=== PATIENT | female | born 1960 | race Caucasian/White ===

== ENCOUNTER 2021-10-25 22:43 | Inpatient (IN) | payer MEDICARE, MEDICAID, SELFPAY ==
--- NOTE | 2021-10-25 | ECG_ITS ---
Test Reason : SOB Blood Pressure : / mmHG Vent. Rate : 103 BPM Atrial Rate : 103 BPM P-R Int : 180 ms QRS Dur : 082 ms QT Int : 350 ms P-R-T Axes : 042 059 049 degrees QTc Int : 458 ms Artifact in tracing Sinus tachycardia Otherwise normal ECG No previous ECGs available Referred By: Generic ED Physician Electronically Signed By:MATTHEW CARRILLO
--- NOTE | ~2021-10-25 | XR_ITS ---
EXAMINATION: XR CHEST CLINICAL INFORMATION: Hypoxia COMPARISON: Previous chest x-ray most recent 10/26/2021 TECHNIQUE: Frontal view of the chest was obtained. FINDINGS: The cardiac silhouette is slightly enlarged. Hilar and mediastinal contours are unremarkable. There is improved aeration of the right lung compared to recent exams. There is scarring or subsegmental atelectasis in the right upper lung appears unchanged. There may be airspace disease at the lung bases, left greater than right. There is blunting at the bilateral costophrenic angles questionable for small bilateral pleural effusions. There are degenerative changes of the spine. XR/XR chest 1V IMPRESSION: Enlarged cardiac silhouette. Increased aeration of the right hemithorax compared to recent exams. Question bibasilar infiltrates, left greater than right.
--- NOTE | ~2021-10-25 | CT_ITS ---
EXAMINATION: CT HEAD WITHOUT CONTRAST CLINICAL INFORMATION: Altered mental status. Lethargic. COMPARISON: None TECHNIQUE: Contiguous axial imaging was performed from the skull base to vertex without intravenous administration of contrast. This CT examination was performed using dose optimization techniques as appropriate, variously including the following: *Automated exposure control *Adjustment of mA and/or kV according to patient size (this includes techniques or standardized protocols for targeted exams where dose is matched to indication/reason for exam; i.e. extremities or head) *Use of iterative reconstruction technique DLP: [id number] mGy-cm FINDINGS: There is no evidence of acute intracranial hemorrhage or territorial infarction. No abnormal mass effect or midline shift is seen. Foreman to white matter differentiation is well preserved. No extra-axial fluid collections are identified. The ventricles are normal in size. There is no abnormal attenuation within the brain parenchyma. The osseous structures and soft tissues are normal. Mild mucosal thickening present throughout the paranasal sinuses. Mastoid air cells are clear. CT/CT head/brain wo con IMPRESSION: No acute intracranial pathology.
--- NOTE | ~2021-10-25 | XR_ITS ---
EXAMINATION: XR CHEST CLINICAL INFORMATION: Hypoxia. Covid positive. COMPARISON: October 28, 2021 and October 26, 2021 TECHNIQUE: AP portable view of the chest was obtained. FINDINGS: The heart is enlarged. No evidence of pulmonary edema. Film is rotated making evaluation of mediastinum difficult. There appears to be increasing hazy density at the left base which may be related to increasing parenchymal disease or enlarging effusion. There is retrocardiac density consistent with left lower lobe consolidation. A small amount of residual right upper lobe disease is present. No pneumothorax. XR/XR chest 1V IMPRESSION: Cardiomegaly without evidence of pulmonary edema. Increasing density left lung base which appears be combination of airspace disease and effusion.
--- NOTE | ~2021-10-25 | XR_ITS ---
EXAMINATION: XR CHEST CLINICAL INFORMATION: Pneumonia. COVID. COMPARISON: 10/25/2021 TECHNIQUE: Frontal view of the chest was obtained. XR/XR chest 1V FINDINGS/IMPRESSION: Once again, the patient is rotated rightward limiting assessment. Left lung clear. Cardiac silhouette incompletely assessed. Small right pleural effusion suspected. No pneumothorax.
--- NOTE | ~2021-10-25 | XR_ITS ---
EXAMINATION: XR CHEST CLINICAL INFORMATION: Hypoxia. COMPARISON: SOB TECHNIQUE: Frontal view of the chest was obtained. FINDINGS: The lungs are hypoexpanded with patchy left basilar atelectasis. Rest lungs are clear. The heart size and pulmonary vascularity is normal. No gross bony abnormality seen. XR/XR chest 1V IMPRESSION: Patchy atelectatic changes left lung base.
--- NOTE | ~2021-10-25 | XR_ITS ---
EXAMINATION: XR CHEST CLINICAL INFORMATION: Dyspnea. COMPARISON: None TECHNIQUE: AP view of the chest was obtained. XR/XR chest 1V FINDINGS/IMPRESSION: Examination is essentially nondiagnostic due to suboptimal patient's positioning. Per technologist, the patient was unable to hold appropriate positioning during the study. The cardiomediastinal silhouette obscures the right lung. The left lung appears clear. Recommend repeat examination if clinically indicated.
[2021-10-25 22:54] VITALS: BP 124/60; BP 140/68; PULSE 103; PULSE 86; RESP 25; TEMP 37; O2SAT 96; O2SAT 97; BMI 38.9
[2021-10-25 23:24] LABS: Glucose, Whole Blood 136 mg/dL (60-115)
[2021-10-25 23:35] LABS: MANUAL DIFF FLAG NO
[2021-10-25 23:36] LABS: Basophils Percent Auto 0.4 % (0-2); Eosinophils Absolute Auto 0.1 X10*3/uL (0.0-0.4); Eosinophils Percent Auto 2.4 % (0-4); Hematocrit 34.9 % (37.0-47.0); Hemoglobin 10.4 g/dl (12.0-16.0); Imm Gran Abs Auto 0.02 X10*3/uL (0.00-0.03); Imm Gran Pct Auto 0.4 % (0.0-0.4); Lymphocytes Absolute Auto 1.2 X10*3/uL (1.2-4.9); Lymphocytes Percent Auto 21.5 % (20-40); Mean Corpuscular HGB Conc 29.8 g/dl (31.0-35.0); Mean Corpuscular Hemoglobin 27.6 pg (27.0-33.0); Mean Corpuscular Volume 92.6 fL (80.0-98.0); Mean Platelet Volume 11.2 fL (9.4-12.3); Monocytes Absolute Auto 0.6 X10*3/uL (0.1-1.2); Monocytes Percent Auto 10.5 % (2-11); Neutrophils Absolute Auto 3.5 x10*3/uL (2.0-8.3); Neutrophils Percent Auto 64.8 % (45-73); Platelet Count 215 X10*3/uL (160-400); Red Blood Count 3.77 X10*6/uL (4.20-5.50); Red Cell Distribution Width 16.6 % (11.0-16.0); White Blood Count 5.5 X10*3/uL (4.8-10.8)
--- NOTE | 2021-10-25 23:36 | ED_ITS ---
HPI - SOB/Dyspnea General Chief Complaint: Dyspnea Stated Complaint: COVID + DIFFICULTY BREATHING Time Seen by Provider: 10/25/21 23:36 Source: EMS and RN notes reviewed Mode of arrival: EMS Limitations: altered mental status History of Present Illness HPI Narrative: Patient is 61 years old from [facility] with history of schizoaffective disorder type 2 diabetes chronic diastolic heart failure hypertension hyperlipidemia major depression already received 3 doses of COVID vaccine came from intermediate for increased shortness of breath was saturating high 70s at intermediate tested positive for COVID. On arrival patient was saturating 96% on 2 L of oxygen. Related Data Allergies Allergy/AdvReac Type Severity Reaction Status Date / Time chlorpromazine Allergy Unknown Verified 10/25/21 23:01 [From Thorazine] fluphenazine [From Prolixin] Allergy Unknown Verified 10/25/21 23:01 haloperidol [From Haldol] Allergy Unknown Verified 10/25/21 23:01 niacin Allergy Unknown Verified 10/25/21 23:01 thioridazine [From Mellaril] Allergy Unknown Verified 10/25/21 23:01 Review of Systems Review of Systems: Yes Unobtainable due to mental condition [facility] Social History Social History Advance Directives: No Physical Exam Vital Signs: Vital Signs: Last Vital Signs Temp 98.6 F 10/25/21 22:54 Pulse 101 H 10/26/21 00:08 Resp 24 H 10/26/21 00:08 BP 117/62 10/26/21 00:08 Pulse Ox 97 10/26/21 00:08 Oxygen Flow Rate 3 10/25/21 22:54 BMI result Body Mass Index 38.9 Appearance: Alert. Oriented X3. Mild respiratory distress lethargic Eyes: No pallor/ icterus ENT: Pharynx normal. Oral Mucosa moist Neck: Normal inspection. Neck supple. CVS: Normal heart rate and rhythm. Pulses normal. Respiratory: Moderate respiratory distress with bilateral rales and conducted sounds Equal air entry bilateral, ? Dextrocardia Abdomen: Soft and nontender. Bowel sounds are present, no mass palpable, no CVA tenderness Skin: Skin warm and dry. Normal skin color. Normal skin turgor. Extremities: No lower extremity edema. No calf tenderness Neuro: Oriented X 3. No motor deficit. MDM - SOB/Dyspnea Lab Data Result diagrams: 10/25/21 23:25 10/25/21 23:25 Labs: Lab Results 10/25/21 10/25/21 10/25/21 Range/Units 23:13 23:20 23:25 WBC 5.5 (4.8-10.8) X10*3/uL RBC 3.77 L (4.20-5.50) X10*6/uL Hgb 10.4 L (12.0-16.0) g/dl Hct 34.9 L (37.0-47.0) % MCV 92.6 (80.0-98.0) fL MCH 27.6 (27.0-33.0) pg MCHC 29.8 L (31.0-35.0) g/dl RDW 16.6 H (11.0-16.0) % Plt Count 215 (160-400) X10*3/uL MPV 11.2 (9.4-12.3) fL Immature Gran % (Auto) 0.4 (0.0-0.4) % Neut % (Auto) 64.8 (45-73) % Lymph % (Auto) 21.5 (20-40) % [place] % (Auto) 10.5 (2-11) % Eos % (Auto) 2.4 (0-4) % Baso % (Auto) 0.4 (0-2) % Lymph # (Auto) 1.2 (1.2-4.9) X10*3/uL [place] # (Auto) 0.6 (0.1-1.2) X10*3/uL Eos # (Auto) 0.1 (0.0-0.4) X10*3/uL Baso # (Auto) 0.0 (0.0-0.2) X10*3/uL Abs Immat Gran (auto) 0.02 (0.00-0.03) X10*3/uL Absolute Neuts (auto) 3.5 (2.0-8.3) x10*3/uL Absolute Nucleated RBC 0.000 (0.0-0.012) X10*3/uL Nucleated RBC % (auto) 0.0 (0.0-0.2) /100WBC Sodium (135-145) mmol/L Potassium (3.3-5.1) mmol/L Chloride (96-108) mmol/L Carbon Dioxide (22-29) mmol/L Anion Gap (12-20) BUN (9-16) mg/dL Creatinine (0.5-1.4) mg/dL Estim Creat Clear Calc Estimated GFR POC Glucose 136 H (60-115) mg/dL Random Glucose (60-115) mg/dL Lactic Acid (0.5-2.0) mmol/L Calcium (8.4-10.2) mg/dL Total Bilirubin (0.0-1.0) mg/dL AST (5-31) U/L ALT (0-31) U/L Alkaline Phosphatase (39-117) U/L Troponin I High Sens (<3.5-17.0) ng/L B-Natriuretic Peptide (<100) pg/mL Total Protein (6.5-8.0) g/dL Albumin (3.5-5.0) g/dL Urine Color Urine Appearance Urine pH (5.0-8.0) Ur Specific [place] (1.005-1.025) Urine Protein (NEG-TRACE) MG/DL Urine Glucose (UA) (NEG) MG/DL Urine Ketones (NEG) MG/DL Urine Blood (NEG) Urine Nitrite (NEG) Ur Leukocyte Esterase (NEG) Urine RBC (0) /HPF Urine WBC (0-4) /HPF Ur Squamous Epith Cells /LPF Urine Bacteria /LPF Granular Casts /LPF Urine Mucus /LPF COVID-19 (GONZALES) Positive A (Negative) COVID-19 Clin Com See Note 10/25/21 10/25/21 10/25/21 Range/Units 23:25 23:25 23:25 WBC (4.8-10.8) X10*3/uL RBC (4.20-5.50) X10*6/uL Hgb (12.0-16.0) g/dl Hct (37.0-47.0) % MCV (80.0-98.0) fL MCH (27.0-33.0) pg MCHC (31.0-35.0) g/dl RDW (11.0-16.0) % Plt Count (160-400) X10*3/uL MPV (9.4-12.3) fL Immature Gran % (Auto) (0.0-0.4) % Neut % (Auto) (45-73) % Lymph % (Auto) (20-40) % [place] % (Auto) (2-11) % Eos % (Auto) (0-4) % Baso % (Auto) (0-2) % Lymph # (Auto) (1.2-4.9) X10*3/uL [place] # (Auto) (0.1-1.2) X10*3/uL Eos # (Auto) (0.0-0.4) X10*3/uL Baso # (Auto) (0.0-0.2) X10*3/uL Abs Immat Gran (auto) (0.00-0.03) X10*3/uL Absolute Neuts (auto) (2.0-8.3) x10*3/uL Absolute Nucleated RBC (0.0-0.012) X10*3/uL Nucleated RBC % (auto) (0.0-0.2) /100WBC Sodium 140 (135-145) mmol/L Potassium 4.2 (3.3-5.1) mmol/L Chloride 102 (96-108) mmol/L Carbon Dioxide 29 (22-29) mmol/L Anion Gap 13 (12-20) BUN 23 H (9-16) mg/dL Creatinine 0.78 (0.5-1.4) mg/dL Estim Creat Clear Calc 90.4 Estimated GFR > 60 POC Glucose (60-115) mg/dL Random Glucose 155 H (60-115) mg/dL Lactic Acid 1.2 (0.5-2.0) mmol/L Calcium 9.4 (8.4-10.2) mg/dL Total Bilirubin 0.2 (0.0-1.0) mg/dL AST 17 (5-31) U/L ALT 11 (0-31) U/L Alkaline Phosphatase 66 (39-117) U/L Troponin I High Sens < 3.5 (<3.5-17.0) ng/L B-Natriuretic Peptide 20 (<100) pg/mL Total Protein 6.2 L (6.5-8.0) g/dL Albumin 3.4 L (3.5-5.0) g/dL Urine Color Urine Appearance Urine pH (5.0-8.0) Ur Specific [place] (1.005-1.025) Urine Protein (NEG-TRACE) MG/DL Urine Glucose (UA) (NEG) MG/DL Urine Ketones (NEG) MG/DL Urine Blood (NEG) Urine Nitrite (NEG) Ur Leukocyte Esterase (NEG) Urine RBC (0) /HPF Urine WBC (0-4) /HPF Ur Squamous Epith Cells /LPF Urine Bacteria /LPF Granular Casts /LPF Urine Mucus /LPF COVID-19 (GONZALES) (Negative) COVID-19 Clin Com 10/25/21 Range/Units 23:35 WBC (4.8-10.8) X10*3/uL RBC (4.20-5.50) X10*6/uL Hgb (12.0-16.0) g/dl Hct (37.0-47.0) % MCV (80.0-98.0) fL MCH (27.0-33.0) pg MCHC (31.0-35.0) g/dl RDW (11.0-16.0) % Plt Count (160-400) X10*3/uL MPV (9.4-12.3) fL Immature Gran % (Auto) (0.0-0.4) % Neut % (Auto) (45-73) % Lymph % (Auto) (20-40) % [place] % (Auto) (2-11) % Eos % (Auto) (0-4) % Baso % (Auto) (0-2) % Lymph # (Auto) (1.2-4.9) X10*3/uL [place] # (Auto) (0.1-1.2) X10*3/uL Eos # (Auto) (0.0-0.4) X10*3/uL Baso # (Auto) (0.0-0.2) X10*3/uL Abs Immat Gran (auto) (0.00-0.03) X10*3/uL Absolute Neuts (auto) (2.0-8.3) x10*3/uL Absolute Nucleated RBC (0.0-0.012) X10*3/uL Nucleated RBC % (auto) (0.0-0.2) /100WBC Sodium (135-145) mmol/L Potassium (3.3-5.1) mmol/L Chloride (96-108) mmol/L Carbon Dioxide (22-29) mmol/L Anion Gap (12-20) BUN (9-16) mg/dL Creatinine (0.5-1.4) mg/dL Estim Creat Clear Calc Estimated GFR POC Glucose (60-115) mg/dL Random Glucose (60-115) mg/dL Lactic Acid (0.5-2.0) mmol/L Calcium (8.4-10.2) mg/dL Total Bilirubin (0.0-1.0) mg/dL AST (5-31) U/L ALT (0-31) U/L Alkaline Phosphatase (39-117) U/L Troponin I High Sens (<3.5-17.0) ng/L B-Natriuretic Peptide (<100) pg/mL Total Protein (6.5-8.0) g/dL Albumin (3.5-5.0) g/dL Urine Color YELLOW Urine Appearance HAZY Urine pH 6.0 (5.0-8.0) Ur Specific [place] 1.020 (1.005-1.025) Urine Protein NEG (NEG-TRACE) MG/DL Urine Glucose (UA) NEG (NEG) MG/DL Urine Ketones NEG (NEG) MG/DL Urine Blood NEG (NEG) Urine Nitrite POS H (NEG) Ur Leukocyte Esterase 1+ H (NEG) Urine RBC 0-2 (0) /HPF Urine WBC 15-29 H (0-4) /HPF Ur Squamous Epith Cells TRACE /LPF Urine Bacteria 3+ /LPF Granular Casts 0-2 /LPF Urine Mucus TRACE /LPF COVID-19 (GONZALES) (Negative) COVID-19 Clin Com Discharge Plan Discharge Clinical Impression: Acute respiratory disease due to COVID-19 virus UTI (urinary tract infection) Qualifiers: Urinary tract infection type: acute cystitis Hematuria presence: without hematuria Qualified Code(s): N30.00 - Acute cystitis without hematuria Patient Disposition: Admitted As Inpatient
[2021-10-25 23:43] LABS: COVID-19 Test Positive (Negative)
[2021-10-25 23:49] LABS: Lactic Acid 1.2 mmol/L (0.5-2.0)
[2021-10-25 23:49] LABS: Appearance Urine HAZY; Color Urine YELLOW; Glucose Urine UA NEG (NEG); Leukocyte Esterase Urine 1+ (NEG); Nitrite Urine POS (NEG); UACC Culture Trigger YES; Urine Blood NEG (NEG); Urine Ketones NEG (NEG); Urine Protein NEG (NEG-TRACE)
[2021-10-25 23:54] LABS: Alanine Aminotransferase 11 U/L (0-31); Albumin Level 3.4 g/dL (3.5-5.0); Alkaline Phosphatase 66 U/L (39-117); Anion Gap 13 (12-20); Aspartate Amino Transferase 17 U/L (5-31); Bilirubin Total 0.2 mg/dL (0.0-1.0); Blood Urea Nitrogen 23 mg/dL (9-16); Calcium 9.4 mg/dL (8.4-10.2); Carbon Dioxide 29 mmol/L (22-29); Chloride 102 mmol/L (96-108); Creatinine Clr Calc Pharmacy 90.4; Estimated Glomerular Filt Rate > 60; Glucose Random 155 mg/dL (60-115); Potassium 4.2 mmol/L (3.3-5.1); Sodium 140 mmol/L (135-145); Total Protein 6.2 g/dL (6.5-8.0)
[2021-10-25 23:57] LABS: B Type Natriuretic Peptide 20 pg/mL (<100); Troponin-I High Sensitivity < 3.5 ng/L (<3.5-17.0)
[2021-10-26] VITALS (10 sets, daily range): BP systolic 98–130; BP diastolic 60–74; PULSE 91–108; RESP 11–27; TEMP 36.2–37.3; O2SAT 92–97
[2021-10-26 00:15] LABS: Bacteria Urine 3+ /LPF; Granular Casts Urine 0-2 /LPF; Mucus Urine TRACE /LPF; RBC Urine 0-2 /HPF (0); Squamous Epithelial Cell Urine TRACE /LPF
[2021-10-26] MEDS: cefTRIAXone sodium 1 GM in 0.9 % Sodium Chloride 50 ML IV (00:38)
[2021-10-26] MEDS: Doxycycline Hyclate 100 MG in 0.9 % Sodium Chloride 250 ML 166.67 MG IV (00:42)
[2021-10-26] MEDS: dexAMETHasone sod phosphate 4 MG/ML VIAL 6 MG IVPUSH ×2 (01:45→08:54)
--- NOTE | 2021-10-26 01:49 | P.HPHOSP_ITS ---
History of Present Illness Date of Service: 10/26/21 Chief Complaint: hypoxia 61-year-old female with past medical history of schizoaffective disorder, type 2 diabetes, diastolic heart failure, hypertension, hyperlipidemia, depression, comes from [facility] with increased left surgery as well as shortness of br eath and hypoxia in the 70s. Patient at this time is very somnolent, responds to sound but not answering any questions. Patient is vaccinated against COVID x3 with Pfizer. According to ED physician patient brought in from [facility] with increased shortness of breath saturating in the 70s. She was tested positive for COVID at the correction but unclear on what date. On arrival to the ED patient found to have a temp of 98.6?, heart rate of 103, respiratory rate of 25, blood pressure 124/60, satting 97% on 3 L of oxygen Labs are significant for WBC count of 5.5, hemoglobin of 10.4, hematocrit 34.9, BUN of 23, creatinine of 0.78, UA positive for nitrites and leukocyte Estrace as well as WBC, COVID-19 negative, chest x-ray showed left lung clear, poor exam but possible small right pleural effusion suspected. Patient will be admitted for further management unable to complete review of systems and past medical history per chart from correction Review of Systems Review of Systems: Yes Unobtainable due to mental condition and Unobtainable due to mental status [facility] Medical History (Updated 10/26/21 @ 06:26 by Bernardino Nash MD) Diabetes mellitus type 2 in obese Diastolic heart failure Hyperlipidemia Hypertension Schizoaffective disorder Social History Advance Directives: No Meds Allergies Allergy/AdvReac Type Severity Reaction Status Date / Time chlorpromazine Allergy Unknown Verified 10/25/21 23:01 [From Thorazine] fluphenazine [From Prolixin] Allergy Unknown Verified 10/25/21 23:01 haloperidol [From Haldol] Allergy Unknown Verified 10/25/21 23:01 niacin Allergy Unknown Verified 10/25/21 23:01 thioridazine [From Mellaril] Allergy Unknown Verified 10/25/21 23:01 Home Medications Medication Instructions Recorded Confirmed Last Taken Type acetaminophen 500 mg tablet 1,000 mg PO TID 10/26/21 10/26/21 Unknown History albuterol sulfate 90 mcg/actuation 2 inh INHALATION Q4H PRN 10/26/21 10/26/21 Unknown History aerosol inhaler ascorbic acid-ascorbate 15 ml PO DAILY 10/26/21 10/26/21 Unknown History calcium-ascorbate sod 500 mg/15 mL oral liquid aspirin 81 mg tablet 81 mg PO DAILY 10/26/21 10/26/21 Unknown History atorvastatin 20 mg tablet 20 mg PO BEDTIME 10/26/21 10/26/21 Unknown History clozapine 100 mg tablet 100 mg PO BEDTIME 10/26/21 10/26/21 Unknown History clozapine 25 mg tablet 25 mg PO DAILY 10/26/21 10/26/21 Unknown History fenofibrate 160 mg tablet 160 mg PO BEDTIME 10/26/21 10/26/21 Unknown History fluticasone furoate 200 1 inh INHALATION DAILY 10/26/21 10/26/21 Unknown History mcg-vilanterol 25 mcg/dose inhalation powder (Breo Ellipta) furosemide 20 mg tablet 20 mg PO DAILY 10/26/21 10/26/21 Unknown History lamotrigine 150 mg tablet 150 mg PO DAILY 10/26/21 10/26/21 Unknown History (Lamictal) lamotrigine 200 mg tablet 200 mg PO BEDTIME 10/26/21 10/26/21 Unknown History (Lamictal) levothyroxine 25 mcg tablet 25 mcg PO DAILY 10/26/21 10/26/21 Unknown History magnesium hydroxide 400 mg/5 mL 30 ml PO DAILY 10/26/21 10/26/21 Unknown History oral suspension (Milk of Magnesia) magnesium oxide 400 mg PO TID 10/26/21 10/26/21 Unknown History meloxicam 7.5 mg tablet 7.5 mg PO DAILY 10/26/21 10/26/21 Unknown History metformin 1,000 mg tablet 1,000 mg PO BID 10/26/21 10/26/21 Unknown History methenamine hippurate 1 gram tablet 1 g PO BID 10/26/21 10/26/21 Unknown History metoprolol tartrate 25 mg tablet 25 mg PO DAILY 10/26/21 10/26/21 Unknown Histor y omega-3 fatty acids-vitamin E 1 cap PO DAILY 10/26/21 10/26/21 Unknown History 1,000 mg capsule oxcarbazepine 600 mg tablet 600 mg PO BID 10/26/21 10/26/21 Unknown History perphenazine 16 mg tablet 16 mg PO TID 10/26/21 10/26/21 Unknown History polyethylene glycol 3350 17 gram 17 g PO DAILY 10/26/21 10/26/21 Unknown History oral powder packet tiotropium bromide 18 mcg capsule 1 cap INHALATION DAILY 10/26/21 10/26/21 Unknown History with inhalation device (Spiriva with HandiHaler) trihexyphenidyl 2 mg tablet 2 mg PO DAILY 10/26/21 10/26/21 Unknown History Physical Exam Vital Signs and Narrative: Vital Signs: Last Vital Signs Temp 98.6 F 10/25/21 22:54 Pulse 98 10/26/21 01:44 Resp 26 H 10/26/21 01:44 BP 98/68 10/26/21 01:44 Pulse Ox 97 10/26/21 01:44 Oxygen Flow Rate 3 10/25/21 22:54 BMI result Body Mass Index 38.9 Const: Other: somnolent , opens her eyes to verbal stimuli but does not respond General: no acute distress Eyes: Other: pinpoint pupils General: appearance normal, both eyes and all related structures Pupils: Equal, round and reactive pupils present Resp: Other: poor exam, difficult to assess as patient unable to follow exam comment Effort & Inspection: normal respiratory effort Cardio: Rate: regular rate Rhythm: regular rhythm GI: Palpation (GI): Soft to palpation Auscultation: normal bowel sounds Skin: General skin exam: no rashes or lesions noted Neuro: Cranial nerves: Yes Equal, round and reactive pupils present Extrem: General: Yes normal to inspection and Yes no pedal edema Results Labs CBC and Chem 7: 10/25/21 23:25 10/25/21 23:25 Labs: Laboratory Results - last 24 hr 10/25/21 10/25/21 10/25/21 23:13 23:20 23:25 MCV 92.6 MCH 27.6 MCHC 29.8 L RDW 16.6 H Plt Count 215 MPV 11.2 Immature Gran % (Auto) 0.4 Neut % (Auto) 64.8 Lymph % (Auto) 21.5 [place] % (Auto) 10.5 Eos % (Auto) 2.4 Baso % (Auto) 0.4 Lymph # (Auto) 1.2 [place] # (Auto) 0.6 Eos # (Auto) 0.1 Baso # (Auto) 0.0 Abs Immat Gran (auto) 0.02 Absolute Neuts (auto) 3.5 Absolute Nucleated RBC 0.000 Nucleated RBC % (auto) 0.0 Anion Gap Estim Creat Clear Calc Estimated GFR POC Glucose 136 H Random Glucose Lactic Acid Calcium Total Bilirubin AST ALT Alkaline Phosphatase Troponin I High Sens B-Natriuretic Peptide Total Protein Albumin Urine Color Urine Appearance Urine pH Ur Specific [place] Urine Protein Urine Glucose (UA) Urine Ketones Urine Blood Urine Nitrite Ur Leukocyte Esterase Urine RBC Urine WBC Ur Squamous Epith Cells Urine Bacteria Granular Casts Urine Mucus COVID-19 (GONZALES) Positive A COVID-19 Clin Com See Note 10/25/21 10/25/21 10/25/21 23:25 23:25 23:25 MCV MCH MCHC RDW Plt Count MPV Immature Gran % (Auto) Neut % (Auto) Lymph % (Auto) [place] % (Auto) Eos % (Auto) Baso % (Auto) Lymph # (Auto) [place] # (Auto) Eos # (Auto) Baso # (Auto) Abs Immat Gran (auto) Absolute Neuts (auto) Absolute Nucleated RBC Nucleated RBC % (auto) Anion Gap 13 Estim Creat Clear Calc 90.4 Estimated GFR > 60 POC Glucose Random Glucose 155 H Lactic Acid 1.2 Calcium 9.4 Total Bilirubin 0.2 AST 17 ALT 11 Alkaline Phosphatase 66 Troponin I High Sens < 3.5 B-Natriuretic Peptide 20 Total Protein 6.2 L Albumin 3.4 L Urine Color Urine Appearance Urine pH Ur Specific [place] Urine Protein Urine Glucose (UA) Urine Ketones Urine Blood Urine Nitrite Ur Leukocyte Esterase Urine RBC Urine WBC Ur Squamous Epith Cells Urine Bacteria Granular Casts Urine Mucus COVID-19 (GONZALES) COVID-19 Clin Com 10/25/21 23:35 MCV MCH MCHC RDW Plt Count MPV Immature Gran % (Auto) Neut % (Auto) Lymph % (Auto) [place] % (Auto) Eos % (Auto) Baso % (Auto) Lymph # (Auto) [place] # (Auto) Eos # (Auto) Baso # (Auto) Abs Immat Gran (auto) Absolute Neuts (auto) Absolute Nucleated RBC Nucleated RBC % (auto) Anion Gap Estim Creat Clear Calc Estimated GFR POC Glucose Random Glucose Lactic Acid Calcium Total Bilirubin AST ALT Alkaline Phosphatase Troponin I High Sens B-Natriuretic Peptide Total Protein Albumin Urine Color YELLOW Urine Appearance HAZY Urine pH 6.0 Ur Specific [place] 1.020 Urine Protein NEG Urine Glucose (UA) NEG Urine Ketones NEG Urine Blood NEG Urine Nitrite POS H Ur Leukocyte Esterase 1+ H Urine RBC 0-2 Urine WBC 15-29 H Ur Squamous Epith Cells TRACE Urine Bacteria 3+ Granular Casts 0-2 Urine Mucus TRACE COVID-19 (GONZALES) COVID-19 Clin Com Imaging Radiologist's Impressions: Impressions Chest X-Ray 10/26/21 00:02 FINDINGS/IMPRESSION: Examination is essentially nondiagnostic due to suboptimal patient's positioning. Per technologist, the patient was unable to hold appropriate positioning during the study. The cardiomediastinal silhouette obscures the right lung. The left lung appears clear. Recommend repeat examination if clinically indicated. Chest X-Ray 10/26/21 00:50 FINDINGS/IMPRESSION: Once again, the patient is rotated rightward limiting assessment. Left lung clear. Cardiac silhouette incompletely assessed. Small right pleural effusion suspected. No pneumothorax. Assessment and Plan (1) Acute respiratory disease due to COVID-19 virus: Status: Acute (2) UTI (urinary tract infection): Qualifiers: Hematuria presence: without hematuria Urinary tract infection type: acute cystitis Qualified Code(s): N30.00 - Acute cystitis without hematuria Status: Acute (3) Encephalopathy: Status: Acute (4) Sepsis: Status: Acute 61-year-old female with past medical history of schizoaffective disorder, hypertension, hyperlipidemia, diabetes presents to the hospital with hypoxia as well as increased lethargy and altered mental status # acute hypoxic respiratory failure - secondary to COVID-19 infection - reported to be hypoxic in the 70s at the correction - currently on 3 L of nasal cannula satting 93% - will treat with Decadron - monitor respiratory status # sepsis - tachycardia, tachypnea, no leukocytosis, afebrile - most likely secondary to UTI as well as COVID-19 infection - will treat with IV antibiotics - follow cultures # encephalopathy - most likely metabolic secondary to acute infection as well as hypoxia - noted to have pinpoint pupils on exam, given 0.4 mg of Narcan with no effect. - Will obtain head CT - will treat UTIs and oxygen supplement - follow mental status improvement # UTI - positive UA - IV antibiotics - follow cultures will hold p.o. medications at this time as patient not able to take any p.o. meds. Per records from [facility] patient is DNR DNI DVT prophylaxis: Lovenox Quality Stroke Does the patient have a stroke diagnosis?: No VTE Prior VTE?: No VTE Risk Level:: Medical - moderate - high VTE Device Contraindication: Treatment Not Indicated VTE Drug Contraindication: N/A - Med Ordered
--- NOTE | 2021-10-26 01:55 | PC.NURSE ---
per paperwork from facility, pt on thin liquids, ground foods.
[2021-10-26] MEDS: Enoxaparin Sodium 40 MG/0.4 ML SYRINGE SUBCUT (02:43)
--- NOTE | 2021-10-26 02:43 | PC.NURSE ---
Shanelle sanchez sup made aware of need for clozaril to dept. This RN awaiting med arrival
--- NOTE | 2021-10-26 03:07 | PC.NURSE ---
Addendum entered by Eun Sneed 10/26/21 03:11: Per BESS Nash to be collected Original Note: This RN to bedside to medicate with clozaril per orders. Pt very lethargic, minimally arousable to voice. Pt with equal, minimal strength bilaterally. Pt desat to 88% on 3L, 89% on 4L, increased to 5L NC at this time with sat 92%. This RN to notify Dr Nash.
--- NOTE | 2021-10-26 03:20 | PC.NURSE ---
elving collected and sent to lab for processing by this rn
[2021-10-26 03:35] LABS: VBG Base Excess 6.1 mmol/L; VBG HCO3 31 mmol/L (22-26); VBG pCO2 49 mmHg; VBG pH 7.41 (7.32-7.43); VBG pO2 98 mmHg
[2021-10-26 03:35] LABS: Venous Blood Gas Refer to POC result
--- NOTE | 2021-10-26 03:42 | PC.NURSE ---
Dr Nash made aware of pt's VBG results. Pt desat to 86-87% despite 5L NC. Dr Nash aware, requesting RT to bedside. This RN notified RT, informs RT that pt is minimally arousable and appears to be mouth breather. Per RT, plan for venti mask. This RN awaiting RT to bedside.
--- NOTE | 2021-10-26 04:10 | PC.NURSE ---
RT at bedside, placed pt on venti mask but was unsuccessful at bringing SpO2 sat up. RT placed pt on marte NC at this time at 15LPM
--- NOTE | 2021-10-26 04:53 | PC.NURSE ---
Dr Nash to bedside to assess pt. v/o 0.4mg narcan ivp. this rn medicated per v/o, no improvement in lethargy at this time. plan for head ct.
[2021-10-26] MEDS: Naloxone HCl 0.4 MG/ML VIAL IVPUSH (04:55)
--- NOTE | 2021-10-26 05:04 | PC.NURSE ---
yolanda aware of no effect from narcan
[2021-10-26 06:42] LABS: MANUAL DIFF FLAG NO
--- NOTE | 2021-10-26 06:45 | PC.NURSE ---
this rn holding 0630 med d/t extreme lethargy and fear that pt is unable to safely swallow pills at this time. Dr Nash aware, agreeable.
--- NOTE | 2021-10-26 06:46 | PC.NURSE ---
incontinence care provided, pt repositioned from R side to back in position of comfort.
[2021-10-26 07:06] LABS: Basophils Percent Auto 0.3 % (0-2); Eosinophils Percent Auto 0.7 % (0-4); Hemoglobin 10.7 g/dl (12.0-16.0); Imm Gran Abs Auto 0.03 X10*3/uL (0.00-0.03); Imm Gran Pct Auto 0.5 % (0.0-0.4); Lymphocytes Absolute Auto 0.6 X10*3/uL (1.2-4.9); Lymphocytes Percent Auto 10.1 % (20-40); Mean Corpuscular HGB Conc 29.7 g/dl (31.0-35.0); Mean Corpuscular Hemoglobin 27.4 pg (27.0-33.0); Mean Corpuscular Volume 92.1 fL (80.0-98.0); Mean Platelet Volume 11.8 fL (9.4-12.3); Monocytes Absolute Auto 0.2 X10*3/uL (0.1-1.2); Neutrophils Absolute Auto 5.1 x10*3/uL (2.0-8.3); Neutrophils Percent Auto 84.4 % (45-73); Platelet Count 210 X10*3/uL (160-400); Red Blood Count 3.91 X10*6/uL (4.20-5.50); Red Cell Distribution Width 16.6 % (11.0-16.0)
[2021-10-26 07:11] LABS: Anion Gap 14 (12-20); Blood Urea Nitrogen 19 mg/dL (9-16); Calcium 9.1 mg/dL (8.4-10.2); Carbon Dioxide 30 mmol/L (22-29); Chloride 102 mmol/L (96-108); Creatinine Clr Calc Pharmacy 100.8; Estimated Glomerular Filt Rate > 60; Glucose Random 244 mg/dL (60-115); Potassium 4.6 mmol/L (3.3-5.1); Sodium 141 mmol/L (135-145)
--- NOTE | 2021-10-26 07:27 | PHA.MEDREC ---
Pharmacy Consult ? Medication Reconciliation Nursing has completed the medication reconciliation. Pharmacy has reviewed the entries, several medications were entered incorrectly. I called the half-way to get an accurate medication list. I updated the clozapine, trihexyphenidyl, and metoprolol to the correct dosing.
[2021-10-26 07:48] LABS: Glucose, Whole Blood 220 mg/dL (60-115)
[2021-10-26] MEDS: Insulin Lispro 100 UNIT/ML 3 ML VIAL SUBCUT ×4 (08:53→22:03)
[2021-10-26] MEDS: Milk of Magnesia 30 ML ORAL.SUSP PO ×2 (08:54→08:58)
[2021-10-26] MEDS: 0.9 % Sodium Chloride Flush 3 ML SYRINGE IVFLUSH ×2 (08:54→17:08)
[2021-10-26] MEDS: Furosemide 20 MG TABLET PO (08:55)
[2021-10-26] MEDS: Magnesium Oxide 400 MG TABLET PO ×3 (08:55→22:01)
[2021-10-26] MEDS: metFORMIN HCl 1,000 MG TABLET 1000 MG PO ×2 (08:56→17:07)
[2021-10-26] MEDS: Aspirin 81 MG TAB.CHEW PO (08:56)
[2021-10-26] MEDS: Metoprolol Tartrate 12.5 MG HALFTAB PO (08:56)
[2021-10-26] MEDS: Levothyroxine Sodium 25 MCG TABLET PO (08:57)
--- NOTE | 2021-10-26 09:55 | PC.NURSE ---
pt's physch meds held until seen by psych per Dr. Nelson.
[2021-10-26] MEDS: lamoTRIgine 100 MG TABLET 150 MG PO (10:59)
[2021-10-26] MEDS: Trihexyphenidyl HCL 2 MG TABLET 4 MG PO (10:59)
[2021-10-26 12:36] LABS: Glucose, Whole Blood 177 mg/dL (60-115)
[2021-10-26] MEDS: Piperacillin Sodium/Tazobactam 3.375 GM in 0.9 % Sodium Chloride 50 ML IV ×2 (14:07→21:36)
--- NOTE | 2021-10-26 15:51 | PM.CNPUL ---
History of Present Illness History of Present Illness Consult date: 10/26/21 Chief complaint: Covid Hypoxia Narrative: This is a pulmonary consultation. The patient is a ?61-year-old female with past medical history of schizoaffective disorder, type 2 diabetes, diastolic heart failure, hypertension, hyperlipidemia, depression, comes from intermediate with increased left surgery as well as shortness of breath and hypoxia in the 70s.? Patient at this time is very somnolent, responds to sound but not answering any questions.? Patient is vaccinated against COVID x3 with [employer]. On arrival to the ED patient found to have a temp of 98.6?, heart rate of 103, respiratory rate of 25, blood pressure 124/60, satting 97% on 3 L of oxygen Labs are significant for WBC count of 5.5, hemoglobin of 10.4, hematocrit 34.9, BUN of 23, creatinine of 0.78, UA positive for nitrites and leukocyte Estrace as well as WBC, COVID-19 negative, chest x-ray showed left lung clear,? poor exam but possible small right pleural effusion suspected. While in the hospital her oxygen requirements have increased further. The patient does complaint of cough and shortness of breath. However she is a very poor historian. Review of Systems Constitutional: Constitutional: Denies night sweats ENT: Denies change in voice, Denies lip swelling, Denies mouth pain, Reports nasal congestion, Reports nasal discharge and Denies tongue swelling Cardiovascular: Cardiovascular: Denies chest pain and Reports dyspnea Respiratory: Respiratory: Reports cough and Reports dyspnea Gastrointestinal: Gastrointestinal: Denies abdominal pain Musculoskeletal: Musculoskeletal: Denies no additional musculoskeletal complaints Neurologic: Denies Neuro-related abnormal movements Psychiatric: Psychiatric: Denies no additional psychiatric complaints Hematologic/Lymphatic: Hematologic/Lymphatic: Denies easy bleeding and Denies lymphadenopathy Allergic/Immunologic: Allergic/Immunologic: Denies lip swelling and Denies tongue swelling ON LICENSE OF [facility] Past Medical History Medical History (Updated 10/26/21 @ 15:56 by Sawyer Cerna MD) Diabetes mellitus type 2 in obese Diastolic heart failure HCAP (healthcare-associated pneumonia) Hyperlipidemia Hypertension Pneumonia due to 2019-nCoV Schizoaffective disorder Social History Social History Patient Tobacco Use Status: Never used Tobacco Use of substances other than those prescribed or required for medical reasons: No Advance Directives: No Meds Allergies Allergy/AdvReac Type Severity Reaction Status Date / Time chlorpromazine Allergy Unknown Verified 10/25/21 23:01 [From Thorazine] fluphenazine [From Prolixin] Allergy Unknown Verified 10/25/21 23:01 haloperidol [From Haldol] Allergy Unknown Verified 10/25/21 23:01 niacin Allergy Unknown Verified 10/25/21 23:01 thioridazine [From Mellaril] Allergy Unknown Verified 10/25/21 23:01 Active Medications: Current Medications Acetaminophen (Acetaminophen 325 Mg Tablet) 650 mg PO Q6H PRN PRN Reason: Pain, Mild (Pain Scale 1-3) Albuterol Sulfate (Albuterol Sulfate 90 Mcg 8 Gm Inhaler) 2 puff INHALE Q4H PRN PRN Reason: Shortness Of Breath Or Wheezing Aspirin (Aspirin 81 Mg Tab.Chew) 81 mg PO DAILY [facility] Last Admin: 10/26/21 08:56 Dose: 81 mg Documented by: Atorvastatin Calcium (Atorvastatin Calcium 20 Mg Tablet) 20 mg PO BEDTIME [facility] Clozapine (Clozapine 25 Mg Tablet) 75 mg PO DAILY [facility] Last Admin: 10/26/21 09:20 Dose: Not Given Documented by: Clozapine (Clozapine 100 Mg Tablet) 300 mg PO BEDTIME [facility] Dexamethasone Sodium Phosphate (Dexamethasone Sod Phosphate 4 Mg/Ml Vial) 6 mg IVPUSH DAILY [facility] Last Admin: 10/26/21 08:54 Dose: 6 mg Documented by: Dextrose (Dextrose 50 % 25 Gm/50 Ml Syringe) 25 gm IVPUSH Q15M PRN; Protocol PRN Reason: per Hypoglycemia Standing Ord. Enoxaparin Sodium (Enoxaparin Sodium 40 Mg/0.4 Ml Syringe) 40 mg SUBCUT Q24H [facility] Last Admin: 10/26/21 02:43 Dose: 40 mg Documented by: Fenofibrate (Fenofibrate 160 Mg Tablet) 160 mg PO BEDTIME [facility] Furosemide (Furosemide 20 Mg Tablet) 20 mg PO DAILY [facility]; Protocol Last Admin: 10/26/21 08:55 Dose: 20 mg Documented by: Glucose (Glucose Gel 15 Gm Gel..Gram.) 15 gm PO Q15M PRN; Protocol PRN Reason: per Hypoglycemia Standing Ord. Piperacillin Sod/Tazobactam (Sod 3.375 gm/ Sodium Chloride) 50 mls @ 100 mls/hr IV Q6H [facility] Last Admin: 10/26/21 14:07 Dose: 100 mls/hr Documented by: Insulin Human Lispro (Insulin Lispro 100 Unit/Ml 3 Ml Vial) 0 unit SUBCUT QIDACHS [facility]; Protocol Last Admin: 10/26/21 14:07 Dose: 2 unit Documented by: Lamotrigine (Lamotrigine 100 Mg Tablet) 150 mg PO DAILY [facility] Last Admin: 10/26/21 10:59 Dose: 150 mg Documented by: Lamotrigine (Lamotrigine 100 Mg Tablet) 200 mg PO BEDTIME [facility] Levothyroxine Sodium (Levothyroxine Sodium 25 Mcg Tablet) 25 mcg PO DAILY@0630 [facility] Last Admin: 10/26/21 08:57 Dose: 25 mcg Documented by: Magnesium Hydroxide (Milk Of Magnesia 30 Ml Oral.Susp) 30 ml PO DAILY [facility] Last Admin: 10/26/21 08:58 Dose: 30 ml Documented by: Magnesium Oxide (Magnesium Oxide 400 Mg Tablet) 400 mg PO TID [facility] Last Admin: 10/26/21 08:55 Dose: 400 mg Documented by: Metformin HCl (Metformin Hcl 1,000 Mg Tablet) 1,000 mg PO BIDWM [facility] Last Admin: 10/26/21 08:56 Dose: 1,000 mg Documented by: Metoprolol Tartrate (Metoprolol Tartrate 12.5 Mg Halftab) 12.5 mg PO DAILY [facility]; Protocol Last Admin: 10/26/21 08:56 Dose: 12.5 mg Documented by: Non-Formulary Medication (Methenamine Hippurate) 1 gm PO BID [facility] Ondansetron HCl (Ondansetron Hcl 4 Mg/2 Ml Vial) 4 mg IVPUSH Q8H PRN PRN Reason: Nausea and Vomiting Oxcarbazepine (Oxcarbazepine 300 Mg Tablet) 600 mg PO BID [facility] Last Admin: 10/26/21 09:21 Dose: Not Given Documented by: Perphenazine (Perphenazine 8 Mg Tablet) 16 mg PO TID [facility] Last Admin: 10/26/21 09:21 Dose: Not Given Documented by: Polyethylene Glycol (Polyethylene Glycol 3350 17 Gm Powd.Pack) 17 gm PO DAILY [facility] Last Admin: 10/26/21 09:21 Dose: Not Given Documented by: Sodium Chloride (0.9 % Sodium Chloride Flush 3 Ml Syringe) 3 ml IVFLUSH QSHIFT [facility] Last Admin: 10/26/21 08:54 Dose: 3 ml Documented by: Tiotropium Reading (Tiotropium Reading 18 Mcg Cap.W.Dev) 1 puff INHALE DAILY [facility] Last Admin: 10/26/21 08:44 Dose: Not Given Documented by: Trihexyphenidyl HCl (Trihexyphenidyl Hcl 2 Mg Tablet) 4 mg PO DAILY [facility] Last Admin: 10/26/21 10:59 Dose: 4 mg Documented by: Home Medications Medication Instructions Recorded Confirmed Last Taken Type acetaminophen 500 mg tablet 1,000 mg PO TID 10/26/21 10/26/21 Unknown History albuterol sulfate 90 mcg/actuation 2 inh INHALATION Q4H PRN 10/26/21 10/26/21 Unknown History aerosol inhaler ascorbic acid-ascorbate 15 ml PO DAILY 10/26/21 10/26/21 Unknown History calcium-ascorbate sod 500 mg/15 mL oral liquid aspirin 81 mg tablet 81 mg PO DAILY 10/26/21 10/26/21 Unknown History atorvastatin 20 mg tablet 20 mg PO BEDTIME 10/26/21 10/26/21 Unknown History clozapine 100 mg tablet 300 mg PO BEDTIME 10/26/21 10/26/21 10/25/21 History clozapine 25 mg tablet 75 mg PO DAILY 10/26/21 10/26/21 10/25/21 History fenofibrate 160 mg tablet 160 mg PO BEDTIME 10/26/21 10/26/21 Unknown History fluticasone furoate 200 1 inh INHALATION DAILY 10/26/21 10/26/21 Unknown History mcg-vilanterol 25 mcg/dose inhalation powder (Breo Ellipta) furosemide 20 mg tablet 20 mg PO DAILY 10/26/21 10/26/21 Unknown History lamotrigine 150 mg tablet 150 mg PO DAILY 10/26/21 10/26/21 Unknown History (Lamictal) lamotrigine 200 mg tablet 200 mg PO BEDTIME 10/26/21 10/26/21 Unknown History (Lamictal) levothyroxine 25 mcg tablet 25 mcg PO DAILY 10/26/21 10/26/21 Unknown History magnesium hydroxide 400 mg/5 mL 30 ml PO DAILY 10/26/21 10/26/21 Unknown History oral suspension (Milk of Magnesia) magnesium oxide 400 mg PO TID 10/26/21 10/26/21 Unknown History meloxicam 7.5 mg tablet 7.5 mg PO DAILY 10/26/21 10/26/21 Unknown History metformin 1,000 mg tablet 1,000 mg PO BID 10/26/21 10/26/21 Unknown History methenamine hippurate 1 gram tablet 1 g PO BID 10/26/21 10/26/21 Unknown History metoprolol tartrate 25 mg tablet 12.5 mg PO DAILY 10/26/21 10/26/21 Unknown History omega-3 fatty acids-vitamin E 1 cap PO DAILY 10/26/21 10/26/21 Unknown History 1,000 mg capsule oxcarbazepine 600 mg tablet 600 mg PO BID 10/26/21 10/26/21 Unknown History perphenazine 16 mg tablet 16 mg PO TID 10/26/21 10/26/21 Unknown History polyethylene glycol 3350 17 gram 17 g PO DAILY 10/26/21 10/26/21 Unknown History oral powder packet tiotropium bromide 18 mcg capsule 1 cap INHALATION DAILY 10/26/21 10/26/21 Unknown History with inhalation device (Spiriva with HandiHaler) trihexyphenidyl 2 mg tablet 4 mg PO DAILY 10/26/21 10/26/21 Unknown History Physical Exam Vital Signs: Vital Signs: Last Vital Signs Temp 98.4 F 10/26/21 06:44 Pulse 91 10/26/21 09:07 Resp 11 L 10/26/21 09:07 BP 123/73 10/26/21 09:07 Pulse Ox 97 10/26/21 09:07 Oxygen Flow Rate 3 10/25/21 22:54 BMI result Body Mass Index 38.9 Const: General: alert Neck: Neck: Yes normal visual inspection, Yes full ROM and Yes no lymphadenopathy Chest: Chest palpation & inspection: normal inspection of the chest Resp: Auscultation: diminished lung sounds Cardio: Rate: regular rate Rhythm: regular rhythm Heart sounds: S1 normal heart sound present and S2 normal heart sound present GI: Palpation (GI): Soft to palpation and nontender Auscultation: normal bowel sounds Skin: General skin exam: rashes and/or lesions noted Results Laboratory Findings CBC and BMP: 10/26/21 06:35 10/26/21 06:35 Abnormal lab findings: Abnormal Labs 10/25/21 10/25/21 10/25/21 23:13 23:20 23:25 RBC 3.77 L Hgb 10.4 L Hct 34.9 L MCHC 29.8 L RDW 16.6 H Immature Gran % (Auto) Neut % (Auto) Lymph % (Auto) Lymph # (Auto) VBG HCO3 Carbon Dioxide BUN POC Glucose 136 H Random Glucose Total Protein Albumin Urine Nitrite Ur Leukocyte Esterase Urine WBC COVID-19 (GONZALES) Positive A 10/25/21 10/25/21 10/26/21 23:25 23:35 03:18 RBC Hgb Hct MCHC RDW Immature Gran % (Auto) Neut % (Auto) Lymph % (Auto) Lymph # (Auto) VBG HCO3 31 H Carbon Dioxide BUN 23 H POC Glucose Random Glucose 155 H Total Protein 6.2 L Albumin 3.4 L Urine Nitrite POS H Ur Leukocyte Esterase 1+ H Urine WBC 15-29 H COVID-19 (GONZALES) 10/26/21 10/26/21 10/26/21 06:35 06:35 07:43 RBC 3.91 L Hgb 10.7 L Hct 36.0 L MCHC 29.7 L RDW 16.6 H Immature Gran % (Auto) 0.5 H Neut % (Auto) 84.4 H Lymph % (Auto) 10.1 L Lymph # (Auto) 0.6 L VBG HCO3 Carbon Dioxide 30 H BUN 19 H POC Glucose 220 H Random Glucose 244 H Total Protein Albumin Urine Nitrite Ur Leukocyte Esterase Urine WBC COVID-19 (GONZALES) 10/26/21 12:09 RBC Hgb Hct MCHC RDW Immature Gran % (Auto) Neut % (Auto) Lymph % (Auto) Lymph # (Auto) VBG HCO3 Carbon Dioxide BUN POC Glucose 177 H Random Glucose Total Protein Albumin Urine Nitrite Ur Leukocyte Esterase Urine WBC COVID-19 (GONZALES) Assessment and Plan (1) Acute respiratory disease due to COVID-19 virus: Status: Acute (2) Pneumonia due to 2019-nCoV: Status: Acute (3) HCAP (healthcare-associated pneumonia): Status: Acute Continue Decadron In view of her worsening respiratory status with increased oxygenation an abnormal chest x-ray she will start remdesivir Broad-spectrum antibiotics to treat Hcap: Zosyn and doxycycline Continue oxygen supplementation to maintain a pulse ox above 90% Encourage awake proning Procedures Date of Service Date of Service: 10/26/21
--- NOTE | 2021-10-26 17:03 | PM.EVENT ---
Event Note Date of Service: 10/26/21 Event Note: Patient admitted for acute hypoxemic respiratory failure secondary to COVID infection vs hcap. sob sightly better , also seems more awake Physical exam: Please see H&P accept that unchanged. assessment plan: Continue as per H&P Toxic metabolic encephalopathy multifactorial:cute hypoxemic respiratory failure secondary to COVID infection vs hcap will start doxycycline and Zosyn for Hcap possibility. Also added remdesivir. Schizoaffective disorder: On multiple psych medications -added psych consult.
[2021-10-26 17:28] LABS: Glucose, Whole Blood 215 mg/dL (60-115)
[2021-10-26] MEDS: Remdesivir 200 MG in 0.9 % Sodium Chloride 210 ML 105 MG IV (18:14)
[2021-10-26 18:27] LABS: Glucose, Whole Blood 156 mg/dL (60-115)
--- NOTE | 2021-10-26 19:46 | PC.NURSE ---
Pt resting on stretcher in NAD, breathing with ease on humidified marte at 12lpm, vss. pt aaox4, much more awake than on arrival. inc are provided, purewick placed, pt padded with pillows to relieve coccyx pressure. pt stretcher in low locked position, rails raised, call mills within reach. red fall prevention socks on, red wrist band. pt remdesivir hanging at this time, once it's infused, pt to be medicated with abx
[2021-10-26 21:42] LABS: Glucose, Whole Blood 165 mg/dL (60-115)
--- NOTE | 2021-10-26 21:46 | PC.NURSE ---
pt provided phone to call friend, spoke with friend and states she's ready for bedtime. pt to be medicated per MAR with meds available at this time, awaiting additional meds from pharmacy.
[2021-10-26] MEDS: lamoTRIgine 100 MG TABLET 200 MG PO (22:01)
[2021-10-26] MEDS: Atorvastatin Calcium 20 MG TABLET PO (22:02)
[2021-10-26] MEDS: OXcarbazepine 300 MG TABLET 600 MG PO (22:02)
[2021-10-26] MEDS: Perphenazine 8 MG TABLET 16 MG PO (23:36)
[2021-10-26] MEDS: Fenofibrate 160 MG TABLET PO (23:36)
[2021-10-26] MEDS: cloZAPine 100 MG TABLET 300 MG PO (23:36)
[2021-10-27] VITALS (7 sets, daily range): BP systolic 94–106; BP diastolic 48–65; PULSE 85–110; RESP 16–27; TEMP 35.8–37.6; O2SAT 93–97
[2021-10-27] MEDS: Piperacillin Sodium/Tazobactam 3.375 GM in 0.9 % Sodium Chloride 50 ML IV ×4 (02:36→22:21)
[2021-10-27] MEDS: Enoxaparin Sodium 40 MG/0.4 ML SYRINGE SUBCUT (02:52)
--- NOTE | 2021-10-27 04:18 | PC.NURSE ---
Pt requiring inc care as purewick was no longer in place. inc care provided, pt repositioned to R side for skin precautions. pt offers no complaints/concerns at this time. vss on supplemental O2.
[2021-10-27 07:26] LABS: Glucose, Whole Blood 160 mg/dL (60-115)
[2021-10-27 08:08] LABS: Hematocrit 33.8 % (37.0-47.0); Mean Corpuscular HGB Conc 29.6 g/dl (31.0-35.0); Mean Corpuscular Hemoglobin 27.2 pg (27.0-33.0); Mean Corpuscular Volume 91.8 fL (80.0-98.0); Mean Platelet Volume 11.5 fL (9.4-12.3); Platelet Count 177 X10*3/uL (160-400); Red Blood Count 3.68 X10*6/uL (4.20-5.50); Red Cell Distribution Width 16.4 % (11.0-16.0); White Blood Count 5.4 X10*3/uL (4.8-10.8)
[2021-10-27] MEDS: Aspirin 81 MG TAB.CHEW PO (08:10)
[2021-10-27] MEDS: Metoprolol Tartrate 12.5 MG HALFTAB PO (08:10)
[2021-10-27] MEDS: Furosemide 20 MG TABLET PO (08:11)
[2021-10-27] MEDS: Perphenazine 8 MG TABLET 16 MG PO ×3 (08:12→23:17)
[2021-10-27] MEDS: metFORMIN HCl 1,000 MG TABLET 1000 MG PO (08:12)
[2021-10-27] MEDS: dexAMETHasone sod phosphate 4 MG/ML VIAL 6 MG IVPUSH (08:14)
--- NOTE | 2021-10-27 08:16 | HO.PM.IMPN ---
Subjective Subjective Date of Service: 10/27/21 Interval History: covid Review of Systems sob seems slightly improving Physical Exam Vital Signs: Vital Signs: Last Vital Signs Temp 99.6 F 10/27/21 04:00 Pulse 102 H 10/27/21 07:21 Resp 26 H 10/27/21 07:21 BP 94/48 L 10/27/21 07:21 Pulse Ox 95 10/27/21 07:21 Oxygen Flow Rate 3 10/25/21 22:54 BMI result Body Mass Index 38.9 physical exam : Appearance: Alert.? Oriented X3.awake but wants to sleep -says ''my nap time ? Eyes: Pupils equal, round and reactive to light.? Sclera nonicteric.? ENT: Pharynx normal.? Moist mucous membranes. cvs: rrr, [id number] , no murmur res: clear to auscultation ,no rhonchii or wheezing abd: no rebound or guarding ,nt, bs present. ext pulses present , no cyanosis . neuro: axo3 , nonfocal. Objective Data Active Medications Acetaminophen (Acetaminophen 325 Mg Tablet) 650 mg PO Q6H PRN PRN Reason: Pain, Mild (Pain Scale 1-3) Albuterol Sulfate (Albuterol Sulfate 90 Mcg 8 Gm Inhaler) 2 puff INHALE Q4H PRN PRN Reason: Shortness Of Breath Or Wheezing Aspirin (Aspirin 81 Mg Tab.Chew) 81 mg PO DAILY [facility] Last Admin: 10/27/21 08:10 Dose: 81 mg Documented by: ANGIE Atorvastatin Calcium (Atorvastatin Calcium 20 Mg Tablet) 20 mg PO BEDTIME [facility] Last Admin: 10/26/21 22:02 Dose: 20 mg Documented by: ABDOUL Clozapine (Clozapine 25 Mg Tablet) 75 mg PO DAILY [facility] Last Admin: 10/26/21 09:20 Dose: Not Given Documented by: EVY Non-Admin Reason: Physician Held Med Clozapine (Clozapine 100 Mg Tablet) 300 mg PO BEDTIME [facility] Last Admin: 10/26/21 23:36 Dose: 300 mg Documented by: ABDOUL Dexamethasone Sodium Phosphate (Dexamethasone Sod Phosphate 4 Mg/Ml Vial) 6 mg IVPUSH DAILY [facility] Last Admin: 10/27/21 08:14 Dose: 6 mg Documented by: ANGIE Dextrose (Dextrose 50 % 25 Gm/50 Ml Syringe) 25 gm IVPUSH Q15M PRN; Protocol PRN Reason: per Hypoglycemia Standing Ord. Enoxaparin Sodium (Enoxaparin Sodium 40 Mg/0.4 Ml Syringe) 40 mg SUBCUT Q24H [facility] Last Admin: 10/27/21 02:52 Dose: 40 mg Documented by: OCTAVIANO Fenofibrate (Fenofibrate 160 Mg Tablet) 160 mg PO BEDTIME [facility] Last Admin: 10/26/21 23:36 Dose: 160 mg Documented by: ABDOUL Furosemide (Furosemide 20 Mg Tablet) 20 mg PO DAILY [facility]; Protocol Last Admin: 10/27/21 08:11 Dose: 20 mg Documented by: ANGIE Glucose (Glucose Gel 15 Gm Gel..Gram.) 15 gm PO Q15M PRN; Protocol PRN Reason: per Hypoglycemia Standing Ord. Piperacillin Sod/Tazobactam (Sod 3.375 gm/ Sodium Chloride) 50 mls @ 100 mls/hr IV Q6H [facility] Last Infusion: 10/27/21 03:56 Dose: 0 mls/hr Documented by: ABDOUL Remdesivir 100 mg/ Sodium (Chloride) 230 mls @ 115 mls/hr IV Q24H [facility] Stop: 10/30/21 19:59 Insulin Human Lispro (Insulin Lispro 100 Unit/Ml 3 Ml Vial) 0 unit SUBCUT QIDACHS [facility]; Protocol Last Admin: 10/26/21 22:03 Dose: 2 unit Documented by: ABDOUL Lamotrigine (Lamotrigine 100 Mg Tablet) 150 mg PO DAILY [facility] Last Admin: 10/26/21 10:59 Dose: 150 mg Documented by: EVY Lamotrigine (Lamotrigine 100 Mg Tablet) 200 mg PO BEDTIME [facility] Last Admin: 10/26/21 22:01 Dose: 200 mg Documented by: ABDOUL Levothyroxine Sodium (Levothyroxine Sodium 25 Mcg Tablet) 25 mcg PO DAILY@0630 [facility] Last Admin: 10/26/21 08:57 Dose: 25 mcg Documented by: EVY Magnesium Hydroxide (Milk Of Magnesia 30 Ml Oral.Susp) 30 ml PO DAILY [facility] Last Admin: 10/26/21 08:58 Dose: 30 ml Documented by: EVY Magnesium Oxide (Magnesium Oxide 400 Mg Tablet) 400 mg PO TID [facility] Last Admin: 10/26/21 22:01 Dose: 400 mg Documented by: ABDOUL Metformin HCl (Metformin Hcl 1,000 Mg Tablet) 1,000 mg PO BIDWM [facility] Last Admin: 10/27/21 08:12 Dose: 1,000 mg Documented by: ANGIE Metoprolol Tartrate (Metoprolol Tartrate 12.5 Mg Halftab) 12.5 mg PO DAILY [facility]; Protocol Last Admin: 10/27/21 08:10 Dose: 12.5 mg Documented by: ANGIE Non-Formulary Medication (Methenamine Hippurate) 1 gm PO BID [facility] Ondansetron HCl (Ondansetron Hcl 4 Mg/2 Ml Vial) 4 mg IVPUSH Q8H PRN PRN Reason: Nausea and Vomiting Oxcarbazepine (Oxcarbazepine 300 Mg Tablet) 600 mg PO BID [facility] Last Admin: 10/26/21 22:02 Dose: 600 mg Documented by: ABDOUL Perphenazine (Perphenazine 8 Mg Tablet) 16 mg PO TID [facility] Last Admin: 10/27/21 08:12 Dose: 16 mg Documented by: ANGIE Polyethylene Glycol (Polyethylene Glycol 3350 17 Gm Powd.Pack) 17 gm PO DAILY [facility] Last Admin: 10/26/21 09:21 Dose: Not Given Documented by: EVY Non-Admin Reason: Patient Refused Sodium Chloride (0.9 % Sodium Chloride Flush 3 Ml Syringe) 3 ml IVFLUSH QSHIFT [facility] Last Admin: 10/26/21 23:37 Dose: Not Given Documented by: ABDOUL Non-Admin Reason: Med Not Available Tiotropium [place] (Tiotropium [place] 18 Mcg Cap.W.Dev) 1 puff INHALE DAILY [facility] Last Admin: 10/26/21 08:44 Dose: Not Given Documented by: VJ Non-Admin Reason: Med Not Available Trihexyphenidyl HCl (Trihexyphenidyl Hcl 2 Mg Tablet) 4 mg PO DAILY [facility] Last Admin: 10/26/21 10:59 Dose: 4 mg Documented by: EVY Labs CBC & Chem 7: 10/27/21 07:50 10/27/21 07:50 Labs: Laboratory Results - last 24 hr 10/26/21 10/26/21 10/26/21 12:09 16:19 18:24 MCV MCH MCHC RDW Plt Count MPV Absolute Nucleated RBC Nucleated RBC % (auto) POC Glucose 177 H 215 H 156 H 10/26/21 10/27/21 10/27/21 21:33 07:22 07:50 MCV 91.8 MCH 27.2 MCHC 29.6 L RDW 16.4 H Plt Count 177 MPV 11.5 Absolute Nucleated RBC 0.000 Nucleated RBC % (auto) 0.0 POC Glucose 165 H 160 H Microbiology Microbiology Results: Microbiology 10/25/21 23:42 Blood Culture - Preliminary Blood - Venous No growth after 24 hours. 10/25/21 23:25 Blood Culture - Preliminary Blood - Venous No growth after 24 hours. Assessment and Plan (1) HCAP (healthcare-associated pneumonia): Status: Acute (2) Pneumonia due to 2019-nCoV: Status: Acute (3) Sepsis: Status: Acute (4) Encephalopathy: Status: Acute Assessment and Plan: 61-year-old female with past medical history of schizoaffective disorder, hypertension,? hyperlipidemia, diabetes presents to the hospital with hypoxia as well as increased lethargy and altered mental status 1.? acute hypoxic respiratory failure-? secondary to COVID-19 infection vx hcap. vbg: yesterday ph seems fine Blood culture and urine culture pending. continue with Decadron,remdeesvir , doxy and zosyn, on 11liter oxygen,? monitor respiratory status 2.? sepsis(poa) -? tachycardia, tachypnea-seems improving over the day, no leukocytosis, afebrile -? most likely secondary to UTI as well as COVID-19 infection continue IV antibiotics 3. toxic metabolic encephalopathy - multifactorial probably related to sepsis/covid, hcap, uti also patient is on multiple psych medications CT head negative on admission -? will treat UTIs? and oxygen supplement seems slightly more awake/alert than yesterday spoke to psych for psych medication review. 4. UTI -? positive UA -? IV antibiotics -? follow cultures Quality Stroke Does the patient have a stroke diagnosis?: No VTE Prior VTE?: No VTE Risk Level:: Medical - moderate - high VTE Device Contraindication: Treatment Not Indicated VTE Drug Contraindication: N/A - Med Ordered
[2021-10-27 08:21] LABS: Anion Gap 12 (12-20); Blood Urea Nitrogen 21 mg/dL (9-16); Calcium 9.5 mg/dL (8.4-10.2); Carbon Dioxide 33 mmol/L (22-29); Chloride 100 mmol/L (96-108); Creatinine Clr Calc Pharmacy 102.3; Estimated Glomerular Filt Rate > 60; Glucose Random 178 mg/dL (60-115); Potassium 3.9 mmol/L (3.3-5.1); Sodium 141 mmol/L (135-145)
[2021-10-27] MEDS: OXcarbazepine 300 MG TABLET 600 MG PO ×2 (10:48→23:18)
[2021-10-27] MEDS: Magnesium Oxide 400 MG TABLET PO ×3 (10:49→23:18)
[2021-10-27] MEDS: cloZAPine 25 MG TABLET 75 MG PO (10:49)
[2021-10-27] MEDS: lamoTRIgine 100 MG TABLET 150 MG PO (10:49)
[2021-10-27] MEDS: 0.9 % Sodium Chloride Flush 3 ML SYRINGE IVFLUSH ×2 (10:58→18:45)
[2021-10-27 13:36] LABS: Glucose, Whole Blood 191 mg/dL (60-115)
[2021-10-27] MEDS: Insulin Lispro 100 UNIT/ML 3 ML VIAL SUBCUT (14:29)
[2021-10-27 15:45] LABS: Alanine Aminotransferase 10 U/L (0-31); Albumin Level 3.3 g/dL (3.5-5.0); Alkaline Phosphatase 46 U/L (39-117); Aspartate Amino Transferase 14 U/L (5-31); Bilirubin Direct < 0.2 mg/dL (0.0-0.5); Bilirubin Total 0.2 mg/dL (0.0-1.0); Total Protein 5.8 g/dL (6.5-8.0)
[2021-10-27 18:12] LABS: Glucose, Whole Blood 148 mg/dL (60-115)
[2021-10-27 18:29] LABS: Band Neutrophils Percent 18 % (3-5); Eosinophils Absolute Manual 0.2 X10*3/uL (0.0-0.4); Eosinophils Percent Manual 4 % (0-4); Lymphocytes Absolute Manual 0.4 X10*3/uL (1.2-4.9); Lymphocytes Percent Manual 8 % (20-40); Metamyelocytes Absolute 0.1 X10*3/uL; Metamyelocytes Percent 1 %; Monocytes Absolute Manual 0.2 X10*3/uL (0.1-1.2); Monocytes Percent Manual 3 % (2-11); Neutrophils Absolute Manual 4.5 X10*3/uL (2.0-8.3); Neutrophils Percent Manual 66 % (45-73)
[2021-10-27 18:31] LABS: Basophilic Stippling 1+ (0-2) /OIF; Polychromasia 1+ (0-2) /OIF; RBC Morphology NOTED
[2021-10-27 18:33] LABS: Large Platelet PRESENT; Platelet Estimate NORMAL (NORMAL); Platelet Morphology Comment NOTED; Toxic Vacuolation PRESENT
[2021-10-27] MEDS: Remdesivir 100 MG in 0.9 % Sodium Chloride 230 ML 115 MG IV (19:17)
--- NOTE | 2021-10-27 19:32 | PC.NURSE ---
patient awake/alert, turned/positioned to comfort, iv medications running per order, media monitor intact, call mills within reach, will continue to monitor.
--- NOTE | 2021-10-27 19:43 | PC.NURSE ---
called the floor to give report, pts nurse is getting 2 patients at the same time and will call back for this patient when he is able.
[2021-10-27 21:42] LABS: Glucose, Whole Blood 164 mg/dL (60-115)
[2021-10-27] MEDS: cloZAPine 100 MG TABLET 300 MG PO (23:17)
[2021-10-27] MEDS: Atorvastatin Calcium 20 MG TABLET PO (23:18)
[2021-10-27] MEDS: Fenofibrate 160 MG TABLET PO (23:18)
[2021-10-27] MEDS: lamoTRIgine 100 MG TABLET 200 MG PO (23:19)
[2021-10-27 23:22] LABS: Glucose, Whole Blood 135 mg/dL (60-115)
[2021-10-28] MEDS: Piperacillin Sodium/Tazobactam 3.375 GM in 0.9 % Sodium Chloride 50 ML IV ×4 (03:10→20:34)
[2021-10-28] MEDS: 0.9 % Sodium Chloride Flush 3 ML SYRINGE IVFLUSH ×4 (03:10→21:46)
[2021-10-28] MEDS: Enoxaparin Sodium 40 MG/0.4 ML SYRINGE SUBCUT (03:10)
[2021-10-28 03:15] VITALS: BP 131/70; PULSE 96; RESP 18; TEMP 36.6; O2SAT 93
[2021-10-28] MEDS: Levothyroxine Sodium 25 MCG TABLET PO (06:46)
[2021-10-28 06:54] LABS: Baso%MD 0.2 %; Eos%MD 2.8 %; Hematocrit 33.2 % (37.0-47.0); IG%MD 0.3 %; Lymph%MD 10.2 %; Mean Corpuscular HGB Conc 30.1 g/dl (31.0-35.0); Mean Corpuscular Hemoglobin 27.6 pg (27.0-33.0); Mean Corpuscular Volume 91.7 fL (80.0-98.0); Mean Platelet Volume 11.6 fL (9.4-12.3); Neut%MD 78.5 %; Platelet Count 176 X10*3/uL (160-400); Red Blood Count 3.62 X10*6/uL (4.20-5.50); Red Cell Distribution Width 16.3 % (11.0-16.0)
[2021-10-28 07:12] LABS: Anion Gap 13 (12-20); Blood Urea Nitrogen 23 mg/dL (9-16); Calcium 9.4 mg/dL (8.4-10.2); Carbon Dioxide 34 mmol/L (22-29); Chloride 99 mmol/L (96-108); Creatinine Clr Calc Pharmacy 105.3; Estimated Glomerular Filt Rate > 60; Glucose Random 194 mg/dL (60-115); Sodium 142 mmol/L (135-145)
[2021-10-28 07:40] LABS: Glucose, Whole Blood 166 mg/dL (60-115)
--- NOTE | 2021-10-28 07:54 | HO.PM.IMPN ---
Subjective Subjective Date of Service: 10/28/21 Interval History: covid pneumonia /hcap Review of Systems sob seems slightly improving menatl status seems improvin slightly than yesterday Physical Exam Vital Signs: Vital Signs: Last Vital Signs Temp 98 F 10/28/21 03:15 Pulse 96 10/28/21 03:15 Resp 18 10/28/21 03:15 BP 131/70 10/28/21 03:15 Pulse Ox 93 10/28/21 03:15 Oxygen Flow Rate 3 10/25/21 22:54 BMI result Body Mass Index 38.9 Appearance: Alert.? Oriented X3.awake but less sleepy.. cvs: rrr, [id number] , no murmur res: air entry seems improving, slightly diminshed at bases , few rhonchii abd: no rebound or guarding ,nt, bs present. ext pulses present , no cyanosis . neuro: axo3 , nonfocal. Objective Data Active Medications Acetaminophen (Acetaminophen 325 Mg Tablet) 650 mg PO Q6H PRN PRN Reason: Pain, Mild (Pain Scale 1-3) Albuterol Sulfate (Albuterol Sulfate 90 Mcg 8 Gm Inhaler) 2 puff INHALE Q4H PRN PRN Reason: Shortness Of Breath Or Wheezing Aspirin (Aspirin 81 Mg Tab.Chew) 81 mg PO DAILY [facility] Last Admin: 10/27/21 08:10 Dose: 81 mg Documented by: ANGIE Atorvastatin Calcium (Atorvastatin Calcium 20 Mg Tablet) 20 mg PO BEDTIME [facility] Last Admin: 10/27/21 23:18 Dose: 20 mg Documented by: JESSICA Clozapine (Clozapine 25 Mg Tablet) 75 mg PO DAILY [facility] Last Admin: 10/27/21 10:49 Dose: 75 mg Documented by: ANGIE Clozapine (Clozapine 100 Mg Tablet) 300 mg PO BEDTIME [facility] Last Admin: 10/27/21 23:17 Dose: 300 mg Documented by: JESSICA Dexamethasone Sodium Phosphate (Dexamethasone Sod Phosphate 4 Mg/Ml Vial) 6 mg IVPUSH DAILY [facility] Last Admin: 10/27/21 08:14 Dose: 6 mg Documented by: ANGIE Dextrose (Dextrose 50 % 25 Gm/50 Ml Syringe) 25 gm IVPUSH Q15M PRN; Protocol PRN Reason: per Hypoglycemia Standing Ord. Enoxaparin Sodium (Enoxaparin Sodium 40 Mg/0.4 Ml Syringe) 40 mg SUBCUT Q24H [facility] Last Admin: 10/28/21 03:10 Dose: 40 mg Documented by: JESSICA Fenofibrate (Fenofibrate 160 Mg Tablet) 160 mg PO BEDTIME [facility] Last Admin: 10/27/21 23:18 Dose: 160 mg Documented by: JESSICA Furosemide (Furosemide 20 Mg Tablet) 20 mg PO DAILY [facility]; Protocol Last Admin: 10/27/21 08:11 Dose: 20 mg Documented by: ANGIE Glucose (Glucose Gel 15 Gm Gel..Gram.) 15 gm PO Q15M PRN; Protocol PRN Reason: per Hypoglycemia Standing Ord. Piperacillin Sod/Tazobactam (Sod 3.375 gm/ Sodium Chloride) 50 mls @ 100 mls/hr IV Q6H [facility] Last Infusion: 10/28/21 04:47 Dose: 0 mls/hr Documented by: JESSICA Remdesivir 100 mg/ Sodium (Chloride) 230 mls @ 115 mls/hr IV Q24H [facility] Stop: 10/30/21 19:59 Last Infusion: 10/27/21 21:17 Dose: 0 mls/hr Documented by: MELY Insulin Human Lispro (Insulin Lispro 100 Unit/Ml 3 Ml Vial) 0 unit SUBCUT QIDACHS [facility]; Protocol Last Admin: 10/27/21 23:18 Dose: Not Given Documented by: JESSICA Non-Admin Reason: No Insulin Coverage Lamotrigine (Lamotrigine 100 Mg Tablet) 150 mg PO DAILY [facility] Last Admin: 10/27/21 10:49 Dose: 150 mg Documented by: ANGIE Lamotrigine (Lamotrigine 100 Mg Tablet) 200 mg PO BEDTIME [facility] Last Admin: 10/27/21 23:19 Dose: 200 mg Documented by: JESSICA Levothyroxine Sodium (Levothyroxine Sodium 25 Mcg Tablet) 25 mcg PO DAILY@0630 [facility] Last Admin: 10/28/21 06:46 Dose: 25 mcg Documented by: JESSICA Magnesium Hydroxide (Milk Of Magnesia 30 Ml Oral.Susp) 30 ml PO DAILY [facility] Last Admin: 10/26/21 08:58 Dose: 30 ml Documented by: EVY Magnesium Oxide (Magnesium Oxide 400 Mg Tablet) 400 mg PO TID [facility] Last Admin: 10/27/21 23:18 Dose: 400 mg Documented by: JESSICA Metformin HCl (Metformin Hcl 1,000 Mg Tablet) 1,000 mg PO BIDWM [facility] Last Admin: 10/27/21 08:12 Dose: 1,000 mg Documented by: ANGIE Metoprolol Tartrate (Metoprolol Tartrate 12.5 Mg Halftab) 12.5 mg PO DAILY [facility]; Protocol Last Admin: 10/27/21 08:10 Dose: 12.5 mg Documented by: ANGIE Non-Formulary Medication (Methenamine Hippurate) 1 gm PO BID [facility] Ondansetron HCl (Ondansetron Hcl 4 Mg/2 Ml Vial) 4 mg IVPUSH Q8H PRN PRN Reason: Nausea and Vomiting Oxcarbazepine (Oxcarbazepine 300 Mg Tablet) 600 mg PO BID [facility] Last Admin: 10/27/21 23:18 Dose: 600 mg Documented by: JESSICA Perphenazine (Perphenazine 8 Mg Tablet) 16 mg PO TID [facility] Last Admin: 10/27/21 23:17 Dose: 16 mg Documented by: JESSICA Polyethylene Glycol (Polyethylene Glycol 3350 17 Gm Powd.Pack) 17 gm PO DAILY [facility] Last Admin: 10/27/21 10:57 Dose: Not Given Documented by: ANGIE Non-Admin Reason: Patient Refused Sodium Chloride (0.9 % Sodium Chloride Flush 3 Ml Syringe) 3 ml IVFLUSH QSHIFT [facility] Last Admin: 10/28/21 03:10 Dose: 3 ml Documented by: JESSICA Tiotropium Erie (Tiotropium Erie 18 Mcg Cap.W.Dev) 1 puff INHALE DAILY [facility] Last Admin: 10/27/21 11:46 Dose: Not Given Documented by: MELY Non-Admin Reason: See Note Trihexyphenidyl HCl (Trihexyphenidyl Hcl 2 Mg Tablet) 4 mg PO DAILY [facility] Last Admin: 10/27/21 11:46 Dose: Not Given Documented by: MELY Non-Admin Reason: See Note Labs CBC & Chem 7: 10/28/21 06:31 10/28/21 06:31 Labs: Laboratory Results - last 24 hr 10/27/21 10/27/21 10/27/21 07:50 07:50 12:53 MCV 91.8 MCH 27.2 MCHC 29.6 L RDW 16.4 H Plt Count 177 MPV 11.5 Absolute Nucleated RBC 0.000 Nucleated RBC % (auto) 0.0 Neutrophils % (Manual) 66 Band Neutrophils % 18 H Lymphocytes % (Manual) 8 L Monocytes % (Manual) 3 Eosinophils % (Manual) 4 Metamyelocytes % 1 Abs Neuts (Manual) 4.5 Lymphocytes # (Manual) 0.4 L Monocytes # (Manual) 0.2 Eosinophils # (Manual) 0.2 Metamyelocytes # 0.1 Toxic Vacuolation PRESENT Platelet Estimate NORMAL Large Platelets PRESENT Plt Morphology Comment NOTED RBC Morphology NOTED Polychromasia 1+ (0-2) Basophilic Stippling 1+ (0-2) Anion Gap 12 Estim Creat Clear Calc 102.3 Estimated GFR > 60 POC Glucose 191 H Random Glucose 178 H Calcium 9.5 Total Bilirubin 0.2 Direct Bilirubin < 0.2 AST 14 ALT 10 Alkaline Phosphatase 46 D Total Protein 5.8 L Albumin 3.3 L 10/27/21 10/27/21 10/27/21 18:08 21:35 23:02 MCV MCH MCHC RDW Plt Count MPV Absolute Nucleated RBC Nucleated RBC % (auto) Neutrophils % (Manual) Band Neutrophils % Lymphocytes % (Manual) Monocytes % (Manual) Eosinophils % (Manual) Metamyelocytes % Abs Neuts (Manual) Lymphocytes # (Manual) Monocytes # (Manual) Eosinophils # (Manual) Metamyelocytes # Toxic Vacuolation Platelet Estimate Large Platelets Plt Morphology Comment RBC Morphology Polychromasia Basophilic Stippling Anion Gap Estim Creat Clear Calc Estimated GFR POC Glucose 148 H 164 H 135 H Random Glucose Calcium Total Bilirubin Direct Bilirubin AST ALT Alkaline Phosphatase Total Protein Albumin 10/28/21 10/28/21 10/28/21 06:31 06:31 07:32 MCV 91.7 MCH 27.6 MCHC 30.1 L RDW 16.3 H Plt Count 176 MPV 11.6 Absolute Nucleated RBC 0.000 Nucleated RBC % (auto) 0.0 Neutrophils % (Manual) Band Neutrophils % Lymphocytes % (Manual) Monocytes % (Manual) Eosinophils % (Manual) Metamyelocytes % Abs Neuts (Manual) Lymphocytes # (Manual) Monocytes # (Manual) Eosinophils # (Manual) Metamyelocytes # Toxic Vacuolation Platelet Estimate Large Platelets Plt Morphology Comment RBC Morphology Polychromasia Basophilic Stippling Anion Gap 13 Estim Creat Clear Calc 105.3 Estimated GFR > 60 POC Glucose 166 H Random Glucose 194 H Calcium 9.4 Total Bilirubin Direct Bilirubin AST ALT Alkaline Phosphatase Total Protein Albumin Microbiology Microbiology Results: Microbiology 10/25/21 23:42 Blood Culture - Preliminary Blood - Venous No growth after 48 hours. 10/25/21 23:25 Blood Culture - Preliminary Blood - Venous No growth after 48 hours. 10/25/21 Unknown Urine Culture - Final Urine Catheterized - Straight Catheter Assessment and Plan (1) HCAP (healthcare-associated pneumonia): Status: Acute (2) Pneumonia due to 2019-nCoV: Status: Acute (3) Sepsis: Status: Acute (4) Encephalopathy: Status: Acute Assessment and Plan: 61-year-old female with past medical history of schizoaffective disorder, hypertension,? hyperlipidemia, diabetes presents to the hospital with hypoxia as well as increased lethargy and altered mental status 1.? acute hypoxic respiratory failure-? secondary to COVID-19 infection vx hcap. ?vbg: ph seems,increase pco2 : 59 ? Blood culture and urine culture pending. ?continue with Decadron,remdeesvir , doxy and zosyn, on 15liter oxygen,? monitor respiratory status 2.? sepsis(poa) -? tachycardia, tachypnea-seems improving over the day, no leukocytosis, afebrile -? most likely secondary to UTI as well as COVID-19 infection continue IV antibiotics 3. toxic metabolic encephalopathy - multifactorial probably related to sepsis/covid, hcap, uti ?also patient is on multiple psych medications ?CT head negative on admission blood and urine culture neg-prelim -? will treat UTIs? and oxygen supplement ?seems slightly more awake/alert than yesterday spoke to psych for psych medication review. 4. UTI -? positive UA -? IV antibiotics -? follow cultures Quality Stroke Does the patient have a stroke diagnosis?: No VTE Prior VTE?: No VTE Risk Level:: Medical - moderate - high VTE Device Contraindication: Treatment Not Indicated VTE Drug Contraindication: N/A - Med Ordered
[2021-10-28 07:56] VITALS: BP 108/58; PULSE 97; RESP 20; TEMP 36.4; O2SAT 96
[2021-10-28 08:35] LABS: Band Neutrophils Percent 2 % (3-5); Eosinophils Absolute Manual 0.1 X10*3/uL (0.0-0.4); Eosinophils Percent Manual 1 % (0-4); Lymphocytes Absolute Manual 0.4 X10*3/uL (1.2-4.9); Lymphocytes Percent Manual 6 % (20-40); Metamyelocytes Absolute 0.1 X10*3/uL; Metamyelocytes Percent 1 %; Monocytes Absolute Manual 0.4 X10*3/uL (0.1-1.2); Monocytes Percent Manual 7 % (2-11); Neutrophils Absolute Manual 5.1 X10*3/uL (2.0-8.3); Neutrophils Percent Manual 83 % (45-73)
[2021-10-28 08:38] LABS: Large Platelet PRESENT
[2021-10-28 08:39] LABS: Basophilic Stippling 1+ (0-2) /OIF; Hypochromasia 1+ (5-14) /OIF
[2021-10-28 08:40] LABS: RBC Morphology NOTED
[2021-10-28 08:41] LABS: Microcytosis 1+ (5-14) /OIF
[2021-10-28 08:42] LABS: Platelet Estimate NORMAL (NORMAL); Platelet Morphology Comment NOTE
[2021-10-28] MEDS: Perphenazine 8 MG TABLET 16 MG PO ×3 (08:56→21:44)
[2021-10-28] MEDS: OXcarbazepine 300 MG TABLET 600 MG PO ×2 (08:56→21:42)
[2021-10-28] MEDS: Trihexyphenidyl HCL 2 MG TABLET 4 MG PO (08:56)
[2021-10-28] MEDS: Insulin Lispro 100 UNIT/ML 3 ML VIAL SUBCUT ×4 (08:57→21:44)
[2021-10-28] MEDS: Aspirin 81 MG TAB.CHEW PO (08:57)
[2021-10-28] MEDS: cloZAPine 25 MG TABLET 75 MG PO (08:57)
[2021-10-28] MEDS: polyethylene glycoL 3350 17 GM POWD.PACK PO (08:57)
[2021-10-28] MEDS: Milk of Magnesia 30 ML ORAL.SUSP PO (08:57)
[2021-10-28] MEDS: lamoTRIgine 100 MG TABLET 150 MG PO (08:59)
[2021-10-28] MEDS: Magnesium Oxide 400 MG TABLET PO ×3 (09:01→21:42)
[2021-10-28] MEDS: dexAMETHasone sod phosphate 4 MG/ML VIAL 6 MG IVPUSH (09:10)
[2021-10-28 11:13] LABS: Glucose, Whole Blood 201 mg/dL (60-115)
[2021-10-28 11:37] VITALS: BP 128/67; PULSE 98; RESP 28; TEMP 36.6; O2SAT 94
[2021-10-28 11:39] LABS: Venous Blood Gas Refer to POC result
[2021-10-28 11:40] LABS: VBG Base Excess 13.6 mmol/L; VBG HCO3 40 mmol/L (22-26); VBG pCO2 59 mmHg; VBG pH 7.43 (7.32-7.43); VBG pO2 104 mmHg
[2021-10-28] MEDS: Furosemide 20 MG/2 ML VIAL IVPUSH (14:10)
--- NOTE | 2021-10-28 14:32 | P.EN_ITS ---
Event Note Date of Service: 10/28/21 Event Note: This pattern chart writer was asked by Psychiatry on-call covering provider from weekend, to follow-up with patient today. Patient currently receives: clozapine 75mg daily clozapine 300mg at bedtime Lamictal 150 mg daily Lamictal to 100 mg at bedtime Oxcarbamazepine 600 mg b.i.d. Perphenazine 16 mg t.i.d. Note dated 10/26/2021 from pharmacy regarding med reconciliation completed. A review of confirmed home meds completed, including recent refills on current prescriptions. Calls placed to SNF, as well as provider Dr. Mindi Melvin, and Dr. Craig, awaiting call back. Most recent ANC = 5.1. This pattern chart writer contacted provider Dr. Colt Dc, with following recommendations: It appear she has been on these high doses of clozaril, trilafon, lamictal, and trileptal for at least a year. It appears that her O2 sat has been good as well as her respiratory rate has been high. Only worry regarding meds would be respiratory depression, but that does not appear to be the case right now. 1. Please obtain clozapine level. Thank you.
--- NOTE | 2021-10-28 15:34 | MHC.CM.PN ---
Patient admitted from [facility], where she is LTC patient, bed hold. Plan is to return there when stable for dc
[2021-10-28 15:56] VITALS: BP 124/61; PULSE 94; RESP 16; TEMP 36.3; O2SAT 93
[2021-10-28 16:22] LABS: Glucose, Whole Blood 332 mg/dL (60-115)
[2021-10-28] MEDS: Remdesivir 100 MG in 0.9 % Sodium Chloride 230 ML 115 MG IV (17:14)
[2021-10-28 20:00] VITALS: BP 126/56; PULSE 95; RESP 18; TEMP 36.2; O2SAT 15
[2021-10-28 21:18] LABS: Glucose, Whole Blood 200 mg/dL (60-115)
[2021-10-28] MEDS: Fenofibrate 160 MG TABLET PO (21:42)
[2021-10-28] MEDS: cloZAPine 100 MG TABLET 300 MG PO (21:43)
[2021-10-28] MEDS: Atorvastatin Calcium 20 MG TABLET PO (21:43)
[2021-10-28] MEDS: lamoTRIgine 100 MG TABLET 200 MG PO (21:44)
[2021-10-28 23:16] VITALS: BP 120/70; PULSE 96; RESP 18; TEMP 36.4; O2SAT 96
[2021-10-29] VITALS (11 sets, daily range): BP systolic 113–130; BP diastolic 59–70; PULSE 63–104; RESP 18–22; TEMP 36.1–36.8; O2SAT 90–96
[2021-10-29] MEDS: Piperacillin Sodium/Tazobactam 3.375 GM in 0.9 % Sodium Chloride 50 ML IV ×4 (02:45→20:18)
[2021-10-29] MEDS: Enoxaparin Sodium 40 MG/0.4 ML SYRINGE SUBCUT (03:28)
[2021-10-29] MEDS: Levothyroxine Sodium 25 MCG TABLET PO (05:57)
[2021-10-29 06:53] LABS: Baso%MD 0.2 %; Eos%MD 3.2 %; Hematocrit 34.6 % (37.0-47.0); Hemoglobin 10.4 g/dl (12.0-16.0); IG%MD 0.6 %; Lymph%MD 21.9 %; Mean Corpuscular HGB Conc 30.1 g/dl (31.0-35.0); Mean Corpuscular Hemoglobin 27.3 pg (27.0-33.0); Mean Corpuscular Volume 90.8 fL (80.0-98.0); Mean Platelet Volume 11.2 fL (9.4-12.3); Mono%MD 9.3 %; Neut%MD 64.8 %; Platelet Count 178 X10*3/uL (160-400); Red Blood Count 3.81 X10*6/uL (4.20-5.50); Red Cell Distribution Width 15.9 % (11.0-16.0); White Blood Count 4.7 X10*3/uL (4.8-10.8)
[2021-10-29 07:08] LABS: Anion Gap 11 (12-20); Blood Urea Nitrogen 16 mg/dL (9-16); Calcium 9.5 mg/dL (8.4-10.2); Carbon Dioxide 39 mmol/L (22-29); Chloride 98 mmol/L (96-108); Estimated Glomerular Filt Rate > 60; Glucose Random 166 mg/dL (60-115); Potassium 3.6 mmol/L (3.3-5.1); Sodium 144 mmol/L (135-145)
[2021-10-29 07:33] LABS: Band Neutrophils Percent 3 % (3-5); Basophils Percent Manual 1 % (0-2); Eosinophils Absolute Manual 0.1 X10*3/uL (0.0-0.4); Eosinophils Percent Manual 3 % (0-4); Lymphocytes Absolute Manual 1.1 X10*3/uL (1.2-4.9); Lymphocytes Percent Manual 24 % (20-40); Monocytes Absolute Manual 0.3 X10*3/uL (0.1-1.2); Monocytes Percent Manual 6 % (2-11); Neutrophils Absolute Manual 3.1 X10*3/uL (2.0-8.3); Neutrophils Percent Manual 63 % (45-73)
[2021-10-29 07:35] LABS: Polychromasia 1+ (0-2) /OIF; RBC Morphology NOTED
[2021-10-29 07:40] LABS: Basophilic Stippling 1+ (0-2) /OIF; Toxic Vacuolation PRESENT
[2021-10-29 07:41] LABS: Large Platelet PRESENT; Platelet Estimate NORMAL (NORMAL); Platelet Morphology Comment NOTED
[2021-10-29 07:47] LABS: Glucose, Whole Blood 166 mg/dL (60-115)
[2021-10-29] MEDS: Perphenazine 8 MG TABLET 16 MG PO ×3 (08:02→20:19)
[2021-10-29] MEDS: polyethylene glycoL 3350 17 GM POWD.PACK PO (08:02)
[2021-10-29] MEDS: dexAMETHasone sod phosphate 4 MG/ML VIAL 6 MG IVPUSH (08:02)
[2021-10-29] MEDS: Milk of Magnesia 30 ML ORAL.SUSP PO (08:02)
[2021-10-29] MEDS: Trihexyphenidyl HCL 2 MG TABLET 4 MG PO (08:03)
[2021-10-29] MEDS: cloZAPine 25 MG TABLET 75 MG PO (08:03)
[2021-10-29] MEDS: Magnesium Oxide 400 MG TABLET PO ×3 (08:03→20:20)
[2021-10-29] MEDS: Aspirin 81 MG TAB.CHEW PO (08:03)
[2021-10-29] MEDS: Insulin Lispro 100 UNIT/ML 3 ML VIAL SUBCUT ×4 (08:03→20:26)
[2021-10-29] MEDS: OXcarbazepine 300 MG TABLET 600 MG PO ×2 (08:03→20:20)
[2021-10-29] MEDS: 0.9 % Sodium Chloride Flush 3 ML SYRINGE IVFLUSH ×3 (08:04→20:26)
[2021-10-29] MEDS: lamoTRIgine 100 MG TABLET 150 MG PO (08:07)
[2021-10-29] MEDS: Albuterol/Iprat 2.5/0.5MG 3 ML AMPUL.NEB INHALE ×4 (08:15→21:18)
[2021-10-29 11:40] LABS: Glucose, Whole Blood 270 mg/dL (60-115)
[2021-10-29 14:58] LABS: VBG Base Excess 13.3 mmol/L; VBG HCO3 38 mmol/L (22-26); VBG pCO2 52 mmHg; VBG pH 7.47 (7.32-7.43); VBG pO2 95 mmHg
[2021-10-29 15:00] LABS: Venous Blood Gas Refer to POC result
--- NOTE | 2021-10-29 15:42 | PM.PNPUL ---
Subjective Subjective Date of Service: 10/29/21 Principal diagnosis: COVID hypoxic respiratory failure Interval history: 61-year-old lady with underlying schizoaffective disorder, diastolic heart failure obesity admitted with worsening dyspnea secondary to COVID-19 . Treated with dexamethasone. Now slowly improving with improving FiO2 requirements, But still requesting L via nasal cannula. Objective Data Labs CBC & Chem 7: 10/29/21 06:37 10/29/21 06:37 Labs: Laboratory Results - last 24 hr 10/28/21 10/28/21 10/29/21 15:58 21:08 06:37 WBC 4.7 L RBC 3.81 L Hgb 10.4 L Hct 34.6 L MCV 90.8 MCH 27.3 MCHC 30.1 L RDW 15.9 Plt Count 178 MPV 11.2 Absolute Nucleated RBC 0.000 Nucleated RBC % (auto) 0.0 Neutrophils % (Manual) 63 Band Neutrophils % 3 Lymphocytes % (Manual) 24 Monocytes % (Manual) 6 Eosinophils % (Manual) 3 Basophils % (Manual) 1 Abs Neuts (Manual) 3.1 Lymphocytes # (Manual) 1.1 L Monocytes # (Manual) 0.3 Eosinophils # (Manual) 0.1 Toxic Vacuolation PRESENT Platelet Estimate NORMAL Large Platelets PRESENT Plt Morphology Comment NOTED RBC Morphology NOTED Polychromasia 1+ (0-2) Basophilic Stippling 1+ (0-2) VBG pH VBG pCO2 VBG pO2 VBG HCO3 VBG O2 Saturation VBG Base Excess Sodium Potassium Chloride Carbon Dioxide Anion Gap BUN Creatinine Estim Creat Clear Calc Estimated GFR POC Glucose 332 H 200 H Random Glucose Calcium 10/29/21 10/29/21 10/29/21 06:37 07:38 11:31 WBC RBC Hgb Hct MCV MCH MCHC RDW Plt Count MPV Absolute Nucleated RBC Nucleated RBC % (auto) Neutrophils % (Manual) Band Neutrophils % Lymphocytes % (Manual) Monocytes % (Manual) Eosinophils % (Manual) Basophils % (Manual) Abs Neuts (Manual) Lymphocytes # (Manual) Monocytes # (Manual) Eosinophils # (Manual) Toxic Vacuolation Platelet Estimate Large Platelets Plt Morphology Comment RBC Morphology Polychromasia Basophilic Stippling VBG pH VBG pCO2 VBG pO2 VBG HCO3 VBG O2 Saturation VBG Base Excess Sodium 144 Potassium 3.6 Chloride 98 Carbon Dioxide 39 H Anion Gap 11 L BUN 16 Creatinine 0.63 Estim Creat Clear Calc 112.0 Estimated GFR > 60 POC Glucose 166 H 270 H Random Glucose 166 H Calcium 9.5 10/29/21 14:51 WBC RBC Hgb Hct MCV MCH MCHC RDW Plt Count MPV Absolute Nucleated RBC Nucleated RBC % (auto) Neutrophils % (Manual) Band Neutrophils % Lymphocytes % (Manual) Monocytes % (Manual) Eosinophils % (Manual) Basophils % (Manual) Abs Neuts (Manual) Lymphocytes # (Manual) Monocytes # (Manual) Eosinophils # (Manual) Toxic Vacuolation Platelet Estimate Large Platelets Plt Morphology Comment RBC Morphology Polychromasia Basophilic Stippling VBG pH 7.47 H VBG pCO2 52 VBG pO2 95 VBG HCO3 38 H VBG O2 Saturation 94.0 VBG Base Excess 13.3 Sodium Potassium Chloride Carbon Dioxide Anion Gap BUN Creatinine Estim Creat Clear Calc Estimated GFR POC Glucose Random Glucose Calcium Microbiology Microbiology Results: Microbiology 10/25/21 23:42 Blood - Venous Blood Culture - Preliminary No growth after 48 hours. 10/25/21 23:25 Blood - Venous Blood Culture - Preliminary No growth after 48 hours. 10/25/21 Unknown Urine Catheterized - Straight Catheter Urine Culture - Final Review of Systems Cardiovascular: Denies chest pain and Reports dyspnea Respiratory: Reports cough, Reports dyspnea and Denies wheezing Allergic/Immunologic: Denies wheezing Physical Exam Vital Signs: Vital Signs: Last Vital Signs Temp 98.0 F 10/29/21 15:28 Pulse 104 H 10/29/21 15:28 Resp 20 10/29/21 15:28 BP 130/69 10/29/21 15:28 Pulse Ox 94 10/29/21 15:28 Oxygen Flow Rate 3 10/25/21 22:54 BMI result Body Mass Index 38.9 Const: General: no acute distress, awake and other ( Confused) Nutritional Appearance: obese Eyes: Sclerae: sclerae normal EOM: EOMs intact bilaterally Neck: Neck: Yes no lymphadenopathy, Yes trachea midline and Yes supple Resp: Effort & Inspection: normal respiratory effort and no respiratory distress Auscultation: clear to auscultation bilaterally Cardio: Rate: tachycardic Rhythm: regular rhythm Heart sounds: no gallops, no murmurs and no rubs GI: Palpation (GI): Soft to palpation and Other GI palpation findings present ( Nontender) Auscultation: normal bowel sounds Extrem: General: No clubbing, No cyanosis and Yes pedal edema ( trace bilateral) Procedures Date of Service Date of Service: 10/29/21 Assessment and Plan Assessment and plan (1) Acute respiratory disease due to COVID-19 virus: Status: Acute (2) Acute respiratory failure with hypoxia: Status: Acute Assessment and Plan: Impression: 61-year-old lady with underlying diastolic dysfunction admitted with hypoxia secondary to COVID-19,treated with dexamethasone, improving slowly. Blood gas is reviewed evidence of CO2 retention, confusion is likely related to underlying psychiatric issues. Recommendation: Agree with current regimen of dexamethasone and titrating her supplemental oxygen as tolerated. Time Spent With Patient Time: Total time spent is greater than 50% in coordination of care (as documented) at patient's floor/unit and/or counseling patient: Time with patient: 15 - 24 minutes Progress Note: Quality Stroke Does the patient have a stroke diagnosis?: No
--- NOTE | 2021-10-29 15:58 | HO.PM.IMPN ---
Subjective Subjective Date of Service: 10/30/21 Interval History: covid pneumonia /hcap Review of Systems sob seems seems similar to yeterday seems still alert oriented , but has on/off hallucination Physical Exam Vital Signs: Vital Signs: Last Vital Signs Temp 98.0 F 10/29/21 15:28 Pulse 101 H 10/29/21 15:54 Resp 20 10/29/21 15:54 BP 130/69 10/29/21 15:28 Pulse Ox 94 10/29/21 15:28 Oxygen Flow Rate 3 10/25/21 22:54 BMI result Body Mass Index 38.9 Appearance: Alert.? Oriented X3.awake but less sleepy. intermittent hallucination? cvs: rrr, [id number] , no murmur res: air entry seems improving, slightly diminshed at bases , few rhonchii abd: no rebound or guarding ,nt, bs present. ext pulses present , no cyanosis . neuro: axo3 , nonfocal Objective Data Active Medications Acetaminophen (Acetaminophen 325 Mg Tablet) 650 mg PO Q6H PRN PRN Reason: Pain, Mild (Pain Scale 1-3) Albuterol Sulfate (Albuterol Sulfate 90 Mcg 8 Gm Inhaler) 2 puff INHALE Q4H PRN PRN Reason: Shortness Of Breath Or Wheezing Albuterol/Ipratropium (Albuterol/Iprat 2.5/0.5mg 3 Ml Ampul.Neb) 3 ml INHALE RQ4H WHILE AWAKE [facility] Last Admin: 10/29/21 15:52 Dose: 3 ml Documented by: ARMANDO Aspirin (Aspirin 81 Mg Tab.Chew) 81 mg PO DAILY [facility] Last Admin: 10/29/21 08:03 Dose: 81 mg Documented by: ALDEN Atorvastatin Calcium (Atorvastatin Calcium 20 Mg Tablet) 20 mg PO BEDTIME [facility] Last Admin: 10/28/21 21:43 Dose: 20 mg Documented by: LUANN Clozapine (Clozapine 25 Mg Tablet) 75 mg PO DAILY [facility] Last Admin: 10/29/21 08:03 Dose: 75 mg Documented by: ALDEN Clozapine (Clozapine 100 Mg Tablet) 300 mg PO BEDTIME [facility] Last Admin: 10/28/21 21:43 Dose: 300 mg Documented by: LUANN Dexamethasone Sodium Phosphate (Dexamethasone Sod Phosphate 4 Mg/Ml Vial) 6 mg IVPUSH DAILY [facility] Last Admin: 10/29/21 08:02 Dose: 6 mg Documented by: ALDEN Dextrose (Dextrose 50 % 25 Gm/50 Ml Syringe) 25 gm IVPUSH Q15M PRN; Protocol PRN Reason: per Hypoglycemia Standing Ord. Enoxaparin Sodium (Enoxaparin Sodium 40 Mg/0.4 Ml Syringe) 40 mg SUBCUT Q24H [facility] Last Admin: 10/29/21 03:28 Dose: 40 mg Documented by: LUANN Fenofibrate (Fenofibrate 160 Mg Tablet) 160 mg PO BEDTIME [facility] Last Admin: 10/28/21 21:42 Dose: 160 mg Documented by: LUANN Furosemide (Furosemide 20 Mg Tablet) 20 mg PO DAILY [facility]; Protocol Last Admin: 10/27/21 08:11 Dose: 20 mg Documented by: ANGIE Glucose (Glucose Gel 15 Gm Gel..Gram.) 15 gm PO Q15M PRN; Protocol PRN Reason: per Hypoglycemia Standing Ord. Piperacillin Sod/Tazobactam (Sod 3.375 gm/ Sodium Chloride) 50 mls @ 100 mls/hr IV Q6H [facility] Last Infusion: 10/29/21 12:43 Dose: 0 mls/hr Documented by: ALDEN Remdesivir 100 mg/ Sodium (Chloride) 230 mls @ 115 mls/hr IV Q24H [facility] Stop: 10/30/21 19:59 Last Infusion: 10/28/21 19:46 Dose: 0 mls/hr Documented by: JASPREET Insulin Human Lispro (Insulin Lispro 100 Unit/Ml 3 Ml Vial) 0 unit SUBCUT QIDACHS [facility]; Protocol Last Admin: 10/29/21 12:02 Dose: 6 unit Documented by: ALDEN Lamotrigine (Lamotrigine 100 Mg Tablet) 150 mg PO DAILY [facility] Last Admin: 10/29/21 08:07 Dose: 150 mg Documented by: ALDEN Lamotrigine (Lamotrigine 100 Mg Tablet) 200 mg PO BEDTIME [facility] Last Admin: 10/28/21 21:44 Dose: 200 mg Documented by: LUANN Levothyroxine Sodium (Levothyroxine Sodium 25 Mcg Tablet) 25 mcg PO DAILY@0630 [facility] Last Admin: 10/29/21 05:57 Dose: 25 mcg Documented by: LUANN Magnesium Hydroxide (Milk Of Magnesia 30 Ml Oral.Susp) 30 ml PO DAILY [facility] Last Admin: 10/29/21 08:02 Dose: 30 ml Documented by: ALDEN Magnesium Oxide (Magnesium Oxide 400 Mg Tablet) 400 mg PO TID [facility] Last Admin: 10/29/21 08:03 Dose: 400 mg Documented by: ALDEN Metformin HCl (Metformin Hcl 1,000 Mg Tablet) 1,000 mg PO BIDWM [facility] Last Admin: 10/27/21 08:12 Dose: 1,000 mg Documented by: ANGIE Metoprolol Tartrate (Metoprolol Tartrate 12.5 Mg Halftab) 12.5 mg PO DAILY [facility]; Protocol Last Admin: 10/27/21 08:10 Dose: 12.5 mg Documented by: ANGIE Non-Formulary Medication (Methenamine Hippurate) 1 gm PO BID [facility] Ondansetron HCl (Ondansetron Hcl 4 Mg/2 Ml Vial) 4 mg IVPUSH Q8H PRN PRN Reason: Nausea and Vomiting Oxcarbazepine (Oxcarbazepine 300 Mg Tablet) 600 mg PO BID [facility] Last Admin: 10/29/21 08:03 Dose: 600 mg Documented by: ALDEN Perphenazine (Perphenazine 8 Mg Tablet) 16 mg PO TID [facility] Last Admin: 10/29/21 08:02 Dose: 16 mg Documented by: ALDEN Polyethylene Glycol (Polyethylene Glycol 3350 17 Gm Powd.Pack) 17 gm PO DAILY [facility] Last Admin: 10/29/21 08:02 Dose: 17 gm Documented by: ALDEN Sodium Chloride (0.9 % Sodium Chloride Flush 3 Ml Syringe) 3 ml IVFLUSH QSHIFT [facility] Last Admin: 10/29/21 08:04 Dose: 3 ml Documented by: ALDEN Tiotropium [place] (Tiotropium [place] 18 Mcg Cap.W.Dev) 1 puff INHALE DAILY [facility] Last Admin: 10/29/21 08:15 Dose: 1 puff Documented by: ARMANDO Trihexyphenidyl HCl (Trihexyphenidyl Hcl 2 Mg Tablet) 4 mg PO DAILY [facility] Last Admin: 10/29/21 08:03 Dose: 4 mg Documented by: ALDEN Labs CBC & Chem 7: 10/30/21 05:43 10/30/21 05:43 Labs: Laboratory Results - last 24 hr 10/28/21 10/28/21 10/29/21 15:58 21:08 06:37 MCV 90.8 MCH 27.3 MCHC 30.1 L RDW 15.9 Plt Count 178 MPV 11.2 Absolute Nucleated RBC 0.000 Nucleated RBC % (auto) 0.0 Neutrophils % (Manual) 63 Band Neutrophils % 3 Lymphocytes % (Manual) 24 Monocytes % (Manual) 6 Eosinophils % (Manual) 3 Basophils % (Manual) 1 Abs Neuts (Manual) 3.1 Lymphocytes # (Manual) 1.1 L Monocytes # (Manual) 0.3 Eosinophils # (Manual) 0.1 Toxic Vacuolation PRESENT Platelet Estimate NORMAL Large Platelets PRESENT Plt Morphology Comment NOTED RBC Morphology NOTED Polychromasia 1+ (0-2) Basophilic Stippling 1+ (0-2) VBG pH VBG pCO2 VBG pO2 VBG HCO3 VBG O2 Saturation VBG Base Excess Anion Gap Estim Creat Clear Calc Estimated GFR POC Glucose 332 H 200 H Random Glucose Calcium 10/29/21 10/29/21 10/29/21 06:37 07:38 11:31 MCV MCH MCHC RDW Plt Count MPV Absolute Nucleated RBC Nucleated RBC % (auto) Neutrophils % (Manual) Band Neutrophils % Lymphocytes % (Manual) Monocytes % (Manual) Eosinophils % (Manual) Basophils % (Manual) Abs Neuts (Manual) Lymphocytes # (Manual) Monocytes # (Manual) Eosinophils # (Manual) Toxic Vacuolation Platelet Estimate Large Platelets Plt Morphology Comment RBC Morphology Polychromasia Basophilic Stippling VBG pH VBG pCO2 VBG pO2 VBG HCO3 VBG O2 Saturation VBG Base Excess Anion Gap 11 L Estim Creat Clear Calc 112.0 Estimated GFR > 60 POC Glucose 166 H 270 H Random Glucose 166 H Calcium 9.5 10/29/21 14:51 MCV MCH MCHC RDW Plt Count MPV Absolute Nucleated RBC Nucleated RBC % (auto) Neutrophils % (Manual) Band Neutrophils % Lymphocytes % (Manual) Monocytes % (Manual) Eosinophils % (Manual) Basophils % (Manual) Abs Neuts (Manual) Lymphocytes # (Manual) Monocytes # (Manual) Eosinophils # (Manual) Toxic Vacuolation Platelet Estimate Large Platelets Plt Morphology Comment RBC Morphology Polychromasia Basophilic Stippling VBG pH 7.47 H VBG pCO2 52 VBG pO2 95 VBG HCO3 38 H VBG O2 Saturation 94.0 VBG Base Excess 13.3 Anion Gap Estim Creat Clear Calc Estimated GFR POC Glucose Random Glucose Calcium Assessment and Plan (1) Acute respiratory failure with hypoxia: Status: Acute (2) HCAP (healthcare-associated pneumonia): Status: Acute Assessment and Plan: 61-year-old female with past medical history of schizoaffective disorder, hypertension,? hyperlipidemia, diabetes presents to the hospital with hypoxia as well as increased lethargy and altered mental status 1.? acute hypoxic respiratory failure-? secondary to COVID-19 infection vx hcap. ?vbg:? ph seems,increase pco2 : 52 ? Blood culture and urine culture pending. ?continue with Decadron,remdeesvir , doxy and zosyn, on 15liter oxygen,? monitor respiratory status 2.? sepsis(poa) -? tachycardia, tachypnea-seems improving over the day, no leukocytosis, afebrile -? most likely secondary to UTI as well as COVID-19 infection continue IV antibiotics 3. toxic metabolic encephalopathy - multifactorial probably related to sepsis/covid, hcap, uti ?also patient is on multiple psych medications ?CT head negative on admission blood and urine culture neg-prelim -? will treat UTIs? and oxygen supplement Patient seems more awake, but has intermittent hallucinations-? question breathing estes seems slowly improving but unclear hallucination related to psych disorder versus meds psych follow-up 4. UTI -? positive UA -? IV antibiotics -? follow cultures Quality Stroke Does the patient have a stroke diagnosis?: No VTE Prior VTE?: No VTE Risk Level:: Medical - moderate - high VTE Device Contraindication: Treatment Not Indicated VTE Drug Contraindication: N/A - Med Ordered
[2021-10-29 16:08] LABS: Glucose, Whole Blood 248 mg/dL (60-115)
[2021-10-29] MEDS: Remdesivir 100 MG in 0.9 % Sodium Chloride 230 ML 115 MG IV (16:21)
--- NOTE | 2021-10-29 17:54 | PC.NURSE ---
Pt alert and oriented x3. Pt is noted to be having hallucinations. She stated I am afraid because satan is inside me. I see people in this room. notified. Pt seen by Psych.Pt continues with remdesivir for covid treatment. LS dim tghroughout with coarse crackles to the bases and a wet junky cough. pt also weaned off o2. started at 10l [id number] at 1555 this afternoon. pt also continues Zosyn [id number].
[2021-10-29 19:50] LABS: Glucose, Whole Blood 217 mg/dL (60-115)
[2021-10-29] MEDS: Fenofibrate 160 MG TABLET PO (20:19)
[2021-10-29] MEDS: cloZAPine 100 MG TABLET 300 MG PO (20:20)
[2021-10-29] MEDS: Atorvastatin Calcium 20 MG TABLET PO (20:20)
[2021-10-29] MEDS: lamoTRIgine 100 MG TABLET 200 MG PO (20:20)
[2021-10-30] VITALS (10 sets, daily range): BP systolic 113–135; BP diastolic 56–81; PULSE 80–108; RESP 18–20; TEMP 35.5–36.9; O2SAT 88–96
[2021-10-30] MEDS: Piperacillin Sodium/Tazobactam 3.375 GM in 0.9 % Sodium Chloride 50 ML IV ×4 (03:08→20:17)
[2021-10-30] MEDS: Enoxaparin Sodium 40 MG/0.4 ML SYRINGE SUBCUT (03:09)
[2021-10-30] MEDS: Levothyroxine Sodium 25 MCG TABLET PO (05:31)
[2021-10-30 06:17] LABS: Anion Gap 11 (12-20); Blood Urea Nitrogen 16 mg/dL (9-16); Calcium 9.6 mg/dL (8.4-10.2); Carbon Dioxide 38 mmol/L (22-29); Chloride 98 mmol/L (96-108); Creatinine Clr Calc Pharmacy 106.9; Estimated Glomerular Filt Rate > 60; Glucose Random 172 mg/dL (60-115); Potassium 3.9 mmol/L (3.3-5.1); Sodium 143 mmol/L (135-145)
[2021-10-30 06:52] LABS: Baso%MD 0.2 %; Eos%MD 3.7 %; Hematocrit 34.8 % (37.0-47.0); Hemoglobin 10.3 g/dl (12.0-16.0); IG%MD 0.7 %; Lymph%MD 23.8 %; Mean Corpuscular HGB Conc 29.6 g/dl (31.0-35.0); Mean Corpuscular Volume 91.3 fL (80.0-98.0); Mean Platelet Volume 11.6 fL (9.4-12.3); Mono%MD 9.6 %; Platelet Count 203 X10*3/uL (160-400); Red Blood Count 3.81 X10*6/uL (4.20-5.50); Red Cell Distribution Width 15.7 % (11.0-16.0); White Blood Count 4.3 X10*3/uL (4.8-10.8)
[2021-10-30 07:37] LABS: Glucose, Whole Blood 161 mg/dL (60-115)
--- NOTE | 2021-10-30 07:46 | HO.PM.IMPN ---
Subjective Subjective Date of Service: 10/30/21 Interval History: covid, hcap Review of Systems sob seems seems similar to yeterday seems still alert oriented , but has on/off hallucination Physical Exam Vital Signs: Vital Signs: Last Vital Signs Temp 98.5 F 10/30/21 07:24 Pulse 93 10/30/21 07:24 Resp 19 10/30/21 07:24 BP 132/72 10/30/21 07:24 Pulse Ox 92 10/30/21 07:24 Oxygen Flow Rate 3 10/25/21 22:54 BMI result Body Mass Index 38.9 ?Appearance: Alert.? Oriented X3.awake but less sleepy. intermittent hallucination imrpoving cvs: rrr, [id number] , no murmur res: air entry seems improving, slightly diminshed at bases , few rhonchii abd: no rebound or guarding ,nt, bs present. ext pulses present , no cyanosis . neuro: axo3 , nonfocal Objective Data Active Medications Acetaminophen (Acetaminophen 325 Mg Tablet) 650 mg PO Q6H PRN PRN Reason: Pain, Mild (Pain Scale 1-3) Albuterol Sulfate (Albuterol Sulfate 90 Mcg 8 Gm Inhaler) 2 puff INHALE Q4H PRN PRN Reason: Shortness Of Breath Or Wheezing Albuterol/Ipratropium (Albuterol/Iprat 2.5/0.5mg 3 Ml Ampul.Neb) 3 ml INHALE RQ4H WHILE AWAKE [facility] Last Admin: 10/29/21 21:18 Dose: 3 ml Documented by: BRUNO Aspirin (Aspirin 81 Mg Tab.Chew) 81 mg PO DAILY [facility] Last Admin: 10/29/21 08:03 Dose: 81 mg Documented by: ALDEN Atorvastatin Calcium (Atorvastatin Calcium 20 Mg Tablet) 20 mg PO BEDTIME [facility] Last Admin: 10/29/21 20:20 Dose: 20 mg Documented by: YUAN Clozapine (Clozapine 25 Mg Tablet) 75 mg PO DAILY [facility] Last Admin: 10/29/21 08:03 Dose: 75 mg Documented by: ALDEN Clozapine (Clozapine 100 Mg Tablet) 300 mg PO BEDTIME [facility] Last Admin: 10/29/21 20:20 Dose: 300 mg Documented by: ANDDAWOOD Dexamethasone Sodium Phosphate (Dexamethasone Sod Phosphate 4 Mg/Ml Vial) 6 mg IVPUSH DAILY [facility] Last Admin: 10/29/21 08:02 Dose: 6 mg Documented by: ALDEN Dextrose (Dextrose 50 % 25 Gm/50 Ml Syringe) 25 gm IVPUSH Q15M PRN; Protocol PRN Reason: per Hypoglycemia Standing Ord. Enoxaparin Sodium (Enoxaparin Sodium 40 Mg/0.4 Ml Syringe) 40 mg SUBCUT Q24H [facility] Last Admin: 10/30/21 03:09 Dose: 40 mg Documented by: YUAN Fenofibrate (Fenofibrate 160 Mg Tablet) 160 mg PO BEDTIME [facility] Last Admin: 10/29/21 20:19 Dose: 160 mg Documented by: YUAN Furosemide (Furosemide 20 Mg Tablet) 20 mg PO DAILY [facility]; Protocol Last Admin: 10/27/21 08:11 Dose: 20 mg Documented by: ANGIE Glucose (Glucose Gel 15 Gm Gel..Gram.) 15 gm PO Q15M PRN; Protocol PRN Reason: per Hypoglycemia Standing Ord. Piperacillin Sod/Tazobactam (Sod 3.375 gm/ Sodium Chloride) 50 mls @ 100 mls/hr IV Q6H [facility] Last Infusion: 10/30/21 03:57 Dose: 0 mls/hr Documented by: YUAN Remdesivir 100 mg/ Sodium (Chloride) 230 mls @ 115 mls/hr IV Q24H [facility] Stop: 10/30/21 19:59 Last Infusion: 10/29/21 18:27 Dose: 0 mls/hr Documented by: ALDEN Insulin Human Lispro (Insulin Lispro 100 Unit/Ml 3 Ml Vial) 0 unit SUBCUT QIDACHS [facility]; Protocol Last Admin: 10/29/21 20:26 Dose: 4 unit Documented by: YUAN Lamotrigine (Lamotrigine 100 Mg Tablet) 150 mg PO DAILY [facility] Last Admin: 10/29/21 08:07 Dose: 150 mg Documented by: ANTONIETAENOAL Lamotrigine (Lamotrigine 100 Mg Tablet) 200 mg PO BEDTIME [facility] Last Admin: 10/29/21 20:20 Dose: 200 mg Documented by: YUAN Levothyroxine Sodium (Levothyroxine Sodium 25 Mcg Tablet) 25 mcg PO DAILY@0630 [facility] Last Admin: 10/30/21 05:31 Dose: 25 mcg Documented by: YUAN Magnesium Hydroxide (Milk Of Magnesia 30 Ml Oral.Susp) 30 ml PO DAILY [facility] Last Admin: 10/29/21 08:02 Dose: 30 ml Documented by: ALDEN Magnesium Oxide (Magnesium Oxide 400 Mg Tablet) 400 mg PO TID [facility] Last Admin: 10/29/21 20:20 Dose: 400 mg Documented by: YUAN Metformin HCl (Metformin Hcl 1,000 Mg Tablet) 1,000 mg PO BIDWM [facility] Last Admin: 10/27/21 08:12 Dose: 1,000 mg Documented by: ANGIE Metoprolol Tartrate (Metoprolol Tartrate 12.5 Mg Halftab) 12.5 mg PO DAILY [facility]; Protocol Last Admin: 10/27/21 08:10 Dose: 12.5 mg Documented by: ANGIE Ondansetron HCl (Ondansetron Hcl 4 Mg/2 Ml Vial) 4 mg IVPUSH Q8H PRN PRN Reason: Nausea and Vomiting Oxcarbazepine (Oxcarbazepine 300 Mg Tablet) 600 mg PO BID [facility] Last Admin: 10/29/21 20:20 Dose: 600 mg Documented by: YUAN Perphenazine (Perphenazine 8 Mg Tablet) 16 mg PO TID [facility] Last Admin: 10/29/21 20:19 Dose: 16 mg Documented by: YUAN Polyethylene Glycol (Polyethylene Glycol 3350 17 Gm Powd.Pack) 17 gm PO DAILY [facility] Last Admin: 10/29/21 08:02 Dose: 17 gm Documented by: ALDEN Sodium Chloride (0.9 % Sodium Chloride Flush 3 Ml Syringe) 3 ml IVFLUSH QSHIFT [facility] Last Admin: 10/29/21 20:26 Dose: 3 ml Documented by: YUAN Tiotropium [place] (Tiotropium [place] 18 Mcg Cap.W.Dev) 1 puff INHALE DAILY [facility] Last Admin: 10/29/21 08:15 Dose: 1 puff Documented by: BRESNE Trihexyphenidyl HCl (Trihexyphenidyl Hcl 2 Mg Tablet) 4 mg PO DAILY [facility] Last Admin: 10/29/21 08:03 Dose: 4 mg Documented by: ALDEN Labs CBC & Chem 7: 10/30/21 05:43 10/30/21 05:43 Labs: Laboratory Results - last 24 hr 10/29/21 10/29/21 10/29/21 07:38 11:31 14:51 MCV MCH MCHC RDW Plt Count MPV Absolute Nucleated RBC Nucleated RBC % (auto) VBG pH 7.47 H VBG pCO2 52 VBG pO2 95 VBG HCO3 38 H VBG O2 Saturation 94.0 VBG Base Excess 13.3 Anion Gap Estim Creat Clear Calc Estimated GFR POC Glucose 166 H 270 H Random Glucose Calcium 10/29/21 10/29/21 10/30/21 16:02 19:44 05:43 MCV 91.3 MCH 27.0 MCHC 29.6 L RDW 15.7 Plt Count 203 MPV 11.6 Absolute Nucleated RBC 0.000 Nucleated RBC % (auto) 0.0 VBG pH VBG pCO2 VBG pO2 VBG HCO3 VBG O2 Saturation VBG Base Excess Anion Gap Estim Creat Clear Calc Estimated GFR POC Glucose 248 H 217 H Random Glucose Calcium 10/30/21 10/30/21 05:43 07:26 MCV MCH MCHC RDW Plt Count MPV Absolute Nucleated RBC Nucleated RBC % (auto) VBG pH VBG pCO2 VBG pO2 VBG HCO3 VBG O2 Saturation VBG Base Excess Anion Gap 11 L Estim Creat Clear Calc 106.9 Estimated GFR > 60 POC Glucose 161 H Random Glucose 172 H Calcium 9.6 Assessment and Plan (1) Acute respiratory failure with hypoxia: Status: Acute (2) HCAP (healthcare-associated pneumonia): Status: Acute (3) UTI (urinary tract infection): Status: Acute Assessment and Plan: 61-year-old female with past medical history of schizoaffective disorder, hypertension,? hyperlipidemia, diabetes presents to the hospital with hypoxia as well as increased lethargy and altered mental status 1.? acute hypoxic respiratory failure-? secondary to COVID-19 infection vx hcap. ?vbg:? ph seems,increase pco2 : 52 ? Blood culture and urine culture pending. ?continue with Decadron,remdeesvir , doxy and zosyn, on 6liter oxygen,? monitor respiratory status 2.? sepsis(poa) -? tachycardia, tachypnea-seems improving over the day, no leukocytosis, afebrile -? most likely secondary to UTI as well as COVID-19 infection continue IV antibiotics 3. toxic metabolic encephalopathy - multifactorial probably related to sepsis/covid, hcap, uti ?also patient is on multiple psych medications ?CT head negative on admission blood and urine culture neg-prelim -? will treat UTI Patient seems more awake, but has intermittent hallucinations-? seems improving,d/w psyh -seems like near her baseline ?psych follow-up 4. UTI -? positive UA -? IV antibiotics -? follow cultures Quality Stroke Does the patient have a stroke diagnosis?: No VTE Prior VTE?: No VTE Risk Level:: Medical - moderate - high VTE Device Contraindication: Treatment Not Indicated VTE Drug Contraindication: N/A - Med Ordered
[2021-10-30] MEDS: Milk of Magnesia 30 ML ORAL.SUSP PO (07:55)
[2021-10-30] MEDS: 0.9 % Sodium Chloride Flush 3 ML SYRINGE IVFLUSH ×3 (07:55→20:20)
[2021-10-30] MEDS: Perphenazine 8 MG TABLET 16 MG PO ×3 (07:55→20:22)
[2021-10-30] MEDS: polyethylene glycoL 3350 17 GM POWD.PACK PO (07:55)
[2021-10-30] MEDS: Trihexyphenidyl HCL 2 MG TABLET 4 MG PO (07:56)
[2021-10-30] MEDS: OXcarbazepine 300 MG TABLET 600 MG PO ×2 (07:56→20:21)
[2021-10-30] MEDS: Magnesium Oxide 400 MG TABLET PO ×3 (07:56→20:21)
[2021-10-30] MEDS: Aspirin 81 MG TAB.CHEW PO (07:56)
[2021-10-30] MEDS: cloZAPine 25 MG TABLET 75 MG PO (07:57)
[2021-10-30] MEDS: lamoTRIgine 100 MG TABLET 150 MG PO (07:57)
[2021-10-30] MEDS: dexAMETHasone sod phosphate 4 MG/ML VIAL 6 MG IVPUSH (07:57)
[2021-10-30] MEDS: Insulin Lispro 100 UNIT/ML 3 ML VIAL SUBCUT ×3 (07:58→16:55)
[2021-10-30 08:17] LABS: Alanine Aminotransferase 8 U/L (0-31); Albumin Level 3.3 g/dL (3.5-5.0); Alkaline Phosphatase 46 U/L (39-117); Aspartate Amino Transferase 10 U/L (5-31); Bilirubin Direct < 0.2 mg/dL (0.0-0.5); Bilirubin Total 0.3 mg/dL (0.0-1.0); Total Protein 6.1 g/dL (6.5-8.0)
[2021-10-30 08:29] LABS: Estimated Average Glucose 160 mg/dL; Hemoglobin A1c % 7.2 %
[2021-10-30 09:00] LABS: Band Neutrophils Percent 3 % (3-5); Eosinophils Absolute Manual 0.1 X10*3/uL (0.0-0.4); Eosinophils Percent Manual 2 % (0-4); Lymphocytes Percent Manual 24 % (20-40); Monocytes Absolute Manual 0.3 X10*3/uL (0.1-1.2); Monocytes Percent Manual 7 % (2-11); Neutrophils Absolute Manual 2.9 X10*3/uL (2.0-8.3); Neutrophils Percent Manual 64 % (45-73)
[2021-10-30 09:03] LABS: Polychromasia 1+ (0-2) /OIF; RBC Morphology NOTED
[2021-10-30 09:05] LABS: Basophilic Stippling 1+ (0-2) /OIF; Large Platelet PRESENT; Platelet Estimate NORMAL (NORMAL); Platelet Morphology Comment NOTED; Toxic Granulation PRESENT
[2021-10-30] MEDS: Albuterol/Iprat 2.5/0.5MG 3 ML AMPUL.NEB INHALE ×3 (11:43→21:07)
[2021-10-30 12:06] LABS: Glucose, Whole Blood 281 mg/dL (60-115)
[2021-10-30 16:30] LABS: Glucose, Whole Blood 220 mg/dL (60-115)
[2021-10-30] MEDS: Remdesivir 100 MG in 0.9 % Sodium Chloride 230 ML 115 MG IV (16:54)
--- NOTE | 2021-10-30 16:59 | PM.PSYCN ---
History of Present Illness Date of Service: 10/29/2021 Chief Complaint: Covid Hypoxia Reason for Consult: medication Requesting physician: Elicia Nelson Discussed with referring provider: Yes Sources of Information: patient interviewed and chart reviewed HPI Narrative: Antonette is a 61-year-old female who carries a dx of schizoaffective DO, depressive type. Pt has a past medical history of type 2 diabetes, HTN, diastolic heart failure, hypertension, hyperlipidemia. She presented to [facility] 10/25/21 from SNF due to lethargy, shortness of breath, and hypoxia in the 70s. She is COVID positive and was found to have a UTI. She was admitted to [facility] for further management and started on IV antibiotics. Pt was diagnosed with multifactorial metabolic encephalopathy related to sepsis/ COVID, hcap, and uti. CT head negative on admission. Psych consult was placed for medication due to hospitalist reporting pt hallucinating. I evaluated the pt this afternoon and upon interview she reports ?Im having a rough time.? Pt?s thought process is disorganized and significant for loose associations, as pt is talking about god, abdifatah and stephanie, ras, and her hx of being in psychiatric ?institutions. Per pt, ?I can see what happened [in the past] in my head exactly that day? and says she has ?visions? of the past ?all the time.? Says she has AH of her parents' voices, denies command hallucinations. Mood is ?tired,? as she says ?I cant sleep? and attributes this to anxiety. Says she thinks god put her in the hospital.? Medical Evaluation Reviewed: Yes [facility] Medical History (Updated 10/31/21 @ 02:32 by Marjorie Callaway NP) Diabetes mellitus type 2 in obese Diastolic heart failure HCAP (healthcare-associated pneumonia) Hyperlipidemia Hypertension Pneumonia due to 2019-nCoV Schizoaffective disorder Diagnostics Vital Signs (24Hr): Vital Signs - 24 hr 10/29/21 19:09 10/29/21 21:18 10/29/21 22:15 Temperature 97.0 F Pulse Rate 63 102 H Respiratory Rate 20 22 H Blood Pressure 123/68 Pulse Oximetry 95 90 L 10/29/21 23:18 10/30/21 04:00 10/30/21 05:31 Temperature 97.0 F 96 F L Pulse Rate 80 96 Respiratory Rate 18 18 Blood Pressure 119/65 113/56 L Pulse Oximetry 96 95 96 10/30/21 07:24 10/30/21 11:43 10/30/21 11:50 Temperature 98.5 F 97.6 F Pulse Rate 93 103 H 101 H Respiratory Rate 19 20 19 Blood Pressure 132/72 135/77 Pulse Oximetry 92 88 L 10/30/21 15:12 10/30/21 15:34 Temperature 98.0 F Pulse Rate 108 H 108 H Respiratory Rate 20 20 Blood Pressure 134/79 Pulse Oximetry 90 L BMI result Body Mass Index 38.9 Labs Results: 10/30/21 05:43 10/30/21 05:43 Labs: Laboratory Results - last 48 hr 10/28/21 10/29/21 10/29/21 21:08 06:37 06:37 WBC 4.7 L RBC 3.81 L Hgb 10.4 L Hct 34.6 L MCV 90.8 MCH 27.3 MCHC 30.1 L RDW 15.9 Plt Count 178 MPV 11.2 Absolute Nucleated RBC 0.000 Nucleated RBC % (auto) 0.0 Neutrophils % (Manual) 63 Band Neutrophils % 3 Lymphocytes % (Manual) 24 Monocytes % (Manual) 6 Eosinophils % (Manual) 3 Basophils % (Manual) 1 Abs Neuts (Manual) 3.1 Lymphocytes # (Manual) 1.1 L Monocytes # (Manual) 0.3 Eosinophils # (Manual) 0.1 Toxic Granulation Toxic Vacuolation PRESENT Platelet Estimate NORMAL Large Platelets PRESENT Plt Morphology Comment NOTED RBC Morphology NOTED Polychromasia 1+ (0-2) Basophilic Stippling 1+ (0-2) VBG pH VBG pCO2 VBG pO2 VBG HCO3 VBG O2 Saturation VBG Base Excess Sodium 144 Potassium 3.6 Chloride 98 Carbon Dioxide 39 H Anion Gap 11 L BUN 16 Creatinine 0.63 Estim Creat Clear Calc 112.0 Estimated GFR > 60 POC Glucose 200 H Random Glucose 166 H Estimat Average Glucose Hemoglobin A1c % Calcium 9.5 Total Bilirubin Direct Bilirubin AST ALT Alkaline Phosphatase Total Protein Albumin 10/29/21 10/29/21 10/29/21 07:38 11:31 14:51 WBC RBC Hgb Hct MCV MCH MCHC RDW Plt Count MPV Absolute Nucleated RBC Nucleated RBC % (auto) Neutrophils % (Manual) Band Neutrophils % Lymphocytes % (Manual) Monocytes % (Manual) Eosinophils % (Manual) Basophils % (Manual) Abs Neuts (Manual) Lymphocytes # (Manual) Monocytes # (Manual) Eosinophils # (Manual) Toxic Granulation Toxic Vacuolation Platelet Estimate Large Platelets Plt Morphology Comment RBC Morphology Polychromasia Basophilic Stippling VBG pH 7.47 H VBG pCO2 52 VBG pO2 95 VBG HCO3 38 H VBG O2 Saturation 94.0 VBG Base Excess 13.3 Sodium Potassium Chloride Carbon Dioxide Anion Gap BUN Creatinine Estim Creat Clear Calc Estimated GFR POC Glucose 166 H 270 H Random Glucose Estimat Average Glucose Hemoglobin A1c % Calcium Total Bilirubin Direct Bilirubin AST ALT Alkaline Phosphatase Total Protein Albumin 10/29/21 10/29/21 10/30/21 16:02 19:44 05:43 WBC 4.3 L RBC 3.81 L Hgb 10.3 L Hct 34.8 L MCV 91.3 MCH 27.0 MCHC 29.6 L RDW 15.7 Plt Count 203 MPV 11.6 Absolute Nucleated RBC 0.000 Nucleated RBC % (auto) 0.0 Neutrophils % (Manual) 64 Band Neutrophils % 3 Lymphocytes % (Manual) 24 Monocytes % (Manual) 7 Eosinophils % (Manual) 2 Basophils % (Manual) Abs Neuts (Manual) 2.9 Lymphocytes # (Manual) 1.0 L Monocytes # (Manual) 0.3 Eosinophils # (Manual) 0.1 Toxic Granulation PRESENT Toxic Vacuolation Platelet Estimate NORMAL Large Platelets PRESENT Plt Morphology Comment NOTED RBC Morphology NOTED Polychromasia 1+ (0-2) Basophilic Stippling 1+ (0-2) VBG pH VBG pCO2 VBG pO2 VBG HCO3 VBG O2 Saturation VBG Base Excess Sodium Potassium Chloride Carbon Dioxide Anion Gap BUN Creatinine Estim Creat Clear Calc Estimated GFR POC Glucose 248 H 217 H Random Glucose Estimat Average Glucose Hemoglobin A1c % Calcium Total Bilirubin Direct Bilirubin AST ALT Alkaline Phosphatase Total Protein Albumin 10/30/21 10/30/21 10/30/21 05:43 05:43 07:26 WBC RBC Hgb Hct MCV MCH MCHC RDW Plt Count MPV Absolute Nucleated RBC Nucleated RBC % (auto) Neutrophils % (Manual) Band Neutrophils % Lymphocytes % (Manual) Monocytes % (Manual) Eosinophils % (Manual) Basophils % (Manual) Abs Neuts (Manual) Lymphocytes # (Manual) Monocytes # (Manual) Eosinophils # (Manual) Toxic Granulation Toxic Vacuolation Platelet Estimate Large Platelets Plt Morphology Comment RBC Morphology Polychromasia Basophilic Stippling VBG pH VBG pCO2 VBG pO2 VBG HCO3 VBG O2 Saturation VBG Base Excess Sodium 143 Potassium 3.9 Chloride 98 Carbon Dioxide 38 H Anion Gap 11 L BUN 16 Creatinine 0.66 Estim Creat Clear Calc 106.9 Estimated GFR > 60 POC Glucose 161 H Random Glucose 172 H Estimat Average Glucose 160 Hemoglobin A1c % 7.2 Calcium 9.6 Total Bilirubin 0.3 Direct Bilirubin < 0.2 AST 10 ALT 8 Alkaline Phosphatase 46 Total Protein 6.1 L Albumin 3.3 L 10/30/21 10/30/21 11:47 16:15 WBC RBC Hgb Hct MCV MCH MCHC RDW Plt Count MPV Absolute Nucleated RBC Nucleated RBC % (auto) Neutrophils % (Manual) Band Neutrophils % Lymphocytes % (Manual) Monocytes % (Manual) Eosinophils % (Manual) Basophils % (Manual) Abs Neuts (Manual) Lymphocytes # (Manual) Monocytes # (Manual) Eosinophils # (Manual) Toxic Granulation Toxic Vacuolation Platelet Estimate Large Platelets Plt Morphology Comment RBC Morphology Polychromasia Basophilic Stippling VBG pH VBG pCO2 VBG pO2 VBG HCO3 VBG O2 Saturation VBG Base Excess Sodium Potassium Chloride Carbon Dioxide Anion Gap BUN Creatinine Estim Creat Clear Calc Estimated GFR POC Glucose 281 H 220 H Random Glucose Estimat Average Glucose Hemoglobin A1c % Calcium Total Bilirubin Direct Bilirubin AST ALT Alkaline Phosphatase Total Protein Albumin Imaging Radiology Impressions: ITS Impressions Chest X-Ray 10/26/21 00:02 FINDINGS/IMPRESSION: Examination is essentially nondiagnostic due to suboptimal patient's positioning. Per technologist, the patient was unable to hold appropriate positioning during the study. The cardiomediastinal silhouette obscures the right lung. The left lung appears clear. Recommend repeat examination if clinically indicated. Chest X-Ray 10/26/21 00:50 FINDINGS/IMPRESSION: Once again, the patient is rotated rightward limiting assessment. Left lung clear. Cardiac silhouette incompletely assessed. Small right pleural effusion suspected. No pneumothorax. Head CT 10/26/21 06:10 IMPRESSION: No acute intracranial pathology. Chest X-Ray 10/28/21 11:04 IMPRESSION: Enlarged cardiac silhouette. Increased aeration of the right hemithorax compared to recent exams. Question bibasilar infiltrates, left greater than right. Mental Status Exam Mental Status Exam Narrative: A&O to self, place, and situation. Pt is in hospital attire, enlarged abdomen, overweight. Poor eye contact, inattentive. No Tics or Tremors. No abnormal involuntary movements. Calm, cooperative, but difficult to engage in meaningful conversation. Non-pressured speech, spontaneous with regular rate and rhythm, low vocal volume, no aprosodia. No prolonged speech latency or dysarthria. Mood is ?tired,? affect is constricted. Denies SI/SIB/HI upon inquiry. Endorses AH, denies VH. Has anabaptist preoccupation. Thoughts are significant for loose associations, disorganized. Likely has cognitive impairment related to psych diagnosis. Insight/ Judgment limited but adequate. Medications Medications Current Medications Acetaminophen (Acetaminophen 325 Mg Tablet) 650 mg PO Q6H PRN PRN Reason: Pain, Mild (Pain Scale 1-3) Albuterol Sulfate (Albuterol Sulfate 90 Mcg 8 Gm Inhaler) 2 puff INHALE Q4H PRN PRN Reason: Shortness Of Breath Or Wheezing Albuterol/Ipratropium (Albuterol/Iprat 2.5/0.5mg 3 Ml Ampul.Neb) 3 ml INHALE RQ4H WHILE AWAKE [facility] Last Admin: 10/30/21 15:34 Dose: 3 ml Documented by: Aspirin (Aspirin 81 Mg Tab.Chew) 81 mg PO DAILY [facility] Last Admin: 10/30/21 07:56 Dose: 81 mg Documented by: Atorvastatin Calcium (Atorvastatin Calcium 20 Mg Tablet) 20 mg PO BEDTIME [facility] Last Admin: 10/29/21 20:20 Dose: 20 mg Documented by: Clozapine (Clozapine 25 Mg Tablet) 75 mg PO DAILY [facility] Last Admin: 10/30/21 07:57 Dose: 75 mg Documented by: Clozapine (Clozapine 100 Mg Tablet) 300 mg PO BEDTIME [facility] Last Admin: 10/29/21 20:20 Dose: 300 mg Documented by: Dexamethasone Sodium Phosphate (Dexamethasone Sod Phosphate 4 Mg/Ml Vial) 6 mg IVPUSH DAILY [facility] Last Admin: 10/30/21 07:57 Dose: 6 mg Documented by: Dextrose (Dextrose 50 % 25 Gm/50 Ml Syringe) 25 gm IVPUSH Q15M PRN; Protocol PRN Reason: per Hypoglycemia Standing Ord. Enoxaparin Sodium (Enoxaparin Sodium 40 Mg/0.4 Ml Syringe) 40 mg SUBCUT Q24H [facility] Last Admin: 10/30/21 03:09 Dose: 40 mg Documented by: Fenofibrate (Fenofibrate 160 Mg Tablet) 160 mg PO BEDTIME [facility] Last Admin: 10/29/21 20:19 Dose: 160 mg Documented by: Furosemide (Furosemide 20 Mg Tablet) 20 mg PO DAILY [facility]; Protocol Last Admin: 10/27/21 08:11 Dose: 20 mg Documented by: Glucose (Glucose Gel 15 Gm Gel..Gram.) 15 gm PO Q15M PRN; Protocol PRN Reason: per Hypoglycemia Standing Ord. Piperacillin Sod/Tazobactam (Sod 3.375 gm/ Sodium Chloride) 50 mls @ 100 mls/hr IV Q6H [facility] Last Infusion: 10/30/21 14:02 Dose: Infused Documented by: Remdesivir 100 mg/ Sodium (Chloride) 230 mls @ 115 mls/hr IV Q24H [facility] Stop: 10/30/21 19:59 Last Infusion: 10/29/21 18:27 Dose: Infused Documented by: Insulin Human Lispro (Insulin Lispro 100 Unit/Ml 3 Ml Vial) 0 unit SUBCUT QIDACHS [facility]; Protocol Last Admin: 10/30/21 12:13 Dose: 6 unit Documented by: Lamotrigine (Lamotrigine 100 Mg Tablet) 150 mg PO DAILY [facility] Last Admin: 10/30/21 07:57 Dose: 150 mg Documented by: Lamotrigine (Lamotrigine 100 Mg Tablet) 200 mg PO BEDTIME [facility] Last Admin: 10/29/21 20:20 Dose: 200 mg Documented by: Levothyroxine Sodium (Levothyroxine Sodium 25 Mcg Tablet) 25 mcg PO DAILY@0630 [facility] Last Admin: 10/30/21 05:31 Dose: 25 mcg Documented by: Magnesium Hydroxide (Milk Of Magnesia 30 Ml Oral.Susp) 30 ml PO DAILY [facility] Last Admin: 10/30/21 07:55 Dose: 30 ml Documented by: Magnesium Oxide (Magnesium Oxide 400 Mg Tablet) 400 mg PO TID [facility] Last Admin: 10/30/21 07:56 Dose: 400 mg Documented by: Metformin HCl (Metformin Hcl 1,000 Mg Tablet) 1,000 mg PO BIDWM [facility] Last Admin: 10/27/21 08:12 Dose: 1,000 mg Documented by: Metoprolol Tartrate (Metoprolol Tartrate 12.5 Mg Halftab) 12.5 mg PO DAILY [facility]; Protocol Last Admin: 10/27/21 08:10 Dose: 12.5 mg Documented by: Ondansetron HCl (Ondansetron Hcl 4 Mg/2 Ml Vial) 4 mg IVPUSH Q8H PRN PRN Reason: Nausea and Vomiting Oxcarbazepine (Oxcarbazepine 300 Mg Tablet) 600 mg PO BID [facility] Last Admin: 10/30/21 07:56 Dose: 600 mg Documented by: Perphenazine (Perphenazine 8 Mg Tablet) 16 mg PO TID [facility] Last Admin: 10/30/21 07:55 Dose: 16 mg Documented by: Polyethylene Glycol (Polyethylene Glycol 3350 17 Gm Powd.Pack) 17 gm PO DAILY [facility] Last Admin: 10/30/21 07:55 Dose: 17 gm Documented by: Sodium Chloride (0.9 % Sodium Chloride Flush 3 Ml Syringe) 3 ml IVFLUSH QSHIFT [facility] Last Admin: 10/30/21 07:55 Dose: 3 ml Documented by: Tiotropium [place] (Tiotropium [place] 18 Mcg Cap.W.Dev) 1 puff INHALE DAILY [facility] Last Admin: 10/30/21 08:52 Dose: Not Given Documented by: Trihexyphenidyl HCl (Trihexyphenidyl Hcl 2 Mg Tablet) 4 mg PO DAILY [facility] Last Admin: 10/30/21 07:56 Dose: 4 mg Documented by: Allergies Allergies Allergy/AdvReac Type Severity Reaction Status Date / Time chlorpromazine Allergy Unknown Verified 10/25/21 23:01 [From Thorazine] fluphenazine [From Prolixin] Allergy Unknown Verified 10/25/21 23:01 haloperidol [From Haldol] Allergy Unknown Verified 10/25/21 23:01 niacin Allergy Unknown Verified 10/25/21 23:01 thioridazine [From Mellaril] Allergy Unknown Verified 10/25/21 23:01 Assessment & Plan Assessment & Plan (1) Schizoaffective disorder, depressive type: Status: Acute Code(s): F25.1 - Schizoaffective disorder, depressive type Assessment and Plan: Antonette is a 61-year-old female who carries a dx of schizoaffective DO, depressive type. Reviewed chart and pt has hallucinations and delusional thought content at baseline. Pt has outpt psych services, provider is Dr. Dejan Busby. She has been on current psychotropic medications since at least 2014. She presents as stable, denies SI/SIB/HI upon inquiry and there are no concerns for imminent safety risks. I would not recommend changes to pt's primary psych regimen, as she has been maintained on current doses for some time and is at baseline pleasantly psychotic. I have shared this with Dr. Nelson. Thank you for this consultation. If you have any questions or concerns, please do not hesitate to contact psychiatry service. I spent minutes with the patient and/or on the patient floor today, greater than?50% of which was spent counseling/coordinating care.
[2021-10-30 19:50] LABS: Glucose, Whole Blood 129 mg/dL (60-115)
[2021-10-30] MEDS: Fenofibrate 160 MG TABLET PO (20:21)
[2021-10-30] MEDS: Atorvastatin Calcium 20 MG TABLET PO (20:21)
[2021-10-30] MEDS: cloZAPine 100 MG TABLET 300 MG PO (20:21)
[2021-10-30] MEDS: lamoTRIgine 100 MG TABLET 200 MG PO (20:21)
[2021-10-31] VITALS (7 sets, daily range): BP systolic 115–141; BP diastolic 57–81; PULSE 80–106; RESP 16–20; TEMP 35.6–37.2; O2SAT 90–99
[2021-10-31] MEDS: Enoxaparin Sodium 40 MG/0.4 ML SYRINGE SUBCUT (03:00)
[2021-10-31] MEDS: Piperacillin Sodium/Tazobactam 3.375 GM in 0.9 % Sodium Chloride 50 ML IV ×4 (03:00→20:14)
[2021-10-31 05:42] LABS: Baso%MD 0.3 %; Hematocrit 36.7 % (37.0-47.0); Hemoglobin 11.2 g/dl (12.0-16.0); IG%MD 0.6 %; Lymph%MD 20.9 %; Mean Corpuscular HGB Conc 30.5 g/dl (31.0-35.0); Mean Corpuscular Hemoglobin 27.5 pg (27.0-33.0); Neut%MD 68.2 %; Platelet Count 222 X10*3/uL (160-400); Red Blood Count 4.08 X10*6/uL (4.20-5.50); Red Cell Distribution Width 15.8 % (11.0-16.0); White Blood Count 6.8 X10*3/uL (4.8-10.8)
[2021-10-31] MEDS: Levothyroxine Sodium 25 MCG TABLET PO (05:52)
[2021-10-31 06:03] LABS: Alanine Aminotransferase 11 U/L (0-31); Albumin Level 3.5 g/dL (3.5-5.0); Alkaline Phosphatase 45 U/L (39-117); Anion Gap 13 (12-20); Aspartate Amino Transferase 12 U/L (5-31); Bilirubin Direct < 0.2 mg/dL (0.0-0.5); Bilirubin Total 0.2 mg/dL (0.0-1.0); Blood Urea Nitrogen 21 mg/dL (9-16); Calcium 9.7 mg/dL (8.4-10.2); Carbon Dioxide 33 mmol/L (22-29); Chloride 100 mmol/L (96-108); Creatinine Clr Calc Pharmacy 102.3; Estimated Glomerular Filt Rate > 60; Glucose Random 183 mg/dL (60-115); Potassium 3.8 mmol/L (3.3-5.1); Sodium 142 mmol/L (135-145); Total Protein 6.5 g/dL (6.5-8.0)
[2021-10-31 06:47] LABS: Eosinophils Absolute Manual 0.1 X10*3/uL (0.0-0.4); Eosinophils Percent Manual 1 % (0-4); Lymphocytes Absolute Manual 1.8 X10*3/uL (1.2-4.9); Lymphocytes Percent Manual 26 % (20-40); Monocytes Absolute Manual 0.2 X10*3/uL (0.1-1.2); Monocytes Percent Manual 3 % (2-11); Neutrophils Percent Manual 70 % (45-73)
[2021-10-31 06:48] LABS: Band Neutrophils Percent 0 % (3-5); Neutrophils Absolute Manual 4.8 X10*3/uL (2.0-8.3); Ovalocytes 1+ (5-14) /OIF; Platelet Estimate NORMAL (NORMAL); Platelet Morphology Comment NORMAL; RBC Morphology NORMAL; Tear Drop Cells 1+ (0-2) /OIF; Toxic Vacuolation PRESENT
[2021-10-31 07:22] LABS: Glucose, Whole Blood 171 mg/dL (60-115)
[2021-10-31] MEDS: 0.9 % Sodium Chloride Flush 3 ML SYRINGE IVFLUSH ×3 (08:22→20:16)
[2021-10-31] MEDS: dexAMETHasone sod phosphate 4 MG/ML VIAL 6 MG IVPUSH (08:23)
[2021-10-31] MEDS: Trihexyphenidyl HCL 2 MG TABLET 4 MG PO (08:25)
[2021-10-31] MEDS: OXcarbazepine 300 MG TABLET 600 MG PO ×2 (08:25→20:14)
[2021-10-31] MEDS: cloZAPine 25 MG TABLET 75 MG PO (08:25)
[2021-10-31] MEDS: Magnesium Oxide 400 MG TABLET PO ×3 (08:25→20:14)
[2021-10-31] MEDS: Aspirin 81 MG TAB.CHEW PO (08:26)
[2021-10-31] MEDS: lamoTRIgine 100 MG TABLET 150 MG PO (08:26)
[2021-10-31] MEDS: Perphenazine 8 MG TABLET 16 MG PO ×3 (08:26→20:14)
[2021-10-31] MEDS: polyethylene glycoL 3350 17 GM POWD.PACK PO (08:27)
[2021-10-31] MEDS: Insulin Lispro 100 UNIT/ML 3 ML VIAL SUBCUT ×4 (08:27→20:15)
[2021-10-31] MEDS: Milk of Magnesia 30 ML ORAL.SUSP PO (08:27)
[2021-10-31 11:40] LABS: Glucose, Whole Blood 287 mg/dL (60-115)
--- NOTE | 2021-10-31 14:59 | HO.PM.IMPN ---
Subjective Subjective Date of Service: 10/31/21 Interval History: seen and examined this morning follow up for covid 19/pneumonia states she feels better and [facility] Review of Systems Review of Systems: Yes all other systems are reviewed and are negative Constitutional Constitutional: Denies chills and Denies fever(s) Cardiovascular Cardiovascular: Denies chest pain Respiratory Respiratory: Denies cough Gastrointestinal Gastrointestinal: Denies abdominal pain Physical Exam Vital Signs: Vital Signs: Last Vital Signs Temp 99.0 F 10/31/21 11:02 Pulse 102 H 10/31/21 11:02 Resp 18 10/31/21 11:02 BP 116/57 L 10/31/21 11:02 Pulse Ox 90 L 10/31/21 11:02 Oxygen Flow Rate 3 10/25/21 22:54 BMI result Body Mass Index 38.9 Const: General: cooperative, comfortable, alert and awake Nutritional Appearance: overweight HENMT: Head: Yes normocephalic and Yes atraumatic Resp: Effort & Inspection: normal respiratory effort and no respiratory distress Cardio: Rate: regular rate Rhythm: regular rhythm GI: Palpation (GI): Soft to palpation and nontender Neuro: Cranial nerves: Yes CN's II-XII intact bilaterally and Yes Bilaterally intact EOM present Objective Data Active Medications Acetaminophen (Acetaminophen 325 Mg Tablet) 650 mg PO Q6H PRN PRN Reason: Pain, Mild (Pain Scale 1-3) Albuterol Sulfate (Albuterol Sulfate 90 Mcg 8 Gm Inhaler) 2 puff INHALE Q4H PRN PRN Reason: Shortness Of Breath Or Wheezing Albuterol/Ipratropium (Albuterol/Iprat 2.5/0.5mg 3 Ml Ampul.Neb) 3 ml INHALE RQ4H WHILE AWAKE [facility] Last Admin: 10/31/21 11:30 Dose: Not Given Documented by: LAWRENCE Non-Admin Reason: Patient Asleep Aspirin (Aspirin 81 Mg Tab.Chew) 81 mg PO DAILY [facility] Last Admin: 10/31/21 08:26 Dose: 81 mg Documented by: ABHISHEK Atorvastatin Calcium (Atorvastatin Calcium 20 Mg Tablet) 20 mg PO BEDTIME [facility] Last Admin: 10/30/21 20:21 Dose: 20 mg Documented by: YUAN Clozapine (Clozapine 25 Mg Tablet) 75 mg PO DAILY [facility] Last Admin: 10/31/21 08:25 Dose: 75 mg Documented by: ABHISHEK Clozapine (Clozapine 100 Mg Tablet) 300 mg PO BEDTIME [facility] Last Admin: 10/30/21 20:21 Dose: 300 mg Documented by: YUAN Dexamethasone Sodium Phosphate (Dexamethasone Sod Phosphate 4 Mg/Ml Vial) 6 mg IVPUSH DAILY [facility] Last Admin: 10/31/21 08:23 Dose: 6 mg Documented by: ABHISHEK Dextrose (Dextrose 50 % 25 Gm/50 Ml Syringe) 25 gm IVPUSH Q15M PRN; Protocol PRN Reason: per Hypoglycemia Standing Ord. Enoxaparin Sodium (Enoxaparin Sodium 40 Mg/0.4 Ml Syringe) 40 mg SUBCUT Q24H [facility] Last Admin: 10/31/21 03:00 Dose: 40 mg Documented by: YUAN Fenofibrate (Fenofibrate 160 Mg Tablet) 160 mg PO BEDTIME [facility] Last Admin: 10/30/21 20:21 Dose: 160 mg Documented by: YUAN Furosemide (Furosemide 20 Mg Tablet) 20 mg PO DAILY [facility]; Protocol Last Admin: 10/27/21 08:11 Dose: 20 mg Documented by: ANGIE Glucose (Glucose Gel 15 Gm Gel..Gram.) 15 gm PO Q15M PRN; Protocol PRN Reason: per Hypoglycemia Standing Ord. Piperacillin Sod/Tazobactam (Sod 3.375 gm/ Sodium Chloride) 50 mls @ 100 mls/hr IV Q6H [facility] Last Admin: 10/31/21 14:09 Dose: 100 mls/hr Documented by: ABHISHEK Insulin Human Lispro (Insulin Lispro 100 Unit/Ml 3 Ml Vial) 0 unit SUBCUT QIDACHS [facility]; Protocol Last Admin: 10/31/21 11:59 Dose: 6 unit Documented by: ABHISHEK Lamotrigine (Lamotrigine 100 Mg Tablet) 150 mg PO DAILY [facility] Last Admin: 10/31/21 08:26 Dose: 150 mg Documented by: ABHISHEK Lamotrigine (Lamotrigine 100 Mg Tablet) 200 mg PO BEDTIME [facility] Last Admin: 10/30/21 20:21 Dose: 200 mg Documented by: YUAN Levothyroxine Sodium (Levothyroxine Sodium 25 Mcg Tablet) 25 mcg PO DAILY@0630 [facility] Last Admin: 10/31/21 05:52 Dose: 25 mcg Documented by: YUAN Magnesium Hydroxide (Milk Of Magnesia 30 Ml Oral.Susp) 30 ml PO DAILY [facility] Last Admin: 10/31/21 08:27 Dose: 30 ml Documented by: ABHISHEK Magnesium Oxide (Magnesium Oxide 400 Mg Tablet) 400 mg PO TID [facility] Last Admin: 10/31/21 14:09 Dose: 400 mg Documented by: ABHISHEK Metformin HCl (Metformin Hcl 1,000 Mg Tablet) 1,000 mg PO BIDWM [facility] Last Admin: 10/27/21 08:12 Dose: 1,000 mg Documented by: ANGIE Metoprolol Tartrate (Metoprolol Tartrate 12.5 Mg Halftab) 12.5 mg PO DAILY [facility]; Protocol Last Admin: 10/27/21 08:10 Dose: 12.5 mg Documented by: ANGIE Ondansetron HCl (Ondansetron Hcl 4 Mg/2 Ml Vial) 4 mg IVPUSH Q8H PRN PRN Reason: Nausea and Vomiting Oxcarbazepine (Oxcarbazepine 300 Mg Tablet) 600 mg PO BID [facility] Last Admin: 10/31/21 08:25 Dose: 600 mg Documented by: ABHISHEK Perphenazine (Perphenazine 8 Mg Tablet) 16 mg PO TID [facility] Last Admin: 10/31/21 14:09 Dose: 16 mg Documented by: ABHISHEK Polyethylene Glycol (Polyethylene Glycol 3350 17 Gm Powd.Pack) 17 gm PO DAILY [facility] Last Admin: 10/31/21 08:27 Dose: 17 gm Documented by: ABHISHEK Sodium Chloride (0.9 % Sodium Chloride Flush 3 Ml Syringe) 3 ml IVFLUSH QSHIFT [facility] Last Admin: 10/31/21 08:22 Dose: 3 ml Documented by: ABHISHEK Tiotropium [place] (Tiotropium [place] 18 Mcg Cap.W.Dev) 1 puff INHALE DAILY [facility] Last Admin: 10/31/21 08:19 Dose: Not Given Documented by: LAWRENCE Non-Admin Reason: Patient Asleep Trihexyphenidyl HCl (Trihexyphenidyl Hcl 2 Mg Tablet) 4 mg PO DAILY [facility] Last Admin: 10/31/21 08:25 Dose: 4 mg Documented by: ABHISHEK Labs CBC & Chem 7: 10/31/21 05:28 10/31/21 05:28 Labs: Laboratory Results - last 24 hr 10/30/21 10/30/21 10/31/21 16:15 19:43 05:28 MCV 90.0 MCH 27.5 MCHC 30.5 L RDW 15.8 Plt Count 222 MPV 11.0 Absolute Nucleated RBC 0.000 Nucleated RBC % (auto) 0.0 Neutrophils % (Manual) 70 Band Neutrophils % 0 L Lymphocytes % (Manual) 26 Monocytes % (Manual) 3 Eosinophils % (Manual) 1 Abs Neuts (Manual) 4.8 Lymphocytes # (Manual) 1.8 Monocytes # (Manual) 0.2 Eosinophils # (Manual) 0.1 Toxic Vacuolation PRESENT Platelet Estimate NORMAL Plt Morphology Comment NORMAL RBC Morphology NORMAL Tear Drop Cells 1+ (0-2) Ovalocytes 1+ (5-14) Anion Gap Estim Creat Clear Calc Estimated GFR POC Glucose 220 H 129 H Random Glucose Calcium Total Bilirubin Direct Bilirubin AST ALT Alkaline Phosphatase Total Protein Albumin 10/31/21 10/31/21 10/31/21 05:28 07:17 10:54 MCV MCH MCHC RDW Plt Count MPV Absolute Nucleated RBC Nucleated RBC % (auto) Neutrophils % (Manual) Band Neutrophils % Lymphocytes % (Manual) Monocytes % (Manual) Eosinophils % (Manual) Abs Neuts (Manual) Lymphocytes # (Manual) Monocytes # (Manual) Eosinophils # (Manual) Toxic Vacuolation Platelet Estimate Plt Morphology Comment RBC Morphology Tear Drop Cells Ovalocytes Anion Gap 13 Estim Creat Clear Calc 102.3 Estimated GFR > 60 POC Glucose 171 H 287 H Random Glucose 183 H Calcium 9.7 Total Bilirubin 0.2 Direct Bilirubin < 0.2 AST 12 ALT 11 Alkaline Phosphatase 45 Total Protein 6.5 Albumin 3.5 Microbiology Microbiology Results: Microbiology 10/25/21 23:42 Blood Culture - Final Blood - Venous No growth after 5 days. 10/25/21 23:25 Blood Culture - Final Blood - Venous No growth after 5 days. Assessment and Plan (1) Acute respiratory failure with hypoxia: Status: Acute (2) HCAP (healthcare-associated pneumonia): Status: Acute (3) Pneumonia due to 2019-nCoV: Status: Acute Assessment and Plan: This is a 61-year-old female with past medical history of schizoaffective disorder, hypertension,?hyperlipidemia, diabetes presents to the hospital with hypoxia as well as increased lethargy and altered mental status found to have respiratory failure/covid acute hypoxic respiratory failure secondary to COVID-19 infection and bacterial pneumonia vaccinated x3 with Pfizer seen by pulmonology s/p remdecivir continue IV decadron continue IV zosyn oxygen requirements increasing, will repeat CXR, check inflammatory markers sepsis(poa) tachycardia, tachypnea-seems improving over the day, no leukocytosis, afebrile r/t COVID-19 infection toxic metabolic encephalopathy - multifactorial probably related to sepsis/covid, hcap improved CT head negative seen by psych, seems like near her baseline DM hold metformin continue SSI UTI UCx mixed pollo, no abx indicated mood continue home meds code status - dnr/dni dvt ppx - lovenox attending - dr. ellington Quality Stroke Does the patient have a stroke diagnosis?: No VTE Prior VTE?: No VTE Risk Level:: Medical - moderate - high VTE Device Contraindication: Treatment Not Indicated VTE Drug Contraindication: N/A - Med Ordered
[2021-10-31 16:05] LABS: C Reactive Protein 4.98 mg/dL (< or = 0.50)
[2021-10-31 16:07] LABS: Glucose, Whole Blood 189 mg/dL (60-115)
[2021-10-31 16:12] LABS: Lactate Dehydrogenase 117 U/L (122-220)
[2021-10-31 16:25] LABS: Ferritin 121 ng/mL (10-250)
[2021-10-31 19:55] LABS: Glucose, Whole Blood 190 mg/dL (60-115)
[2021-10-31] MEDS: Atorvastatin Calcium 20 MG TABLET PO (20:14)
[2021-10-31] MEDS: cloZAPine 100 MG TABLET 300 MG PO (20:14)
[2021-10-31] MEDS: Albuterol/Iprat 2.5/0.5MG 3 ML AMPUL.NEB INHALE (20:14)
[2021-10-31] MEDS: Fenofibrate 160 MG TABLET PO (20:14)
[2021-10-31] MEDS: lamoTRIgine 100 MG TABLET 200 MG PO (20:15)
[2021-11-01] VITALS (7 sets, daily range): BP systolic 116–134; BP diastolic 66–76; PULSE 93–107; RESP 16–22; TEMP 36.1–37.1; O2SAT 91–99
[2021-11-01] MEDS: Piperacillin Sodium/Tazobactam 3.375 GM in 0.9 % Sodium Chloride 50 ML IV ×4 (04:17→20:08)
[2021-11-01] MEDS: Enoxaparin Sodium 40 MG/0.4 ML SYRINGE SUBCUT (04:17)
[2021-11-01] MEDS: Levothyroxine Sodium 25 MCG TABLET PO (06:05)
[2021-11-01 06:43] LABS: MANUAL DIFF FLAG NO
[2021-11-01 06:50] LABS: Basophils Percent Auto 0.5 % (0-2); Eosinophils Absolute Auto 0.2 X10*3/uL (0.0-0.4); Eosinophils Percent Auto 2.6 % (0-4); Hematocrit 37.3 % (37.0-47.0); Hemoglobin 11.1 g/dl (12.0-16.0); Imm Gran Abs Auto 0.07 X10*3/uL (0.00-0.03); Imm Gran Pct Auto 1.2 % (0.0-0.4); Lymphocytes Absolute Auto 1.5 X10*3/uL (1.2-4.9); Lymphocytes Percent Auto 25.7 % (20-40); Mean Corpuscular HGB Conc 29.8 g/dl (31.0-35.0); Mean Corpuscular Volume 90.8 fL (80.0-98.0); Mean Platelet Volume 11.8 fL (9.4-12.3); Monocytes Absolute Auto 0.4 X10*3/uL (0.1-1.2); Monocytes Percent Auto 7.7 % (2-11); Neutrophils Absolute Auto 3.6 x10*3/uL (2.0-8.3); Neutrophils Percent Auto 62.3 % (45-73); Platelet Count 241 X10*3/uL (160-400); Red Blood Count 4.11 X10*6/uL (4.20-5.50); Red Cell Distribution Width 15.5 % (11.0-16.0); White Blood Count 5.8 X10*3/uL (4.8-10.8)
[2021-11-01 07:00] LABS: Anion Gap 14 (12-20); Blood Urea Nitrogen 23 mg/dL (9-16); Calcium 9.7 mg/dL (8.4-10.2); Carbon Dioxide 32 mmol/L (22-29); Chloride 99 mmol/L (96-108); Creatinine Clr Calc Pharmacy 96.6; Estimated Glomerular Filt Rate > 60; Glucose Random 202 mg/dL (60-115); Potassium 3.7 mmol/L (3.3-5.1); Sodium 141 mmol/L (135-145)
[2021-11-01 07:18] LABS: Glucose, Whole Blood 180 mg/dL (60-115)
[2021-11-01] MEDS: lamoTRIgine 100 MG TABLET 150 MG PO (07:40)
[2021-11-01] MEDS: Aspirin 81 MG TAB.CHEW PO (07:41)
[2021-11-01] MEDS: cloZAPine 25 MG TABLET 75 MG PO (07:41)
[2021-11-01] MEDS: Magnesium Oxide 400 MG TABLET PO ×3 (07:41→20:07)
[2021-11-01] MEDS: OXcarbazepine 300 MG TABLET 600 MG PO ×2 (07:42→20:07)
[2021-11-01] MEDS: Perphenazine 8 MG TABLET 16 MG PO ×3 (07:42→20:06)
[2021-11-01] MEDS: Trihexyphenidyl HCL 2 MG TABLET 4 MG PO (07:42)
[2021-11-01] MEDS: Insulin Lispro 100 UNIT/ML 3 ML VIAL SUBCUT ×4 (07:43→20:25)
[2021-11-01] MEDS: Milk of Magnesia 30 ML ORAL.SUSP PO (07:43)
[2021-11-01] MEDS: polyethylene glycoL 3350 17 GM POWD.PACK PO (07:43)
[2021-11-01] MEDS: dexAMETHasone sod phosphate 4 MG/ML VIAL 6 MG IVPUSH (07:44)
[2021-11-01] MEDS: 0.9 % Sodium Chloride Flush 3 ML SYRINGE IVFLUSH ×2 (08:44→15:44)
[2021-11-01 09:33] LABS: Procalcitonin 0.08 ng/mL
[2021-11-01 11:18] LABS: Glucose, Whole Blood 215 mg/dL (60-115)
[2021-11-01 11:54] LABS: Venous Blood Gas Refer to POC result
[2021-11-01 11:55] LABS: VBG Base Excess 10.2 mmol/L; VBG HCO3 36 mmol/L (22-26); VBG pCO2 54 mmHg; VBG pH 7.43 (7.32-7.43); VBG pO2 132 mmHg
[2021-11-01 12:10] LABS: Clozapine (Clozaril) 774 mcg/L; Norclozapine 293 mcg/L (25-400)
--- NOTE | 2021-11-01 13:48 | HO.PM.IMPN ---
Subjective Subjective Date of Service: 11/01/21 Interval History: seen and examined this morning sleeping but arousable to loud verbal stimuli Denies shortness of breath, having cough Review of Systems Review of Systems: Yes all other systems are reviewed and are negative Constitutional Constitutional: Denies chills and Denies fever(s) Cardiovascular Cardiovascular: Denies chest pain Gastrointestinal Gastrointestinal: Denies abdominal pain Physical Exam Vital Signs: Vital Signs: Last Vital Signs Temp 98.7 F 11/01/21 11:42 Pulse 105 H 11/01/21 11:42 Resp 16 11/01/21 11:42 BP 125/74 11/01/21 11:42 Pulse Ox 91 L 11/01/21 11:42 Oxygen Flow Rate 3 10/25/21 22:54 BMI result Body Mass Index 38.9 Const: General: cooperative, comfortable and alert Nutritional Appearance: overweight HENMT: Head: Yes normocephalic and Yes atraumatic Resp: Effort & Inspection: normal respiratory effort and no respiratory distress Cardio: Rate: regular rate Rhythm: regular rhythm GI: Inspection: No distended Palpation (GI): Soft to palpation and nontender Neuro: Cranial nerves: Yes CN's II-XII intact bilaterally and Yes Bilaterally intact EOM present Objective Data Active Medications Acetaminophen (Acetaminophen 325 Mg Tablet) 650 mg PO Q6H PRN PRN Reason: Pain, Mild (Pain Scale 1-3) Albuterol Sulfate (Albuterol Sulfate 90 Mcg 8 Gm Inhaler) 2 puff INHALE Q4H PRN PRN Reason: Shortness Of Breath Or Wheezing Albuterol/Ipratropium (Albuterol/Iprat 2.5/0.5mg 3 Ml Ampul.Neb) 3 ml INHALE RQ4H WHILE AWAKE [facility] Last Admin: 11/01/21 11:28 Dose: Not Given Documented by: LAWRENCE Non-Admin Reason: Patient Asleep Aspirin (Aspirin 81 Mg Tab.Chew) 81 mg PO DAILY [facility] Last Admin: 11/01/21 07:41 Dose: 81 mg Documented by: TRAVIS Atorvastatin Calcium (Atorvastatin Calcium 20 Mg Tablet) 20 mg PO BEDTIME [facility] Last Admin: 10/31/21 20:14 Dose: 20 mg Documented by: ANTOIC Clozapine (Clozapine 25 Mg Tablet) 75 mg PO DAILY [facility] Last Admin: 11/01/21 07:41 Dose: 75 mg Documented by: TRAVIS Clozapine (Clozapine 100 Mg Tablet) 300 mg PO BEDTIME [facility] Last Admin: 10/31/21 20:14 Dose: 300 mg Documented by: COLTEN Dexamethasone Sodium Phosphate (Dexamethasone Sod Phosphate 4 Mg/Ml Vial) 6 mg IVPUSH DAILY [facility] Last Admin: 11/01/21 07:44 Dose: 6 mg Documented by: TRAVIS Dextrose (Dextrose 50 % 25 Gm/50 Ml Syringe) 25 gm IVPUSH Q15M PRN; Protocol PRN Reason: per Hypoglycemia Standing Ord. Enoxaparin Sodium (Enoxaparin Sodium 40 Mg/0.4 Ml Syringe) 40 mg SUBCUT Q24H [facility] Last Admin: 11/01/21 04:17 Dose: 40 mg Documented by: COLTEN Fenofibrate (Fenofibrate 160 Mg Tablet) 160 mg PO BEDTIME [facility] Last Admin: 10/31/21 20:14 Dose: 160 mg Documented by: COLTEN Furosemide (Furosemide 20 Mg Tablet) 20 mg PO DAILY [facility]; Protocol Last Admin: 10/27/21 08:11 Dose: 20 mg Documented by: ANGIE Glucose (Glucose Gel 15 Gm Gel..Gram.) 15 gm PO Q15M PRN; Protocol PRN Reason: per Hypoglycemia Standing Ord. Piperacillin Sod/Tazobactam (Sod 3.375 gm/ Sodium Chloride) 50 mls @ 100 mls/hr IV Q6H [facility] Last Infusion: 11/01/21 08:46 Dose: 100 mls/hr Documented by: TRAVIS Insulin Human Lispro (Insulin Lispro 100 Unit/Ml 3 Ml Vial) 0 unit SUBCUT QIDACHS [facility]; Protocol Last Admin: 11/01/21 12:26 Dose: 4 unit Documented by: TRAVIS Lamotrigine (Lamotrigine 100 Mg Tablet) 150 mg PO DAILY [facility] Last Admin: 11/01/21 07:40 Dose: 150 mg Documented by: TRAVIS Lamotrigine (Lamotrigine 100 Mg Tablet) 200 mg PO BEDTIME [facility] Last Admin: 10/31/21 20:15 Dose: 200 mg Documented by: COLTEN Levothyroxine Sodium (Levothyroxine Sodium 25 Mcg Tablet) 25 mcg PO DAILY@0630 [facility] Last Admin: 11/01/21 06:05 Dose: 25 mcg Documented by: ANTLUIZ Magnesium Hydroxide (Milk Of Magnesia 30 Ml Oral.Susp) 30 ml PO DAILY [facility] Last Admin: 11/01/21 07:43 Dose: 30 ml Documented by: TRAVIS Magnesium Oxide (Magnesium Oxide 400 Mg Tablet) 400 mg PO TID [facility] Last Admin: 11/01/21 07:41 Dose: 400 mg Documented by: TRAVIS Metformin HCl (Metformin Hcl 1,000 Mg Tablet) 1,000 mg PO BIDWM [facility] Last Admin: 10/27/21 08:12 Dose: 1,000 mg Documented by: ANGIE Metoprolol Tartrate (Metoprolol Tartrate 12.5 Mg Halftab) 12.5 mg PO DAILY [facility]; Protocol Last Admin: 10/27/21 08:10 Dose: 12.5 mg Documented by: ANGIE Ondansetron HCl (Ondansetron Hcl 4 Mg/2 Ml Vial) 4 mg IVPUSH Q8H PRN PRN Reason: Nausea and Vomiting Oxcarbazepine (Oxcarbazepine 300 Mg Tablet) 600 mg PO BID [facility] Last Admin: 11/01/21 07:42 Dose: 600 mg Documented by: TRAVIS Perphenazine (Perphenazine 8 Mg Tablet) 16 mg PO TID [facility] Last Admin: 11/01/21 07:42 Dose: 16 mg Documented by: TRAVIS Polyethylene Glycol (Polyethylene Glycol 3350 17 Gm Powd.Pack) 17 gm PO DAILY [facility] Last Admin: 11/01/21 07:43 Dose: 17 gm Documented by: TRAVIS Sodium Chloride (0.9 % Sodium Chloride Flush 3 Ml Syringe) 3 ml IVFLUSH QSHIFT [facility] Last Admin: 11/01/21 08:44 Dose: 3 ml Documented by: TRAVIS Tiotropium [place] (Tiotropium [place] 18 Mcg Cap.W.Dev) 1 puff INHALE DAILY [facility] Last Admin: 11/01/21 08:43 Dose: Not Given Documented by: LAWRENCE Non-Admin Reason: Patient Refused Trihexyphenidyl HCl (Trihexyphenidyl Hcl 2 Mg Tablet) 4 mg PO DAILY [facility] Last Admin: 11/01/21 07:42 Dose: 4 mg Documented by: TRAVIS Labs CBC & Chem 7: 11/01/21 06:27 11/01/21 06:27 Labs: Laboratory Results - last 24 hr 10/29/21 10/31/21 10/31/21 06:37 05:28 16:04 MCV MCH MCHC RDW Plt Count MPV Immature Gran % (Auto) Neut % (Auto) Lymph % (Auto) Divide % (Auto) Eos % (Auto) Baso % (Auto) Lymph # (Auto) Divide # (Auto) Eos # (Auto) Baso # (Auto) Abs Immat Gran (auto) Absolute Neuts (auto) Absolute Nucleated RBC Nucleated RBC % (auto) VBG pH VBG pCO2 VBG pO2 VBG HCO3 VBG O2 Saturation VBG Base Excess Anion Gap Estim Creat Clear Calc Estimated GFR POC Glucose 189 H Random Glucose Calcium Ferritin 121 Lactate Dehydrogenase 117 L C-Reactive Protein 4.98 H Procalcitonin Clozapine 774 Norclozapine 293 10/31/21 11/01/21 11/01/21 19:50 06:27 06:27 MCV 90.8 MCH 27.0 MCHC 29.8 L RDW 15.5 Plt Count 241 MPV 11.8 Immature Gran % (Auto) 1.2 H Neut % (Auto) 62.3 Lymph % (Auto) 25.7 Divide % (Auto) 7.7 Eos % (Auto) 2.6 Baso % (Auto) 0.5 Lymph # (Auto) 1.5 Divide # (Auto) 0.4 Eos # (Auto) 0.2 Baso # (Auto) 0.0 Abs Immat Gran (auto) 0.07 H Absolute Neuts (auto) 3.6 Absolute Nucleated RBC 0.000 Nucleated RBC % (auto) 0.0 VBG pH VBG pCO2 VBG pO2 VBG HCO3 VBG O2 Saturation VBG Base Excess Anion Gap 14 Estim Creat Clear Calc 96.6 Estimated GFR > 60 POC Glucose 190 H Random Glucose 202 H Calcium 9.7 Ferritin Lactate Dehydrogenase C-Reactive Protein Procalcitonin Clozapine Norclozapine 11/01/21 11/01/21 11/01/21 06:27 07:15 11:14 MCV MCH MCHC RDW Plt Count MPV Immature Gran % (Auto) Neut % (Auto) Lymph % (Auto) Divide % (Auto) Eos % (Auto) Baso % (Auto) Lymph # (Auto) Divide # (Auto) Eos # (Auto) Baso # (Auto) Abs Immat Gran (auto) Absolute Neuts (auto) Absolute Nucleated RBC Nucleated RBC % (auto) VBG pH VBG pCO2 VBG pO2 VBG HCO3 VBG O2 Saturation VBG Base Excess Anion Gap Estim Creat Clear Calc Estimated GFR POC Glucose 180 H 215 H Random Glucose Calcium Ferritin Lactate Dehydrogenase C-Reactive Protein Procalcitonin 0.08 Clozapine Norclozapine 11/01/21 11:32 MCV MCH MCHC RDW Plt Count MPV Immature Gran % (Auto) Neut % (Auto) Lymph % (Auto) Divide % (Auto) Eos % (Auto) Baso % (Auto) Lymph # (Auto) Divide # (Auto) Eos # (Auto) Baso # (Auto) Abs Immat Gran (auto) Absolute Neuts (auto) Absolute Nucleated RBC Nucleated RBC % (auto) VBG pH 7.43 VBG pCO2 54 VBG pO2 132 VBG HCO3 36 H VBG O2 Saturation 95.0 VBG Base Excess 10.2 Anion Gap Estim Creat Clear Calc Estimated GFR POC Glucose Random Glucose Calcium Ferritin Lactate Dehydrogenase C-Reactive Protein Procalcitonin Clozapine Norclozapine Assessment and Plan (1) HCAP (healthcare-associated pneumonia): Status: Acute (2) Pneumonia due to 2019-nCoV: Status: Acute Assessment and Plan: This is a 61-year-old female with past medical history of schizoaffective disorder, hypertension,?hyperlipidemia, diabetes presents to the hospital with hypoxia as well as increased lethargy and altered mental status found to have respiratory failure/covid acute hypoxic respiratory failure secondary to COVID-19 infection and bacterial pneumonia vaccinated x3 with Pfizer seen by pulmonology s/p remdecivir continue IV decadron continue IV zosyn oxygen requirements increasing repeat CXR showing worsening density with effusion continue supplemental oxygen sepsis(poa) tachycardia, tachypnea-seems improving over the day, no leukocytosis, afebrile r/t COVID-19 infection toxic metabolic encephalopathy - multifactorial probably related to sepsis/covid, hcap improved CT head negative seen by psych, seems like near her baseline DM hold metformin continue SSI UTI UCx mixed pollo, no abx indicated mood continue home meds code status - dnr/dni dvt ppx - lovenox attending - dr. ellington dispo - can return to [facility] when down to 5L Quality Stroke Does the patient have a stroke diagnosis?: No VTE Prior VTE?: No VTE Risk Level:: Medical - moderate - high VTE Device Contraindication: Treatment Not Indicated VTE Drug Contraindication: N/A - Med Ordered
[2021-11-01 15:59] LABS: Glucose, Whole Blood 192 mg/dL (60-115)
[2021-11-01] MEDS: Albuterol/Iprat 2.5/0.5MG 3 ML AMPUL.NEB INHALE (20:06)
[2021-11-01] MEDS: cloZAPine 100 MG TABLET 300 MG PO (20:06)
[2021-11-01] MEDS: Fenofibrate 160 MG TABLET PO (20:07)
[2021-11-01] MEDS: lamoTRIgine 100 MG TABLET 200 MG PO (20:07)
[2021-11-01] MEDS: Atorvastatin Calcium 20 MG TABLET PO (20:08)
[2021-11-01 20:17] LABS: Glucose, Whole Blood 190 mg/dL (60-115)
[2021-11-02] VITALS (10 sets, daily range): BP systolic 92–148; BP diastolic 58–86; PULSE 69–987; RESP 18–20; TEMP 36.6–36.9; O2SAT 90–96
[2021-11-02] MEDS: Piperacillin Sodium/Tazobactam 3.375 GM in 0.9 % Sodium Chloride 50 ML IV ×3 (00:51→12:49)
[2021-11-02] MEDS: 0.9 % Sodium Chloride Flush 3 ML SYRINGE IVFLUSH ×4 (00:51→22:02)
[2021-11-02] MEDS: Enoxaparin Sodium 40 MG/0.4 ML SYRINGE SUBCUT (05:27)
[2021-11-02] MEDS: Levothyroxine Sodium 25 MCG TABLET PO (05:27)
[2021-11-02 07:38] LABS: Glucose, Whole Blood 186 mg/dL (60-115)
[2021-11-02] MEDS: Insulin Lispro 100 UNIT/ML 3 ML VIAL SUBCUT ×4 (08:07→22:01)
[2021-11-02] MEDS: Milk of Magnesia 30 ML ORAL.SUSP PO (08:08)
[2021-11-02] MEDS: dexAMETHasone sod phosphate 4 MG/ML VIAL 6 MG IVPUSH (08:08)
[2021-11-02] MEDS: lamoTRIgine 100 MG TABLET 150 MG PO (08:09)
[2021-11-02] MEDS: Trihexyphenidyl HCL 2 MG TABLET 4 MG PO (08:09)
[2021-11-02] MEDS: Magnesium Oxide 400 MG TABLET PO ×3 (08:10→22:01)
[2021-11-02] MEDS: cloZAPine 25 MG TABLET 75 MG PO (08:10)
[2021-11-02] MEDS: Perphenazine 8 MG TABLET 16 MG PO ×3 (08:10→22:01)
[2021-11-02] MEDS: OXcarbazepine 300 MG TABLET 600 MG PO ×2 (08:10→22:01)
[2021-11-02] MEDS: Aspirin 81 MG TAB.CHEW PO (08:11)
[2021-11-02 11:19] LABS: Glucose, Whole Blood 221 mg/dL (60-115)
[2021-11-02] MEDS: Albuterol/Iprat 2.5/0.5MG 3 ML AMPUL.NEB INHALE ×3 (11:46→19:41)
--- NOTE | 2021-11-02 13:50 | HO.PM.IMPN ---
Subjective Subjective Date of Service: 11/02/21 Review of Systems sleeping but arousable to loud verbal stimuli Denies shortness of breath, having cough Sleepy today no pain Physical Exam Vital Signs: Vital Signs: Last Vital Signs Temp 98.2 F 11/02/21 11:19 Pulse 987 H 11/02/21 11:47 Resp 18 11/02/21 11:47 BP 128/67 11/02/21 11:19 Pulse Ox 90 L 11/02/21 11:19 Oxygen Flow Rate 3 10/25/21 22:54 BMI result Body Mass Index 38.9 Appearing in no acute distress lung sounds are clear to auscultation heart regular rate rhythm, clear S1, S2 positive bowel sounds, abdomen is soft, nontender neuro patient is alert x3, no focal deficits Objective Data Active Medications Acetaminophen (Acetaminophen 325 Mg Tablet) 650 mg PO Q6H PRN PRN Reason: Pain, Mild (Pain Scale 1-3) Albuterol Sulfate (Albuterol Sulfate 90 Mcg 8 Gm Inhaler) 2 puff INHALE Q4H PRN PRN Reason: Shortness Of Breath Or Wheezing Albuterol/Ipratropium (Albuterol/Iprat 2.5/0.5mg 3 Ml Ampul.Neb) 3 ml INHALE RQ4H WHILE AWAKE [facility] Last Admin: 11/02/21 11:46 Dose: 3 ml Documented by: VJ Aspirin (Aspirin 81 Mg Tab.Chew) 81 mg PO DAILY [facility] Last Admin: 11/02/21 08:11 Dose: 81 mg Documented by: JOSSELIN Atorvastatin Calcium (Atorvastatin Calcium 20 Mg Tablet) 20 mg PO BEDTIME [facility] Last Admin: 11/01/21 20:08 Dose: 20 mg Documented by: YONIS Clozapine (Clozapine 25 Mg Tablet) 75 mg PO DAILY [facility] Last Admin: 11/02/21 08:10 Dose: 75 mg Documented by: JOSSELIN Clozapine (Clozapine 100 Mg Tablet) 300 mg PO BEDTIME [facility] Last Admin: 11/01/21 20:06 Dose: 300 mg Documented by: YONIS Dexamethasone Sodium Phosphate (Dexamethasone Sod Phosphate 4 Mg/Ml Vial) 6 mg IVPUSH DAILY [facility] Last Admin: 11/02/21 08:08 Dose: 6 mg Documented by: JOSSELIN Dextrose (Dextrose 50 % 25 Gm/50 Ml Syringe) 25 gm IVPUSH Q15M PRN; Protocol PRN Reason: per Hypoglycemia Standing Ord. Enoxaparin Sodium (Enoxaparin Sodium 40 Mg/0.4 Ml Syringe) 40 mg SUBCUT Q24H [facility] Last Admin: 11/02/21 05:27 Dose: 40 mg Documented by: SHELBY Fenofibrate (Fenofibrate 160 Mg Tablet) 160 mg PO BEDTIME [facility] Last Admin: 11/01/21 20:07 Dose: 160 mg Documented by: YONIS Furosemide (Furosemide 20 Mg Tablet) 20 mg PO DAILY [facility]; Protocol Last Admin: 10/27/21 08:11 Dose: 20 mg Documented by: ANGIE Glucose (Glucose Gel 15 Gm Gel..Gram.) 15 gm PO Q15M PRN; Protocol PRN Reason: per Hypoglycemia Standing Ord. Insulin Human Lispro (Insulin Lispro 100 Unit/Ml 3 Ml Vial) 0 unit SUBCUT QIDACHS [facility]; Protocol Last Admin: 11/02/21 11:51 Dose: 4 unit Documented by: JOSSELIN Lamotrigine (Lamotrigine 100 Mg Tablet) 150 mg PO DAILY [facility] Last Admin: 11/02/21 08:09 Dose: 150 mg Documented by: JOSSELIN Lamotrigine (Lamotrigine 100 Mg Tablet) 200 mg PO BEDTIME [facility] Last Admin: 11/01/21 20:07 Dose: 200 mg Documented by: YONIS Levothyroxine Sodium (Levothyroxine Sodium 25 Mcg Tablet) 25 mcg PO DAILY@0630 [facility] Last Admin: 11/02/21 05:27 Dose: 25 mcg Documented by: SHELBY Magnesium Hydroxide (Milk Of Magnesia 30 Ml Oral.Susp) 30 ml PO DAILY [facility] Last Admin: 11/02/21 08:08 Dose: 30 ml Documented by: JOSSELIN Magnesium Oxide (Magnesium Oxide 400 Mg Tablet) 400 mg PO TID [facility] Last Admin: 11/02/21 08:10 Dose: 400 mg Documented by: JOSSELIN Metformin HCl (Metformin Hcl 1,000 Mg Tablet) 1,000 mg PO BIDWM [facility] Last Admin: 10/27/21 08:12 Dose: 1,000 mg Documented by: ANGIE Metoprolol Tartrate (Metoprolol Tartrate 12.5 Mg Halftab) 12.5 mg PO DAILY [facility]; Protocol Last Admin: 10/27/21 08:10 Dose: 12.5 mg Documented by: ANGIE Ondansetron HCl (Ondansetron Hcl 4 Mg/2 Ml Vial) 4 mg IVPUSH Q8H PRN PRN Reason: Nausea and Vomiting Oxcarbazepine (Oxcarbazepine 300 Mg Tablet) 600 mg PO BID [facility] Last Admin: 11/02/21 08:10 Dose: 600 mg Documented by: JOSSELIN Perphenazine (Perphenazine 8 Mg Tablet) 16 mg PO TID [facility] Last Admin: 11/02/21 08:10 Dose: 16 mg Documented by: JOSSELIN Polyethylene Glycol (Polyethylene Glycol 3350 17 Gm Powd.Pack) 17 gm PO DAILY [facility] Last Admin: 11/02/21 08:28 Dose: Not Given Documented by: JOSSELIN Non-Admin Reason: Patient Refused Sodium Chloride (0.9 % Sodium Chloride Flush 3 Ml Syringe) 3 ml IVFLUSH QSHIFT [facility] Last Admin: 11/02/21 08:08 Dose: 3 ml Documented by: JOSSELIN Tiotropium [place] (Tiotropium [place] 18 Mcg Cap.W.Dev) 1 puff INHALE DAILY [facility] Last Admin: 11/02/21 08:42 Dose: Not Given Documented by: VJ Non-Admin Reason: Patient Refused Trihexyphenidyl HCl (Trihexyphenidyl Hcl 2 Mg Tablet) 4 mg PO DAILY [facility] Last Admin: 11/02/21 08:09 Dose: 4 mg Documented by: JOSSELIN Labs CBC & Chem 7: 11/01/21 06:27 11/01/21 06:27 Labs: Laboratory Results - last 24 hr 11/01/21 11/01/21 11/02/21 15:41 20:05 07:29 POC Glucose 192 H 190 H 186 H 11/02/21 11:14 POC Glucose 221 H Assessment and Plan (1) Acute respiratory failure with hypoxia: Status: Acute Assessment and Plan: This is a 61-year-old female with past medical history of schizoaffective disorder, hypertension,?hyperlipidemia, diabetes presents to the hospital with hypoxia as well as increased lethargy and altered mental status found to have respiratory failure/covid acute hypoxic respiratory failure secondary to COVID-19 infection and bacterial pneumonia vaccinated x3 with Pfizer seen by pulmonology s/p remdecivir continue IV decadron continue IV zosyn repeat CXR showing worsening density with effusion continue supplemental oxygen PT consult sepsis(poa) tachycardia, tachypnea-seems improving over the day, no leukocytosis, afebrile r/t COVID-19 infection toxic metabolic encephalopathy - multifactorial probably related to sepsis/covid, hcap improved CT head negative seen by psych, seems like near her baseline DM hold metformin continue SSI UTI UCx mixed pollo, no abx indicated mood continue home meds code status - dnr/dni dvt ppx - lovenox attending - dr. Barfield dispo - can return to [facility] when down to 5L Quality Stroke Does the patient have a stroke diagnosis?: No VTE Prior VTE?: No VTE Risk Level:: Medical - moderate - high VTE Device Contraindication: Treatment Not Indicated VTE Drug Contraindication: N/A - Med Ordered
[2021-11-02 16:09] LABS: Glucose, Whole Blood 280 mg/dL (60-115)
[2021-11-02 19:57] LABS: Glucose, Whole Blood 223 mg/dL (60-115)
[2021-11-02] MEDS: lamoTRIgine 100 MG TABLET 200 MG PO (22:00)
[2021-11-02] MEDS: Atorvastatin Calcium 20 MG TABLET PO (22:00)
[2021-11-02] MEDS: cloZAPine 100 MG TABLET 300 MG PO (22:01)
[2021-11-02] MEDS: Fenofibrate 160 MG TABLET PO (22:01)
[2021-11-03] VITALS (8 sets, daily range): BP systolic 116–152; BP diastolic 60–77; PULSE 80–109; RESP 18–20; TEMP 36.2–36.7; O2SAT 91–99
[2021-11-03] MEDS: Enoxaparin Sodium 40 MG/0.4 ML SYRINGE SUBCUT (03:26)
[2021-11-03] MEDS: Levothyroxine Sodium 25 MCG TABLET PO (05:31)
[2021-11-03 07:36] LABS: Glucose, Whole Blood 183 mg/dL (60-115)
[2021-11-03] MEDS: Insulin Lispro 100 UNIT/ML 3 ML VIAL SUBCUT ×4 (08:44→20:29)
[2021-11-03] MEDS: 0.9 % Sodium Chloride Flush 3 ML SYRINGE IVFLUSH ×3 (08:45→20:29)
[2021-11-03] MEDS: OXcarbazepine 300 MG TABLET 600 MG PO ×2 (08:46→20:29)
[2021-11-03] MEDS: lamoTRIgine 100 MG TABLET 150 MG PO (08:46)
[2021-11-03] MEDS: polyethylene glycoL 3350 17 GM POWD.PACK PO (08:46)
[2021-11-03] MEDS: cloZAPine 25 MG TABLET 75 MG PO (08:46)
[2021-11-03] MEDS: Milk of Magnesia 30 ML ORAL.SUSP PO (08:46)
[2021-11-03] MEDS: dexAMETHasone sod phosphate 4 MG/ML VIAL 6 MG IVPUSH (08:47)
[2021-11-03] MEDS: Magnesium Oxide 400 MG TABLET PO ×3 (08:47→20:26)
[2021-11-03] MEDS: Aspirin 81 MG TAB.CHEW PO (08:47)
[2021-11-03] MEDS: Perphenazine 8 MG TABLET 16 MG PO ×3 (08:47→20:25)
[2021-11-03] MEDS: Trihexyphenidyl HCL 2 MG TABLET 4 MG PO (08:47)
[2021-11-03 11:15] LABS: Glucose, Whole Blood 320 mg/dL (60-115)
[2021-11-03] MEDS: Albuterol/Iprat 2.5/0.5MG 3 ML AMPUL.NEB INHALE (11:49)
--- NOTE | 2021-11-03 12:58 | P.PNIM_ITS ---
Subjective Subjective Date of Service: 11/03/21 Review of Systems sleeping but arousable to loud verbal stimuli Denies shortness of breath, having cough Sleepy today no pain Physical Exam Vital Signs: Vital Signs: Last Vital Signs Temp 97.6 F 11/03/21 11:40 Pulse 107 H 11/03/21 11:51 Resp 20 11/03/21 11:51 BP 121/67 11/03/21 11:40 Pulse Ox 91 L 11/03/21 11:40 Oxygen Flow Rate 3 10/25/21 22:54 BMI result Body Mass Index 38.9 Appearing in no acute distress lung sounds are clear to auscultation heart regular rate rhythm, clear S1, S2 positive bowel sounds, abdomen is soft, nontender neuro patient is alert x3, no focal deficits Objective Data Active Medications Acetaminophen (Acetaminophen 325 Mg Tablet) 650 mg PO Q6H PRN PRN Reason: Pain, Mild (Pain Scale 1-3) Albuterol Sulfate (Albuterol Sulfate 90 Mcg 8 Gm Inhaler) 2 puff INHALE Q4H [facility] Aspirin (Aspirin 81 Mg Tab.Chew) 81 mg PO DAILY [facility] Last Admin: 11/03/21 08:47 Dose: 81 mg Documented by: JOSSELIN Atorvastatin Calcium (Atorvastatin Calcium 20 Mg Tablet) 20 mg PO BEDTIME [facility] Last Admin: 11/02/21 22:00 Dose: 20 mg Documented by: YUAN Clozapine (Clozapine 25 Mg Tablet) 75 mg PO DAILY [facility] Last Admin: 11/03/21 08:46 Dose: 75 mg Documented by: JOSSELIN Clozapine (Clozapine 100 Mg Tablet) 300 mg PO BEDTIME [facility] Last Admin: 11/02/21 22:01 Dose: 300 mg Documented by: YUAN Dexamethasone Sodium Phosphate (Dexamethasone Sod Phosphate 4 Mg/Ml Vial) 6 mg IVPUSH DAILY [facility] Last Admin: 11/03/21 08:47 Dose: 6 mg Documented by: JOSSELIN Dextrose (Dextrose 50 % 25 Gm/50 Ml Syringe) 25 gm IVPUSH Q15M PRN; Protocol PRN Reason: per Hypoglycemia Standing Ord. Enoxaparin Sodium (Enoxaparin Sodium 40 Mg/0.4 Ml Syringe) 40 mg SUBCUT Q24H [facility] Last Admin: 11/03/21 03:26 Dose: 40 mg Documented by: YUAN Fenofibrate (Fenofibrate 160 Mg Tablet) 160 mg PO BEDTIME [facility] Last Admin: 11/02/21 22:01 Dose: 160 mg Documented by: YUAN Furosemide (Furosemide 20 Mg Tablet) 20 mg PO DAILY [facility]; Protocol Last Admin: 10/27/21 08:11 Dose: 20 mg Documented by: ANGIE Glucose (Glucose Gel 15 Gm Gel..Gram.) 15 gm PO Q15M PRN; Protocol PRN Reason: per Hypoglycemia Standing Ord. Insulin Human Lispro (Insulin Lispro 100 Unit/Ml 3 Ml Vial) 0 unit SUBCUT QIDACHS [facility]; Protocol Last Admin: 11/03/21 11:29 Dose: 8 unit Documented by: JOSSELIN Lamotrigine (Lamotrigine 100 Mg Tablet) 150 mg PO DAILY [facility] Last Admin: 11/03/21 08:46 Dose: 150 mg Documented by: JOSSELIN Lamotrigine (Lamotrigine 100 Mg Tablet) 200 mg PO BEDTIME [facility] Last Admin: 11/02/21 22:00 Dose: 200 mg Documented by: YUAN Levothyroxine Sodium (Levothyroxine Sodium 25 Mcg Tablet) 25 mcg PO DAILY@0630 [facility] Last Admin: 11/03/21 05:31 Dose: 25 mcg Documented by: YUAN Magnesium Hydroxide (Milk Of Magnesia 30 Ml Oral.Susp) 30 ml PO DAILY [facility] Last Admin: 11/03/21 08:46 Dose: 30 ml Documented by: JOSSELIN Magnesium Oxide (Magnesium Oxide 400 Mg Tablet) 400 mg PO TID [facility] Last Admin: 11/03/21 08:47 Dose: 400 mg Documented by: JOSSELIN Metformin HCl (Metformin Hcl 1,000 Mg Tablet) 1,000 mg PO BIDWM [facility] Last Admin: 10/27/21 08:12 Dose: 1,000 mg Documented by: ANGIE Metoprolol Tartrate (Metoprolol Tartrate 12.5 Mg Halftab) 12.5 mg PO DAILY [facility]; Protocol Last Admin: 10/27/21 08:10 Dose: 12.5 mg Documented by: ANGIE Ondansetron HCl (Ondansetron Hcl 4 Mg/2 Ml Vial) 4 mg IVPUSH Q8H PRN PRN Reason: Nausea and Vomiting Oxcarbazepine (Oxcarbazepine 300 Mg Tablet) 600 mg PO BID [facility] Last Admin: 11/03/21 08:46 Dose: 600 mg Documented by: JOSSELIN Perphenazine (Perphenazine 8 Mg Tablet) 16 mg PO TID [facility] Last Admin: 11/03/21 08:47 Dose: 16 mg Documented by: JOSSELIN Polyethylene Glycol (Polyethylene Glycol 3350 17 Gm Powd.Pack) 17 gm PO DAILY [facility] Last Admin: 11/03/21 08:46 Dose: 17 gm Documented by: JOSSELIN Sodium Chloride (0.9 % Sodium Chloride Flush 3 Ml Syringe) 3 ml IVFLUSH QSHIFT [facility] Last Admin: 11/03/21 08:45 Dose: 3 ml Documented by: JOSSELIN Tiotropium [place] (Tiotropium [place] 18 Mcg Cap.W.Dev) 1 puff INHALE DAILY [facility] Last Admin: 11/03/21 08:06 Dose: Not Given Documented by: ARMANDO Non-Admin Reason: Patient Asleep Trihexyphenidyl HCl (Trihexyphenidyl Hcl 2 Mg Tablet) 4 mg PO DAILY [facility] Last Admin: 11/03/21 08:47 Dose: 4 mg Documented by: JOSSELIN Labs CBC & Chem 7: 11/01/21 06:27 11/01/21 06:27 Labs: Laboratory Results - last 24 hr 11/02/21 11/02/21 11/03/21 16:05 19:53 07:20 POC Glucose 280 H 223 H 183 H 11/03/21 11:07 POC Glucose 320 H Assessment and Plan (1) Acute respiratory failure with hypoxia: Status: Acute Assessment and Plan: This is a 61-year-old female with past medical history of schizoaffective disorder, hypertension,?hyperlipidemia, diabetes presents to the hospital with hypoxia as well as increased lethargy and altered mental status found to have re spiratory failure/covid acute hypoxic respiratory failure secondary to COVID-19 infection and bacterial pneumonia vaccinated x3 with Pfizer seen by pulmonology s/p remdecivir continue IV decadron continue IV zosyn repeat CXR showing worsening density with effusion continue supplemental oxygen sepsis(poa) tachycardia, tachypnea-seems improving over the day, no leukocytosis, afebrile r/t COVID-19 infection toxic metabolic encephalopathy - multifactorial probably related to sepsis/covid, hcap improved CT head negative seen by psych, seems like near her baseline DM hold metformin continue SSI UTI UCx mixed pollo, no abx indicated mood continue home meds code status - dnr/dni dvt ppx - lovenox attending Dr. Cher vyas - can return to [facility] when down to 5L Quality Stroke Does the patient have a stroke diagnosis?: No VTE Prior VTE?: No VTE Risk Level:: Medical - moderate - high VTE Device Contraindication: Treatment Not Indicated VTE Drug Contraindication: N/A - Med Ordered
[2021-11-03] MEDS: Albuterol Sulfate 90 MCG 8 GM INHALER 2 PUFF INHALE (15:14)
[2021-11-03 16:15] LABS: Glucose, Whole Blood 215 mg/dL (60-115)
[2021-11-03 19:44] LABS: Glucose, Whole Blood 223 mg/dL (60-115)
[2021-11-03] MEDS: cloZAPine 100 MG TABLET 300 MG PO (20:26)
[2021-11-03] MEDS: Atorvastatin Calcium 20 MG TABLET PO (20:26)
[2021-11-03] MEDS: lamoTRIgine 100 MG TABLET 200 MG PO (20:28)
[2021-11-03] MEDS: Fenofibrate 160 MG TABLET PO (20:28)
[2021-11-04] VITALS (11 sets, daily range): BP systolic 115–153; BP diastolic 60–95; PULSE 67–112; RESP 16–20; TEMP 36.2–37.1; O2SAT 88–96
[2021-11-04] MEDS: Enoxaparin Sodium 40 MG/0.4 ML SYRINGE SUBCUT (02:37)
[2021-11-04] MEDS: Levothyroxine Sodium 25 MCG TABLET PO (05:49)
[2021-11-04 07:25] LABS: Glucose, Whole Blood 189 mg/dL (60-115)
[2021-11-04] MEDS: Albuterol Sulfate 90 MCG 8 GM INHALER 2 PUFF INHALE ×7 (07:58→19:42)
[2021-11-04] MEDS: Insulin Lispro 100 UNIT/ML 3 ML VIAL SUBCUT ×4 (09:54→21:59)
[2021-11-04] MEDS: lamoTRIgine 100 MG TABLET 150 MG PO (09:54)
[2021-11-04] MEDS: 0.9 % Sodium Chloride Flush 3 ML SYRINGE IVFLUSH ×3 (09:54→22:01)
[2021-11-04] MEDS: Trihexyphenidyl HCL 2 MG TABLET 4 MG PO (09:59)
[2021-11-04] MEDS: Perphenazine 8 MG TABLET 16 MG PO ×3 (10:00→21:59)
[2021-11-04] MEDS: Aspirin 81 MG TAB.CHEW PO (10:01)
[2021-11-04] MEDS: cloZAPine 25 MG TABLET 75 MG PO (10:01)
[2021-11-04] MEDS: OXcarbazepine 300 MG TABLET 600 MG PO ×2 (10:02→21:59)
[2021-11-04] MEDS: Milk of Magnesia 30 ML ORAL.SUSP PO (10:03)
[2021-11-04] MEDS: polyethylene glycoL 3350 17 GM POWD.PACK PO (10:03)
[2021-11-04] MEDS: Magnesium Oxide 400 MG TABLET PO ×3 (10:03→21:59)
[2021-11-04] MEDS: dexAMETHasone sod phosphate 4 MG/ML VIAL 6 MG IVPUSH (10:04)
[2021-11-04 11:34] LABS: Glucose, Whole Blood 275 mg/dL (60-115)
--- NOTE | 2021-11-04 13:30 | P.PNIM_ITS ---
Subjective Subjective Date of Service: 11/04/21 Review of Systems Follow up covid 19, hypoxia Doing ok, oob to commode and chair denied pain Physical Exam Vital Signs: Vital Signs: Last Vital Signs Temp 97.8 F 11/04/21 11:32 Pulse 111 H 11/04/21 11:32 Resp 20 11/04/21 11:32 BP 131/95 H 11/04/21 11:32 Pulse Ox 95 11/04/21 11:32 Oxygen Flow Rate 3 10/25/21 22:54 BMI result Body Mass Index 38.9 Appearing in no acute distress lung sounds are clear to auscultation heart regular rate rhythm, clear S1, S2 positive bowel sounds, abdomen is soft, nontender neuro patient is alert x3, no focal deficits Objective Data Active Medications Acetaminophen (Acetaminophen 325 Mg Tablet) 650 mg PO Q6H PRN PRN Reason: Pain, Mild (Pain Scale 1-3) Albuterol Sulfate (Albuterol Sulfate 90 Mcg 8 Gm Inhaler) 2 puff INHALE RQ4H [facility] Last Admin: 11/04/21 11:26 Dose: 2 puff Documented by: ARMANDO Aspirin (Aspirin 81 Mg Tab.Chew) 81 mg PO DAILY [facility] Last Admin: 11/04/21 10:01 Dose: 81 mg Documented by: DEMARIO Atorvastatin Calcium (Atorvastatin Calcium 20 Mg Tablet) 20 mg PO BEDTIME [facility] Last Admin: 11/03/21 20:26 Dose: 20 mg Documented by: SONNY Clozapine (Clozapine 25 Mg Tablet) 75 mg PO DAILY [facility] Last Admin: 11/04/21 10:01 Dose: 75 mg Documented by: DEMARIO Clozapine (Clozapine 100 Mg Tablet) 300 mg PO BEDTIME [facility] Last Admin: 11/03/21 20:26 Dose: 300 mg Documented by: SONNY Dexamethasone Sodium Phosphate (Dexamethasone Sod Phosphate 4 Mg/Ml Vial) 6 mg IVPUSH DAILY [facility] Last Admin: 11/04/21 10:04 Dose: 6 mg Documented by: DEMARIO Dextrose (Dextrose 50 % 25 Gm/50 Ml Syringe) 25 gm IVPUSH Q15M PRN; Protocol PRN Reason: per Hypoglycemia Standing Ord. Enoxaparin Sodium (Enoxaparin Sodium 40 Mg/0.4 Ml Syringe) 40 mg SUBCUT Q24H [facility] Last Admin: 11/04/21 02:37 Dose: 40 mg Documented by: SONNY Fenofibrate (Fenofibrate 160 Mg Tablet) 160 mg PO BEDTIME [facility] Last Admin: 11/03/21 20:28 Dose: 160 mg Documented by: SONNY Furosemide (Furosemide 20 Mg Tablet) 20 mg PO DAILY [facility]; Protocol Last Admin: 10/27/21 08:11 Dose: 20 mg Documented by: ANGIE Glucose (Glucose Gel 15 Gm Gel..Gram.) 15 gm PO Q15M PRN; Protocol PRN Reason: per Hypoglycemia Standing Ord. Insulin Human Lispro (Insulin Lispro 100 Unit/Ml 3 Ml Vial) 0 unit SUBCUT QIDACHS [facility]; Protocol Last Admin: 11/04/21 12:45 Dose: 6 unit Documented by: DEMARIO Lamotrigine (Lamotrigine 100 Mg Tablet) 150 mg PO DAILY [facility] Last Admin: 11/04/21 09:54 Dose: 150 mg Documented by: DEMARIO Lamotrigine (Lamotrigine 100 Mg Tablet) 200 mg PO BEDTIME [facility] Last Admin: 11/03/21 20:28 Dose: 200 mg Documented by: SONNY Levothyroxine Sodium (Levothyroxine Sodium 25 Mcg Tablet) 25 mcg PO DAILY@0630 [facility] Last Admin: 11/04/21 05:49 Dose: 25 mcg Documented by: SONNY Magnesium Hydroxide (Milk Of Magnesia 30 Ml Oral.Susp) 30 ml PO DAILY [facility] Last Admin: 11/04/21 10:03 Dose: 30 ml Documented by: DEMARIO Magnesium Oxide (Magnesium Oxide 400 Mg Tablet) 400 mg PO TID [facility] Last Admin: 11/04/21 10:03 Dose: 400 mg Documented by: DEMARIO Metformin HCl (Metformin Hcl 1,000 Mg Tablet) 1,000 mg PO BIDWM [facility] Last Admin: 10/27/21 08:12 Dose: 1,000 mg Documented by: ANGIE Metoprolol Tartrate (Metoprolol Tartrate 12.5 Mg Halftab) 12.5 mg PO DAILY [facility]; Protocol Last Admin: 10/27/21 08:10 Dose: 12.5 mg Documented by: ANGIE Ondansetron HCl (Ondansetron Hcl 4 Mg/2 Ml Vial) 4 mg IVPUSH Q8H PRN PRN Reason: Nausea and Vomiting Oxcarbazepine (Oxcarbazepine 300 Mg Tablet) 600 mg PO BID [facility] Last Admin: 11/04/21 10:02 Dose: 600 mg Documented by: DEMARIO Perphenazine (Perphenazine 8 Mg Tablet) 16 mg PO TID [facility] Last Admin: 11/04/21 10:00 Dose: 16 mg Documented by: DEMARIO Polyethylene Glycol (Polyethylene Glycol 3350 17 Gm Powd.Pack) 17 gm PO DAILY [facility] Last Admin: 11/04/21 10:03 Dose: 17 gm Documented by: DEMARIO Sodium Chloride (0.9 % Sodium Chloride Flush 3 Ml Syringe) 3 ml IVFLUSH QSHIFT [facility] Last Admin: 11/04/21 09:54 Dose: 3 ml Documented by: DEMARIO Tiotropium [place] (Tiotropium [place] 18 Mcg Cap.W.Dev) 1 puff INHALE RDAILY [facility] Last Admin: 11/04/21 07:59 Dose: 1 puff Documented by: ARMANDO Trihexyphenidyl HCl (Trihexyphenidyl Hcl 2 Mg Tablet) 4 mg PO DAILY [facility] Last Admin: 11/04/21 09:59 Dose: 4 mg Documented by: DEMARIO Labs CBC & Chem 7: 11/01/21 06:27 11/01/21 06:27 Labs: Laboratory Results - last 24 hr 11/03/21 11/03/21 11/04/21 16:09 19:39 07:22 POC Glucose 215 H 223 H 189 H 11/04/21 11:17 POC Glucose 275 H Assessment and Plan (1) Acute respiratory failure with hypoxia: Status: Acute Assessment and Plan: This is a 61-year-old female with past medical history of schizoaffective disorder, hypertension,?hyperlipidemia, diabetes presents to the hospital with hypoxia as well as increased lethargy and altered mental status found to have respiratory failure/covid acute hypoxic respiratory failure secondary to COVID-19 infection and bacterial pneumonia vaccinated x3 with Pfizer seen by pulmonology s/p remdecivir continue IV decadron continue IV zosyn repeat CXR showing worsening density with effusion continue supplemental oxygen sepsis(poa) tachycardia, tachypnea-seems improving over the day, no leukocytosis, afebrile r/t COVID-19 infection toxic metabolic encephalopathy - multifactorial probably related to sepsis/covid, hcap improved CT head negative seen by psych, seems like near her baseline DM hold metformin continue SSI UTI UCx mixed pollo, no abx indicated mood continue home meds code status - dnr/dni dvt ppx - lovenox attending Dr. Kwon dispo - can return to [facility] when down to 5L Quality Stroke Does the patient have a stroke diagnosis?: No VTE Prior VTE?: No VTE Risk Level:: Medical - moderate - high VTE Device Contraindication: Treatment Not Indicated VTE Drug Contraindication: N/A - Med Ordered
--- NOTE | 2021-11-04 15:08 | MHC.CM.PN ---
Female 61 DX Covid+ DP return to [facility] via BLS. She continues to require supplemental Oxygen 8L via [place]
[2021-11-04 16:18] LABS: Glucose, Whole Blood 202 mg/dL (60-115)
[2021-11-04 20:30] LABS: Glucose, Whole Blood 229 mg/dL (60-115)
[2021-11-04] MEDS: Fenofibrate 160 MG TABLET PO (21:58)
[2021-11-04] MEDS: cloZAPine 100 MG TABLET 300 MG PO (21:58)
[2021-11-04] MEDS: lamoTRIgine 100 MG TABLET 200 MG PO (21:58)
[2021-11-04] MEDS: Atorvastatin Calcium 20 MG TABLET PO (21:58)
[2021-11-05] VITALS (11 sets, daily range): BP systolic 117–144; BP diastolic 73–95; PULSE 52–108; RESP 16–24; TEMP 35.7–37.1; O2SAT 90–98
[2021-11-05] MEDS: Enoxaparin Sodium 40 MG/0.4 ML SYRINGE SUBCUT (03:03)
[2021-11-05] MEDS: Levothyroxine Sodium 25 MCG TABLET PO (05:28)
[2021-11-05 07:44] LABS: Glucose, Whole Blood 200 mg/dL (60-115)
[2021-11-05] MEDS: Albuterol Sulfate 90 MCG 8 GM INHALER 2 PUFF INHALE ×3 (08:05→16:11)
[2021-11-05] MEDS: Insulin Lispro 100 UNIT/ML 3 ML VIAL SUBCUT ×4 (08:54→20:38)
[2021-11-05] MEDS: cloZAPine 25 MG TABLET 75 MG PO (09:28)
[2021-11-05] MEDS: lamoTRIgine 100 MG TABLET 150 MG PO ×2 (09:28→20:38)
[2021-11-05] MEDS: Trihexyphenidyl HCL 2 MG TABLET 4 MG PO (09:28)
[2021-11-05] MEDS: dexAMETHasone sod phosphate 4 MG/ML VIAL 6 MG IVPUSH (09:29)
[2021-11-05] MEDS: Magnesium Oxide 400 MG TABLET PO ×3 (09:29→20:38)
[2021-11-05] MEDS: OXcarbazepine 300 MG TABLET 600 MG PO ×2 (09:29→20:37)
[2021-11-05] MEDS: Milk of Magnesia 30 ML ORAL.SUSP PO (09:29)
[2021-11-05] MEDS: Perphenazine 8 MG TABLET 16 MG PO ×3 (09:29→20:38)
[2021-11-05] MEDS: Aspirin 81 MG TAB.CHEW PO (09:29)
[2021-11-05] MEDS: 0.9 % Sodium Chloride Flush 3 ML SYRINGE IVFLUSH ×2 (09:30→16:51)
[2021-11-05 11:48] LABS: Glucose, Whole Blood 243 mg/dL (60-115)
--- NOTE | 2021-11-05 15:21 | P.PNIM_ITS ---
Subjective Subjective Date of Service: 11/05/21 Review of Systems Follow up covid 19, hypoxia Doing ok, oob to commode and chair denied pain Physical Exam Vital Signs: Vital Signs: Last Vital Signs Temp 97.5 F 11/05/21 11:18 Pulse 107 H 11/05/21 12:27 Resp 20 11/05/21 12:27 BP 125/73 11/05/21 11:18 Pulse Ox 90 L 11/05/21 11:18 Oxygen Flow Rate 3 10/25/21 22:54 BMI result Body Mass Index 38.9 Const: Other: Appearing in no acute distress lung sounds are clear to auscultation heart regular rate rhythm, clear S1, S2 positive bowel sounds, abdomen is soft, nontender neuro patient is alert x3, no focal deficits Objective Data Active Medications Acetaminophen (Acetaminophen 325 Mg Tablet) 650 mg PO Q6H PRN PRN Reason: Pain, Mild (Pain Scale 1-3) Albuterol Sulfate (Albuterol Sulfate 90 Mcg 8 Gm Inhaler) 2 puff INHALE RQ4H [facility] Last Admin: 11/05/21 12:27 Dose: 2 puff Documented by: VLAD Aspirin (Aspirin 81 Mg Tab.Chew) 81 mg PO DAILY [facility] Last Admin: 11/05/21 09:29 Dose: 81 mg Documented by: LEOLA Atorvastatin Calcium (Atorvastatin Calcium 20 Mg Tablet) 20 mg PO BEDTIME [facility] Last Admin: 11/04/21 21:58 Dose: 20 mg Documented by: SONNY Clozapine (Clozapine 25 Mg Tablet) 75 mg PO DAILY [facility] Last Admin: 11/05/21 09:28 Dose: 75 mg Documented by: LEOLA Clozapine (Clozapine 100 Mg Tablet) 300 mg PO BEDTIME [facility] Last Admin: 11/04/21 21:58 Dose: 300 mg Documented by: SONNY Dexamethasone Sodium Phosphate (Dexamethasone Sod Phosphate 4 Mg/Ml Vial) 6 mg IVPUSH DAILY [facility] Last Admin: 11/05/21 09:29 Dose: 6 mg Documented by: LEOLA Dextrose (Dextrose 50 % 25 Gm/50 Ml Syringe) 25 gm IVPUSH Q15M PRN; Protocol PRN Reason: per Hypoglycemia Standing Ord. Enoxaparin Sodium (Enoxaparin Sodium 40 Mg/0.4 Ml Syringe) 40 mg SUBCUT Q24H [facility] Last Admin: 11/05/21 03:03 Dose: 40 mg Documented by: SONNY Fenofibrate (Fenofibrate 160 Mg Tablet) 160 mg PO BEDTIME [facility] Last Admin: 11/04/21 21:58 Dose: 160 mg Documented by: SONNY Furosemide (Furosemide 20 Mg Tablet) 20 mg PO DAILY [facility]; Protocol Last Admin: 10/27/21 08:11 Dose: 20 mg Documented by: ANGIE Glucose (Glucose Gel 15 Gm Gel..Gram.) 15 gm PO Q15M PRN; Protocol PRN Reason: per Hypoglycemia Standing Ord. Insulin Human Lispro (Insulin Lispro 100 Unit/Ml 3 Ml Vial) 0 unit SUBCUT QIDACHS [facility]; Protocol Last Admin: 11/05/21 12:46 Dose: 4 unit Documented by: ALDEN Lamotrigine (Lamotrigine 100 Mg Tablet) 150 mg PO DAILY [facility] Last Admin: 11/05/21 09:28 Dose: 150 mg Documented by: LEOLA Lamotrigine (Lamotrigine 100 Mg Tablet) 200 mg PO BEDTIME [facility] Last Admin: 11/04/21 21:58 Dose: 200 mg Documented by: SONNY Levothyroxine Sodium (Levothyroxine Sodium 25 Mcg Tablet) 25 mcg PO DAILY@0630 [facility] Last Admin: 11/05/21 05:28 Dose: 25 mcg Documented by: SONNY Magnesium Hydroxide (Milk Of Magnesia 30 Ml Oral.Susp) 30 ml PO DAILY [facility] Last Admin: 11/05/21 09:29 Dose: 30 ml Documented by: LEOLA Magnesium Oxide (Magnesium Oxide 400 Mg Tablet) 400 mg PO TID [facility] Last Admin: 11/05/21 09:29 Dose: 400 mg Documented by: LEOLA Metformin HCl (Metformin Hcl 1,000 Mg Tablet) 1,000 mg PO BIDWM [facility] Last Admin: 10/27/21 08:12 Dose: 1,000 mg Documented by: ANGIE Metoprolol Tartrate (Metoprolol Tartrate 12.5 Mg Halftab) 12.5 mg PO DAILY [facility]; Protocol Last Admin: 10/27/21 08:10 Dose: 12.5 mg Documented by: ANGIE Ondansetron HCl (Ondansetron Hcl 4 Mg/2 Ml Vial) 4 mg IVPUSH Q8H PRN PRN Reason: Nausea and Vomiting Oxcarbazepine (Oxcarbazepine 300 Mg Tablet) 600 mg PO BID [facility] Last Admin: 11/05/21 09:29 Dose: 600 mg Documented by: LEOLA Perphenazine (Perphenazine 8 Mg Tablet) 16 mg PO TID [facility] Last Admin: 11/05/21 09:29 Dose: 16 mg Documented by: LEOLA Polyethylene Glycol (Polyethylene Glycol 3350 17 Gm Powd.Pack) 17 gm PO DAILY [facility] Last Admin: 11/05/21 09:29 Dose: Not Given Documented by: LEOLA Non-Admin Reason: Patient Refused Sodium Chloride (0.9 % Sodium Chloride Flush 3 Ml Syringe) 3 ml IVFLUSH QSHIFT [facility] Last Admin: 11/05/21 09:30 Dose: 3 ml Documented by: LEOLA Tiotropium [place] (Tiotropium [place] 18 Mcg Cap.W.Dev) 1 puff INHALE RDAILY [facility] Last Admin: 11/05/21 08:08 Dose: 1 puff Documented by: OBDULIA Trihexyphenidyl HCl (Trihexyphenidyl Hcl 2 Mg Tablet) 4 mg PO DAILY [facility] Last Admin: 11/05/21 09:28 Dose: 4 mg Documented by: LEOLA Labs CBC & Chem 7: 11/01/21 06:27 11/01/21 06:27 Labs: Laboratory Results - last 24 hr 11/04/21 11/04/21 11/05/21 16:13 20:23 07:23 POC Glucose 202 H 229 H 200 H 11/05/21 11:16 POC Glucose 243 H Assessment and Plan (1) Acute respiratory failure with hypoxia: Status: Acute Assessment and Plan: This is a 61-year-old female with past medical history of schizoaffective disorder, hypertension,?hyperlipidemia, diabetes presents to the hospital with hypoxia as well as increased lethargy and altered mental status found to have re spiratory failure/covid acute hypoxic respiratory failure secondary to COVID-19 infection and bacterial pneumonia vaccinated x3 with Pfizer seen by pulmonology s/p remdecivir continue IV decadron continue IV zosyn repeat CXR showing worsening density with effusion continue supplemental oxygen, need to get down to 5 liters for tx [facility], sat 89-90% on 5 liters sepsis(poa) tachycardia, tachypnea-seems improving over the day, no leukocytosis, afebrile r/t COVID-19 infection toxic metabolic encephalopathy - multifactorial probably related to sepsis/covid, hcap improved CT head negative seen by psych, seems like near her baseline DM hold metformin continue SSI UTI UCx mixed pollo, no abx indicated mood continue home meds code status - dnr/dni dvt ppx - lovenox attending Dr. Solares dispo - can return to [facility] when down to 5L Quality Stroke Does the patient have a stroke diagnosis?: No VTE Prior VTE?: No VTE Risk Level:: Medical - moderate - high VTE Device Contraindication: Treatment Not Indicated VTE Drug Contraindication: N/A - Med Ordered
[2021-11-05 16:23] LABS: Glucose, Whole Blood 199 mg/dL (60-115)
[2021-11-05 20:08] LABS: Glucose, Whole Blood 271 mg/dL (60-115)
[2021-11-05] MEDS: cloZAPine 100 MG TABLET 300 MG PO (20:37)
[2021-11-05] MEDS: Atorvastatin Calcium 20 MG TABLET PO (20:38)
[2021-11-05] MEDS: Fenofibrate 160 MG TABLET PO (20:38)
[2021-11-06] VITALS (8 sets, daily range): BP systolic 115–145; BP diastolic 67–77; PULSE 97–106; RESP 17–18; TEMP 35.9–37.1; O2SAT 90–96
[2021-11-06] MEDS: Enoxaparin Sodium 40 MG/0.4 ML SYRINGE SUBCUT (02:19)
[2021-11-06] MEDS: 0.9 % Sodium Chloride Flush 3 ML SYRINGE IVFLUSH ×3 (02:20→17:00)
[2021-11-06] MEDS: Levothyroxine Sodium 25 MCG TABLET PO (06:10)
[2021-11-06 06:48] LABS: Hemoglobin 10.9 g/dl (12.0-16.0); Mean Corpuscular HGB Conc 30.3 g/dl (31.0-35.0); Mean Corpuscular Volume 89.3 fL (80.0-98.0); Mean Platelet Volume 11.9 fL (9.4-12.3); Platelet Count 221 X10*3/uL (160-400); Red Blood Count 4.03 X10*6/uL (4.20-5.50); Red Cell Distribution Width 15.5 % (11.0-16.0)
[2021-11-06 07:08] LABS: Anion Gap 14 (12-20); Blood Urea Nitrogen 25 mg/dL (9-16); Calcium 10.2 mg/dL (8.4-10.2); Carbon Dioxide 34 mmol/L (22-29); Chloride 98 mmol/L (96-108); Estimated Glomerular Filt Rate > 60; Glucose Random 196 mg/dL (60-115); Potassium 3.8 mmol/L (3.3-5.1); Sodium 142 mmol/L (135-145)
[2021-11-06 07:38] LABS: Glucose, Whole Blood 195 mg/dL (60-115)
[2021-11-06] MEDS: Insulin Lispro 100 UNIT/ML 3 ML VIAL SUBCUT ×3 (07:50→17:00)
[2021-11-06] MEDS: Albuterol Sulfate 90 MCG 8 GM INHALER 2 PUFF INHALE ×3 (08:56→16:37)
[2021-11-06] MEDS: Milk of Magnesia 30 ML ORAL.SUSP PO (09:50)
[2021-11-06] MEDS: Trihexyphenidyl HCL 2 MG TABLET 4 MG PO (09:51)
[2021-11-06] MEDS: Perphenazine 8 MG TABLET 16 MG PO ×2 (09:51→15:31)
[2021-11-06] MEDS: cloZAPine 25 MG TABLET 75 MG PO (09:51)
[2021-11-06] MEDS: Aspirin 81 MG TAB.CHEW PO (09:51)
[2021-11-06] MEDS: OXcarbazepine 300 MG TABLET 600 MG PO (09:51)
[2021-11-06] MEDS: dexAMETHasone sod phosphate 4 MG/ML VIAL 6 MG IVPUSH (09:52)
[2021-11-06] MEDS: Magnesium Oxide 400 MG TABLET PO ×2 (09:52→15:31)
[2021-11-06 11:34] LABS: Glucose, Whole Blood 226 mg/dL (60-115)
[2021-11-06] MEDS: Acetaminophen 325 MG TABLET 650 MG PO (11:55)
[2021-11-06] MEDS: polyethylene glycoL 3350 17 GM POWD.PACK PO (11:55)
--- NOTE | 2021-11-06 13:10 | P.DS_ITS ---
DS: Providers Provider Date of Service: 11/06/21 Date of admission: 10/26/21 01:48 Primary care physician: Mindi Melvin MD Consults: 10/26/21 08:40 Consult to Pulmonology Routine Consulting Provider: Sawyer Cerna Reason for consultation: Acute hypoxemic respiratory distended COVID. Has provider been notified: No 10/26/21 08:43 Consult to Psychiatry Routine Consulting Provider: Psych Covering Reason for consultation: toxic metabolic encephalopathy probably ? multiple psych meds Has provider been notified: No Attending physician on discharge: Jamar Solares Discharging clinician: Rachael Cerna DS: Diagnosis Discharge Diagnosis (1) Acute respiratory failure with hypoxia: Status: Acute DS: Summary Hospital Course Hospital Course: HP as per admitting provider 61-year-old female with past medical history of schizoaffective disorder, type 2 diabetes, diastolic heart failure, hypertension, hyperlipidemia, depression, comes from [facility] with increased left surgery as well as shortness of breath and hypoxia in the 70s.? Patient at this time is very somnolent, responds to sound but not answering any questions.? Patient is vaccinated against COVID x3 with Pfizer. According to ED physician patient brought in from [facility] with increased shortness of breath saturating in the 70s.? She was tested positive for COVID at the [facility] but unclear on what date. On arrival to the ED patient found to have a temp of 98.6?, heart rate of 103, respiratory rate of 25, blood pressure 124/60, satting 97% on 3 L of oxygen Labs are significant for WBC count of 5.5, hemoglobin of 10.4, hematocrit 34.9, BUN of 23, creatinine of 0.78, UA positive for nitrites and leukocyte Estrace as well as WBC, COVID-19 negative, chest x-ray showed left lung clear,? poor exam but possible small right pleural effusion suspected. Patient will be admitted for further management unable to complete review of systems and past medical history per chart from [facility] . Acute hypoxic respiratory failure secondary to COVID-19 infection and bacterial pneumonia vaccinated x3 with Pfizer seen by pulmonology s/p remdecivir Treated with IV decadron and IV zosyn. Completed 10 day course of steroid Now on 5 liters of oxygen Sepsis. Resolved tachycardia, tachypnea-seems improving over the day, no leukocytosis, afebrile r/t COVID-19 infection toxic metabolic encephalopathy - multifactorial probably related to sepsis/covid, hcap improved CT head negative seen by psych, seems like near her baseline Time Spent with Patient Time attestation: Total time spent providing and/or coordinating discharge services: Discharge coordination time: Greater than 30 minutes Quality: Stroke Does the patient have a stroke diagnosis?: No Physical Exam Verdana 4l Vital Signs: Verdana 4d Verdana 4d Vital Signs: Verdana 4d Verdana 4Bd Last Vital Signs Verdana 4d Health Support Specialist New 4d Health Support Specialist New 4d Temp 97.4 F 11/06/21 11:16 Health Support Specialist New 4d Pulse 106 H 11/06/21 12:02 Health Support Specialist New 4d Resp 18 11/06/21 12:02 BP 119/74 11/06/21 11:16 Pulse Ox 96 11/06/21 11:16 Oxygen Flow Rate 3 10/25/21 22:54 BMI result Body Mass Index 38.9 Appearing in no acute distress lung sounds are clear to auscultation heart regular rate rhythm, clear S1, S2 positive bowel sounds, abdomen is soft, nontender neuro patient is alert x3, no focal deficits DS: Data Data Completed and Pending Labs on day of discharge: Laboratory Results - last 24 hr 11/05/21 11/05/21 11/06/21 15:55 20:05 06:10 WBC 7.0 RBC 4.03 L Hgb 10.9 L Hct 36.0 L MCV 89.3 MCH 27.0 MCHC 30.3 L RDW 15.5 Plt Count 221 MPV 11.9 Absolute Nucleated RBC 0.000 Nucleated RBC % (auto) 0.0 Sodium Potassium Chloride Carbon Dioxide Anion Gap BUN Creatinine Estim Creat Clear Calc Estimated GFR POC Glucose 199 H 271 H Random Glucose Calcium 11/06/21 11/06/21 11/06/21 06:10 07:27 11:14 WBC RBC Hgb Hct MCV MCH MCHC RDW Plt Count MPV Absolute Nucleated RBC Nucleated RBC % (auto) Sodium 142 Potassium 3.8 Chloride 98 Carbon Dioxide 34 H Anion Gap 14 BUN 25 H Creatinine 0.84 Estim Creat Clear Calc 84.0 Estimated GFR > 60 POC Glucose 195 H 226 H Random Glucose 196 H Calcium 10.2 Discharge Plan Discharge Anticipated Discharge Date/Time: 11/06/21 13:07 Patient Disposition: Xfer LTC Discharge Diagnosis: acute hypoxic respiratory failure Sepsis Toxic metabolic encephalopathy Referrals: [facility] [Other] - 1 Week Mindi Melvin MD [Primary Care Provider] - 1 Week Discharge Medications: Continued lamotrigine [Lamictal] 150 mg Tablet 150 mg PO DAILY 0RF atorvastatin 20 mg Tablet 20 mg PO BEDTIME 0RF lamotrigine [Lamictal] 200 mg Tablet 200 mg PO BEDTIME 0RF polyethylene glycol 3350 17 gram Powder In Packet 17 g PO DAILY 0RF clozapine 100 mg Tablet 300 mg PO BEDTIME 0RF acetaminophen 500 mg Tablet 1,000 mg PO TID 0RF levothyroxine 25 mcg Tablet 25 mcg PO DAILY 0RF meloxicam 7.5 mg Tablet 7.5 mg PO DAILY 0RF methenamine hippurate 1 gram Tablet 1 g PO BID 0RF magnesium hydroxide [Milk of Magnesia] 400 mg/5 mL Suspension 30 ml PO DAILY 0RF metformin 1,000 mg Tablet 1,000 mg PO BID 0RF oxcarbazepine 600 mg Tablet 600 mg PO BID 0RF aspirin 81 mg Tablet 81 mg PO DAILY 0RF furosemide 20 mg Tablet 20 mg PO DAILY 0RF clozapine 25 mg Tablet 75 mg PO DAILY 0RF albuterol sulfate 90 mcg/actuation Hfa Aerosol Inhaler 2 inh INHALATION Q4H PRN (Reason: Shortness Of Breath Or Wheezing) 0RF trihexyphenidyl 2 mg Tablet 4 mg PO DAILY 0RF perphenazine 16 mg Tablet 16 mg PO TID 0RF omega-3 fatty acids-vitamin E 1,000 mg Capsule 1 cap PO DAILY 0RF metoprolol tartrate 25 mg Tablet 12.5 mg PO DAILY 0RF Spiriva with HandiHaler 18 mcg Capsule, W/Inhalation Device 1 cap INHALATION DAILY 0RF Rx Instructions: 1 cap requires 2 inhalations fenofibrate 160 mg Tablet 160 mg PO BEDTIME 0RF vit c-ascorbate Ca-ascorb sod 500 mg/15 mL Liquid 15 ml PO DAILY 0RF Breo Ellipta 200-25 mcg/dose Blister With Device 1 inh INHALATION DAILY 0RF magnesium oxide 400 mg magnesium Tablet 400 mg PO TID 0RF Discharge Orders: Discharge Order (Routine); Ordered 11/06/21 Ordered By: Rachael Cerna Diet: advance to usual diet Activity on Discharge: As tolerated Stand Alone Forms: Patient Portal Discharge page Care Plan Goals: complete resolution of symptoms Health Concerns: acute hypoxic respiratory failure Sepsis Toxic metabolic encephalopathy Plan of Treatment: You will be discharged on 5 L of oxygen may adjust to keep oxygen saturation greater than 88% Follow-up with your primary care provider as needed Assessment: see discharge summary
--- NOTE | 2021-11-06 16:02 | MHC.CM.PN ---
Female 61 Covid+ Is discharged today. She will return to [facility] via BLS @ 5PM today. All dc info has been sent to the facility.
[2021-11-06 16:36] LABS: Glucose, Whole Blood 205 mg/dL (60-115)
--- NOTE | 2021-11-06 17:42 | PC.NURSE ---
Warm Handover Called [facility] @ 1740 p.m to do warm handover; junior legal secretary answered phone and transferred to unit twice. Could hear the phone being picked up and hung up afterwards. 1742 p.m, Repeated the call and same process occurred.
== END 2021-11-06 17:53 | DRG 871 ==
LOC: HO.ED 10-26 01:39 → HO.EDOVER 10-26 01:53 → HO.IMC 10-27 19:31
PROVIDERS: Internal Medicine; Physician Assistant Medical; Admitting Provider Internal Medicine; Emergency Provider Internal Medicine; PCP Internal Medicine; Visit Provider Nurse Practitioner Acute Care
DX: A41.9 Sepsis, unspecified organism (principal); U07.1 COVID-19; J96.01 Acute respiratory failure with hypoxia; J12.82 Pneumonia due to coronavirus disease 2019; G92.8 Other toxic encephalopathy; J15.9 Unspecified bacterial pneumonia; I50.32 Chronic diastolic (congestive) heart failure; N39.0 Urinary tract infection, site not specified; F25.9 Schizoaffective disorder, unspecified; E11.9 Type 2 diabetes mellitus without complications; E66.9 Obesity, unspecified; Z68.38 Body mass index [BMI] 38.0-38.9, adult; I11.0 Hypertensive heart disease with heart failure; Z79.1 Long term (current) use of non-steroidal anti-inflammatories (NSAID); Z79.82 Long term (current) use of aspirin; Z79.890 Hormone replacement therapy; Z79.899 Other long term (current) drug therapy; Z66 Do not resuscitate
CPT/HCPCS: 36415; 70450; 71045; 80048; 80053; 80076; 80159; 81001; 82728; 82803; 82947; 83036; 83605; 83615; 83880; 84145; 84484; 85007; 85025; 85027; 86140; 87040; 87086; 87635; 93005; 94640; 96365; 96367; 97110; 97116; 97162; 97530; 99285; J0248; J0696; J1100; J1650; J1940; J2543

== ENCOUNTER 2021-12-09 19:25 | Inpatient (IN) | payer MEDICARE, MEDICAID, SELFPAY ==
--- NOTE | ~2021-12-09 | XR_ITS ---
EXAMINATION: XR CHEST CLINICAL INFORMATION: Altered mental status. COMPARISON: 11/06/2021 chest radiograph. TECHNIQUE: Frontal view of the chest was obtained. FINDINGS: Rotated positioning is suboptimal. Mild linear markings are seen in the right mid and lower lung field. The left lung is clear. The heart is mildly enlarged. The mediastinal structures are unremarkable. XR/XR chest 1V IMPRESSION: Mild linear markings in the right mid and lower lung caro may be projectional given the suboptimal positioning however were not seen previously and atelectasis or developing infiltrates cannot be excluded.
--- NOTE | 2021-12-09 19:32 | ED.SYNCOPE ---
HPI - Syncope General Chief Complaint: Altered Mental Status Stated Complaint: syncope Time Seen by Provider: 12/09/21 19:32 Source: EMS and RN notes reviewed Mode of arrival: EMS Limitations: altered mental status History of Present Illness HPI narrative: Patient is 61 years old obese with history of schizoaffective disorder type 2 diabetes diastolic heart failure hypertension hyperlipidemia and depression , COVID in 11/02 came from shelter increased lethargic and unresponsiveness with history of seem when she was admitted on 10/26/21 patient is lethargic but arousable was given 4 mg of Narcan by EMS as a thought patient a pinpoint pupil with partial response patient saturating 93% on 4 L when EMS arrived per shelter staff patient is saturating 72 is not clear whether she was on oxygen prior to that or not as patient is noncompliant Related Data Home Medications Medication Instructions Recorded Confirmed acetaminophen 500 mg tablet 1,000 mg PO TID 10/26/21 12/09/21 albuterol sulfate 90 mcg/actuation 2 inh INHALATION Q4H PRN 10/26/21 12/09/21 aerosol inhaler ascorbic acid-ascorbate 15 ml PO DAILY 10/26/21 12/09/21 calcium-ascorbate sod 500 mg/15 mL oral liquid aspirin 81 mg tablet 81 mg PO DAILY 10/26/21 12/09/21 atorvastatin 20 mg tablet 20 mg PO BEDTIME 10/26/21 12/09/21 clozapine 100 mg tablet 300 mg PO BEDTIME 10/26/21 12/09/21 clozapine 25 mg tablet 75 mg PO DAILY 10/26/21 12/09/21 fenofibrate 160 mg tablet 160 mg PO BEDTIME 10/26/21 12/09/21 fluticasone furoate 200 1 inh INHALATION DAILY 10/26/21 12/09/21 mcg-vilanterol 25 mcg/dose inhalation powder (Breo Ellipta) furosemide 20 mg tablet 20 mg PO DAILY 10/26/21 12/09/21 lamotrigine 150 mg tablet 150 mg PO DAILY 10/26/21 12/09/21 (Lamictal) lamotrigine 200 mg tablet 200 mg PO BEDTIME 10/26/21 12/09/21 (Lamictal) levothyroxine 25 mcg tablet 25 mcg PO DAILY 10/26/21 12/09/21 magnesium hydroxide 400 mg/5 mL 30 ml PO DAILY 10/26/21 10/26/21 oral suspension (Milk of Magnesia) magnesium oxide 400 mg PO TID 10/26/21 12/09/21 meloxicam 7.5 mg tablet 7.5 mg PO DAILY 10/26/21 12/09/21 metformin 1,000 mg tablet 1,000 mg PO BID 10/26/21 12/09/21 methenamine hippurate 1 gram tablet 1 g PO BID 10/26/21 12/09/21 metoprolol tartrate 25 mg tablet 12.5 mg PO DAILY 10/26/21 12/09/21 omega-3 fatty acids-vitamin E 1 cap PO DAILY 10/26/21 10/26/21 1,000 mg capsule oxcarbazepine 600 mg tablet 600 mg PO BID 10/26/21 12/09/21 perphenazine 16 mg tablet 16 mg PO TID 10/26/21 12/09/21 polyethylene glycol 3350 17 gram 17 g PO DAILY 10/26/21 12/09/21 oral powder packet tiotropium bromide 18 mcg capsule 1 cap INHALATION DAILY 10/26/21 12/09/21 with inhalation device (Spiriva with HandiHaler) trihexyphenidyl 2 mg tablet 4 mg PO DAILY 10/26/21 12/09/21 lorazepam 0.5 mg tablet 1 tab PO BID 12/09/21 12/09/21 Allergies Allergy/AdvReac Type Severity Reaction Status Date / Time chlorpromazine Allergy Unknown Verified 10/25/21 23:01 [From Thorazine] fluphenazine [From Prolixin] Allergy Unknown Verified 10/25/21 23:01 haloperidol [From Haldol] Allergy Unknown Verified 10/25/21 23:01 niacin Allergy Unknown Verified 10/25/21 23:01 thioridazine [From Mellaril] Allergy Unknown Verified 10/25/21 23:01 Review of Systems Review of Systems: Yes Unobtainable due to mental status PMFSH Past Medical History Medical History Diabetes mellitus type 2 in obese Diastolic heart failure HCAP (healthcare-associated pneumonia) Hyperlipidemia Hypertension Pneumonia due to 2019-nCoV Schizoaffective disorder Schizoaffective disorder, depressive type Social History Social History Household Members: Other Household Members Other:: SNF Housing: Other Housing Other:: SNF Do you presently have visiting nurse or other home services: Yes Patient Tobacco Use Status: Never used Tobacco Advance Directives: No service: No Current occupational status: disabled Physical Exam Vital Signs: Vital Signs: Last Vital Signs Temp 98.4 F 12/09/21 22:47 Pulse 98 12/09/21 23:55 Resp 20 12/09/21 23:55 BP 109/63 12/09/21 23:55 Pulse Ox 95 12/09/21 23:55 Oxygen Flow Rate 4 12/09/21 19:43 BMI result Body Mass Index 34.2 Appearance: Lethargic obese arousable No acute distress. Eyes: PERRL ENT: Pharynx normal. Oral Mucosa moist Neck: Normal inspection. Neck supple. CVS: Normal heart rate and rhythm. Pulses normal. Respiratory: No respiratory distress. Equal air entry bilateral, no wheezing/rales/rhonchi Abdomen: Soft and nontender. Bowel sounds are present, no mass palpable, no CVA tenderness Skin: Skin warm and dry. Normal skin color. Normal skin turgor. Extremities: No lower extremity edema. No calf tenderness Neuro obtunded but is arousable moving all 4 extremities to painful stimuli MDM - Syncope MDM Narrative Medical decision making narrative: Patient with increased lethargy with similar admission in the past workup showed UTI D-dimer negative. Will admit patient for metabolic encephalopathy with UTI also also noticed to have magnesium level of 1.1 which was replaced Medical Records Attestation: I reviewed the patient's medical records. Lab Data Attestation: I reviewed the patient's lab results. Result diagrams: 12/09/21 20:20 12/09/21 20:20 Labs: Lab Results 12/09/21 12/09/21 12/09/21 Range/Units 20:20 20:20 20:20 WBC 7.3 (4.8-10.8) X10*3/uL RBC 4.02 L (4.20-5.50) X10*6/uL Hgb 10.9 L (12.0-16.0) g/dl Hct 36.8 L (37.0-47.0) % MCV 91.5 (80.0-98.0) fL MCH 27.1 (27.0-33.0) pg MCHC 29.6 L (31.0-35.0) g/dl RDW 16.0 (11.0-16.0) % Plt Count 241 (160-400) X10*3/uL MPV 12.0 (9.4-12.3) fL Immature Gran % (Auto) 0.5 H (0.0-0.4) % Neut % (Auto) 77.0 H (45-73) % Lymph % (Auto) 15.2 L (20-40) % [place] % (Auto) 5.9 (2-11) % Eos % (Auto) 1.0 (0-4) % Baso % (Auto) 0.4 (0-2) % Lymph # (Auto) 1.1 L (1.2-4.9) X10*3/uL [place] # (Auto) 0.4 (0.1-1.2) X10*3/uL Eos # (Auto) 0.1 (0.0-0.4) X10*3/uL Baso # (Auto) 0.0 (0.0-0.2) X10*3/uL Abs Immat Gran (auto) 0.04 H (0.00-0.03) X10*3/uL Absolute Neuts (auto) 5.6 (2.0-8.3) x10*3/uL Absolute Nucleated RBC 0.000 (0.0-0.012) X10*3/uL Nucleated RBC % (auto) 0.0 (0.0-0.2) /100WBC PT (9.9-13.0) SEC INR (0.9-1.1) APTT (24.1-38.0) SEC D-Dimer High Sensitivty NG/ML VBG pH (7.32-7.43) VBG pCO2 mmHg VBG pO2 mmHg VBG HCO3 (22-26) mmol/L VBG O2 Saturation % VBG Base Excess mmol/L Sodium 143 (135-145) mmol/L Potassium 3.5 (3.3-5.1) mmol/L Chloride 112 H (96-108) mmol/L Carbon Dioxide 24 (22-29) mmol/L Anion Gap 11 L (12-20) BUN 20 H (9-16) mg/dL Creatinine 0.64 (0.5-1.4) mg/dL Estim Creat Clear Calc 113.9 Estimated GFR > 60 Random Glucose 196 H (60-115) mg/dL Lactic Acid (0.5-2.0) mmol/L Calcium 8.1 L D (8.4-10.2) mg/dL Magnesium 1.1 L* (1.6-2.6) mg/dL Total Bilirubin < 0.2 (0.0-1.0) mg/dL AST 13 (5-31) U/L ALT 10 (0-31) U/L Alkaline Phosphatase 47 (39-117) U/L Troponin I High Sens (<3.5-17.0) ng/L B-Natriuretic Peptide 41 (<100) pg/mL Total Protein 5.1 L D (6.5-8.0) g/dL Albumin 2.9 L (3.5-5.0) g/dL Urine Color Urine Appearance Urine pH (5.0-8.0) Ur Specific [place] (1.005-1.025) Urine Protein (NEG-TRACE) MG/DL Urine Glucose (UA) (NEG) MG/DL Urine Ketones (NEG) MG/DL Urine Blood (NEG) Urine Nitrite (NEG) Ur Leukocyte Esterase (NEG) Urine RBC (0) /HPF Urine WBC (0-4) /HPF Urine WBC Clumps Ur Squamous Epith Cells /LPF Urine Bacteria /LPF 12/09/21 12/09/21 12/09/21 Range/Units 20:20 20:23 20:51 WBC (4.8-10.8) X10*3/uL RBC (4.20-5.50) X10*6/uL Hgb (12.0-16.0) g/dl Hct (37.0-47.0) % MCV (80.0-98.0) fL MCH (27.0-33.0) pg MCHC (31.0-35.0) g/dl RDW (11.0-16.0) % Plt Count (160-400) X10*3/uL MPV (9.4-12.3) fL Immature Gran % (Auto) (0.0-0.4) % Neut % (Auto) (45-73) % Lymph % (Auto) (20-40) % [place] % (Auto) (2-11) % Eos % (Auto) (0-4) % Baso % (Auto) (0-2) % Lymph # (Auto) (1.2-4.9) X10*3/uL [place] # (Auto) (0.1-1.2) X10*3/uL Eos # (Auto) (0.0-0.4) X10*3/uL Baso # (Auto) (0.0-0.2) X10*3/uL Abs Immat Gran (auto) (0.00-0.03) X10*3/uL Absolute Neuts (auto) (2.0-8.3) x10*3/uL Absolute Nucleated RBC (0.0-0.012) X10*3/uL Nucleated RBC % (auto) (0.0-0.2) /100WBC PT (9.9-13.0) SEC INR (0.9-1.1) APTT (24.1-38.0) SEC D-Dimer High Sensitivty NG/ML VBG pH 7.38 (7.32-7.43) VBG pCO2 48 mmHg VBG pO2 153 mmHg VBG HCO3 29 H (22-26) mmol/L VBG O2 Saturation 96.0 % VBG Base Excess 3.7 mmol/L Sodium (135-145) mmol/L Potassium (3.3-5.1) mmol/L Chloride (96-108) mmol/L Carbon Dioxide (22-29) mmol/L Anion Gap (12-20) BUN (9-16) mg/dL Creatinine (0.5-1.4) mg/dL Estim Creat Clear Calc Estimated GFR Random Glucose (60-115) mg/dL Lactic Acid (0.5-2.0) mmol/L Calcium (8.4-10.2) mg/dL Magnesium (1.6-2.6) mg/dL Total Bilirubin (0.0-1.0) mg/dL AST (5-31) U/L ALT (0-31) U/L Alkaline Phosphatase (39-117) U/L Troponin I High Sens 3.7 (<3.5-17.0) ng/L B-Natriuretic Peptide (<100) pg/mL Total Protein (6.5-8.0) g/dL Albumin (3.5-5.0) g/dL Urine Color YELLOW Urine Appearance CLOUDY Urine pH 6.0 (5.0-8.0) Ur Specific [place] 1.025 (1.005-1.025) Urine Protein 1+ H (NEG-TRACE) MG/DL Urine Glucose (UA) NEG (NEG) MG/DL Urine Ketones NEG (NEG) MG/DL Urine Blood 2+ H (NEG) Urine Nitrite POS H (NEG) Ur Leukocyte Esterase 2+ H (NEG) Urine RBC 0 (0) /HPF Urine WBC TNTC H (0-4) /HPF Urine WBC Clumps NOTED Ur Squamous Epith Cells 1+ /LPF Urine Bacteria 4+ /LPF 12/09/21 12/09/21 Range/Units 23:01 23:49 WBC (4.8-10.8) X10*3/uL RBC (4.20-5.50) X10*6/uL Hgb (12.0-16.0) g/dl Hct (37.0-47.0) % MCV (80.0-98.0) fL MCH (27.0-33.0) pg MCHC (31.0-35.0) g/dl RDW (11.0-16.0) % Plt Count (160-400) X10*3/uL MPV (9.4-12.3) fL Immature Gran % (Auto) (0.0-0.4) % Neut % (Auto) (45-73) % Lymph % (Auto) (20-40) % [place] % (Auto) (2-11) % Eos % (Auto) (0-4) % Baso % (Auto) (0-2) % Lymph # (Auto) (1.2-4.9) X10*3/uL [place] # (Auto) (0.1-1.2) X10*3/uL Eos # (Auto) (0.0-0.4) X10*3/uL Baso # (Auto) (0.0-0.2) X10*3/uL Abs Immat Gran (auto) (0.00-0.03) X10*3/uL Absolute Neuts (auto) (2.0-8.3) x10*3/uL Absolute Nucleated RBC (0.0-0.012) X10*3/uL Nucleated RBC % (auto) (0.0-0.2) /100WBC PT 11.1 (9.9-13.0) SEC INR 1.0 (0.9-1.1) APTT 38.6 H (24.1-38.0) SEC D-Dimer High Sensitivty < 150 NG/ML VBG pH (7.32-7.43) VBG pCO2 mmHg VBG pO2 mmHg VBG HCO3 (22-26) mmol/L VBG O2 Saturation % VBG Base Excess mmol/L Sodium (135-145) mmol/L Potassium (3.3-5.1) mmol/L Chloride (96-108) mmol/L Carbon Dioxide (22-29) mmol/L Anion Gap (12-20) BUN (9-16) mg/dL Creatinine (0.5-1.4) mg/dL Estim Creat Clear Calc Estimated GFR Random Glucose (60-115) mg/dL Lactic Acid 1.4 (0.5-2.0) mmol/L Calcium (8.4-10.2) mg/dL Magnesium (1.6-2.6) mg/dL Total Bilirubin (0.0-1.0) mg/dL AST (5-31) U/L ALT (0-31) U/L Alkaline Phosphatase (39-117) U/L Troponin I High Sens (<3.5-17.0) ng/L B-Natriuretic Peptide (<100) pg/mL Total Protein (6.5-8.0) g/dL Albumin (3.5-5.0) g/dL Urine Color Urine Appearance Urine pH (5.0-8.0) Ur Specific [place] (1.005-1.025) Urine Protein (NEG-TRACE) MG/DL Urine Glucose (UA) (NEG) MG/DL Urine Ketones (NEG) MG/DL Urine Blood (NEG) Urine Nitrite (NEG) Ur Leukocyte Esterase (NEG) Urine RBC (0) /HPF Urine WBC (0-4) /HPF Urine WBC Clumps Ur Squamous Epith Cells /LPF Urine Bacteria /LPF ECG Data Attestation: I personally reviewed and interpreted this ECG as follows: Interpretation: Sinus tachycardia heart rate 102 beats per minute normal tone normal axis no acute ischemic changes Discharge Plan Discharge Clinical Impression: Acute metabolic encephalopathy, UTI (urinary tract infection) Patient Disposition: Admitted As Inpatient
[2021-12-09 19:43] VITALS: BP 112/70; PULSE 110; RESP 16; TEMP 36.6; O2SAT 94; BMI 34.2
--- NOTE | 2021-12-09 20:06 | ECG_ITS ---
Test Reason : ALTERED MENTAL STATUS Blood Pressure : / mmHG Vent. Rate : 102 BPM Atrial Rate : 102 BPM P-R Int : 182 ms QRS Dur : 086 ms QT Int : 346 ms P-R-T Axes : 056 060 054 degrees QTc Int : 450 ms Sinus tachycardia Otherwise normal ECG When compared with ECG of 25-OCT-2021 23:11, No significant change was found Referred By: Duarte Villavicencio Electronically Signed By:Robel Padilla
[2021-12-09 20:28] LABS: Basophils Percent Auto 0.4 % (0-2); Eosinophils Absolute Auto 0.1 X10*3/uL (0.0-0.4); Hematocrit 36.8 % (37.0-47.0); Hemoglobin 10.9 g/dl (12.0-16.0); Imm Gran Abs Auto 0.04 X10*3/uL (0.00-0.03); Imm Gran Pct Auto 0.5 % (0.0-0.4); Lymphocytes Absolute Auto 1.1 X10*3/uL (1.2-4.9); Lymphocytes Percent Auto 15.2 % (20-40); MANUAL DIFF FLAG NO; Mean Corpuscular HGB Conc 29.6 g/dl (31.0-35.0); Mean Corpuscular Hemoglobin 27.1 pg (27.0-33.0); Mean Corpuscular Volume 91.5 fL (80.0-98.0); Monocytes Absolute Auto 0.4 X10*3/uL (0.1-1.2); Monocytes Percent Auto 5.9 % (2-11); Neutrophils Absolute Auto 5.6 x10*3/uL (2.0-8.3); Platelet Count 241 X10*3/uL (160-400); Red Blood Count 4.02 X10*6/uL (4.20-5.50); White Blood Count 7.3 X10*3/uL (4.8-10.8)
[2021-12-09 20:30] LABS: VBG Base Excess 3.7 mmol/L; VBG HCO3 29 mmol/L (22-26); VBG pCO2 48 mmHg; VBG pH 7.38 (7.32-7.43); VBG pO2 153 mmHg
[2021-12-09 20:31] LABS: Venous Blood Gas Refer to POC result
[2021-12-09 20:51] LABS: B Type Natriuretic Peptide 41 pg/mL (<100); Troponin-I High Sensitivity 3.7 ng/L (<3.5-17.0)
[2021-12-09 20:56] LABS: Appearance Urine CLOUDY; Color Urine YELLOW; Glucose Urine UA NEG (NEG); Leukocyte Esterase Urine 2+ (NEG); Nitrite Urine POS (NEG); Specific Gravity - Urine 1.025 (1.005-1.025); UACC Culture Trigger YES; Urine Blood 2+ (NEG); Urine Ketones NEG (NEG); Urine Protein 1+ MG/DL (NEG-TRACE)
[2021-12-09 21:03] LABS: Alanine Aminotransferase 10 U/L (0-31); Albumin Level 2.9 g/dL (3.5-5.0); Alkaline Phosphatase 47 U/L (39-117); Anion Gap 11 (12-20); Aspartate Amino Transferase 13 U/L (5-31); Bilirubin Total < 0.2 mg/dL (0.0-1.0); Blood Urea Nitrogen 20 mg/dL (9-16); Calcium 8.1 mg/dL (8.4-10.2); Carbon Dioxide 24 mmol/L (22-29); Chloride 112 mmol/L (96-108); Creatinine Clr Calc Pharmacy 113.9; Estimated Glomerular Filt Rate > 60; Glucose Random 196 mg/dL (60-115); Magnesium 1.1 mg/dL (1.6-2.6); Potassium 3.5 mmol/L (3.3-5.1); Sodium 143 mmol/L (135-145); Total Protein 5.1 g/dL (6.5-8.0)
[2021-12-09 21:28] LABS: Bacteria Urine 4+ /LPF; RBC Urine 0 /HPF (0); Squamous Epithelial Cell Urine 1+ /LPF; UACC CULT YES; WBC Clumps Urine NOTED; WBC Urine TNTC /HPF (0-4)
[2021-12-09] MEDS: Magnesium Sulfate/H2O 2 GM/50 ML PIGGYBACK IV (22:08)
[2021-12-09 22:47] VITALS: BP 109/64; PULSE 97; RESP 20; TEMP 36.9; O2SAT 95
[2021-12-09] MEDS: cefTRIAXone sodium 1 GM in 0.9 % Sodium Chloride 50 ML IV (23:08)
[2021-12-09] MEDS: 0.9 % Sodium Chloride 1,000 ML 999 ML IV (23:08)
[2021-12-09 23:21] LABS: Lactic Acid 1.4 mmol/L (0.5-2.0)
[2021-12-09 23:55] VITALS: BP 109/63; PULSE 98; RESP 20; O2SAT 95
--- NOTE | 2021-12-09 23:56 | PM.IMHP ---
History of Present Illness Date of Service: 12/09/21 Chief Complaint: AMS 61-year-old female with a past medical history of hypertension, hyperlipidemia, hypothyroidism, diabetes, COPD on 3-4 L of home oxygen, urinary incontinence, wheelchair-bound, history of dysphagia, history of COVID-19 infection trauma history of recurrent UTI, metabolic encephalopathy, anxiety, depression, history of chronic respiratory failure, interstitial lung disease, CHF, so reassess, low back pain, seizure affective disorder, SHOSHANA, osteoporosis, GERD presented to the hospital from [facility] with a chief complaint of altered mental status/lethargy/ unresponsive /hypoxic. halfway staff reported that patient was noted to be hypoxic to 70s; significantly improved oxygenation 93% on supplemental oxygen; unclear if the patient was off the oxygen; patient was also very dose in lethargic; hence centered to the hospital for further evaluation. I spoke to the staff at the [facility] [place]; the nurse was and the patient left. The covering RN mentioned that patient was noted to be unresponsive and hypoxic so she was sent to the hospital. Also reported that at baseline patient has no difficulty eating; also wheelchair bound. Also mentioned that patient is on supplemental oxygen but is very noncompliant. At the time of my interview patient noted to be on supplemental oxygen 1.5 L; saturating 94%; drowsy and lethargic; Pierre response to verbal and tactile stimuli. Per ER team patient has similar admissions in the past, attributed to encephalopathy secondary to UTI. Currently protecting airways. Admitted to the hospital for further management. [facility] Medical History (Updated 12/20/21 @ 00:02 by Cecelia Shen) Chronic respiratory failure with hypoxia COPD (chronic obstructive pulmonary disease) Diabetes mellitus type 2 in obese Diastolic heart failure HCAP (healthcare-associated pneumonia) Hyperlipidemia Hypertension Hypothyroid SHOSHANA (obstructive sleep apnea) Pneumonia due to 2019-nCoV Schizoaffective disorder Schizoaffective disorder, depressive type Family History (Updated 12/14/21 @ 18:13 by Eamon Kwon MD) Father No problems noted. Pertinent family history: unable to obtain history Social History (Updated 12/14/21 @ 18:14 by Eamon Kwon MD) Household Members: Other Household Members Other:: prison Housing: Other Housing Other:: [facility] Do you presently have visiting nurse or other home services: No Alcohol intake: never Patient Tobacco Use Status: Former Tobacco user Quit Date: 1979 Substance Use Type: Marijuana Advance Directives Date on File: 11/07/21 service: No Current occupational status: disabled Meds Allergies Allergy/AdvReac Type Severity Reaction Status Date / Time chlorpromazine Allergy Unknown Verified 10/25/21 23:01 [From Thorazine] fluphenazine [From Prolixin] Allergy Unknown Verified 10/25/21 23:01 haloperidol [From Haldol] Allergy Unknown Verified 10/25/21 23:01 niacin Allergy Unknown Verified 10/25/21 23:01 thioridazine [From Mellaril] Allergy Unknown Verified 10/25/21 23:01 Home Medications Medication Instructions Recorded Confirmed Last Taken Type acetaminophen 500 mg tablet 1,000 mg PO TID 10/26/21 12/14/21 12/09/21 History albuterol sulfate 90 mcg/actuation 2 inh INHALATION Q4H PRN 10/26/21 12/14/21 12/09/21 History aerosol inhaler atorvastatin 20 mg tablet 20 mg PO BEDTIME 10/26/21 12/14/21 12/09/21 History clozapine 100 mg tablet 300 mg PO BEDTIME 10/26/21 12/14/21 12/09/21 History clozapine 25 mg tablet 75 mg PO DAILY 10/26/21 12/14/21 12/09/21 History fenofibrate 160 mg tablet 160 mg PO BEDTIME 10/26/21 12/14/21 12/09/21 History fluticasone furoate 200 1 inh INHALATION DAILY 10/26/21 12/14/21 12/09/21 History mcg-vilanterol 25 mcg/dose inhalation powder (Breo Ellipta) furosemide 20 mg tablet 20 mg PO DAILY 10/26/21 12/14/21 12/09/21 History lamotrigine 150 mg tablet 150 mg PO DAILY 10/26/21 12/14/21 12/09/21 History (Lamictal) lamotrigine 200 mg tablet 200 mg PO BEDTIME 10/26/21 12/14/21 12/09/21 History (Lamictal) levothyroxine 25 mcg tablet 25 mcg PO DAILY 10/26/21 12/14/21 12/09/21 History magnesium hydroxide 400 mg/5 mL 30 ml PO DAILY 10/26/21 12/14/21 12/09/21 History oral suspension (Milk of Magnesia) magnesium oxide 400 mg PO TID 10/26/21 12/14/21 12/09/21 History meloxicam 7.5 mg tablet 7.5 mg PO DAILY 10/26/21 12/14/21 12/09/21 History metformin 1,000 mg tablet 1,000 mg PO BID 10/26/21 12/14/21 12/09/21 History methenamine hippurate 1 gram tablet 1 g PO BID 10/26/21 12/14/21 12/09/21 History metoprolol tartrate 25 mg tablet 12.5 mg PO DAILY 10/26/21 12/14/21 12/09/21 History omega-3 fatty acids-vitamin E 1 cap PO DAILY 10/26/21 12/14/21 12/09/21 History 1,000 mg capsule oxcarbazepine 600 mg tablet 600 mg PO BID 10/26/21 12/14/21 12/09/21 History perphenazine 16 mg tablet 16 mg PO TID 10/26/21 12/14/21 12/09/21 History polyethylene glycol 3350 17 gram 17 g PO DAILY@1700 10/26/21 12/14/21 12/09/21 History oral powder packet tiotropium bromide 18 mcg capsule 1 cap INHALATION DAILY 10/26/21 12/14/21 12/09/21 History with inhalation device (Spiriva with HandiHaler) trihexyphenidyl 2 mg tablet 4 mg PO DAILY 10/26/21 12/14/21 12/09/21 History ascorbic acid (vitamin C) 500 mg 500 mg PO DAILY 12/10/21 12/14/21 12/09/21 History tablet aspirin 81 mg tablet,delayed 81 mg PO DAILY 12/10/21 12/14/21 12/09/21 History release Physical Exam Vital Signs and Narrative: Vital Signs: Last Vital Signs Temp 98.4 F 12/09/21 22:47 Pulse 98 12/09/21 23:55 Resp 20 12/09/21 23:55 BP 109/63 12/09/21 23:55 Pulse Ox 95 12/09/21 23:55 Oxygen Flow Rate 4 12/09/21 19:43 BMI result Body Mass Index 34.2 Gen: Appears be in no acute distress HEENT: NCAT, Moist mucosa. Pulmonary: Coarse breath sounds CVS: Normal S1-S2 Abdomen: BS+, Soft, Nontender Extremities: Warm well perfused Neuro: drowsy, lethargic- minimally responsive to verbal/ tactile stimuli. Results Labs CBC and Chem 7: 12/10/21 05:34 12/10/21 05:34 Labs: Laboratory Results - last 24 hr 12/09/21 12/09/21 12/09/21 20:20 20:20 20:20 MCV 91.5 MCH 27.1 MCHC 29.6 L RDW 16.0 Plt Count 241 MPV 12.0 Immature Gran % (Auto) 0.5 H Neut % (Auto) 77.0 H Lymph % (Auto) 15.2 L [place] % (Auto) 5.9 Eos % (Auto) 1.0 Baso % (Auto) 0.4 Lymph # (Auto) 1.1 L [place] # (Auto) 0.4 Eos # (Auto) 0.1 Baso # (Auto) 0.0 Abs Immat Gran (auto) 0.04 H Absolute Neuts (auto) 5.6 Absolute Nucleated RBC 0.000 Nucleated RBC % (auto) 0.0 VBG pH VBG pCO2 VBG pO2 VBG HCO3 VBG O2 Saturation VBG Base Excess Anion Gap 11 L Estim Creat Clear Calc 113.9 Estimated GFR > 60 Random Glucose 196 H Lactic Acid Calcium 8.1 L D Magnesium 1.1 L* Total Bilirubin < 0.2 AST 13 ALT 10 Alkaline Phosphatase 47 B-Natriuretic Peptide 41 Total Protein 5.1 L D Albumin 2.9 L Urine Color Urine Appearance Urine pH Ur Specific [place] Urine Protein Urine Glucose (UA) Urine Ketones Urine Blood Urine Nitrite Ur Leukocyte Esterase Urine RBC Urine WBC Urine WBC Clumps Ur Squamous Epith Cells Urine Bacteria 12/09/21 12/09/21 12/09/21 20:23 20:51 23:01 MCV MCH MCHC RDW Plt Count MPV Immature Gran % (Auto) Neut % (Auto) Lymph % (Auto) [place] % (Auto) Eos % (Auto) Baso % (Auto) Lymph # (Auto) [place] # (Auto) Eos # (Auto) Baso # (Auto) Abs Immat Gran (auto) Absolute Neuts (auto) Absolute Nucleated RBC Nucleated RBC % (auto) VBG pH 7.38 VBG pCO2 48 VBG pO2 153 VBG HCO3 29 H VBG O2 Saturation 96.0 VBG Base Excess 3.7 Anion Gap Estim Creat Clear Calc Estimated GFR Random Glucose Lactic Acid 1.4 Calcium Magnesium Total Bilirubin AST ALT Alkaline Phosphatase B-Natriuretic Peptide Total Protein Albumin Urine Color YELLOW Urine Appearance CLOUDY Urine pH 6.0 Ur Specific [place] 1.025 Urine Protein 1+ H Urine Glucose (UA) NEG Urine Ketones NEG Urine Blood 2+ H Urine Nitrite POS H Ur Leukocyte Esterase 2+ H Urine RBC 0 Urine WBC TNTC H Urine WBC Clumps NOTED Ur Squamous Epith Cells 1+ Urine Bacteria 4+ Imaging Radiologist's Impressions: Impressions Chest X-Ray 12/09/21 21:02 IMPRESSION: Mild linear markings in the right mid and lower lung caro may be projectional given the suboptimal positioning however were not seen previously and atelectasis or developing infiltrates cannot be excluded. Assessment and Plan (1) Acute metabolic encephalopathy: Status: Resolved (2) UTI (urinary tract infection): Status: Resolved Plan 61-year-old female with a past medical history of hypertension, hyperlipidemia, diabetes, diastolic CHF, hypothyroidism, anxiety, schizoaffective disorder, COPD, SHOSHANA, interstitial lung disease, chronic respiratory failure on home oxygen, history of recurrent UTI, history of metabolic encephalopathy, wheelchair-bound, [facility] with a chief complaint of hypoxia/drowsiness/ altered mental status: Noted to have following conditions Altered mental status: Likely toxic metabolic encephalopathy. Patient noted to have UTI. venous blood gas showed pCO2 of 48. Also concern for medication related - patient on Ativan, clozapine, lamotrigine, oxcarbazepine at home; consulted psychiatry team for possible med rec and medication adjustments needed. HELD home Ativan for now Ammonia level pending patient is drowsy and lethargic currently- minimally responds to verbal/tactile Stimuli. Protecting airways. NPO; Speech and swallow eval once patient is more awake UTI: Patient on Zosyn. follow-up cultures Acute hypoxic respiratory failure: Patient has has good air entry on lung examination. chest x-ray showed Possible developing pneumonia. atient oxygenation significantly improved on supplemental oxygen. ( patient was initially noted to be saturating in the 70s at the prison and significantly improved oxygenation on supplemental oxygen) will keep the patient on Zosyn empirically D-dimer negative Hypotension: 12/10/21 around 630AM- pt's BP in 80/40s; pt is slightly more alert than last night; Given 500cc fluids (judicious IV fluids given CHF history); SBP improved to 90s. Held home Lasix and Metoprolol. History of diastolic CHF: Stable. ProBNP in 40s. History of ILD/ COPD/SHOSHANA / chronic respiratory failure: Janeth wallace history of diabetes: Insulin sliding scale. Hold home metformin. History of schizoaffective disorder / anxiety: Patient on Ativan, clozapine, colonic well, except for present pain. Psychiatric consulted for possible med rec. History of hypomagnesemia: Patient on medications supplementation at home. Will continue. Medication levels were repeated in the ER. DVT prophylaxis: Subcu heparin Code status: DNR/ DNI. Patient has MOLST form Quality Stroke Does the patient have a stroke diagnosis?: No VTE Prior VTE?: No VTE Risk Level:: Medical - moderate - high VTE Device Contraindication: Treatment Not Indicated VTE Drug Contraindication: N/A - Med Ordered
[2021-12-10] VITALS (13 sets, daily range): BP systolic 91–162; BP diastolic 48–82; PULSE 94–123; RESP 15–36; TEMP 36.2–38.3; O2SAT 90–98
[2021-12-10 00:08] LABS: Prothrombin Time 11.1 SEC (9.9-13.0)
[2021-12-10 00:10] LABS: Partial Thromboplastin Time 38.6 SEC (24.1-38.0)
[2021-12-10 00:16] LABS: D Dimer High Sensitivity < 150 NG/ML
[2021-12-10 01:16] LABS: COVID-19 Test Negative (Negative); IDNOW Serial# 16C4AD1C
[2021-12-10] MEDS: Heparin Sodium,Porcine 5,000 UNIT/ML VIAL 5000 UNIT SUBCUT ×4 (01:44→23:50)
[2021-12-10] MEDS: 0.9 % Sodium Chloride Flush 3 ML SYRINGE IVFLUSH ×2 (01:44→08:25)
[2021-12-10 02:04] LABS: Ammonia 51 umol/L (13-55)
--- NOTE | 2021-12-10 02:30 | PC.NURSE ---
PT continues to be lethargic in bed. Difficult to respond to questions and little reaction to procedures such as blood draws and obtaining vitals. PT VSS at this time.
--- NOTE | 2021-12-10 02:33 | PC.NURSE ---
PT skin felt warm to the touch. PT unable to close her mouth to obtain oral temp. Rectal temp assessed and found to be within normal range.
[2021-12-10] MEDS: Piperacillin Sodium/Tazobactam 3.375 GM in 0.9 % Sodium Chloride 50 ML IV ×4 (02:57→20:59)
[2021-12-10 05:58] LABS: MANUAL DIFF FLAG NO
[2021-12-10 06:08] LABS: Hematocrit 36.6 % (37.0-47.0); Hemoglobin 10.7 g/dl (12.0-16.0); Imm Gran Abs Auto 0.02 X10*3/uL (0.00-0.03); Imm Gran Pct Auto 0.7 % (0.0-0.4); Lymphocytes Absolute Auto 0.5 X10*3/uL (1.2-4.9); Lymphocytes Percent Auto 16.4 % (20-40); Mean Corpuscular HGB Conc 29.2 g/dl (31.0-35.0); Mean Corpuscular Hemoglobin 26.9 pg (27.0-33.0); Mean Platelet Volume 11.6 fL (9.4-12.3); Monocytes Absolute Auto 0.1 X10*3/uL (0.1-1.2); Monocytes Percent Auto 2.1 % (2-11); Neutrophils Absolute Auto 2.3 x10*3/uL (2.0-8.3); Neutrophils Percent Auto 80.8 % (45-73); Platelet Count 224 X10*3/uL (160-400); Red Blood Count 3.98 X10*6/uL (4.20-5.50); Red Cell Distribution Width 16.2 % (11.0-16.0); White Blood Count 2.9 X10*3/uL (4.8-10.8)
[2021-12-10 06:28] LABS: Magnesium 1.5 mg/dL (1.6-2.6)
[2021-12-10] MEDS: 0.9 % Sodium Chloride 250 ML 999 ML IV ×2 (06:30→06:44)
[2021-12-10 06:32] LABS: Anion Gap 13 (12-20); Blood Urea Nitrogen 22 mg/dL (9-16); Calcium 9.6 mg/dL (8.4-10.2); Carbon Dioxide 29 mmol/L (22-29); Chloride 106 mmol/L (96-108); Creatinine Clr Calc Pharmacy 112.1; Estimated Glomerular Filt Rate > 60; Glucose Random 173 mg/dL (60-115); Sodium 144 mmol/L (135-145)
[2021-12-10] MEDS: Fluticasone/Vilanterol 200/25 BLST.W.DEV 1 PUFF INHALE (07:56)
--- NOTE | 2021-12-10 08:19 | PC.NURSE ---
dr Barfield at bedside, verbal order to hold PO medications until pt seen by speech and swallow.
[2021-12-10 08:59] LABS: Glucose, Whole Blood 192 mg/dL (60-115)
--- NOTE | 2021-12-10 09:42 | P.PNIM_ITS ---
Subjective Subjective Date of Service: 12/11/21 Interval History: Seen in f/u for sepsis, metabolic encephalopathy, UTI...She remains very confused althought she is seem becoming more awake and asking for water but oxygen requirement is higher.. BP is borderline, she's tachypnic and tach ycardic.. Review of Systems Review of Systems: Yes Unobtainable due to mental status Physical Exam Vital Signs: Vital Signs: Last Vital Signs Temp 97.1 F 12/10/21 09:15 Pulse 123 H 12/10/21 09:15 Resp 36 H 12/10/21 09:15 BP 103/56 L 12/10/21 09:15 Pulse Ox 90 L 12/10/21 09:15 Oxygen Flow Rate 4 12/09/21 19:43 BMI result Body Mass Index 34.2 Const: Other: General: [place], easily aroused, doesn't make senseResp: CTA bilateral CVS: S1,S2,RRR.. tachyca GI: +BS, NT, no distention Skin: No rash or Neuro: motor grossly intact Psych: flat Objective Data Active Medications Acetaminophen (Acetaminophen 325 Mg Tablet) 650 mg PO Q6H PRN PRN Reason: Pain, Mild (Pain Scale 1-3) Albuterol Sulfate (Albuterol Sulfate 90 Mcg 8 Gm Inhaler) 2 puff INHALE Q4H PRN PRN Reason: Shortness Of Breath Or Wheezing Albuterol/Ipratropium (Albuterol/Iprat 2.5/0.5mg 3 Ml Ampul.Neb) 3 ml INHALE RQ4H PRN PRN Reason: Shortness of Breath/Wheezing Aspirin (Aspirin Enteric Coated 81 Mg Tablet.) 81 mg PO DAILY [facility] Last Admin: 12/10/21 08:26 Dose: Not Given Documented by: WILMER Non-Admin Reason: Physician Held Med Atorvastatin Calcium (Atorvastatin Calcium 20 Mg Tablet) 20 mg PO BEDTIME@2200 [facility] Clozapine (Clozapine 25 Mg Tablet) 75 mg PO DAILY [facility] Last Admin: 12/10/21 08:26 Dose: Not Given Documented by: WILMER Non-Admin Reason: Physician Held Med Clozapine (Clozapine 100 Mg Tablet) 300 mg PO BEDTIME [facility] Dextrose (Dextrose 50 % 25 Gm/50 Ml Syringe) 25 gm IVPUSH Q15M PRN; Protocol PRN Reason: per Hypoglycemia Standing Ord. Fenofibrate (Fenofibrate 160 Mg Tablet) 160 mg PO BEDTIME [facility] Fluticasone/Vilanterol (Fluticasone/Vilanterol 200/25 Blst.W.Dev) 1 puff INHALE RDAILY [facility] Last Admin: 12/10/21 07:56 Dose: 1 puff Documented by: ARMANDO Furosemide (Furosemide 20 Mg Tablet) 20 mg PO DAILY@0800 [facility]; Protocol Last Admin: 12/10/21 08:16 Dose: Not Given Documented by: WILMER Non-Admin Reason: Physician Held Med Glucose (Glucose Gel 15 Gm Gel..Gram.) 15 gm PO Q15M PRN; Protocol PRN Reason: per Hypoglycemia Standing Ord. Heparin Sodium (Porcine) (Heparin Sodium,Porcine 5,000 Unit/Ml Vial) 5,000 unit SUBCUT Q8H [facility] Last Admin: 12/10/21 08:25 Dose: 5,000 unit Documented by: WILMER Piperacillin Sod/Tazobactam (Sod 3.375 gm/ Sodium Chloride) 50 mls @ 100 mls/hr IV Q6H [facility] Last Admin: 12/10/21 08:25 Dose: 100 mls/hr Documented by: WILMER Sodium Chloride (Ns) 500 mls @ 50 mls/hr IV .Q10H [facility] Stop: 12/10/21 13:44 Last Admin: 12/10/21 04:18 Dose: Not Given Documented by: COREY Non-Admin Reason: Physician Approved Insulin Human Lispro (Insulin Lispro 100 Unit/Ml 3 Ml Vial) 0 unit SUBCUT QIDACHS [facility]; Protocol Last Admin: 12/10/21 08:15 Dose: Not Given Documented by: WILMER Non-Admin Reason: Physician Held Med Lamotrigine (Lamotrigine 100 Mg Tablet) 200 mg PO BEDTIME [facility] Lamotrigine (Lamotrigine 25 Mg Tablet) 50 mg PO DAILY [facility] Last Admin: 12/10/21 08:26 Dose: Not Given Documented by: WILMER Non-Admin Reason: Physician Held Med Lamotrigine (Lamotrigine 100 Mg Tablet) 100 mg PO DAILY [facility] Last Admin: 12/10/21 08:26 Dose: Not Given Documented by: WILMER Non-Admin Reason: Physician Held Med Levothyroxine Sodium (Levothyroxine Sodium 25 Mcg Tablet) 25 mcg PO DAILY@0600 [facility] Last Admin: 12/10/21 08:16 Dose: Not Given Documented by: WILMER Non-Admin Reason: Physician Held Med Magnesium Oxide (Magnesium Oxide 400 Mg Tablet) 400 mg PO TID [facility] Last Admin: 12/10/21 08:27 Dose: Not Given Documented by: WILMER Non-Admin Reason: Physician Held Med Melatonin (Melatonin 3 Mg Tablet) 6 mg PO BEDTIME PRN PRN Reason: Insomnia Metoprolol Tartrate (Metoprolol Tartrate 12.5 Mg Halftab) 12.5 mg PO DAILY [facility]; Protocol Last Admin: 12/10/21 08:27 Dose: Not Given Documented by: WILMER Non-Admin Reason: Physician Held Med Oxcarbazepine (Oxcarbazepine 300 Mg Tablet) 600 mg PO BID [facility] Last Admin: 12/10/21 08:27 Dose: Not Given Documented by: WILMER Non-Admin Reason: Physician Held Med Perphenazine (Perphenazine 8 Mg Tablet) 16 mg PO TID [facility] Last Admin: 12/10/21 08:27 Dose: Not Given Documented by: WILMER Non-Admin Reason: Physician Held Med Polyethylene Glycol (Polyethylene Glycol 3350 17 Gm Powd.Pack) 17 gm PO DAILY [facility] Last Admin: 12/10/21 08:27 Dose: Not Given Documented by: WILMER Non-Admin Reason: Physician Held Med Senna (Sennosides 8.6 Mg Tablet) 17.2 mg PO BEDTIME PRN PRN Reason: Constipation Sodium Chloride (0.9 % Sodium Chloride Flush 3 Ml Syringe) 3 ml IVFLUSH QSHIFT [facility] Last Admin: 12/10/21 08:25 Dose: 3 ml Documented by: WILMER Tiotropium [place] (Tiotropium [place] 18 Mcg Cap.W.Dev) 1 puff INHALE RDAILY [facility] Last Admin: 12/10/21 07:56 Dose: 1 puff Documented by: ARMANDO Trihexyphenidyl HCl (Trihexyphenidyl Hcl 2 Mg Tablet) 4 mg PO DAILY [facility] Last Admin: 12/10/21 08:27 Dose: Not Given Documented by: WILMER Non-Admin Reason: Physician Held Med Labs CBC & Chem 7: 12/10/21 05:34 12/10/21 05:34 Labs: Laboratory Results - last 24 hr 12/09/21 12/09/21 12/09/21 20:20 20:20 20:20 MCV 91.5 MCH 27.1 MCHC 29.6 L RDW 16.0 Plt Count 241 MPV 12.0 Immature Gran % (Auto) 0.5 H Neut % (Auto) 77.0 H Lymph % (Auto) 15.2 L [place] % (Auto) 5.9 Eos % (Auto) 1.0 Baso % (Auto) 0.4 Lymph # (Auto) 1.1 L [place] # (Auto) 0.4 Eos # (Auto) 0.1 Baso # (Auto) 0.0 Abs Immat Gran (auto) 0.04 H Absolute Neuts (auto) 5.6 Absolute Nucleated RBC 0.000 Nucleated RBC % (auto) 0.0 PT INR APTT D-Dimer High Sensitivty VBG pH VBG pCO2 VBG pO2 VBG HCO3 VBG O2 Saturation VBG Base Excess Anion Gap 11 L Estim Creat Clear Calc 113.9 Estimated GFR > 60 POC Glucose Random Glucose 196 H Lactic Acid Calcium 8.1 L D Magnesium 1.1 L* Total Bilirubin < 0.2 AST 13 ALT 10 Alkaline Phosphatase 47 Ammonia B-Natriuretic Peptide 41 Total Protein 5.1 L D Albumin 2.9 L Urine Color Urine Appearance Urine pH Ur Specific [place] Urine Protein Urine Glucose (UA) Urine Ketones Urine Blood Urine Nitrite Ur Leukocyte Esterase Urine RBC Urine WBC Urine WBC Clumps Ur Squamous Epith Cells Urine Bacteria COVID-19 ([facility]) COVID-19 Clin Com 12/09/21 12/09/21 12/09/21 20:23 20:51 23:01 MCV MCH MCHC RDW Plt Count MPV Immature Gran % (Auto) Neut % (Auto) Lymph % (Auto) [place] % (Auto) Eos % (Auto) Baso % (Auto) Lymph # (Auto) [place] # (Auto) Eos # (Auto) Baso # (Auto) Abs Immat Gran (auto) Absolute Neuts (auto) Absolute Nucleated RBC Nucleated RBC % (auto) PT INR APTT D-Dimer High Sensitivty VBG pH 7.38 VBG pCO2 48 VBG pO2 153 VBG HCO3 29 H VBG O2 Saturation 96.0 VBG Base Excess 3.7 Anion Gap Estim Creat Clear Calc Estimated GFR POC Glucose Random Glucose Lactic Acid 1.4 Calcium Magnesium Total Bilirubin AST ALT Alkaline Phosphatase Ammonia B-Natriuretic Peptide Total Protein Albumin Urine Color YELLOW Urine Appearance CLOUDY Urine pH 6.0 Ur Specific [place] 1.025 Urine Protein 1+ H Urine Glucose (UA) NEG Urine Ketones NEG Urine Blood 2+ H Urine Nitrite POS H Ur Leukocyte Esterase 2+ H Urine RBC 0 Urine WBC TNTC H Urine WBC Clumps NOTED Ur Squamous Epith Cells 1+ Urine Bacteria 4+ COVID-19 ([facility]) COVID-19 Clin Com 12/09/21 12/10/21 12/10/21 23:49 00:55 01:51 MCV MCH MCHC RDW Plt Count MPV Immature Gran % (Auto) Neut % (Auto) Lymph % (Auto) [place] % (Auto) Eos % (Auto) Baso % (Auto) Lymph # (Auto) [place] # (Auto) Eos # (Auto) Baso # (Auto) Abs Immat Gran (auto) Absolute Neuts (auto) Absolute Nucleated RBC Nucleated RBC % (auto) PT 11.1 INR 1.0 APTT 38.6 H D-Dimer High Sensitivty < 150 VBG pH VBG pCO2 VBG pO2 VBG HCO3 VBG O2 Saturation VBG Base Excess Anion Gap Estim Creat Clear Calc Estimated GFR POC Glucose Random Glucose Lactic Acid Calcium Magnesium Total Bilirubin AST ALT Alkaline Phosphatase Ammonia 51 B-Natriuretic Peptide Total Protein Albumin Urine Color Urine Appearance Urine pH Ur Specific [place] Urine Protein Urine Glucose (UA) Urine Ketones Urine Blood Urine Nitrite Ur Leukocyte Esterase Urine RBC Urine WBC Urine WBC Clumps Ur Squamous Epith Cells Urine Bacteria COVID-19 ([facility]) Negative COVID-19 Clin Com See Note 12/10/21 12/10/21 12/10/21 05:34 05:34 05:34 MCV 92.0 MCH 26.9 L MCHC 29.2 L RDW 16.2 H Plt Count 224 MPV 11.6 Immature Gran % (Auto) 0.7 H Neut % (Auto) 80.8 H Lymph % (Auto) 16.4 L [place] % (Auto) 2.1 Eos % (Auto) 0.0 Baso % (Auto) 0.0 Lymph # (Auto) 0.5 L [place] # (Auto) 0.1 Eos # (Auto) 0.0 Baso # (Auto) 0.0 Abs Immat Gran (auto) 0.02 Absolute Neuts (auto) 2.3 Absolute Nucleated RBC 0.000 Nucleated RBC % (auto) 0.0 PT INR APTT D-Dimer High Sensitivty VBG pH VBG pCO2 VBG pO2 VBG HCO3 VBG O2 Saturation VBG Base Excess Anion Gap 13 Estim Creat Clear Calc 112.1 Estimated GFR > 60 POC Glucose Random Glucose 173 H Lactic Acid Calcium 9.6 D Magnesium 1.5 L Total Bilirubin AST ALT Alkaline Phosphatase Ammonia B-Natriuretic Peptide Total Protein Albumin Urine Color Urine Appearance Urine pH Ur Specific [place] Urine Protein Urine Glucose (UA) Urine Ketones Urine Blood Urine Nitrite Ur Leukocyte Esterase Urine RBC Urine WBC Urine WBC Clumps Ur Squamous Epith Cells Urine Bacteria COVID-19 ([facility]) COVID-19 [employer] 12/10/21 08:12 MCV MCH MCHC RDW Plt Count MPV Immature Gran % (Auto) Neut % (Auto) Lymph % (Auto) [place] % (Auto) Eos % (Auto) Baso % (Auto) Lymph # (Auto) [place] # (Auto) Eos # (Auto) Baso # (Auto) Abs Immat Gran (auto) Absolute Neuts (auto) Absolute Nucleated RBC Nucleated RBC % (auto) PT INR APTT D-Dimer High Sensitivty VBG pH VBG pCO2 VBG pO2 VBG HCO3 VBG O2 Saturation VBG Base Excess Anion Gap Estim Creat Clear Calc Estimated GFR POC Glucose 192 H Random Glucose Lactic Acid Calcium Magnesium Total Bilirubin AST ALT Alkaline Phosphatase Ammonia B-Natriuretic Peptide Total Protein Albumin Urine Color Urine Appearance Urine pH Ur Specific [place] Urine Protein Urine Glucose (UA) Urine Ketones Urine Blood Urine Nitrite Ur Leukocyte Esterase Urine RBC Urine WBC Urine WBC Clumps Ur Squamous Epith Cells Urine Bacteria COVID-19 ([facility]) COVID-19 [employer] Assessment and Plan (1) Acute metabolic encephalopathy: Status: Acute (2) UTI (urinary tract infection): Status: Acute Plan 61-year-old female with a past medical history of hypertension, hyperlipidemia, diabetes, diastolic CHF, hypothyroidism, anxiety, schizoaffective disorder, COPD, SHOSHANA, interstitial lung disease, chronic respiratory failure on home oxygen, history of recurrent UTI, history of metabolic encephalopathy, wheelchair-bound, presented from the intermediate with a chief complaint of hypoxia/drowsiness/ altered mental status: Noted to have following conditions Altered mental status: Likely toxic metabolic encephalopathy probably related to UTI, also anoxic encephalopathy cannot be excluded and polyphamacy ( Ativan, clozapine, lamotrigine, oxcarbazepine) maybe playing a role as well -Treat underlying UTI, avoid narc, benzo UTI: Patient on Zosyn. follow-up cultures Acute hypoxic respiratory failure: No discrete pneumonia seen, covid negative..Repeat ABG, adjust oxygen as needed Hypotension: 12/10/21 around 630AM- pt's BP in 80/40s; pt is slightly more alert than last night; Given 500cc fluids (judicious IV fluids given CHF history); SBP improved to 90s. Held home Lasix and Metoprolol. Lactic acid was normal. IVF to maintain BP History of diastolic CHF: Stable. ProBNP in 40s. History of ILD/ COPD/SHOSHANA / chronic respiratory failure: Janeth steel.rregan history of diabetes: Insulin sliding scale. Hold home metformin. History of schizoaffective disorder / anxiety: Patient on Ativan, clozapine, colonic well, except for present pain. Psychiatric consulted for possible med rec. History of hypomagnesemia: Patient on medications supplementation at home. Will continue. Medication levels were repeated in the ER. DVT prophylaxis: Subcu heparin Code status: DNR/ DNI. Patient has MOLST form Quality Stroke Does the patient have a stroke diagnosis?: No VTE Prior VTE?: No VTE Risk Level:: Medical - moderate - high VTE Device Contraindication: Treatment Not Indicated VTE Drug Contraindication: N/A - Med Ordered
[2021-12-10 10:20] LABS: ABG Base Excess 6.2 mmol/L; ABG HCO3 32 mmol/L (22-26); ABG pCO2 54 mmHg (32-45); ABG pH 7.38 (7.35-7.45); ABG pO2 47 mmHg (83-108)
[2021-12-10 10:33] LABS: ABG Refer to POC result
--- NOTE | 2021-12-10 11:53 | MHC.SL.SWA ---
Speech Pathologist Impression: Risk of Aspiration Due to: Reduced Cognition Dysphasia Diet Status: Liquid Consistency and Strategies for Safe Swallow: Liquid Intake Recommendation: Thin Liquid Intake Strategies: Small Sips No Straws Solid Food Consistency: Dietary Recommendations: Grnd/Mech Altered (NDD2) Additional Modifications to Solid Foods: Monitor O2 Sats while eating. Pt may need breaks for O2 admin. Oral Medication Intake: Crushed with Puree Please contact the pharmacy regarding appropriate crushable or liquid drug formulations that are available whenever modified delivery is recommended. Compensatory Strategies and Precautions to be Taken for Safe Swallow: Supervision While Eating and Drinking for Safe Swallow: Total Supervision (1:1) Foods to Avoid: Difficult to chew solids. Swallowing Recommended Treatments: Compens. Strategy Educat. Recommendation for Speech: Inpatient Speech Therapy Comment: Pt presents w/ mild Oral Phase dysphagia due to prolonged mastication of solid foods. Pt currently is on High Flow Cannula, when off her oxygen, Pt O2 levels drop. Pt reports that at baseline she is on a chopped diet. Recommend Pt start on a diet w/ consistencies of Ground/Mechanical/Altered (NDD2) w/THIN liquids (NO STRAWS), w/ PILLS crushed in PUREE. Pt may need frequent breaks while eating for O2 by Cannula. Recommend 1-1 Supervision & Assistance during meals w/ monitor for O2 levels, and signs of aspiration. MD, Family Resource Management Specialist notified of diet consistency recommendations by secure text. Frequency/Duration: RADIO BROADCASTER to follow M-F to assess toleration of diet, re-assess swallow, advance diet consistencies if warranted. Date Range for Service Req: Timeline to reassess: Religion Professor Clinican/Clinical Fellow: No Supervisory Statement: I have reviewed and agree with the student/clinical fellow's documentation: N/A Speech Language Pathologist: Etta Pak M.A., CCC-RADIO BROADCASTER
[2021-12-10] MEDS: Insulin Lispro 100 UNIT/ML 3 ML VIAL SUBCUT ×3 (13:27→21:20)
[2021-12-10] MEDS: Acetaminophen 325 MG TABLET 650 MG PO ×2 (13:28→21:12)
[2021-12-10 13:31] LABS: Glucose, Whole Blood 157 mg/dL (60-115)
--- NOTE | 2021-12-10 15:21 | PC.NURSE ---
pt BP 91/50 (MAP 64) - Dr. Barfield made aware, no new orders at this time .
[2021-12-10] MEDS: Perphenazine 8 MG TABLET 16 MG PO ×2 (16:35→21:19)
[2021-12-10] MEDS: Magnesium Oxide 400 MG TABLET PO ×2 (16:35→21:11)
[2021-12-10] MEDS: 0.9 % Sodium Chloride 1,000 ML 125 ML IVCONT (16:36)
--- NOTE | 2021-12-10 17:41 | PC.NURSE ---
pt changed to NC at 6L tolerating well. SaO2 94%
[2021-12-10 18:23] LABS: Glucose, Whole Blood 161 mg/dL (60-115)
[2021-12-10] MEDS: lamoTRIgine 100 MG TABLET 200 MG PO (21:00)
[2021-12-10 21:10] LABS: Glucose, Whole Blood 215 mg/dL (60-115)
[2021-12-10] MEDS: Fenofibrate 160 MG TABLET PO (21:11)
[2021-12-10] MEDS: Atorvastatin Calcium 20 MG TABLET PO (21:11)
[2021-12-10] MEDS: OXcarbazepine 300 MG TABLET 600 MG PO (21:11)
[2021-12-10] MEDS: LORazepam 0.5 MG TABLET PO (21:11)
[2021-12-10] MEDS: cloZAPine 100 MG TABLET 300 MG PO (21:19)
[2021-12-11] VITALS (9 sets, daily range): BP systolic 103–136; BP diastolic 54–72; PULSE 90–109; RESP 18–22; TEMP 35.8–36.6; O2SAT 92–96
[2021-12-11] MEDS: 0.9 % Sodium Chloride 1,000 ML 125 ML IVCONT ×3 (00:41→20:34)
[2021-12-11] MEDS: Piperacillin Sodium/Tazobactam 3.375 GM in 0.9 % Sodium Chloride 50 ML IV ×4 (02:03→20:28)
[2021-12-11 07:36] LABS: Glucose, Whole Blood 170 mg/dL (60-115)
[2021-12-11] MEDS: Insulin Lispro 100 UNIT/ML 3 ML VIAL SUBCUT ×4 (07:43→20:45)
[2021-12-11] MEDS: Heparin Sodium,Porcine 5,000 UNIT/ML VIAL 5000 UNIT SUBCUT ×2 (07:54→16:09)
[2021-12-11] MEDS: Fluticasone/Vilanterol 200/25 BLST.W.DEV 1 PUFF INHALE (08:20)
[2021-12-11] MEDS: 0.9 % Sodium Chloride Flush 3 ML SYRINGE IVFLUSH ×2 (08:38→16:10)
[2021-12-11] MEDS: Acetaminophen 325 MG TABLET 650 MG PO ×3 (10:38→20:30)
[2021-12-11] MEDS: Ascorbic Acid 500 MG TABLET PO (10:39)
[2021-12-11] MEDS: Aspirin Enteric Coated 81 MG TABLET.DR PO (10:39)
[2021-12-11] MEDS: lamoTRIgine 25 MG TABLET 50 MG PO (10:40)
[2021-12-11] MEDS: Metoprolol Tartrate 12.5 MG HALFTAB PO (10:41)
[2021-12-11] MEDS: lamoTRIgine 100 MG TABLET PO (10:41)
[2021-12-11] MEDS: Magnesium Oxide 400 MG TABLET PO ×3 (10:41→20:30)
[2021-12-11] MEDS: OXcarbazepine 300 MG TABLET 600 MG PO ×2 (10:42→20:28)
[2021-12-11] MEDS: Perphenazine 8 MG TABLET 16 MG PO ×3 (10:42→20:29)
[2021-12-11] MEDS: polyethylene glycoL 3350 17 GM POWD.PACK PO (10:43)
[2021-12-11] MEDS: Trihexyphenidyl HCL 2 MG TABLET 4 MG PO (10:43)
[2021-12-11 10:44] LABS: Glucose, Whole Blood 195 mg/dL (60-115)
--- NOTE | 2021-12-11 11:06 | HO.PM.IMPN ---
Subjective Subjective Date of Service: 12/12/21 Interval History: Seen in f/u for sepsis, metabolic encephalopathy, UTI...She is doing well, fully awake, alert and conversing. Review of Systems no sob no fever no confusion Physical Exam Vital Signs: Vital Signs: Last Vital Signs Temp 96.7 F L 12/11/21 10:34 Pulse 99 12/11/21 10:34 Resp 18 12/11/21 10:34 BP 136/71 12/11/21 10:34 Pulse Ox 95 12/11/21 10:34 Oxygen Flow Rate 4 12/09/21 19:43 BMI result Body Mass Index 34.2 Const: Other: General: alert, oriented to self, place Resp: CTA bilateral CVS: S1,S2,RRR.. tachyca GI: +BS, NT, no distention Skin: No rash or Neuro: motor grossly intact Psych: flat Objective Data Active Medications Acetaminophen (Acetaminophen 325 Mg Tablet) 650 mg PO Q6H PRN PRN Reason: Pain, Mild (Pain Scale 1-3) Last Admin: 12/10/21 13:28 Dose: 650 mg Documented by: WILMER Acetaminophen (Acetaminophen 325 Mg Tablet) 650 mg PO TID [facility] Last Admin: 12/11/21 10:38 Dose: 650 mg Documented by: SHARMILA Albuterol Sulfate (Albuterol Sulfate 90 Mcg 8 Gm Inhaler) 2 puff INHALE Q4H PRN PRN Reason: Shortness Of Breath Or Wheezing Albuterol/Ipratropium (Albuterol/Iprat 2.5/0.5mg 3 Ml Ampul.Neb) 3 ml INHALE RQ4H PRN PRN Reason: Shortness of Breath/Wheezing Ascorbic Acid (Ascorbic Acid 500 Mg Tablet) 500 mg PO DAILY [facility] Last Admin: 12/11/21 10:39 Dose: 500 mg Documented by: SHARMILA Aspirin (Aspirin Enteric Coated 81 Mg Tablet.) 81 mg PO DAILY [facility] Last Admin: 12/11/21 10:39 Dose: 81 mg Documented by: SHARMILA Aspirin (Aspirin Enteric Coated 81 Mg Tablet.) 81 mg PO DAILY [facility] Last Admin: 12/11/21 10:39 Dose: Not Given Documented by: SHARMILA Non-Admin Reason: Duplicate Order Atorvastatin Calcium (Atorvastatin Calcium 20 Mg Tablet) 20 mg PO BEDTIME@2200 [facility] Last Admin: 12/10/21 21:11 Dose: 20 mg Documented by: YONIS Clozapine (Clozapine 25 Mg Tablet) 75 mg PO DAILY [facility] Last Admin: 12/11/21 10:40 Dose: Not Given Documented by: SHARMILA Non-Admin Reason: Patient Refused Clozapine (Clozapine 100 Mg Tablet) 300 mg PO BEDTIME [facility] Last Admin: 12/10/21 21:19 Dose: 300 mg Documented by: YONIS Dextrose (Dextrose 50 % 25 Gm/50 Ml Syringe) 25 gm IVPUSH Q15M PRN; Protocol PRN Reason: per Hypoglycemia Standing Ord. Fenofibrate (Fenofibrate 160 Mg Tablet) 160 mg PO BEDTIME [facility] Last Admin: 12/10/21 21:11 Dose: 160 mg Documented by: YONIS Fluticasone/Vilanterol (Fluticasone/Vilanterol 200/25 Blst.W.Dev) 1 puff INHALE RDAILY [facility] Last Admin: 12/11/21 08:20 Dose: 1 puff Documented by: ARMANDO Furosemide (Furosemide 20 Mg Tablet) 20 mg PO DAILY@0800 [facility]; Protocol Last Admin: 12/10/21 08:16 Dose: Not Given Documented by: WILMER Non-Admin Reason: Physician Held Med Glucose (Glucose Gel 15 Gm Gel..Gram.) 15 gm PO Q15M PRN; Protocol PRN Reason: per Hypoglycemia Standing Ord. Heparin Sodium (Porcine) (Heparin Sodium,Porcine 5,000 Unit/Ml Vial) 5,000 unit SUBCUT Q8H [facility] Last Admin: 12/11/21 07:54 Dose: 5,000 unit Documented by: LUIS Piperacillin Sod/Tazobactam (Sod 3.375 gm/ Sodium Chloride) 50 mls @ 100 mls/hr IV Q6H [facility] Last Infusion: 12/11/21 10:43 Dose: 0 mls/hr Documented by: SHARMILA Sodium Chloride (Ns) 1,000 mls @ 125 mls/hr IVCONT .Q8H [facility] Last Admin: 12/11/21 07:45 Dose: Not Given Documented by: LUIS Non-Admin Reason: IV Running Insulin Human Lispro (Insulin Lispro 100 Unit/Ml 3 Ml Vial) 0 unit SUBCUT QIDACHS [facility]; Protocol Last Admin: 12/11/21 07:43 Dose: 2 unit Documented by: LUIS Comments: per protocol Lamotrigine (Lamotrigine 100 Mg Tablet) 200 mg PO BEDTIME [facility] Last Admin: 12/10/21 21:00 Dose: 200 mg Documented by: YONIS Lamotrigine (Lamotrigine 25 Mg Tablet) 50 mg PO DAILY [facility] Last Admin: 12/11/21 10:40 Dose: 50 mg Documented by: SHARMILA Lamotrigine (Lamotrigine 100 Mg Tablet) 100 mg PO DAILY [facility] Last Admin: 12/11/21 10:41 Dose: 100 mg Documented by: SHARMILA Levothyroxine Sodium (Levothyroxine Sodium 25 Mcg Tablet) 25 mcg PO DAILY@0600 [facility] Last Admin: 12/11/21 05:58 Dose: Not Given Documented by: LUIS Non-Admin Reason: too sleepy to swallow safely Lorazepam (Lorazepam 0.5 Mg Tablet) 0.5 mg PO BID [facility] Last Admin: 12/11/21 10:41 Dose: Not Given Documented by: SHARMILA Non-Admin Reason: patient drowsy Magnesium Hydroxide (Milk Of Magnesia 30 Ml Oral.Susp) 30 ml PO DAILY [facility] Last Admin: 12/11/21 10:42 Dose: Not Given Documented by: SHARMILA Non-Admin Reason: Patient Refused Magnesium Oxide (Magnesium Oxide 400 Mg Tablet) 400 mg PO TID [facility] Last Admin: 12/11/21 10:41 Dose: 400 mg Documented by: SHARMILA Melatonin (Melatonin 3 Mg Tablet) 6 mg PO BEDTIME PRN PRN Reason: Insomnia Metoprolol Tartrate (Metoprolol Tartrate 12.5 Mg Halftab) 12.5 mg PO DAILY [facility]; Protocol Last Admin: 12/11/21 10:41 Dose: 12.5 mg Documented by: SHARMILA Oxcarbazepine (Oxcarbazepine 300 Mg Tablet) 600 mg PO BID [facility] Last Admin: 12/11/21 10:42 Dose: 600 mg Documented by: SHARMILA Perphenazine (Perphenazine 8 Mg Tablet) 16 mg PO TID [facility] Last Admin: 12/11/21 10:42 Dose: 16 mg Documented by: SHARMILA Polyethylene Glycol (Polyethylene Glycol 3350 17 Gm Powd.Pack) 17 gm PO DAILY [facility] Last Admin: 12/11/21 10:43 Dose: 17 gm Documented by: SHARMILA Senna (Sennosides 8.6 Mg Tablet) 17.2 mg PO BEDTIME PRN PRN Reason: Constipation Sodium Chloride (0.9 % Sodium Chloride Flush 3 Ml Syringe) 3 ml IVFLUSH QSHIFT [facility] Last Admin: 12/11/21 08:38 Dose: 3 ml Documented by: SHARMILA Tiotropium [place] (Tiotropium [place] 18 Mcg Cap.W.Dev) 1 puff INHALE RDAILY [facility] Last Admin: 12/11/21 08:20 Dose: 1 puff Documented by: BRESNE Trihexyphenidyl HCl (Trihexyphenidyl Hcl 2 Mg Tablet) 4 mg PO DAILY [facility] Last Admin: 12/11/21 10:43 Dose: 4 mg Documented by: SHARMILA Labs CBC & Chem 7: 12/10/21 05:34 12/10/21 05:34 Labs: Laboratory Results - last 24 hr 12/10/21 12/10/21 12/10/21 13:20 18:10 21:05 POC Glucose 157 H 161 H 215 H 12/11/21 12/11/21 07:30 10:32 POC Glucose 170 H 195 H Microbiology Microbiology Results: Microbiology 12/09/21 23:49 Urine Culture - Final Urine clean catch - Urine rodriguez top 12/09/21 23:01 Blood Culture - Preliminary Blood - Venous No growth after 24 hours. 12/09/21 23:01 Blood Culture - Preliminary Blood - Venous No growth after 24 hours. Assessment and Plan (1) Acute metabolic encephalopathy: Status: Acute (2) UTI (urinary tract infection): Status: Acute Plan 61-year-old female with a past medical history of hypertension, hyperlipidemia, diabetes, diastolic CHF, hypothyroidism, anxiety, schizoaffective disorder, COPD, SHOSHANA, interstitial lung disease, chronic respiratory failure on home oxygen, history of recurrent UTI, history of metabolic encephalopathy, wheelchair-bound, presented from the [facility] with a chief complaint of hypoxia/drowsiness/ altered mental status: Noted to have following conditions Altered mental status: Likely toxic metabolic encephalopathy probably related to UTI,--resolved, at baseline -Treat underlying UTI, avoid narc, benzo UTI: Patient on Zosyn. follow-up cultures Acute hypoxic respiratory failure: No discrete pneumonia seen, covid negative..Repeat ABG, adjust oxygen as needed Hypotension: 12/10/21 around 630AM- pt's BP in 80/40s; pt is slightly more alert than last night; Given 500cc fluids (judicious IV fluids given CHF history); SBP improved to 90s. Held home Lasix and Metoprolol. Lactic acid was normal. IVF to maintain BP History of diastolic CHF: Stable. ProBNP in 40s. History of ILD/ COPD/SHOSHANA / chronic respiratory failure: Janeth steel.rdrew. history of diabetes: Insulin sliding scale. Hold home metformin. History of schizoaffective disorder / anxiety: Patient on Ativan, clozapine, colonic well, except for present pain. Psychiatric consulted for possible med rec. History of hypomagnesemia: Patient on medications supplementation at home. Will continue. Medication levels were repeated in the ER. DVT prophylaxis: Subcu heparin Code status: DNR/ DNI. Patient has MOLST form Quality Stroke Does the patient have a stroke diagnosis?: No VTE Prior VTE?: No VTE Risk Level:: Medical - moderate - high VTE Device Contraindication: Treatment Not Indicated VTE Drug Contraindication: N/A - Med Ordered
--- NOTE | 2021-12-11 11:44 | MHC.SLORD ---
Speech Language Pathology Order Status: APPLICATIONS TRAINER attempted to see patient for dysphagia treatment this morning. Patient refused PO trials. She was evaluated by APPLICATIONS TRAINER yesterday and recommended ground/mech altered (NDD2) solids and thin liquids. At baseline, patient eats chopped food. Will continue to follow as appropriate.
[2021-12-11 12:14] LABS: ABG Base Excess 7.4 mmol/L; ABG HCO3 34 mmol/L (22-26); ABG pCO2 58 mmHg (32-45); ABG pH 7.37 (7.35-7.45); ABG pO2 103 mmHg (83-108)
[2021-12-11 16:03] LABS: ABG Refer to POC result
[2021-12-11 16:08] LABS: Glucose, Whole Blood 205 mg/dL (60-115)
[2021-12-11] MEDS: Fenofibrate 160 MG TABLET PO (20:28)
[2021-12-11] MEDS: cloZAPine 100 MG TABLET 300 MG PO (20:28)
[2021-12-11] MEDS: Atorvastatin Calcium 20 MG TABLET PO (20:29)
[2021-12-11] MEDS: LORazepam 0.5 MG TABLET PO (20:29)
[2021-12-11] MEDS: lamoTRIgine 100 MG TABLET 200 MG PO (20:29)
[2021-12-11 20:40] LABS: Glucose, Whole Blood 196 mg/dL (60-115)
--- NOTE | 2021-12-11 20:52 | PC.NURSE ---
patient is being transferred to IM,report given to IMC RN
[2021-12-12] MEDS: Heparin Sodium,Porcine 5,000 UNIT/ML VIAL 5000 UNIT SUBCUT ×2 (00:36→08:08)
[2021-12-12] MEDS: 0.9 % Sodium Chloride Flush 3 ML SYRINGE IVFLUSH (00:37)
[2021-12-12] MEDS: Piperacillin Sodium/Tazobactam 3.375 GM in 0.9 % Sodium Chloride 50 ML IV ×2 (02:48→08:08)
[2021-12-12 04:00] VITALS: BP 132/73; PULSE 111; RESP 19; O2SAT 91
[2021-12-12] MEDS: 0.9 % Sodium Chloride 1,000 ML 125 ML IVCONT (04:21)
[2021-12-12] MEDS: Levothyroxine Sodium 25 MCG TABLET PO (05:56)
[2021-12-12 07:32] LABS: Glucose, Whole Blood 170 mg/dL (60-115)
[2021-12-12 08:00] VITALS: BP 125/72; PULSE 106; RESP 20; TEMP 36.3; O2SAT 93
[2021-12-12] MEDS: Insulin Lispro 100 UNIT/ML 3 ML VIAL SUBCUT ×2 (08:08→11:23)
[2021-12-12] MEDS: polyethylene glycoL 3350 17 GM POWD.PACK PO (08:09)
[2021-12-12] MEDS: Aspirin Enteric Coated 81 MG TABLET.DR PO (08:09)
[2021-12-12] MEDS: Milk of Magnesia 30 ML ORAL.SUSP PO (08:09)
[2021-12-12] MEDS: Magnesium Oxide 400 MG TABLET PO ×2 (08:10→13:53)
[2021-12-12] MEDS: lamoTRIgine 100 MG TABLET PO (08:10)
[2021-12-12] MEDS: Ascorbic Acid 500 MG TABLET PO (08:10)
[2021-12-12] MEDS: lamoTRIgine 25 MG TABLET 50 MG PO (08:10)
[2021-12-12] MEDS: Acetaminophen 325 MG TABLET 650 MG PO ×2 (08:10→13:53)
[2021-12-12] MEDS: Trihexyphenidyl HCL 2 MG TABLET 4 MG PO (08:11)
[2021-12-12] MEDS: Metoprolol Tartrate 12.5 MG HALFTAB PO (08:11)
[2021-12-12] MEDS: Perphenazine 8 MG TABLET 16 MG PO ×2 (08:11→13:53)
[2021-12-12] MEDS: cloZAPine 25 MG TABLET 75 MG PO (08:11)
[2021-12-12] MEDS: LORazepam 0.5 MG TABLET PO (08:11)
[2021-12-12] MEDS: OXcarbazepine 300 MG TABLET 600 MG PO (08:11)
--- NOTE | 2021-12-12 10:32 | HE.PHANOTE ---
Broad Spectrum Antibiotic Review: Spoke with Dr. Barfield about de-escalating antibiotics to either ceftriaxone or a PO option since patient has improved on 48 hours of Zosyn and has negative cultures. He agreed and will choose an appropriate option.
[2021-12-12 10:39] VITALS: O2SAT 95
[2021-12-12 11:02] LABS: Glucose, Whole Blood 218 mg/dL (60-115)
--- NOTE | 2021-12-12 11:30 | P.DS_ITS ---
DS: Providers Provider Date of Service: 12/12/21 Date of admission: 12/09/21 23:55 Primary care physician: Mindi Melvin MD Consults: 12/10/21 01:32 Consult to Psychiatry Routine Consulting Provider: Psych Covering Reason for consultation: pt p/w Drowsyness/lethargy; ?med related; possible reconciliation DS: Diagnosis Discharge Diagnosis (1) Acute metabolic encephalopathy: Status: Acute (2) UTI (urinary tract infection): Status: Acute DS: Summary Hospital Course Hospital Course: Chief Complaint: AMS ?61-year-old female with a past medical history of hypertension, hyperlipidemia, hypothyroidism, diabetes, COPD on 3-4 L of home oxygen, urinary incontinence, wheelchair-bound, history of dysphagia, history of COVID-19 infection trauma history of recurrent UTI,? metabolic encephalopathy,? anxiety, depression, history of chronic respiratory failure, interstitial lung disease, CHF, so reassess, low back pain, seizure affective disorder, SHOSHANA, osteoporosis, GERD presented to the hospital from [facility] with a chief complaint of altered mental status/lethargy/ unresponsive /hypoxic.? residential staff reported that patient was noted to be hypoxic to 70s; significantly improved oxygenation 93% on supplemental oxygen; unclear if the patient was off the oxygen; patient was also very dose in lethargic; hence? centered to the hospital for further evaluation. ? I spoke to the staff at the [facility] [place]; the nurse was and the patient left.? The covering RN mentioned that patient was noted to be unresponsive and hypoxic so she was sent to the hospital.? Also reported that at baseline patient has no difficulty eating; also wheelchair bound.? Also mentioned that patient is on supplemental oxygen but is very noncompliant. ? At the time of my interview patient noted to be on supplemental oxygen 1.5 L; saturating 94%; drowsy and lethargic; Pierre response to verbal and tactile stimuli. ? Per ER team patient has similar admissions in the past, attributed to encephalopathy secondary to UTI.? Currently protecting airways.? Admitted to the hospital for further management. Hospital course: Altered Mental state due to toxic metabolic encephalopathy probably related to UTI. This has resolved with treatment of underlying issues. UTI: Treated with Zosyn, culture has been negative so far. Will change to Ceftin at discharge for 5 more days Acute hypoxic respiratory failure likely due to altered mental state and possible pneumonia. ABG showed some CO2 retention but with normal pH and is likely chronic at this point her oxygenation has returned to her baseline and to continue oxygen as usual at 2 to 3 liter per mniutes. Hypotension: Transient hypotenison on admission, corrected rapidly with IVF History of diastolic CHF:? Stable.? ProBNP in 40s.? History of ILD/ COPD/SHOSHANA / chronic respiratory failure: Janeth steel.rdrew. history of diabetes:? Insulin sliding scale.? Hold home metformin. History of schizoaffective disorder / anxiety:?Resume usual medication, hold benzos if somnolent AND GIVE PRN FOR ANXIETY History of hypomagnesemia:? Patient on medications supplementation at home.? Will continue.? Medication levels were repeated in the ER. Time Spent with Patient Time attestation: Total time spent providing and/or coordinating discharge services: Discharge coordination time: Greater than 30 minutes Quality: Stroke Does the patient have a stroke diagnosis?: No Physical Exam Vital Signs: Vital Signs: Last Vital Signs Temp 97.3 F 12/12/21 08:00 Pulse 106 H 12/12/21 08:00 Resp 20 12/12/21 08:00 BP 125/72 12/12/21 08:00 Pulse Ox 95 12/12/21 10:39 Oxygen Flow Rate 4 12/09/21 19:43 BMI result Body Mass Index 34.2 DS: Data Data Completed and Pending Completed studies during hospitalization [Text1]: Procedures Introduction of Remdesivir Anti-infective into Peripheral Vein, Percutaneous Approach, [employer] 5 (10/26/21) Labs on day of discharge: Laboratory Results - last 24 hr 12/11/21 12/11/21 12/11/21 12:06 16:01 20:37 O2 Saturation 95.0 ABG pH at Pt Temp 7.37 ABG pCO2 at Pt Temp 58 H ABG pO2 at Pt Temp 103 ABG HCO3 34 H ABG Base Excess (Actual) 7.4 POC Glucose 205 H 196 H 12/12/21 12/12/21 07:25 10:59 O2 Saturation ABG pH at Pt Temp ABG pCO2 at Pt Temp ABG pO2 at Pt Temp ABG HCO3 ABG Base Excess (Actual) POC Glucose 170 H 218 H Preliminary micro results at discharge 12/09/21 23:01 Blood Culture - Preliminary Blood - Venous No growth after 48 hours. 12/09/21 23:01 Blood Culture - Preliminary Blood - Venous No growth after 48 hours. Discharge Plan Discharge Anticipated Discharge Date/Time: 12/12/21 11:22 Patient Disposition: Xfer [facility] Discharge Diagnosis: Sepsis, Metabolic Encephalopathy, UTI Referrals: [facility] [Other] - 1 Week Mindi Melvin MD [Primary Care Provider] - 1 Week Discharge Medications: New cefuroxime axetil 500 mg tablet 500 mg PO BID 5 Days Qty: 10 0RF Continued lamotrigine [Lamictal] 150 mg Tablet 150 mg PO DAILY 0RF atorvastatin 20 mg Tablet 20 mg PO BEDTIME 0RF lamotrigine [Lamictal] 200 mg Tablet 200 mg PO BEDTIME 0RF polyethylene glycol 3350 17 gram Powder In Packet 17 g PO DAILY@1700 0RF clozapine 100 mg Tablet 300 mg PO BEDTIME 0RF acetaminophen 500 mg Tablet 1,000 mg PO TID 0RF levothyroxine 25 mcg Tablet 25 mcg PO DAILY 0RF meloxicam 7.5 mg Tablet 7.5 mg PO DAILY 0RF methenamine hippurate 1 gram Tablet 1 g PO BID 0RF magnesium hydroxide [Milk of Magnesia] 400 mg/5 mL Suspension 30 ml PO DAILY 0RF metformin 1,000 mg Tablet 1,000 mg PO BID 0RF oxcarbazepine 600 mg Tablet 600 mg PO BID 0RF furosemide 20 mg Tablet 20 mg PO DAILY 0RF clozapine 25 mg Tablet 75 mg PO DAILY 0RF albuterol sulfate 90 mcg/actuation Hfa Aerosol Inhaler 2 inh INHALATION Q4H PRN (Reason: Shortness Of Breath Or Wheezing) 0RF trihexyphenidyl 2 mg Tablet 4 mg PO DAILY 0RF perphenazine 16 mg Tablet 16 mg PO TID 0RF omega-3 fatty acids-vitamin E 1,000 mg Capsule 1 cap PO DAILY 0RF metoprolol tartrate 25 mg Tablet 12.5 mg PO DAILY 0RF Spiriva with HandiHaler 18 mcg Capsule, W/Inhalation Device 1 cap INHALATION DAILY 0RF Rx Instructions: 1 cap requires 2 inhalations fenofibrate 160 mg Tablet 160 mg PO BEDTIME 0RF Breo Ellipta 200-25 mcg/dose Blister With Device 1 inh INHALATION DAILY 0RF magnesium oxide 400 mg magnesium Tablet 400 mg PO TID 0RF aspirin 81 mg Tablet,Delayed Release (Dr/Ec) 81 mg PO DAILY 0RF ascorbic acid (vitamin C) 500 mg Tablet 500 mg PO DAILY 0RF Changed lorazepam 0.5 mg tablet 1 tab PO BID PRN (Reason: ANXIETY) Qty: 0 0RF Discharge Orders: Discharge Order (Routine); Ordered 12/12/21 Ordered By: Faustino Barfield Diet: advance to usual diet Activity on Discharge: As tolerated Stand Alone Forms: Patient Portal Discharge page Care Plan Goals: Full recovery from sespis, encephalopathy and UTII Health Concerns: UTI, Encephaloapathy, sepsis now resolved. Plan of Treatment: Take Ceftin as recommended and follow up with your Doctor in a week Assessment: As above
[2021-12-12 11:52] VITALS: BP 123/65; PULSE 100; RESP 20; TEMP 36.2; O2SAT 91
[2021-12-12 11:57] LABS: COVID-19 Test Negative (Negative); IDNOW Serial# 16C4AD1C
--- NOTE | 2021-12-12 12:06 | MHC.CM.PN ---
Patient has been medically cleared for dc to SNF today. Patient will return to [facility] today at 2PM, via [facility]. Patient's Guardian/Steve at [phone] is aware of and in agreement with the dc plan. Last IMM addressed on 12/10/21.
--- NOTE | 2021-12-12 12:47 | MHC.SLORD ---
Speech Language Pathology Order Status: CUSTOMER FIELD REPRESENTATIVE attempted to see patient for dysphagia treatment this morning- Patient needed assistance from nursing for toileting. Will return later today if schedule allows, otherwise plan for tomorrow morning. Patient is on [facility] AL[facility] (NDD2) solids/ THIN liquids.
== END 2021-12-12 14:00 | disposition skilled nursing facility (03) | DRG 193 ==
LOC: HO.ED 20:04 → HO.EDOVER 12-10 00:07 → HO.S3 12-10 19:22 → HO.IMC 12-11 18:35
PROVIDERS: Admitting Provider Hospitalist; Emergency Provider Internal Medicine; PCP Internal Medicine; Visit Provider Internal Medicine
DX: J18.9 Pneumonia, unspecified organism (principal); G92.8 Other toxic encephalopathy; J96.22 Acute and chronic respiratory failure with hypercapnia; N39.0 Urinary tract infection, site not specified; I50.32 Chronic diastolic (congestive) heart failure; E66.9 Obesity, unspecified; Z68.34 Body mass index [BMI] 34.0-34.9, adult; E78.5 Hyperlipidemia, unspecified; F32.A Depression, unspecified; Z20.822 Contact with and (suspected) exposure to COVID-19; Z86.16 Personal history of COVID-19; F25.9 Schizoaffective disorder, unspecified; I95.9 Hypotension, unspecified; E03.9 Hypothyroidism, unspecified; E83.42 Hypomagnesemia; G47.33 Obstructive sleep apnea (adult) (pediatric); Z99.3 Dependence on wheelchair; Z99.81 Dependence on supplemental oxygen; Z87.891 Personal history of nicotine dependence; Z87.440 Personal history of urinary (tract) infections; Z79.4 Long term (current) use of insulin; Z79.82 Long term (current) use of aspirin; Z79.890 Hormone replacement therapy; Z79.899 Other long term (current) drug therapy; Z66 Do not resuscitate
CPT/HCPCS: 36415; 36600; 71045; 71260; 74177; 80048; 80053; 80076; 80307; 81001; 82077; 82140; 82550; 82803; 82947; 83605; 83735; 83880; 84484; 85025; 85027; 85379; 85610; 85730; 87040; 87086; 87088; 87186; 87635; 92526; 92610; 93005; 93970; 94640; 94660; 96361; 96365; 96366; 96367; 99285; J0692; J0696; J1650; J1940; J2543; J3475; Q9967

== ENCOUNTER 2021-12-14 12:42 | Inpatient (IN) | payer MEDICARE, MEDICAID, SELFPAY ==
[2021-12-14] VITALS (7 sets, daily range): BP systolic 103–127; BP diastolic 58–77; PULSE 90–99; RESP 14–25; TEMP 36.7–37; O2SAT 81–96; BMI 38.3
--- NOTE | ~2021-12-14 | CT_ITS ---
EXAMINATION: CT CHEST, ABDOMEN AND PELVIS WITH CONTRAST CLINICAL INFORMATION: Abdominal distention and vomiting. Abnormal chest radiograph. Evaluate for mass. COMPARISON: Most recent chest radiograph done earlier the same day. TECHNIQUE: Contiguous axial thin section helical images of the chest, abdomen and pelvis were performed following the administration of oral contrast and 85 mL of intravenous Omnipaque 350. The data set was reformatted in the coronal and sagittal planes and reviewed on an independent workstation. This CT examination was performed using dose optimization techniques as appropriate, variously including the following: *Automated exposure control. *Adjustment of mA and/or kV according to patient size (this includes techniques or standardized protocols for targeted exams where dose is matched to indication/reason for exam; i.e. extremities or head). *Use of iterative reconstruction technique. DLP: 387.50 mGy-cm FINDINGS: LUNGS: Right lung volume loss with pleural thickening and interstitial prominence. There are a few scattered patchy left upper lobe airspace opacities. More consolidative dependent left lower lobe airspace consolidation which could represent pneumonia. No large pulmonary mass. Evaluation somewhat limited due to respiratory motion. The central airways are patent. PLEURA: Right-sided pleural thickening. Trace left-sided pleural effusion. No pneumothorax. MEDIASTINUM: Prominent cardiomegaly. Trace pericardial effusion. No thoracic aortic dilatation or dissection. Dilatation of the central pulmonary artery, which could indicate a degree of pulmonary hypertension. No significant superior mediastinal or hilar lymphadenopathy. CHEST WALL/AXILLA: No lymphadenopathy. THYROID: Heterogeneously enlarged right thyroid gland. LIVER, GALLBLADDER, AND BILIARY TREE: Prominent hepatomegaly. No parenchymal lesion. Normal contour. The gallbladder is unremarkable with no evidence of radiopaque gallstones, gallbladder wall thickening, or obvious pericholecystic inflammatory changes. PANCREAS: Unremarkable. SPLEEN: Unremarkable. ADRENAL GLANDS: Unremarkable. KIDNEYS AND URETERS: Normal size, shape, and attenuation. There is a left ureterovesicular junction stone which measures up to 1.0 cm in greatest dimension. No significant left-sided hydroureteronephrosis. Multiple additional left-sided renal stones, the largest of which is within the posterior aspect of the mid/upper pole measuring up to 1.4 cm and located 10.3 cm from the posterior axillary line. This measures approximately 330 Hounsfield units. There are punctate right-sided renal stones. No right ureteral stone. No right-sided hydronephrosis or hydroureter. There are bilateral renal hypodensities likely representing cysts. Additional subcentimeter hypodensities are too small to characterize and statistically also likely represent cysts. No enhancing renal parenchymal lesion. Nonspecific bilateral perinephric stranding. BLADDER: Unremarkable. GASTROINTESTINAL TRACT: Moderate stool burden. No bowel wall thickening or associated inflammatory change. No small or large bowel obstruction. The appendix is unremarkable. PERITONEAL CAVITY: No intra-abdominal free air or free fluid. Prominent intraperitoneal fat. No soft tissue mass or fluid collection/abscess formation. ABDOMINAL WALL: Prominent bulging of the anterior abdominal wall related to significant intraperitoneal fat. LYMPH NODES: No significant lymphadenopathy. VASCULAR: Contrast opacifies the abdominal aorta and its branch vessels. No abdominal aortic dilatation or dissection. Scattered atherosclerotic calcifications. The IVC is unremarkable. PELVIC VISCERA: The uterus and adnexa are unremarkable. OSSEOUS STRUCTURES: There are prominent anterior compression deformities of T7 and T9. No concerning lytic or blastic osseous lesion. CT/CT abdomen pelvis w con IMPRESSION: 1. Right lung volume loss with pleural thickening and diffuse interstitial prominence. Findings could represent the sequela of a chronic infectious or inflammatory process. Focal left lower lobe airspace opacity, concerning for pneumonia. Trace left-sided pleural effusion. 2. Prominent cardiomegaly. Trace pericardial effusion. 3. Dilatation of the central pulmonary artery which could indicate a degree of pulmonary hypertension. 4. Prominent hepatomegaly. No parenchymal lesion or biliary ductal dilatation. 5. Left ureterovesicular junction stone measuring up to 1.0 cm. Multiple additional bilateral renal stones measuring up to 1.4 cm within the left mid/upper pole. No hydroureteronephrosis. Nonspecific bilateral perinephric stranding. 6. Moderate stool burden. No small or large bowel obstruction. 7. Prominent intraperitoneal fat with bulging of the anterior abdominal wall. No intra-abdominal mass, fluid collection, or ascites. 8. Anterior vertebral body compression deformities at T7 and T9.
--- NOTE | ~2021-12-14 | XR_ITS ---
EXAMINATION: XR CHEST CLINICAL INFORMATION: Hypoxia COMPARISON: 12/14/2021 TECHNIQUE: Frontal view of the chest was obtained. FINDINGS: Lung volumes are symmetric. There is mild left basilar haziness and suspected small pleural effusion. No right lung consolidation is seen. Mild prominence of the central vasculature is noted. No appreciable pneumothorax. Cardiac silhouette remains enlarged. No acute osseous findings are seen. XR/XR chest 1V IMPRESSION: Mild left basilar haziness suggesting small pleural effusion with atelectasis. Prominent central vasculature may reflect a degree of congestion. Cardiac silhouette remains enlarged.
--- NOTE | ~2021-12-14 | US_ITS ---
EXAMINATION: US VENOUS ULTRASOUND WITH DOPPLER LOWER EXTREMITY, BILATERAL CLINICAL INFORMATION: Bilateral leg pain COMPARISON: None TECHNIQUE: Ultrasound of the deep veins is performed from the hip to the calf with compression sonography and color and pulse Doppler assessment. Spectral analysis with color-flow imaging is performed. Exam was performed portably at the bedside. FINDINGS: RIGHT: There is normal venous compression and respiratory variation and augmented flow. The visualized common femoral vein, superficial femoral vein, profunda femoral vein, popliteal vein, and the trifurcation region shows no evidence of deep venous thrombosis. There is no significant popliteal fossa cyst. LEFT: There is normal venous compression and respiratory variation and augmented flow. The visualized common femoral vein, superficial femoral vein, profunda femoral vein, popliteal vein, and the trifurcation region shows no evidence of deep venous thrombosis. There is no significant popliteal fossa cyst. If the patient's symptoms persist, followup ultrasound in 5 days 7 days might be of value to exclude proximal propagation from a non-visualized calf vein. US/US venous duplex LE BI IMPRESSION: No DVT demonstrated in the bilateral lower extremity.
--- NOTE | ~2021-12-14 | XR_ITS ---
EXAMINATION: XR CHEST CLINICAL INFORMATION: Acute mental status change COMPARISON: Previous chest x-rays most recent 12/09/2021 TECHNIQUE: Frontal view of the chest was obtained. FINDINGS: The cardiac silhouette is enlarged. There is splaying of the behzad and increased density in the subcarinal region questionable for subcarinal mediastinal lymphadenopathy. Hilar and mediastinal contours are otherwise unremarkable. The patient may be slightly rotated however there is also suggestion of volume loss to the right lung. There is linear scarring or subsegmental atelectasis in the right upper lung. The left lung is clear. There is no pleural effusion or pneumothorax. There are degenerative changes of the spine. XR/XR chest 1V IMPRESSION: Stable enlargement of the cardiac silhouette. Question volume loss to the right lung and subcarinal mediastinal adenopathy.
--- NOTE | 2021-12-14 12:48 | ECG_ITS ---
Test Reason : sepsis Blood Pressure : / mmHG Vent. Rate : 092 BPM Atrial Rate : 092 BPM P-R Int : 190 ms QRS Dur : 088 ms QT Int : 370 ms P-R-T Axes : 058 050 058 degrees QTc Int : 457 ms Normal sinus rhythm Normal ECG When compared with ECG of 09-DEC-2021 21:06, No significant change was found Referred By: hCaya Guo Electronically Signed By:Robel Padilla
--- NOTE | 2021-12-14 12:58 | ED_ITS ---
HPI - General Adult General Chief complaint: General Medical <Chaya Guo NP - Last Filed: 12/14/21 19:43> Stated complaint: lethargy <Chaya Guo NP - Last Filed: 12/14/21 19:43> Time Seen by Provider: 12/14/21 12:47 <Chaya Guo NP - Last Filed: 12/14/21 19:43> Source: patient, EMS and old records reviewed <Chaya Guo NP - Last Filed: 12/14/21 19:43> Mode of arrival: wheelchair <Chaya Guo NP - Last Filed: 12/14/21 19:43> Limitations: no limitations <Chaya Guo NP - Last Filed: 12/14/21 19:43> History of Present Illness HPI narrative: 61-year-old female with a past medical history of hypertension, hyperlipidemia, hypothyroidism, diabetes, COPD on 3-4 L of home oxygen, urinary incontinence, wheelchair-bound, history of dysphagia, history of COVID-19 infection trauma history of recurrent UTI,? metabolic encephalopathy,? anxiety, depression, history of chronic respiratory failure, interstitial lung disease, CHF, so reassess, low back pain, seizure affective disorder, SHOSHANA, osteoporosis, GERD presented to the hospital from [facility] with a chief complaint of altered mental status noted since breakfast this morning with increased WOB, cough, hypoxia 80% on baseline oxygen. Patient also reports over last few days food is coming up. she denies abdominal pain, vomiting or difficulty swallowing. Of note recent admit from December 09 through December 12 for metabolic encephalopathy and UTI. Patient is currently on Ceftin PO. <Chaya Guo NP - Last Filed: 12/14/21 19:43> Related Data Home medications: Home Medications Medication Instructions Recorded Confirmed acetaminophen 500 mg tablet 1,000 mg PO TID 10/26/21 12/14/21 albuterol sulfate 90 mcg/actuation 2 inh INHALATION Q4H PRN 10/26/21 12/14/21 aerosol inhaler atorvastatin 20 mg tablet 20 mg PO BEDTIME 10/26/21 12/14/21 clozapine 100 mg tablet 300 mg PO BEDTIME 10/26/21 12/14/21 clozapine 25 mg tablet 75 mg PO DAILY 10/26/21 12/14/21 fenofibrate 160 mg tablet 160 mg PO BEDTIME 10/26/21 12/14/21 fluticasone furoate 200 1 inh INHALATION DAILY 10/26/21 12/14/21 mcg-vilanterol 25 mcg/dose inhalation powder (Breo Ellipta) furosemide 20 mg tablet 20 mg PO DAILY 10/26/21 12/14/21 lamotrigine 150 mg tablet 150 mg PO DAILY 10/26/21 12/14/21 (Lamictal) lamotrigine 200 mg tablet 200 mg PO BEDTIME 10/26/21 12/14/21 (Lamictal) levothyroxine 25 mcg tablet 25 mcg PO DAILY 10/26/21 12/14/21 magnesium hydroxide 400 mg/5 mL 30 ml PO DAILY 10/26/21 12/14/21 oral suspension (Milk of Magnesia) magnesium oxide 400 mg PO TID 10/26/21 12/14/21 meloxicam 7.5 mg tablet 7.5 mg PO DAILY 10/26/21 12/14/21 metformin 1,000 mg tablet 1,000 mg PO BID 10/26/21 12/14/21 methenamine hippurate 1 gram tablet 1 g PO BID 10/26/21 12/14/21 metoprolol tartrate 25 mg tablet 12.5 mg PO DAILY 10/26/21 12/14/21 omega-3 fatty acids-vitamin E 1 cap PO DAILY 10/26/21 12/14/21 1,000 mg capsule oxcarbazepine 600 mg tablet 600 mg PO BID 10/26/21 12/14/21 perphenazine 16 mg tablet 16 mg PO TID 10/26/21 12/14/21 polyethylene glycol 3350 17 gram 17 g PO DAILY@1700 10/26/21 12/14/21 oral powder packet tiotropium bromide 18 mcg capsule 1 cap INHALATION DAILY 10/26/21 12/14/21 with inhalation device (Spiriva with HandiHaler) trihexyphenidyl 2 mg tablet 4 mg PO DAILY 10/26/21 12/14/21 ascorbic acid (vitamin C) 500 mg 500 mg PO DAILY 12/10/21 12/14/21 tablet aspirin 81 mg tablet,delayed 81 mg PO DAILY 12/10/21 12/14/21 release Previous Rx's Medication Instructions Recorded cefuroxime axetil 500 mg tablet 500 mg PO BID 5 Days #10 tab 12/12/21 lorazepam 0.5 mg tablet 1 tab PO BID PRN #0 tab 12/12/21 <Chaya Guo NP - Last Filed: 12/14/21 19:43> Allergies/adverse reactions: Allergies Allergy/AdvReac Type Severity Reaction Status Date / Time chlorpromazine Allergy Unknown Verified 10/25/21 23:01 [From Thorazine] fluphenazine [From Prolixin] Allergy Unknown Verified 10/25/21 23:01 haloperidol [From Haldol] Allergy Unknown Verified 10/25/21 23:01 niacin Allergy Unknown Verified 10/25/21 23:01 thioridazine [From Mellaril] Allergy Unknown Verified 10/25/21 23:01 <Chaya Guo NP - Last Filed: 12/14/21 19:43> Review of Systems Review of Systems: Yes all other systems are reviewed and are negative <Chaya Guo NP - Last Filed: 12/14/21 19:43> Constitutional: Constitutional: Reports no additional constitutional complaints, Denies body ache(s), Denies chills, Denies fever(s), Denies headache(s) and Denies weakness <Chaya Guo NP - Last Filed: 12/14/21 19:43> Eyes: Eyes: Reports no additional eye complaints and Denies change in vision <Chaya Guo NP - Last Filed: 12/14/21 19:43> ENT: Reports system reviewed and no additional complaints, except as documented, Denies dizziness, Denies headache(s), Denies nasal congestion, Denies nasal discharge and Denies neck pain <Chaya Guo NP - Last Filed: 12/14/21 19:43> Cardiovascular: Cardiovascular: Reports no additional cardiovascular complaints, Denies chest pain, Denies leg edema and Reports dyspnea <KHANH Bermeo Last Filed: 12/14/21 19:43> Respiratory: Respiratory: Reports no additional respiratory complaints, Reports cough and Reports dyspnea <Chaya Guo NP - Last Filed: 12/14/21 19:43> Gastrointestinal: Gastrointestinal: Reports no additional gastrointestinal complaints, Denies abdominal pain, Denies diarrhea, Reports nausea and Reports vomiting <Chaya Guo NP - Last Filed: 12/14/21 19:43> Genitourinary: Genitourinary: Reports no additional female genitourinary complaints and Denies urinary incontinence <Chaya Guo NP - Last Filed: 12/14/21 19:43> Musculoskeletal: Musculoskeletal: Reports no additional musculoskeletal complaints, Denies back pain, Denies arthralgias, Denies joint swelling, Denies neck pain, Denies numbness and Denies tingling <Chaya Guo NP - Last Filed: 12/14/21 19:43> Integumentary/Breasts: Skin/Breast: Reports system reviewed and no additional complaints, except as docu and Denies rash <Chaya Guo NP - Last Filed: 12/14/21 19:43> Neurologic: Reports system reviewed and no additional complaints, except as documented, Denies dizziness, Denies headache(s), Denies numbness, Denies tingling and Denies weakness <Chaya Guo NP - Last Filed: 12/14/21 19:43> PMFSH Past Medical History Attestation statement: The following information was validated with the patient. <Chaya Guo NP - Last Filed: 12/14/21 19:43> Source: old records reviewed and nursing notes reviewed <Chaya Guo NP - Last Filed: 12/14/21 19:43> Medical History: Medical History (Updated 12/20/21 @ 00:02 by Cecelia Shen) Chronic respiratory failure with hypoxia COPD (chronic obstructive pulmonary disease) Diabetes mellitus type 2 in obese Diastolic heart failure HCAP (healthcare-associated pneumonia) Hyperlipidemia Hypertension Hypothyroid SHOSHANA (obstructive sleep apnea) Pneumonia due to 2019-nCoV Schizoaffective disorder Schizoaffective disorder, depressive type <Chaya Guo NP - Last Filed: 12/14/21 19:43> Family History Family History: Family History (Updated 12/14/21 @ 18:13 by Eamon Kwon MD) Father No problems noted. <Chaya Guo NP - Last Filed: 12/14/21 19:43> Social History Social History: Social History (Updated 12/14/21 @ 18:14 by Eamon Kwon MD) Household Members: Other Household Members Other:: skilled nursing Housing: Other Housing Other:: [facility] Do you presently have visiting nurse or other home services: No Alcohol intake: never Patient Tobacco Use Status: Former Tobacco user Quit Date: 1979 Substance Use Type: Marijuana Advance Directives Date on File: 11/07/21 service: No Current occupational status: disabled <Chaya Guo NP - Last Filed: 12/14/21 19:43> Physical Exam ED Vital Signs: Vital Signs - 24 hr 12/14/21 12:51 12/14/21 13:15 12/14/21 14:40 Temperature 98.6 F Pulse Rate 94 91 91 Respiratory Rate 14 14 Blood Pressure 103/64 105/67 106/67 Pulse Oximetry 81 L 94 94 12/14/21 16:51 12/14/21 18:08 Temperature 98.1 F Pulse Rate 90 Respiratory Rate 25 H Blood Pressure 116/77 Pulse Oximetry 96 91 L BMI result Body Mass Index 38.3 <Chaya Guo NP - Last Filed: 12/14/21 19:43> Const General: cooperative and alert <Chaya Guo NP - Last Filed: 12/14/21 19:43> Nutritional Appearance: obese <Chaya Guo NP - Last Filed: 12/14/21 19:43> Orientation/consciousness: oriented to person, oriented to place and oriented to time <Chaya Guo NP - Last Filed: 12/14/21 19:43> Limitations: no limitations <Chaya Guo NP - Last Filed: 12/14/21 19:43> HENMT Head: Yes normal to inspection <Chaya Guo NP - Last Filed: 12/14/21 19:43> Ears: hearing grossly normal bilaterally <Chaya Guo NP - Last Filed: 12/14/21 19:43> General nose exam: Normal external nose present <Chaya Guo NP - Last Filed: 12/14/21 19:43> Face and sinus: Yes normal facial exam <Chaya Guo NP - Last Filed: 12/14/21 19:43> Mouth: Normal oral and palatal mucosa present <Chaya Guo NP - Last Filed: 12/14/21 19:43> Teeth and gingiva: dentition normal <Chaya Guo NP - Last Filed: 12/14/21 19:43> Throat: Yes posterior oropharynx normal, Yes tonsils normal and Yes uvula midline <Chaya Guo NP - Last Filed: 12/14/21 19:43> Eyes General: appearance normal, both eyes and all related structures <Chaya Guo NP - Last Filed: 12/14/21 19:43> Pupils: Equal, round and reactive pupils present <Chaya Guo NP - Last Filed: 12/14/21 19:43> Neck Neck: Yes normal visual inspection, Yes full ROM, Yes no lymphadenopathy and Yes no meningeal signs <Chaya Guo NP - Last Filed: 12/14/21 19:43> Chest Chest palpation & inspection: normal inspection of the chest <Chaya Guo NP - Last Filed: 12/14/21 19:43> Resp Other: Tachypnea rate 24, coarse BS throughout, mild accessory muscle use <Chaya Guo NP - Last Filed: 12/14/21 19:43> Cardio Rate: regular rate <Chaya Guo NP - Last Filed: 12/14/21 19:43> Rhythm: regular rhythm <Chaya Guo NP - Last Filed: 12/14/21 19:43> Peripheral pulses: Peripheral pulses 2+ throughout <Chaya Guo NP - Last Filed: 12/14/21 19:43> GI Other: +obese <Chaya Guo NP - Last Filed: 12/14/21 19:43> Palpation (GI): nontender <Chaya Guo NP - Last Filed: 12/14/21 19:43> Auscultation: normal bowel sounds <Chaya Guo NP - Last Filed: 12/14/21 19:43> General: Yes no CVA tenderness <Chaya Guo NP - Last Filed: 12/14/21 19:43> Back/Spine/Pelvis Back: no CVA tenderness <Chaya Guo NP - Last Filed: 12/14/21 19:43> Skin General skin exam: no rashes or lesions noted <Chaya Guo NP - Last Filed: 12/14/21 19:43> Neuro General: oriented to person, oriented to place, oriented to time, moves all extremities, no meningeal signs and Unable to assess gait <Chaya Guo NP - Last Filed: 12/14/21 19:43> Cranial nerves: Yes Equal, round and reactive pupils present <Chaya Guo NP - Last Filed: 12/14/21 19:43> Gait exam (Neuro): Unable to assess gait <Chaya Guo NP - Last Filed: 12/14/21 19:43> Sensory Exam: Normal double simultaneous stimulation for sensation <Chaya Guo NP - Last Filed: 12/14/21 19:43> Extrem General: Yes normal to inspection, Yes no pedal edema and Yes no calf tenderness <Chaya Guo NP - Last Filed: 12/14/21 19:43> Course Course Course Narrative: 61 yo female here with lethargy, hypoxia despite baseline oxygen, increased WOB today. Recent admit for metabolic encephalopathy, UTI, ?PNA on ceftin. On arrival A&Ox4-neuro intact although lethargic rouses to verbal and answers all questions appropriately. On baseline oxygen patient is 80% therefore increased cautiously to 5L. Coarse BS throughout with reports from patient that food keeps coming up. ?aspiration vs metabolic cause. Will check labs including blood cultures, lactic acid, COVID screen, chest x- ray. 1530-chest x-ray Stable enlargement of the cardiac silhouette. Question volume loss to the right lung and subcarinal mediastinal adenopathy. -will check CT chest to rule out underlying mass w/ obstructive pneumonia, nursing reports abdominal distention with ?vomiting so will add CT A/P. 1745-CT chest shows right lung volume loss with pleural thickening and interstitial prominence. Question chronic infectious or inflammatory process. Left lower lobe pneumonia also seen. Prominent cardiomegaly with a trace pericardial effusion. Reviewed labs which show elevated BNP at 165 which is increased from 41 on last admission. ?CHF. On 20mg lasix daily. Unclear if weight gain. Patient has continued tachypnea with rate 24, requiring 5LNC of oxygen which is increased from baseline requirements. UA c/w with UTI. At this time infection is suspected. Antibiotics ordered. Will give additional dose of Lasix. Spoke to Dr. Eric who accepted admission of patient. <Chaya Guo NP - Last Filed: 12/14/21 19:43> Medical Decision Making MDM Narrative Medical decision making narrative: Aspiration pneumonia, UTI, metabolic encephalopathy <Chaya Guo NP - Last Filed: 12/14/21 19:43> Medical Records Medical records reviewed: Yes I reviewed the patient's medical records. <Chaya Guo NP - Last Filed: 12/14/21 19:43> Lab Data Lab results reviewed: Yes I reviewed the patient's lab results. <Chaya Guo NP - Last Filed: 12/14/21 19:43> Result diagrams: : 12/17/21 06:37 12/17/21 06:37 <Chaya Guo NP - Last Filed: 12/14/21 19:43> Labs: Lab Results 12/14/21 12/14/21 12/14/21 Range/Units 13:19 13:19 13:31 WBC (4.8-10.8) X10*3/uL RBC (4.20-5.50) X10*6/uL Hgb (12.0-16.0) g/dl Hct (37.0-47.0) % MCV (80.0-98.0) fL MCH (27.0-33.0) pg MCHC (31.0-35.0) g/dl RDW (11.0-16.0) % Plt Count (160-400) X10*3/uL MPV (9.4-12.3) fL Immature Gran % (Auto) (0.0-0.4) % Neut % (Auto) (45-73) % Lymph % (Auto) (20-40) % [place] % (Auto) (2-11) % Eos % (Auto) (0-4) % Baso % (Auto) (0-2) % Lymph # (Auto) (1.2-4.9) X10*3/uL [place] # (Auto) (0.1-1.2) X10*3/uL Eos # (Auto) (0.0-0.4) X10*3/uL Baso # (Auto) (0.0-0.2) X10*3/uL Abs Immat Gran (auto) (0.00-0.03) X10*3/uL Absolute Neuts (auto) (2.0-8.3) x10*3/uL Absolute Nucleated RBC (0.0-0.012) X10*3/uL Nucleated RBC % (auto) (0.0-0.2) /100WBC VBG pH (7.32-7.43) VBG pCO2 mmHg VBG pO2 mmHg VBG HCO3 (22-26) mmol/L VBG O2 Saturation % VBG Base Excess mmol/L Sodium (135-145) mmol/L Potassium (3.3-5.1) mmol/L Chloride (96-108) mmol/L Carbon Dioxide (22-29) mmol/L Anion Gap (12-20) BUN (9-16) mg/dL Creatinine (0.5-1.4) mg/dL Estim Creat Clear Calc Estimated GFR Random Glucose (60-115) mg/dL Lactic Acid (0.5-2.0) mmol/L Calcium (8.4-10.2) mg/dL Magnesium (1.6-2.6) mg/dL Total Bilirubin (0.0-1.0) mg/dL Direct Bilirubin (0.0-0.5) mg/dL AST (5-31) U/L ALT (0-31) U/L Alkaline Phosphatase (39-117) U/L Ammonia (13-55) umol/L Total Creatine Kinase (26-140) U/L Troponin I High Sens (<3.5-17.0) ng/L B-Natriuretic Peptide (<100) pg/mL Total Protein (6.5-8.0) g/dL Albumin (3.5-5.0) g/dL Urine Color YELLOW Urine Appearance HAZY Urine pH 6.5 (5.0-8.0) Ur Specific [place] 1.015 (1.005-1.025) Urine Protein NEG (NEG-TRACE) MG/DL Urine Glucose (UA) NEG (NEG) MG/DL Urine Ketones NEG (NEG) MG/DL Urine Blood NEG (NEG) Urine Nitrite POS H (NEG) Ur Leukocyte Esterase 1+ H (NEG) Urine RBC 0-2 (0) /HPF Urine WBC 76-150 H (0-4) /HPF Ur Squamous Epith Cells 1+ /LPF Ur Renal Epithelial Cell 1+ /LPF Urine Bacteria 1+ /LPF Urine Mucus 1+ /LPF Urine Opiates Screen Not Detected (Not Detect) Urine Fentanyl Screen Not Detected (Not Detect) Ur Barbiturates Screen Not Detected (Not Detect) Ur Phencyclidine Scrn Not Detected (Not Detect) Ur Amphetamines Screen Not Detected (Not Detect) U Benzodiazepines Scrn Not Detected (Not Detect) Urine Cocaine Screen Not Detected (Not Detect) U Marijuana (THC) Screen Not Detected (Not Detect) Ethyl Alcohol < 10 mg/dL COVID-19 (GONZALES) (Negative) COVID-19 Clin Com 12/14/21 12/14/21 12/14/21 Range/Units 13:32 13:32 13:33 WBC 7.2 (4.8-10.8) X10*3/uL RBC 3.58 L (4.20-5.50) X10*6/uL Hgb 9.9 L (12.0-16.0) g/dl Hct 33.7 L (37.0-47.0) % MCV 94.1 (80.0-98.0) fL MCH 27.7 (27.0-33.0) pg MCHC 29.4 L (31.0-35.0) g/dl RDW 16.4 H (11.0-16.0) % Plt Count 202 (160-400) X10*3/uL MPV 11.9 (9.4-12.3) fL Immature Gran % (Auto) 1.4 H (0.0-0.4) % Neut % (Auto) 68.1 (45-73) % Lymph % (Auto) 20.6 (20-40) % [place] % (Auto) 6.8 (2-11) % Eos % (Auto) 2.8 (0-4) % Baso % (Auto) 0.3 (0-2) % Lymph # (Auto) 1.5 (1.2-4.9) X10*3/uL [place] # (Auto) 0.5 (0.1-1.2) X10*3/uL Eos # (Auto) 0.2 (0.0-0.4) X10*3/uL Baso # (Auto) 0.0 (0.0-0.2) X10*3/uL Abs Immat Gran (auto) 0.10 H (0.00-0.03) X10*3/uL Absolute Neuts (auto) 4.9 (2.0-8.3) x10*3/uL Absolute Nucleated RBC 0.020 H (0.0-0.012) X10*3/uL Nucleated RBC % (auto) 0.3 H (0.0-0.2) /100WBC VBG pH (7.32-7.43) VBG pCO2 mmHg VBG pO2 mmHg VBG HCO3 (22-26) mmol/L VBG O2 Saturation % VBG Base Excess mmol/L Sodium 142 (135-145) mmol/L Potassium 4.9 D (3.3-5.1) mmol/L Chloride 103 (96-108) mmol/L Carbon Dioxide 31 H (22-29) mmol/L Anion Gap 13 (12-20) BUN 22 H (9-16) mg/dL Creatinine 0.73 (0.5-1.4) mg/dL Estim Creat Clear Calc 102.6 Estimated GFR > 60 Random Glucose 199 H (60-115) mg/dL Lactic Acid (0.5-2.0) mmol/L Calcium 9.7 (8.4-10.2) mg/dL Magnesium 1.7 (1.6-2.6) mg/dL Total Bilirubin 0.2 (0.0-1.0) mg/dL Direct Bilirubin < 0.2 (0.0-0.5) mg/dL AST 19 D (5-31) U/L ALT 16 (0-31) U/L Alkaline Phosphatase 77 D (39-117) U/L Ammonia (13-55) umol/L Total Creatine Kinase 119 (26-140) U/L Troponin I High Sens 7.5 D (<3.5-17.0) ng/L B-Natriuretic Peptide 162 H (<100) pg/mL Total Protein 6.6 D (6.5-8.0) g/dL Albumin 3.6 D (3.5-5.0) g/dL Urine Color Urine Appearance Urine pH (5.0-8.0) Ur Specific [place] (1.005-1.025) Urine Protein (NEG-TRACE) MG/DL Urine Glucose (UA) (NEG) MG/DL Urine Ketones (NEG) MG/DL Urine Blood (NEG) Urine Nitrite (NEG) Ur Leukocyte Esterase (NEG) Urine RBC (0) /HPF Urine WBC (0-4) /HPF Ur Squamous Epith Cells /LPF Ur Renal Epithelial Cell /LPF Urine Bacteria /LPF Urine Mucus /LPF Urine Opiates Screen (Not Detect) Urine Fentanyl Screen (Not Detect) Ur Barbiturates Screen (Not Detect) Ur Phencyclidine Scrn (Not Detect) Ur Amphetamines Screen (Not Detect) U Benzodiazepines Scrn (Not Detect) Urine Cocaine Screen (Not Detect) U Marijuana (THC) Screen (Not Detect) Ethyl Alcohol mg/dL COVID-19 (GONZALES) (Negative) COVID-19 Clin Com 12/14/21 12/14/21 12/14/21 Range/Units 13:36 13:37 14:00 WBC (4.8-10.8) X10*3/uL RBC (4.20-5.50) X10*6/uL Hgb (12.0-16.0) g/dl Hct (37.0-47.0) % MCV (80.0-98.0) fL MCH (27.0-33.0) pg MCHC (31.0-35.0) g/dl RDW (11.0-16.0) % Plt Count (160-400) X10*3/uL MPV (9.4-12.3) fL Immature Gran % (Auto) (0.0-0.4) % Neut % (Auto) (45-73) % Lymph % (Auto) (20-40) % [place] % (Auto) (2-11) % Eos % (Auto) (0-4) % Baso % (Auto) (0-2) % Lymph # (Auto) (1.2-4.9) X10*3/uL [place] # (Auto) (0.1-1.2) X10*3/uL Eos # (Auto) (0.0-0.4) X10*3/uL Baso # (Auto) (0.0-0.2) X10*3/uL Abs Immat Gran (auto) (0.00-0.03) X10*3/uL Absolute Neuts (auto) (2.0-8.3) x10*3/uL Absolute Nucleated RBC (0.0-0.012) X10*3/uL Nucleated RBC % (auto) (0.0-0.2) /100WBC VBG pH 7.33 (7.32-7.43) VBG pCO2 64 mmHg VBG pO2 71 mmHg VBG HCO3 34 H (22-26) mmol/L VBG O2 Saturation 88.0 % VBG Base Excess 6.6 mmol/L Sodium (135-145) mmol/L Potassium (3.3-5.1) mmol/L Chloride (96-108) mmol/L Carbon Dioxide (22-29) mmol/L Anion Gap (12-20) BUN (9-16) mg/dL Creatinine (0.5-1.4) mg/dL Estim Creat Clear Calc Estimated GFR Random Glucose (60-115) mg/dL Lactic Acid 1.1 (0.5-2.0) mmol/L Calcium (8.4-10.2) mg/dL Magnesium (1.6-2.6) mg/dL Total Bilirubin (0.0-1.0) mg/dL Direct Bilirubin (0.0-0.5) mg/dL AST (5-31) U/L ALT (0-31) U/L Alkaline Phosphatase (39-117) U/L Ammonia (13-55) umol/L Total Creatine Kinase (26-140) U/L Troponin I High Sens (<3.5-17.0) ng/L B-Natriuretic Peptide (<100) pg/mL Total Protein (6.5-8.0) g/dL Albumin (3.5-5.0) g/dL Urine Color Urine Appearance Urine pH (5.0-8.0) Ur Specific [place] (1.005-1.025) Urine Protein (NEG-TRACE) MG/DL Urine Glucose (UA) (NEG) MG/DL Urine Ketones (NEG) MG/DL Urine Blood (NEG) Urine Nitrite (NEG) Ur Leukocyte Esterase (NEG) Urine RBC (0) /HPF Urine WBC (0-4) /HPF Ur Squamous Epith Cells /LPF Ur Renal Epithelial Cell /LPF Urine Bacteria /LPF Urine Mucus /LPF Urine Opiates Screen (Not Detect) Urine Fentanyl Screen (Not Detect) Ur Barbiturates Screen (Not Detect) Ur Phencyclidine Scrn (Not Detect) Ur Amphetamines Screen (Not Detect) U Benzodiazepines Scrn (Not Detect) Urine Cocaine Screen (Not Detect) U Marijuana (THC) Screen (Not Detect) Ethyl Alcohol mg/dL COVID-19 (GONZALES) Negative (Negative) COVID-19 Clin Com See Note 12/14/21 Range/Units 15:25 WBC (4.8-10.8) X10*3/uL RBC (4.20-5.50) X10*6/uL Hgb (12.0-16.0) g/dl Hct (37.0-47.0) % MCV (80.0-98.0) fL MCH (27.0-33.0) pg MCHC (31.0-35.0) g/dl RDW (11.0-16.0) % Plt Count (160-400) X10*3/uL MPV (9.4-12.3) fL Immature Gran % (Auto) (0.0-0.4) % Neut % (Auto) (45-73) % Lymph % (Auto) (20-40) % [place] % (Auto) (2-11) % Eos % (Auto) (0-4) % Baso % (Auto) (0-2) % Lymph # (Auto) (1.2-4.9) X10*3/uL [place] # (Auto) (0.1-1.2) X10*3/uL Eos # (Auto) (0.0-0.4) X10*3/uL Baso # (Auto) (0.0-0.2) X10*3/uL Abs Immat Gran (auto) (0.00-0.03) X10*3/uL Absolute Neuts (auto) (2.0-8.3) x10*3/uL Absolute Nucleated RBC (0.0-0.012) X10*3/uL Nucleated RBC % (auto) (0.0-0.2) /100WBC VBG pH (7.32-7.43) VBG pCO2 mmHg VBG pO2 mmHg VBG HCO3 (22-26) mmol/L VBG O2 Saturation % VBG Base Excess mmol/L Sodium (135-145) mmol/L Potassium (3.3-5.1) mmol/L Chloride (96-108) mmol/L Carbon Dioxide (22-29) mmol/L Anion Gap (12-20) BUN (9-16) mg/dL Creatinine (0.5-1.4) mg/dL Estim Creat Clear Calc Estimated GFR Random Glucose (60-115) mg/dL Lactic Acid (0.5-2.0) mmol/L Calcium (8.4-10.2) mg/dL Magnesium (1.6-2.6) mg/dL Total Bilirubin (0.0-1.0) mg/dL Direct Bilirubin (0.0-0.5) mg/dL AST (5-31) U/L ALT (0-31) U/L Alkaline Phosphatase (39-117) U/L Ammonia 54 (13-55) umol/L Total Creatine Kinase (26-140) U/L Troponin I High Sens (<3.5-17.0) ng/L B-Natriuretic Peptide (<100) pg/mL Total Protein (6.5-8.0) g/dL Albumin (3.5-5.0) g/dL Urine Color Urine Appearance Urine pH (5.0-8.0) Ur Specific [place] (1.005-1.025) Urine Protein (NEG-TRACE) MG/DL Urine Glucose (UA) (NEG) MG/DL Urine Ketones (NEG) MG/DL Urine Blood (NEG) Urine Nitrite (NEG) Ur Leukocyte Esterase (NEG) Urine RBC (0) /HPF Urine WBC (0-4) /HPF Ur Squamous Epith Cells /LPF Ur Renal Epithelial Cell /LPF Urine Bacteria /LPF Urine Mucus /LPF Urine Opiates Screen (Not Detect) Urine Fentanyl Screen (Not Detect) Ur Barbiturates Screen (Not Detect) Ur Phencyclidine Scrn (Not Detect) Ur Amphetamines Screen (Not Detect) U Benzodiazepines Scrn (Not Detect) Urine Cocaine Screen (Not Detect) U Marijuana (THC) Screen (Not Detect) Ethyl Alcohol mg/dL COVID-19 (GONZALES) (Negative) COVID-19 Clin Com <Chaya Guo NP - Last Filed: 12/14/21 19:43> Imaging Data Chest x-ray: Attestation: I personally reviewed and interpreted this imaging study as follows: <Chaya Guo NP - Last Filed: 12/14/21 19:43> Radiologist's impression: FINDINGS: The cardiac silhouette is enlarged. There is splaying of the behzad and increased density in the subcarinal region questionable for subcarinal mediastinal lymphadenopathy. Hilar and mediastinal contours are otherwise unremarkable. The patient may be slightly rotated however there is also suggestion of volume loss to the right lung. There is linear scarring or subsegmental atelectasis in the right upper lung. The left lung is clear. There is no pleural effusion or pneumothorax. There are degenerative changes of the spine. XR/XR chest 1V IMPRESSION: Stable enlargement of the cardiac silhouette. Question volume loss to the right lung and subcarinal mediastinal adenopathy. ? <Chaya Guo NP - Last Filed: 12/14/21 19:43> CT scan - chest: Attestation: I personally reviewed and interpreted this imaging study as follows: <Chaya Guo NP - Last Filed: 12/14/21 19:43> Radiologist's impression: MPRESSION: 1. Right lung volume loss with pleural thickening and diffuse interstitial prominence. Findings could represent the sequela of a chronic infectious or inflammatory process. Focal left lower lobe airspace opacity, concerning for pneumonia. Trace left-sided pleural effusion. ? 2. Prominent cardiomegaly. Trace pericardial effusion. ? 3. Dilatation of the central pulmonary artery which could indicate a degree of pulmonary hypertension. <Chaya Guo NP - Last Filed: 12/14/21 19:43> CT scan - abdomen: Attestation: I personally reviewed and interpreted this imaging study as follows: <Chaya Guo NP - Last Filed: 12/14/21 19:43> Radiologist's impression: 4. Prominent hepatomegaly. No parenchymal lesion or biliary ductal dilatation. ? 5. Left ureterovesicular junction stone measuring up to 1.0 cm. Multiple additional bilateral renal stones measuring up to 1.4 cm within the left mid/upper pole. No hydroureteronephrosis. Nonspecific bilateral perinephric stranding. ? 6. Moderate stool burden. No small or large bowel obstruction. ? 7. Prominent intraperitoneal fat with bulging of the anterior abdominal wall. No intra-abdominal mass, fluid collection, or ascites. ? 8. Anterior vertebral body compression deformities at T7 and T9 <Chaya Guo NP - Last Filed: 12/14/21 19:43> ECG Data Attestation: I personally reviewed and interpreted this ECG as follows: <Chaya Guo NP - Last Filed: 12/14/21 19:43> Interpretation: NSR with rate 92, normal pr, normal qrs, normal qt <Chaya Guo NP - Last Filed: 12/14/21 19:43> Discharge Plan Discharge Clinical Impression: Acute metabolic encephalopathy, UTI (urinary tract infection), Chronic respiratory failure with hypoxia, Pneumonia, CHF (congestive heart failure) <Chaya Guo NP - Last Filed: 12/14/21 19:43> Patient Disposition: Admitted As Inpatient <Chaya Guo NP - Last Filed: 12/14/21 19:43> Interventions: Admission Worksheet (ED) Last Done: 12/14/21 20:43 <Chaya Guo NP - Last Filed: 12/14/21 19:43> Discharge Date/Time: 12/14/21 20:44 <Chaya Guo NP - Last Filed: 12/14/21 19:43>
[2021-12-14 14:00] LABS: MANUAL DIFF FLAG NO
[2021-12-14 14:05] LABS: Appearance Urine HAZY; Color Urine YELLOW; Glucose Urine UA NEG (NEG); Leukocyte Esterase Urine 1+ (NEG); Nitrite Urine POS (NEG); PH 6.5 (5.0-8.0); Specific Gravity - Urine 1.015 (1.005-1.025); UACC Culture Trigger YES; Urine Blood NEG (NEG); Urine Ketones NEG (NEG); Urine Protein NEG (NEG-TRACE)
[2021-12-14 14:06] LABS: Venous Blood Gas Refer to POC result
[2021-12-14 14:06] LABS: Basophils Percent Auto 0.3 % (0-2); Eosinophils Absolute Auto 0.2 X10*3/uL (0.0-0.4); Eosinophils Percent Auto 2.8 % (0-4); Hematocrit 33.7 % (37.0-47.0); Hemoglobin 9.9 g/dl (12.0-16.0); Imm Gran Pct Auto 1.4 % (0.0-0.4); Lymphocytes Absolute Auto 1.5 X10*3/uL (1.2-4.9); Lymphocytes Percent Auto 20.6 % (20-40); Mean Corpuscular HGB Conc 29.4 g/dl (31.0-35.0); Mean Corpuscular Hemoglobin 27.7 pg (27.0-33.0); Mean Corpuscular Volume 94.1 fL (80.0-98.0); Mean Platelet Volume 11.9 fL (9.4-12.3); Monocytes Absolute Auto 0.5 X10*3/uL (0.1-1.2); Monocytes Percent Auto 6.8 % (2-11); NRBC Pct Auto 0.3 /100WBC (0.0-0.2); Neutrophils Absolute Auto 4.9 x10*3/uL (2.0-8.3); Neutrophils Percent Auto 68.1 % (45-73); Platelet Count 202 X10*3/uL (160-400); Red Blood Count 3.58 X10*6/uL (4.20-5.50); Red Cell Distribution Width 16.4 % (11.0-16.0); White Blood Count 7.2 X10*3/uL (4.8-10.8)
[2021-12-14 14:07] LABS: VBG Base Excess 6.6 mmol/L; VBG HCO3 34 mmol/L (22-26); VBG pCO2 64 mmHg; VBG pH 7.33 (7.32-7.43); VBG pO2 71 mmHg
[2021-12-14 14:12] LABS: Bacteria Urine 1+ /LPF; RBC Urine 0-2 /HPF (0); Squamous Epithelial Cell Urine 1+ /LPF
[2021-12-14 14:13] LABS: Mucus Urine 1+ /LPF; Renal Epithelial Cells Urine 1+ /LPF
[2021-12-14 14:21] LABS: Lactic Acid 1.1 mmol/L (0.5-2.0)
[2021-12-14 14:21] LABS: COVID-19 Test Negative (Negative)
[2021-12-14 14:22] LABS: Ethanol < 10 mg/dL
[2021-12-14 14:27] LABS: Alanine Aminotransferase 16 U/L (0-31); Albumin Level 3.6 g/dL (3.5-5.0); Alkaline Phosphatase 77 U/L (39-117); Anion Gap 13 (12-20); Aspartate Amino Transferase 19 U/L (5-31); Bilirubin Direct < 0.2 mg/dL (0.0-0.5); Bilirubin Total 0.2 mg/dL (0.0-1.0); Blood Urea Nitrogen 22 mg/dL (9-16); Calcium 9.7 mg/dL (8.4-10.2); Carbon Dioxide 31 mmol/L (22-29); Chloride 103 mmol/L (96-108); Creatinine Clr Calc Pharmacy 102.6; Estimated Glomerular Filt Rate > 60; Glucose Random 199 mg/dL (60-115); Magnesium 1.7 mg/dL (1.6-2.6); Potassium 4.9 mmol/L (3.3-5.1); Sodium 142 mmol/L (135-145); Total Protein 6.6 g/dL (6.5-8.0)
[2021-12-14 14:27] LABS: Amphetamine Screen Urine Not Detected (Not Detect); Barbiturates, Urine Not Detected (Not Detect); Benzodiazepines Screen Urine Not Detected (Not Detect); Cannabinoid Screen Urine Not Detected (Not Detect); Cocaine Screen Urine Not Detected (Not Detect); Fentanyl, urine Not Detected (Not Detect); Opiate Screen Urine Not Detected (Not Detect); Phencyclidine Screen Urine Not Detected (Not Detect)
[2021-12-14 14:31] LABS: B Type Natriuretic Peptide 162 pg/mL (<100); Troponin-I High Sensitivity 7.5 ng/L (<3.5-17.0)
[2021-12-14 15:42] LABS: Ammonia 54 umol/L (13-55)
[2021-12-14] MEDS: iohexoL 350 MG/ML 100 ML INFUS..BTL IV (15:54)
--- NOTE | 2021-12-14 18:14 | P.HPHOSP_ITS ---
History of Present Illness Date of Service: 12/14/21 Chief Complaint: ams 61-year-old female with past medical history of schizoaffective disorder, chronic hypoxic respiratory failure due to COPD on 3 L home O2, chronic diastolic CHF, diabetes, who was recently discharged from [facility] on 12/12/2021 after hospitalization for metabolic encephalopathy from UTI, now presenting with recurrent altered mental status and shortness of breath. Patient herself is a poor historian often contradicting herself. Initially stated she did not have any shortness of breath, but than stated that she fears her shortness of breath will continue to get worse. She is reporting coughing and choking on food. She denies any abdominal pain, fever, chills. She reports active hallucinations, but this is unchanged from her baseline. in ED CT chest showed bilateral opacities, patient was hypoxic to mid 80s on presentation on her home level of 3 L oxygen. Review of Systems Review of Systems: Constitutional: Denies fever, denies Chills Eyes: denies blurry vision ENT: denies sore throat CVS: denies chest pain Respiratory: dyspnea GI: no abdominal pain : denies dysuria MSK: denies neck pain Skin: denies rash Neuro: denies specific motor weakness Psych: denies suicidal ideation, active hallucinations Endocrine: denies heat/cold intolerance Hematologic: denies easy bleeding Allergy: denies hives [facility] Medical History (Updated 12/14/21 @ 18:20 by Eamon Kwon MD) Chronic respiratory failure with hypoxia COPD (chronic obstructive pulmonary disease) Diabetes mellitus type 2 in obese Diastolic heart failure HCAP (healthcare-associated pneumonia) Hyperlipidemia Hypertension Hypothyroid SHOSHANA (obstructive sleep apnea) Pneumonia due to 2019-nCoV Schizoaffective disorder Schizoaffective disorder, depressive type Family History (Updated 12/14/21 @ 18:13 by Eamon Kwon MD) Father No problems noted. Social History (Updated 12/14/21 @ 18:14 by Eamon Kwon MD) Household Members: Other Household Members Other:: fpc Housing: Care Home Housing Other:: SNF Do you presently have visiting nurse or other home services: Yes Alcohol intake: never Patient Tobacco Use Status: Former Tobacco user Quit Date: 1979 Advance Directives: Yes Advance Directives on File: Yes Advance Directives Date on File: 01/27/22 Patient : No service: No Current occupational status: disabled Meds Allergies Allergy/AdvReac Type Severity Reaction Status Date / Time chlorpromazine Allergy Unknown Verified 10/25/21 23:01 [From Thorazine] fluphenazine [From Prolixin] Allergy Unknown Verified 10/25/21 23:01 haloperidol [From Haldol] Allergy Unknown Verified 10/25/21 23:01 niacin Allergy Unknown Verified 10/25/21 23:01 thioridazine [From Mellaril] Allergy Unknown Verified 10/25/21 23:01 Active Medications: Current Medications Albuterol Sulfate (Albuterol Sulfate 90 Mcg 8 Gm Inhaler) 2 puff INHALE Q4H PRN PRN Reason: Shortness Of Breath Or Wheezing Ascorbic Acid (Ascorbic Acid 500 Mg Tablet) 500 mg PO DAILY [facility] Aspirin (Aspirin Enteric Coated 81 Mg Tablet.Dr) 81 mg PO DAILY [facility] Atorvastatin Calcium (Atorvastatin Calcium 20 Mg Tablet) 20 mg PO BEDTIME [facility] Clozapine (Clozapine 100 Mg Tablet) 300 mg PO BEDTIME [facility] Clozapine (Clozapine 25 Mg Tablet) 75 mg PO DAILY [facility] Enoxaparin Sodium (Enoxaparin Sodium 40 Mg/0.4 Ml Syringe) 40 mg SUBCUT Q24H [facility] Fenofibrate (Fenofibrate 160 Mg Tablet) 160 mg PO BEDTIME [facility] Fluticasone/Vilanterol (Fluticasone/Vilanterol 200/25 Blst.W.Dev) 1 puff INHALE DAILY [facility] Furosemide (Furosemide 40 Mg/4 Ml Vial) 40 mg IVPUSH BID@0900,1800 [facility]; Protocol Ceftriaxone Sodium 1 gm/ (Sodium Chloride) 50 mls @ 100 mls/hr IV DAILY [facility] Lamotrigine (Lamotrigine 25 Mg Tablet) 150 mg PO DAILY [facility] Lamotrigine (Lamotrigine 100 Mg Tablet) 200 mg PO BEDTIME [facility] Levothyroxine Sodium (Levothyroxine Sodium 25 Mcg Tablet) 25 mcg PO DAILY [facility] Lorazepam (Lorazepam 0.5 Mg Tablet) 0.5 mg PO BID PRN PRN Reason: Anxiety Magnesium Hydroxide (Milk Of Magnesia 30 Ml Oral.Susp) 30 ml PO DAILY [facility] Magnesium Oxide (Magnesium Oxide 400 Mg Tablet) 400 mg PO TID [facility] Metoprolol Tartrate (Metoprolol Tartrate 12.5 Mg Halftab) 12.5 mg PO DAILY [facility]; Protocol Non-Formulary Medication (Methenamine Hippurate) 1 gm PO BID [facility] Non-Formulary Medication ([place]-3 Fatty Acids-Vitamin E) 1 cap PO DAILY [facility] Non-Formulary Medication (Perphenazine) 16 mg PO TID [facility] Oxcarbazepine (Oxcarbazepine 300 Mg Tablet) 600 mg PO BID [facility] Pharmacy Consult (Consult Rx Perform Med Rec) 1 each MISCELLANE ONCE PRN PRN Reason: Consult order Polyethylene Glycol (Polyethylene Glycol 3350 17 Gm Powd.Pack) 17 gm PO DAILY@1700 [facility] Sodium Chloride (0.9 % Sodium Chloride Flush 3 Ml Syringe) 3 ml IVFLUSH QSHIFT [facility] Tiotropium [place] (Tiotropium [place] 18 Mcg Cap.W.Dev) puff INHALE DAILY [facility] Trihexyphenidyl HCl (Trihexyphenidyl Hcl 2 Mg Tablet) 4 mg PO DAILY [facility] Home Medications Medication Instructions Recorded Confirmed Last Taken Type acetaminophen 500 mg tablet 1,000 mg PO TID 10/26/21 12/14/21 12/09/21 History albuterol sulfate 90 mcg/actuation 2 inh INHALATION Q4H PRN 10/26/21 12/14/21 12/09/21 History aerosol inhaler atorvastatin 20 mg tablet 20 mg PO BEDTIME 10/26/21 12/14/21 12/09/21 History clozapine 100 mg tablet 300 mg PO BEDTIME 10/26/21 12/14/21 12/09/21 History clozapine 25 mg tablet 75 mg PO DAILY 10/26/21 12/14/21 12/09/21 History fenofibrate 160 mg tablet 160 mg PO BEDTIME 10/26/21 12/14/21 12/09/21 History fluticasone furoate 200 1 inh INHALATION DAILY 10/26/21 12/14/21 12/09/21 History mcg-vilanterol 25 mcg/dose inhalation powder (Breo Ellipta) furosemide 20 mg tablet 20 mg PO DAILY 10/26/21 12/14/21 12/09/21 History lamotrigine 150 mg tablet 150 mg PO DAILY 10/26/21 12/14/21 12/09/21 History (Lamictal) lamotrigine 200 mg tablet 200 mg PO BEDTIME 10/26/21 12/14/21 12/09/21 History (Lamictal) levothyroxine 25 mcg tablet 25 mcg PO DAILY 10/26/21 12/14/21 12/09/21 History magnesium hydroxide 400 mg/5 mL 30 ml PO DAILY 10/26/21 12/14/21 12/09/21 History oral suspension (Milk of Magnesia) magnesium oxide 400 mg PO TID 10/26/21 12/14/21 12/09/21 History meloxicam 7.5 mg tablet 7.5 mg PO DAILY 10/26/21 12/14/21 12/09/21 History metformin 1,000 mg tablet 1,000 mg PO BID 10/26/21 12/14/21 12/09/21 History methenamine hippurate 1 gram tablet 1 g PO BID 10/26/21 12/14/21 12/09/21 History metoprolol tartrate 25 mg tablet 12.5 mg PO DAILY 10/26/21 12/14/21 12/09/21 History omega-3 fatty acids-vitamin E 1 cap PO DAILY 10/26/21 12/14/21 12/09/21 History 1,000 mg capsule oxcarbazepine 600 mg tablet 600 mg PO BID 10/26/21 12/14/21 12/09/21 History perphenazine 16 mg tablet 16 mg PO TID 10/26/21 12/14/21 12/09/21 History polyethylene glycol 3350 17 gram 17 g PO DAILY@1700 10/26/21 12/14/21 12/09/21 History oral powder packet tiotropium bromide 18 mcg capsule 1 cap INHALATION DAILY 10/26/21 12/14/21 12/09/21 History with inhalation device (Spiriva with HandiHaler) trihexyphenidyl 2 mg tablet 4 mg PO DAILY 10/26/21 12/14/21 12/09/21 History ascorbic acid (vitamin C) 500 mg 500 mg PO DAILY 12/10/21 12/14/21 12/09/21 History tablet aspirin 81 mg tablet,delayed 81 mg PO DAILY 12/10/21 12/14/21 12/09/21 History release Physical Exam Vital Signs and Narrative: Vital Signs: Last Vital Signs Temp 98.1 F 12/14/21 16:51 Pulse 90 12/14/21 16:51 Resp 25 H 12/14/21 16:51 BP 116/77 12/14/21 16:51 Pulse Ox 91 L 12/14/21 18:08 BMI result Body Mass Index 38.3 General: in some discomfort, tachypneic but able to converse HEENT: atraumatic Neck: normal to visual inspection CVS: S1, S2, RRR Resp: rhonchi bilateral, some use of accessory muscles Chest: non tender GI: soft, non tender, distended : no CVA tenderness Skin: no rashes Extremities: trace edema Neuro: Oriented X3, grossly intact Psych: tangental Results Labs CBC and Chem 7: 12/14/21 13:33 12/14/21 13:32 Labs: Laboratory Results - last 24 hr 12/14/21 12/14/21 12/14/21 13:19 13:19 13:31 MCV MCH MCHC RDW Plt Count MPV Immature Gran % (Auto) Neut % (Auto) Lymph % (Auto) [place] % (Auto) Eos % (Auto) Baso % (Auto) Lymph # (Auto) [place] # (Auto) Eos # (Auto) Baso # (Auto) Abs Immat Gran (auto) Absolute Neuts (auto) Absolute Nucleated RBC Nucleated RBC % (auto) VBG pH VBG pCO2 VBG pO2 VBG HCO3 VBG O2 Saturation VBG Base Excess Anion Gap Estim Creat Clear Calc Estimated GFR Random Glucose Lactic Acid Calcium Magnesium Total Bilirubin Direct Bilirubin AST ALT Alkaline Phosphatase Ammonia Total Creatine Kinase B-Natriuretic Peptide Total Protein Albumin Urine Color YELLOW Urine Appearance HAZY Urine pH 6.5 Ur Specific [place] 1.015 Urine Protein NEG Urine Glucose (UA) NEG Urine Ketones NEG Urine Blood NEG Urine Nitrite POS H Ur Leukocyte Esterase 1+ H Urine RBC 0-2 Urine WBC 76-150 H Ur Squamous Epith Cells 1+ Ur Renal Epithelial Cell 1+ Urine Bacteria 1+ Urine Mucus 1+ Urine Opiates Screen Not Detected Urine Fentanyl Screen Not Detected Ur Barbiturates Screen Not Detected Ur Phencyclidine Scrn Not Detected Ur Amphetamines Screen Not Detected U Benzodiazepines Scrn Not Detected Urine Cocaine Screen Not Detected U Marijuana (THC) Screen Not Detected Ethyl Alcohol < 10 COVID-19 ([facility]) COVID-19 Clin Com 12/14/21 12/14/21 12/14/21 13:32 13:32 13:33 MCV 94.1 MCH 27.7 MCHC 29.4 L RDW 16.4 H Plt Count 202 MPV 11.9 Immature Gran % (Auto) 1.4 H Neut % (Auto) 68.1 Lymph % (Auto) 20.6 [place] % (Auto) 6.8 Eos % (Auto) 2.8 Baso % (Auto) 0.3 Lymph # (Auto) 1.5 [place] # (Auto) 0.5 Eos # (Auto) 0.2 Baso # (Auto) 0.0 Abs Immat Gran (auto) 0.10 H Absolute Neuts (auto) 4.9 Absolute Nucleated RBC 0.020 H Nucleated RBC % (auto) 0.3 H VBG pH VBG pCO2 VBG pO2 VBG HCO3 VBG O2 Saturation VBG Base Excess Anion Gap 13 Estim Creat Clear Calc 102.6 Estimated GFR > 60 Random Glucose 199 H Lactic Acid Calcium 9.7 Magnesium 1.7 Total Bilirubin 0.2 Direct Bilirubin < 0.2 AST 19 D ALT 16 Alkaline Phosphatase 77 D Ammonia Total Creatine Kinase 119 B-Natriuretic Peptide 162 H Total Protein 6.6 D Albumin 3.6 D Urine Color Urine Appearance Urine pH Ur Specific [place] Urine Protein Urine Glucose (UA) Urine Ketones Urine Blood Urine Nitrite Ur Leukocyte Esterase Urine RBC Urine WBC Ur Squamous Epith Cells Ur Renal Epithelial Cell Urine Bacteria Urine Mucus Urine Opiates Screen Urine Fentanyl Screen Ur Barbiturates Screen Ur Phencyclidine Scrn Ur Amphetamines Screen U Benzodiazepines Scrn Urine Cocaine Screen U Marijuana (THC) Screen Ethyl Alcohol COVID-19 ([facility]) COVID-19 Clin Com 12/14/21 12/14/21 12/14/21 13:36 13:37 14:00 MCV MCH MCHC RDW Plt Count MPV Immature Gran % (Auto) Neut % (Auto) Lymph % (Auto) [place] % (Auto) Eos % (Auto) Baso % (Auto) Lymph # (Auto) [place] # (Auto) Eos # (Auto) Baso # (Auto) Abs Immat Gran (auto) Absolute Neuts (auto) Absolute Nucleated RBC Nucleated RBC % (auto) VBG pH 7.33 VBG pCO2 64 VBG pO2 71 VBG HCO3 34 H VBG O2 Saturation 88.0 VBG Base Excess 6.6 Anion Gap Estim Creat Clear Calc Estimated GFR Random Glucose Lactic Acid 1.1 Calcium Magnesium Total Bilirubin Direct Bilirubin AST ALT Alkaline Phosphatase Ammonia Total Creatine Kinase B-Natriuretic Peptide Total Protein Albumin Urine Color Urine Appearance Urine pH Ur Specific [place] Urine Protein Urine Glucose (UA) Urine Ketones Urine Blood Urine Nitrite Ur Leukocyte Esterase Urine RBC Urine WBC Ur Squamous Epith Cells Ur Renal Epithelial Cell Urine Bacteria Urine Mucus Urine Opiates Screen Urine Fentanyl Screen Ur Barbiturates Screen Ur Phencyclidine Scrn Ur Amphetamines Screen U Benzodiazepines Scrn Urine Cocaine Screen U Marijuana (THC) Screen Ethyl Alcohol COVID-19 ([facility]) Negative COVID-19 Clin Com See Note 12/14/21 15:25 MCV MCH MCHC RDW Plt Count MPV Immature Gran % (Auto) Neut % (Auto) Lymph % (Auto) [place] % (Auto) Eos % (Auto) Baso % (Auto) Lymph # (Auto) [place] # (Auto) Eos # (Auto) Baso # (Auto) Abs Immat Gran (auto) Absolute Neuts (auto) Absolute Nucleated RBC Nucleated RBC % (auto) VBG pH VBG pCO2 VBG pO2 VBG HCO3 VBG O2 Saturation VBG Base Excess Anion Gap Estim Creat Clear Calc Estimated GFR Random Glucose Lactic Acid Calcium Magnesium Total Bilirubin Direct Bilirubin AST ALT Alkaline Phosphatase Ammonia 54 Total Creatine Kinase B-Natriuretic Peptide Total Protein Albumin Urine Color Urine Appearance Urine pH Ur Specific [place] Urine Protein Urine Glucose (UA) Urine Ketones Urine Blood Urine Nitrite Ur Leukocyte Esterase Urine RBC Urine WBC Ur Squamous Epith Cells Ur Renal Epithelial Cell Urine Bacteria Urine Mucus Urine Opiates Screen Urine Fentanyl Screen Ur Barbiturates Screen Ur Phencyclidine Scrn Ur Amphetamines Screen U Benzodiazepines Scrn Urine Cocaine Screen U Marijuana (THC) Screen Ethyl Alcohol COVID-19 ([facility]) COVID-19 Clin Com Imaging Radiologist's Impressions: Impressions Chest X-Ray 12/14/21 14:21 IMPRESSION: Stable enlargement of the cardiac silhouette. Question volume loss to the right lung and subcarinal mediastinal adenopathy. Abdomen/Pelvis CT 12/14/21 16:06 IMPRESSION: 1. Right lung volume loss with pleural thickening and diffuse interstitial prominence. Findings could represent the sequela of a chronic infectious or inflammatory process. Focal left lower lobe airspace opacity, concerning for pneumonia. Trace left-sided pleural effusion. 2. Prominent cardiomegaly. Trace pericardial effusion. 3. Dilatation of the central pulmonary artery which could indicate a degree of pulmonary hypertension. 4. Prominent hepatomegaly. No parenchymal lesion or biliary ductal dilatation. 5. Left ureterovesicular junction stone measuring up to 1.0 cm. Multiple additional bilateral renal stones measuring up to 1.4 cm within the left mid/upper pole. No hydroureteronephrosis. Nonspecific bilateral perinephric stranding. 6. Moderate stool burden. No small or large bowel obstruction. 7. Prominent intraperitoneal fat with bulging of the anterior abdominal wall. No intra-abdominal mass, fluid collection, or ascites. 8. Anterior vertebral body compression deformities at T7 and T9. Chest CT 12/14/21 16:06 IMPRESSION: 1. Right lung volume loss with pleural thickening and diffuse interstitial prominence. Findings could represent the sequela of a chronic infectious or inflammatory process. Focal left lower lobe airspace opacity, concerning for pneumonia. Trace left-sided pleural effusion. 2. Prominent cardiomegaly. Trace pericardial effusion. 3. Dilatation of the central pulmonary artery which could indicate a degree of pulmonary hypertension. 4. Prominent hepatomegaly. No parenchymal lesion or biliary ductal dilatation. 5. Left ureterovesicular junction stone measuring up to 1.0 cm. Multiple additional bilateral renal stones measuring up to 1.4 cm within the left mid/upper pole. No hydroureteronephrosis. Nonspecific bilateral perinephric stranding. 6. Moderate stool burden. No small or large bowel obstruction. 7. Prominent intraperitoneal fat with bulging of the anterior abdominal wall. No intra-abdominal mass, fluid collection, or ascites. 8. Anterior vertebral body compression deformities at T7 and T9. Assessment and Plan (1) COPD (chronic obstructive pulmonary disease): Status: Acute Plan 61-year-old female presented with altered mental status and shortness of breath toxic metabolic encephalopathy and acute on chronic hypoxic respiratory failure multifactorial supplemental oxygen for goal of oxygen saturation of 91, wean back down to 3 L as tolerated acute on chronic diastolic CHF IV Lasix, monitor electrolytes, check echo bilateral pneumonia concern of aspiration pneumonia was seen recently by speech therapy, continue NDD2 solids, thin liquids ceftriaxone diabetes insulin COPD Spiriva, Breo, albuterol as needed schizo affective disorder continue mood stabilizers and antipsychotics DVT prophylaxis Lovenox do not resuscitate, do not intubate patient is requiring high levels of intervention with IV diuresis and IV antibiotics, she is not yet back to her baseline oxygen, therefore expected to require at least 2 midnights in the hospital. Quality Stroke Does the patient have a stroke diagnosis?: No VTE Prior VTE?: No VTE Risk Level:: Medical - moderate - high VTE Device Contraindication: Treatment Not Indicated VTE Drug Contraindication: N/A - Med Ordered
[2021-12-14] MEDS: cefEPime HCl 2 GM in 0.9 % Sodium Chloride 50 ML IV (18:20)
[2021-12-14] MEDS: Furosemide 40 MG/4 ML VIAL IVPUSH (18:21)
[2021-12-14] MEDS: Enoxaparin Sodium 40 MG/0.4 ML SYRINGE SUBCUT (20:24)
[2021-12-14 21:04] LABS: Glucose, Whole Blood 208 mg/dL (60-115)
[2021-12-14] MEDS: Fenofibrate 160 MG TABLET PO (21:23)
[2021-12-14] MEDS: Perphenazine 8 MG TABLET 16 MG PO (21:23)
[2021-12-14] MEDS: Insulin Lispro 100 UNIT/ML 3 ML VIAL SUBCUT (21:23)
[2021-12-14] MEDS: lamoTRIgine 100 MG TABLET 200 MG PO (21:24)
[2021-12-14] MEDS: Atorvastatin Calcium 20 MG TABLET PO (21:24)
[2021-12-14] MEDS: cloZAPine 100 MG TABLET 300 MG PO (21:24)
[2021-12-14] MEDS: 0.9 % Sodium Chloride Flush 3 ML SYRINGE IVFLUSH (21:24)
[2021-12-14] MEDS: OXcarbazepine 300 MG TABLET 600 MG PO (21:24)
[2021-12-14] MEDS: Magnesium Oxide 400 MG TABLET PO (21:24)
[2021-12-15] VITALS (8 sets, daily range): BP systolic 109–130; BP diastolic 56–74; PULSE 84–100; RESP 16–18; TEMP 35.8–36.4; O2SAT 82–96
[2021-12-15 06:26] LABS: Hematocrit 32.2 % (37.0-47.0); Hemoglobin 9.3 g/dl (12.0-16.0); Mean Corpuscular HGB Conc 28.9 g/dl (31.0-35.0); Mean Corpuscular Volume 93.3 fL (80.0-98.0); Mean Platelet Volume 11.6 fL (9.4-12.3); NRBC Pct Auto 0.4 /100WBC (0.0-0.2); Platelet Count 188 X10*3/uL (160-400); Red Blood Count 3.45 X10*6/uL (4.20-5.50); Red Cell Distribution Width 16.7 % (11.0-16.0); White Blood Count 5.3 X10*3/uL (4.8-10.8)
[2021-12-15 07:01] LABS: Anion Gap 16 (12-20); Blood Urea Nitrogen 17 mg/dL (9-16); Calcium 9.3 mg/dL (8.4-10.2); Carbon Dioxide 32 mmol/L (22-29); Chloride 100 mmol/L (96-108); Creatinine Clr Calc Pharmacy 113.5; Estimated Glomerular Filt Rate > 60; Glucose Fasting 191 mg/dL (60-99); Potassium 4.5 mmol/L (3.3-5.1); Sodium 143 mmol/L (135-145)
[2021-12-15 08:20] LABS: Glucose, Whole Blood 188 mg/dL (60-115)
--- NOTE | 2021-12-15 08:35 | P.PNIM_ITS ---
Subjective Subjective Date of Service: 12/15/21 Interval History: cc: sob, ams interval history: poor historian, denies sob Cardiovascular Cardiovascular: Reports no additional cardiovascular complaints Respiratory Respiratory: Reports no additional respiratory complaints Physical Exam Vital Signs: Vital Signs: Last Vital Signs Temp 97.5 F 12/15/21 07:33 Pulse 98 12/15/21 07:33 Resp 18 12/15/21 07:33 BP 127/64 12/15/21 07:33 Pulse Ox 94 12/15/21 07:33 BMI result Body Mass Index 38.3 General: AO X 3, Resp: Crackles bilateral, mild accessory muscles used CVS: S1,S2,RRR GI: soft, non tender, non distended Neuro: motor grossly intact, alert Psych: hallucinations, tangental, Objective Data Active Medications Albuterol Sulfate (Albuterol Sulfate 90 Mcg 8 Gm Inhaler) 2 puff INHALE Q4H PRN PRN Reason: Shortness Of Breath Or Wheezing Ascorbic Acid (Ascorbic Acid 500 Mg Tablet) 500 mg PO DAILY [facility] Aspirin (Aspirin Enteric Coated 81 Mg Tablet.) 81 mg PO DAILY [facility] Atorvastatin Calcium (Atorvastatin Calcium 20 Mg Tablet) 20 mg PO BEDTIME [facility] Last Admin: 12/14/21 21:24 Dose: 20 mg Documented by: DEE DEE Clozapine (Clozapine 100 Mg Tablet) 300 mg PO BEDTIME [facility] Last Admin: 12/14/21 21:24 Dose: 300 mg Documented by: DEE DEE Clozapine (Clozapine 25 Mg Tablet) 75 mg PO DAILY [facility] Dextrose (Dextrose 50 % 25 Gm/50 Ml Vial) 25 gm IVPUSH Q15M PRN; Protocol PRN Reason: per Hypoglycemia Standing Ord. Enoxaparin Sodium (Enoxaparin Sodium 40 Mg/0.4 Ml Syringe) 40 mg SUBCUT Q24H [facility] Last Admin: 12/14/21 20:24 Dose: 40 mg Documented by: AYE Fenofibrate (Fenofibrate 160 Mg Tablet) 160 mg PO BEDTIME [facility] Last Admin: 12/14/21 21:23 Dose: 160 mg Documented by: DEE DEE Fluticasone/Vilanterol (Fluticasone/Vilanterol 200/25 Blst.W.Dev) 1 puff INHALE RDAILY [facility] Last Admin: 12/15/21 07:52 Dose: Not Given Documented by: LAWRENCE Non-Admin Reason: Patient Asleep Furosemide (Furosemide 40 Mg Tablet) 40 mg PO DAILY [facility]; Protocol Glucose (Glucose Gel 15 Gm Gel..Gram.) 15 gm PO Q15M PRN; Protocol PRN Reason: per Hypoglycemia Standing Ord. Ceftriaxone Sodium 1 gm/ (Sodium Chloride) 50 mls @ 100 mls/hr IV DAILY [facility] Insulin Human Lispro (Insulin Lispro 100 Unit/Ml 3 Ml Vial) 0 unit SUBCUT QIDACHS [facility]; Protocol Last Admin: 12/14/21 21:23 Dose: 4 unit Documented by: DEE DEE Lamotrigine (Lamotrigine 25 Mg Tablet) 150 mg PO DAILY [facility] Lamotrigine (Lamotrigine 100 Mg Tablet) 200 mg PO BEDTIME [facility] Last Admin: 12/14/21 21:24 Dose: 200 mg Documented by: DEE DEE Levothyroxine Sodium (Levothyroxine Sodium 25 Mcg Tablet) 25 mcg PO DAILY@0630 [facility] Last Admin: 12/15/21 06:03 Dose: Not Given Documented by: DEE DEE Non-Admin Reason: pt too sleepy Lorazepam (Lorazepam 0.5 Mg Tablet) 0.5 mg PO BID PRN PRN Reason: Anxiety Magnesium Hydroxide (Milk Of Magnesia 30 Ml Oral.Susp) 30 ml PO DAILY [facility] Magnesium Oxide (Magnesium Oxide 400 Mg Tablet) 400 mg PO TID [facility] Last Admin: 12/14/21 21:24 Dose: 400 mg Documented by: DEE DEE Metoprolol Tartrate (Metoprolol Tartrate 12.5 Mg Halftab) 12.5 mg PO DAILY [facility]; Protocol Oxcarbazepine (Oxcarbazepine 300 Mg Tablet) 600 mg PO BID [facility] Last Admin: 12/14/21 21:24 Dose: 600 mg Documented by: DEE DEE Perphenazine (Perphenazine 8 Mg Tablet) 16 mg PO TID [facility] Last Admin: 12/14/21 21:23 Dose: 16 mg Documented by: DEE DEE Pharmacy Consult (Consult Rx Perform Med Rec) 1 each MISCELLANE ONCE PRN PRN Reason: Consult order Polyethylene Glycol (Polyethylene Glycol 3350 17 Gm Powd.Pack) 17 gm PO DAILY@1700 [facility] Sodium Chloride (0.9 % Sodium Chloride Flush 3 Ml Syringe) 3 ml IVFLUSH QSHIFT [facility] Last Admin: 12/14/21 21:24 Dose: 3 ml Documented by: ODRISRonnie Tiotropium [place] (Tiotropium [place] 18 Mcg Cap.W.Dev) 1 puff INHALE RDAILY [facility] Last Admin: 12/15/21 07:52 Dose: Not Given Documented by: LAWRENCE Non-Admin Reason: Patient Asleep Trihexyphenidyl HCl (Trihexyphenidyl Hcl 2 Mg Tablet) 4 mg PO DAILY [facility] Labs CBC & Chem 7: 12/15/21 06:03 12/15/21 06:03 Labs: Laboratory Results - last 24 hr 12/14/21 12/14/21 12/14/21 13:19 13:19 13:31 MCV MCH MCHC RDW Plt Count MPV Immature Gran % (Auto) Neut % (Auto) Lymph % (Auto) [place] % (Auto) Eos % (Auto) Baso % (Auto) Lymph # (Auto) [place] # (Auto) Eos # (Auto) Baso # (Auto) Abs Immat Gran (auto) Absolute Neuts (auto) Absolute Nucleated RBC Nucleated RBC % (auto) VBG pH VBG pCO2 VBG pO2 VBG HCO3 VBG O2 Saturation VBG Base Excess Anion Gap Estim Creat Clear Calc Estimated GFR POC Glucose Random Glucose Fasting Glucose Lactic Acid Calcium Magnesium Total Bilirubin Direct Bilirubin AST ALT Alkaline Phosphatase Ammonia Total Creatine Kinase B-Natriuretic Peptide Total Protein Albumin Urine Color YELLOW Urine Appearance HAZY Urine pH 6.5 Ur Specific [place] 1.015 Urine Protein NEG Urine Glucose (UA) NEG Urine Ketones NEG Urine Blood NEG Urine Nitrite POS H Ur Leukocyte Esterase 1+ H Urine RBC 0-2 Urine WBC 76-150 H Ur Squamous Epith Cells 1+ Ur Renal Epithelial Cell 1+ Urine Bacteria 1+ Urine Mucus 1+ Urine Opiates Screen Not Detected Urine Fentanyl Screen Not Detected Ur Barbiturates Screen Not Detected Ur Phencyclidine Scrn Not Detected Ur Amphetamines Screen Not Detected U Benzodiazepines Scrn Not Detected Urine Cocaine Screen Not Detected U Marijuana (THC) Screen Not Detected Ethyl Alcohol < 10 COVID-19 ([facility]) COVID-19 Clin Com 12/14/21 12/14/21 12/14/21 13:32 13:32 13:33 MCV 94.1 MCH 27.7 MCHC 29.4 L RDW 16.4 H Plt Count 202 MPV 11.9 Immature Gran % (Auto) 1.4 H Neut % (Auto) 68.1 Lymph % (Auto) 20.6 [place] % (Auto) 6.8 Eos % (Auto) 2.8 Baso % (Auto) 0.3 Lymph # (Auto) 1.5 [place] # (Auto) 0.5 Eos # (Auto) 0.2 Baso # (Auto) 0.0 Abs Immat Gran (auto) 0.10 H Absolute Neuts (auto) 4.9 Absolute Nucleated RBC 0.020 H Nucleated RBC % (auto) 0.3 H VBG pH VBG pCO2 VBG pO2 VBG HCO3 VBG O2 Saturation VBG Base Excess Anion Gap 13 Estim Creat Clear Calc 102.6 Estimated GFR > 60 POC Glucose Random Glucose 199 H Fasting Glucose Lactic Acid Calcium 9.7 Magnesium 1.7 Total Bilirubin 0.2 Direct Bilirubin < 0.2 AST 19 D ALT 16 Alkaline Phosphatase 77 D Ammonia Total Creatine Kinase 119 B-Natriuretic Peptide 162 H Total Protein 6.6 D Albumin 3.6 D Urine Color Urine Appearance Urine pH Ur Specific [place] Urine Protein Urine Glucose (UA) Urine Ketones Urine Blood Urine Nitrite Ur Leukocyte Esterase Urine RBC Urine WBC Ur Squamous Epith Cells Ur Renal Epithelial Cell Urine Bacteria Urine Mucus Urine Opiates Screen Urine Fentanyl Screen Ur Barbiturates Screen Ur Phencyclidine Scrn Ur Amphetamines Screen U Benzodiazepines Scrn Urine Cocaine Screen U Marijuana (THC) Screen Ethyl Alcohol COVID-19 ([facility]) COVID-19 Clin Com 12/14/21 12/14/21 12/14/21 13:36 13:37 14:00 MCV MCH MCHC RDW Plt Count MPV Immature Gran % (Auto) Neut % (Auto) Lymph % (Auto) [place] % (Auto) Eos % (Auto) Baso % (Auto) Lymph # (Auto) [place] # (Auto) Eos # (Auto) Baso # (Auto) Abs Immat Gran (auto) Absolute Neuts (auto) Absolute Nucleated RBC Nucleated RBC % (auto) VBG pH 7.33 VBG pCO2 64 VBG pO2 71 VBG HCO3 34 H VBG O2 Saturation 88.0 VBG Base Excess 6.6 Anion Gap Estim Creat Clear Calc Estimated GFR POC Glucose Random Glucose Fasting Glucose Lactic Acid 1.1 Calcium Magnesium Total Bilirubin Direct Bilirubin AST ALT Alkaline Phosphatase Ammonia Total Creatine Kinase B-Natriuretic Peptide Total Protein Albumin Urine Color Urine Appearance Urine pH Ur Specific [place] Urine Protein Urine Glucose (UA) Urine Ketones Urine Blood Urine Nitrite Ur Leukocyte Esterase Urine RBC Urine WBC Ur Squamous Epith Cells Ur Renal Epithelial Cell Urine Bacteria Urine Mucus Urine Opiates Screen Urine Fentanyl Screen Ur Barbiturates Screen Ur Phencyclidine Scrn Ur Amphetamines Screen U Benzodiazepines Scrn Urine Cocaine Screen U Marijuana (THC) Screen Ethyl Alcohol COVID-19 ([facility]) Negative COVID-19 Clin Com See Note 12/14/21 12/14/21 12/15/21 15:25 20:53 06:03 MCV 93.3 MCH 27.0 MCHC 28.9 L RDW 16.7 H Plt Count 188 MPV 11.6 Immature Gran % (Auto) Neut % (Auto) Lymph % (Auto) [place] % (Auto) Eos % (Auto) Baso % (Auto) Lymph # (Auto) [place] # (Auto) Eos # (Auto) Baso # (Auto) Abs Immat Gran (auto) Absolute Neuts (auto) Absolute Nucleated RBC 0.020 H Nucleated RBC % (auto) 0.4 H VBG pH VBG pCO2 VBG pO2 VBG HCO3 VBG O2 Saturation VBG Base Excess Anion Gap Estim Creat Clear Calc Estimated GFR POC Glucose 208 H Random Glucose Fasting Glucose Lactic Acid Calcium Magnesium Total Bilirubin Direct Bilirubin AST ALT Alkaline Phosphatase Ammonia 54 Total Creatine Kinase B-Natriuretic Peptide Total Protein Albumin Urine Color Urine Appearance Urine pH Ur Specific [place] Urine Protein Urine Glucose (UA) Urine Ketones Urine Blood Urine Nitrite Ur Leukocyte Esterase Urine RBC Urine WBC Ur Squamous Epith Cells Ur Renal Epithelial Cell Urine Bacteria Urine Mucus Urine Opiates Screen Urine Fentanyl Screen Ur Barbiturates Screen Ur Phencyclidine Scrn Ur Amphetamines Screen U Benzodiazepines Scrn Urine Cocaine Screen U Marijuana (THC) Screen Ethyl Alcohol COVID-19 ([facility]) COVID-19 Clin Com 12/15/21 12/15/21 06:03 07:36 MCV MCH MCHC RDW Plt Count MPV Immature Gran % (Auto) Neut % (Auto) Lymph % (Auto) [place] % (Auto) Eos % (Auto) Baso % (Auto) Lymph # (Auto) [place] # (Auto) Eos # (Auto) Baso # (Auto) Abs Immat Gran (auto) Absolute Neuts (auto) Absolute Nucleated RBC Nucleated RBC % (auto) VBG pH VBG pCO2 VBG pO2 VBG HCO3 VBG O2 Saturation VBG Base Excess Anion Gap 16 Estim Creat Clear Calc 113.5 Estimated GFR > 60 POC Glucose 188 H Random Glucose Fasting Glucose 191 H Lactic Acid Calcium 9.3 Magnesium Total Bilirubin Direct Bilirubin AST ALT Alkaline Phosphatase Ammonia Total Creatine Kinase B-Natriuretic Peptide Total Protein Albumin Urine Color Urine Appearance Urine pH Ur Specific [place] Urine Protein Urine Glucose (UA) Urine Ketones Urine Blood Urine Nitrite Ur Leukocyte Esterase Urine RBC Urine WBC Ur Squamous Epith Cells Ur Renal Epithelial Cell Urine Bacteria Urine Mucus Urine Opiates Screen Urine Fentanyl Screen Ur Barbiturates Screen Ur Phencyclidine Scrn Ur Amphetamines Screen U Benzodiazepines Scrn Urine Cocaine Screen U Marijuana (THC) Screen Ethyl Alcohol COVID-19 ([facility]) COVID-19 Clin Com Assessment and Plan (1) SHOSHANA (obstructive sleep apnea): Status: Acute Plan 61-year-old female presented with altered mental status and shortness of breath ?toxic metabolic encephalopathy and acute? on chronic hypoxic respiratory failure ?multifactorial back to 3L home oxygen appears to be back to baseline mental status ?acute on chronic diastolic CHF will change to po lasix, check echo ?bilateral pneumonia ?concern of aspiration pneumonia ?was seen recently by speech therapy, continue NDD2 solids, thin liquids ?continue ceftriaxone ?diabetes ?insulin ?COPD ?Spiriva, Breo, albuterol as needed ?schizo affective disorder ?continue mood stabilizers and antipsychotics ?DVT prophylaxis Lovenox ?do not resuscitate, do not intubate reason for continued hospitalization: continued concern for aspiration - awaiting film sorter follow up, high risk for decompensation due to aspiratoin penuomnia in setting of chronic hypoxic respiratory failure from copd, requiring close monitoring and iv antibiotics. Quality Stroke Does the patient have a stroke diagnosis?: No VTE Prior VTE?: No VTE Risk Level:: Medical - moderate - high VTE Device Contraindication: Treatment Not Indicated VTE Drug Contraindication: N/A - Med Ordered
[2021-12-15] MEDS: Milk of Magnesia 30 ML ORAL.SUSP PO (08:51)
[2021-12-15] MEDS: Insulin Lispro 100 UNIT/ML 3 ML VIAL SUBCUT ×4 (08:51→20:04)
[2021-12-15] MEDS: Trihexyphenidyl HCL 2 MG TABLET 4 MG PO (08:51)
[2021-12-15] MEDS: Perphenazine 8 MG TABLET 16 MG PO ×3 (08:51→19:55)
[2021-12-15] MEDS: Ascorbic Acid 500 MG TABLET PO (08:51)
[2021-12-15] MEDS: OXcarbazepine 300 MG TABLET 600 MG PO ×2 (08:51→19:54)
[2021-12-15] MEDS: lamoTRIgine 25 MG TABLET 150 MG PO (08:51)
[2021-12-15] MEDS: Metoprolol Tartrate 12.5 MG HALFTAB PO (08:52)
[2021-12-15] MEDS: cefTRIAXone sodium 1 GM in 0.9 % Sodium Chloride 50 ML IV (08:52)
[2021-12-15] MEDS: Magnesium Oxide 400 MG TABLET PO ×3 (08:52→19:55)
[2021-12-15] MEDS: Furosemide 40 MG TABLET PO (08:52)
[2021-12-15] MEDS: Aspirin Enteric Coated 81 MG TABLET.DR PO (08:52)
[2021-12-15] MEDS: cloZAPine 25 MG TABLET 75 MG PO (08:52)
[2021-12-15] MEDS: 0.9 % Sodium Chloride Flush 3 ML SYRINGE IVFLUSH ×2 (08:52→17:25)
[2021-12-15 11:58] LABS: Glucose, Whole Blood 199 mg/dL (60-115)
--- NOTE | 2021-12-15 12:22 | MHC.CM.PN ---
PATIENT IS IN FROM [facility] (RE-ADMIT) SHE HAS A HCP AND MOLST ON FILE AND VERIFIED. HCP MICHAEL ([phone]) STATES THAT SHE IS ALSO PATIENT'S GUARDIAN. NO GUARDIANSHIP PAPERWORK WITH PATIENT; HOWEVER, INVOKED HCP DOCUMENT IS IN PATIENT PAPER CHART FROM [facility]. PATIENT HAS BEEN COVID VACCINATED X 3. INFORMATION IS OBTAINED FROM [facility]. PATIENT IS ON 3 LITRES O2 AT BASELINE. PLAN IS FOR RETURN TO FACILITY IMM DISCUSSED WITH MICHAEL WHO ASKS THAT IT RETURN TO [facility] ALONG WITH PATIENT. IMM 3/ IN CHART
[2021-12-15] MEDS: oxyCODONE HCl Immed Release 5 MG TABLET PO ×2 (14:43→21:53)
[2021-12-15 16:20] LABS: Glucose, Whole Blood 206 mg/dL (60-115)
[2021-12-15] MEDS: polyethylene glycoL 3350 17 GM POWD.PACK PO (17:25)
[2021-12-15 19:44] LABS: Glucose, Whole Blood 161 mg/dL (60-115)
[2021-12-15] MEDS: Enoxaparin Sodium 40 MG/0.4 ML SYRINGE SUBCUT (19:54)
[2021-12-15] MEDS: Fenofibrate 160 MG TABLET PO (19:54)
[2021-12-15] MEDS: cloZAPine 100 MG TABLET 300 MG PO (19:54)
[2021-12-15] MEDS: lamoTRIgine 100 MG TABLET 200 MG PO (19:55)
[2021-12-15] MEDS: Atorvastatin Calcium 20 MG TABLET PO (19:55)
--- NOTE | 2021-12-15 20:11 | PM.EVENT ---
Event Note Date of Service: 12/15/21 Event Note: leg pain: venous duplex
[2021-12-16] VITALS (13 sets, daily range): BP systolic 106–148; BP diastolic 56–69; PULSE 81–101; RESP 18–33; TEMP 36.2–36.7; O2SAT 82–98; BMI 38.3
[2021-12-16] MEDS: 0.9 % Sodium Chloride Flush 3 ML SYRINGE IVFLUSH ×3 (01:37→17:37)
--- NOTE | 2021-12-16 02:06 | PC.NURSE ---
Patient with COPD, PNA, SHOSHANA, CHF, PNA, with failure to maintain O2 sat above 90. Was placed on 4L at 2330 when found sats in 80s on 3LNC. When rechecked, patient was again in the 80s. Arousable, but drowsy and falling back asleep, stating she wants to sleep. texted via [employer]alife awaiting response while respiratory therapist places patient on previously ordered CPAP.
[2021-12-16 02:37] LABS: ABG Base Excess 17.2 mmol/L; ABG HCO3 45 mmol/L (22-26); ABG pCO2 72 mmHg (32-45); ABG pO2 52 mmHg (83-108)
[2021-12-16] MEDS: Albuterol/Iprat 2.5/0.5MG 3 ML AMPUL.NEB INHALE (02:46)
[2021-12-16 04:11] LABS: ABG Refer to POC result
--- NOTE | 2021-12-16 05:01 | PC.NURSE ---
Patient was 83 on CPAP, Bipap placed on CPAP settings and ABG and CXR done, MD saw patient and ordered repeat ABG for 5am and will reassess if patient can remain on unit.
[2021-12-16 05:23] LABS: ABG Base Excess 25.7 mmol/L; ABG HCO3 54 mmol/L (22-26); ABG pCO2 87 mmHg (32-45); ABG pO2 49 mmHg (83-108)
--- NOTE | 2021-12-16 05:40 | PM.EVENT ---
Event Note Date of Service: 12/16/21 Event Note: Acute Hypoxic/Hypercapneic resp failure: Patient became drowsy and hypoxic to mid 80s on supplemental oxygen; oxygenation has been increased to 4 L with no significant improvement. ABG showed pH of 7.4, pCO2 72, PO2 of 52; patient was placed on BiPAP with a settings at 12l/6/32% The follow-up ABG 2 hours later showed pH of 7.4, pCO2 87, PO2 of49. Discussed with Dr. Valero from ICU-> suggested to increase the FiO2. Reassess in an hour with repeat ABG; then if no significant improvement in po2/pCO2 to increase the Bipap settings to 15/8.
--- NOTE | 2021-12-16 06:00 | PC.NURSE ---
ABG second set reported to MD, BIPAP settings changed by respiratory therapist per MD instructions. Patient is now 95% O2 sat. Repeat ABG at 0700 per MD. Patient remains very drowsy, arousable. Camera has been placed in room upon placement of BIPAP to ensure it remains on.
[2021-12-16 06:07] LABS: Hematocrit 31.8 % (37.0-47.0); Hemoglobin 9.4 g/dl (12.0-16.0); Mean Corpuscular HGB Conc 29.6 g/dl (31.0-35.0); Mean Corpuscular Hemoglobin 27.2 pg (27.0-33.0); Mean Corpuscular Volume 91.9 fL (80.0-98.0); Mean Platelet Volume 11.3 fL (9.4-12.3); Platelet Count 207 X10*3/uL (160-400); Red Blood Count 3.46 X10*6/uL (4.20-5.50); Red Cell Distribution Width 16.8 % (11.0-16.0); White Blood Count 6.5 X10*3/uL (4.8-10.8)
[2021-12-16 06:21] LABS: ABG Refer to POC result
[2021-12-16 06:23] LABS: Anion Gap 13 (12-20); Blood Urea Nitrogen 20 mg/dL (9-16); Calcium 9.7 mg/dL (8.4-10.2); Carbon Dioxide 36 mmol/L (22-29); Chloride 95 mmol/L (96-108); Estimated Glomerular Filt Rate > 60; Glucose Fasting 194 mg/dL (60-99); Potassium 4.4 mmol/L (3.3-5.1); Sodium 140 mmol/L (135-145)
[2021-12-16 06:55] LABS: ABG Base Excess 16.5 mmol/L; ABG HCO3 45 mmol/L (22-26); ABG pCO2 71 mmHg (32-45); ABG pO2 86 mmHg (83-108)
[2021-12-16 07:39] LABS: Glucose, Whole Blood 183 mg/dL (60-115)
[2021-12-16] MEDS: Insulin Lispro 100 UNIT/ML 3 ML VIAL SUBCUT ×3 (07:44→21:15)
[2021-12-16 07:52] LABS: ABG Refer to POC result
--- NOTE | 2021-12-16 08:42 | HO.PM.IMPN ---
Subjective Subjective Date of Service: 12/16/21 Interval History: cc: ams interval history: sleepy Cardiovascular Cardiovascular: Reports no additional cardiovascular complaints Gastrointestinal Gastrointestinal: Reports no additional gastrointestinal complaints Physical Exam Vital Signs: Vital Signs: Last Vital Signs Temp 97.2 F 12/16/21 07:20 Pulse 93 12/16/21 07:20 Resp 20 12/16/21 07:20 BP 122/65 12/16/21 07:20 Pulse Ox 93 12/16/21 07:20 Oxygen Flow Rate 2 12/15/21 20:00 BMI result Body Mass Index 38.3 General: lethargic O X 3, Resp:? Crackles bilateral, mild accessory muscles used CVS: S1,S2,RRR GI: soft, non tender, non distended Neuro:? motor grossly intact, lethargic Psych: hallucinations, tangental, Objective Data Active Medications Albuterol Sulfate (Albuterol Sulfate 90 Mcg 8 Gm Inhaler) 2 puff INHALE Q4H PRN PRN Reason: Shortness Of Breath Or Wheezing Albuterol/Ipratropium (Albuterol/Iprat 2.5/0.5mg 3 Ml Ampul.Neb) 3 ml INHALE RQ4H PRN PRN Reason: Shortness of Breath/Wheezing Last Admin: 12/16/21 02:46 Dose: 3 ml Documented by: BRUNO Ascorbic Acid (Ascorbic Acid 500 Mg Tablet) 500 mg PO DAILY [facility] Last Admin: 12/15/21 08:51 Dose: 500 mg Documented by: HERNÁN Aspirin (Aspirin Enteric Coated 81 Mg Tablet.) 81 mg PO DAILY [facility] Last Admin: 12/15/21 08:52 Dose: 81 mg Documented by: HERNÁN Atorvastatin Calcium (Atorvastatin Calcium 20 Mg Tablet) 20 mg PO BEDTIME [facility] Last Admin: 12/15/21 19:55 Dose: 20 mg Documented by: LUANN Clozapine (Clozapine 100 Mg Tablet) 300 mg PO BEDTIME [facility] Last Admin: 12/15/21 19:54 Dose: 300 mg Documented by: LUANN Clozapine (Clozapine 25 Mg Tablet) 75 mg PO DAILY [facility] Last Admin: 12/15/21 08:52 Dose: 75 mg Documented by: HERNÁN Dextrose (Dextrose 50 % 25 Gm/50 Ml Vial) 25 gm IVPUSH Q15M PRN; Protocol PRN Reason: per Hypoglycemia Standing Ord. Enoxaparin Sodium (Enoxaparin Sodium 40 Mg/0.4 Ml Syringe) 40 mg SUBCUT Q24H [facility] Last Admin: 12/15/21 19:54 Dose: 40 mg Documented by: LUANN Fenofibrate (Fenofibrate 160 Mg Tablet) 160 mg PO BEDTIME [facility] Last Admin: 12/15/21 19:54 Dose: 160 mg Documented by: LUANN Fluticasone/Vilanterol (Fluticasone/Vilanterol 200/25 Blst.W.Dev) 1 puff INHALE RDAILY [facility] Last Admin: 12/16/21 07:38 Dose: Not Given Documented by: LAWRENCE Non-Admin Reason: pt unable Furosemide (Furosemide 40 Mg Tablet) 40 mg PO DAILY [facility]; Protocol Last Admin: 12/15/21 08:52 Dose: 40 mg Documented by: HERNÁN Glucose (Glucose Gel 15 Gm Gel..Gram.) 15 gm PO Q15M PRN; Protocol PRN Reason: per Hypoglycemia Standing Ord. Ceftriaxone Sodium 1 gm/ (Sodium Chloride) 50 mls @ 100 mls/hr IV DAILY [facility] Last Infusion: 12/15/21 09:26 Dose: 0 mls/hr Documented by: HERNÁN Insulin Human Lispro (Insulin Lispro 100 Unit/Ml 3 Ml Vial) 0 unit SUBCUT QIDACHS [facility]; Protocol Last Admin: 12/16/21 07:44 Dose: 2 unit Documented by: YAYA Lamotrigine (Lamotrigine 25 Mg Tablet) 150 mg PO DAILY [facility] Last Admin: 12/15/21 08:51 Dose: 150 mg Documented by: HERNÁN Lamotrigine (Lamotrigine 100 Mg Tablet) 200 mg PO BEDTIME [facility] Last Admin: 12/15/21 19:55 Dose: 200 mg Documented by: LUANN Levothyroxine Sodium (Levothyroxine Sodium 25 Mcg Tablet) 25 mcg PO DAILY@0630 [facility] Last Admin: 12/16/21 05:59 Dose: Not Given Documented by: SHARMILA Non-Admin Reason: pt not following directions Lorazepam (Lorazepam 0.5 Mg Tablet) 0.5 mg PO BID PRN PRN Reason: Anxiety Magnesium Hydroxide (Milk Of Magnesia 30 Ml Oral.Susp) 30 ml PO DAILY [facility] Last Admin: 12/15/21 08:51 Dose: 30 ml Documented by: HERNÁN Magnesium Oxide (Magnesium Oxide 400 Mg Tablet) 400 mg PO TID [facility] Last Admin: 12/15/21 19:55 Dose: 400 mg Documented by: LUANN Metoprolol Tartrate (Metoprolol Tartrate 12.5 Mg Halftab) 12.5 mg PO DAILY [facility]; Protocol Last Admin: 12/15/21 08:52 Dose: 12.5 mg Documented by: HERNÁN Oxcarbazepine (Oxcarbazepine 300 Mg Tablet) 600 mg PO BID [facility] Last Admin: 12/15/21 19:54 Dose: 600 mg Documented by: LUANN Comments: going to bed now Perphenazine (Perphenazine 8 Mg Tablet) 16 mg PO TID [facility] Last Admin: 12/15/21 19:55 Dose: 16 mg Documented by: LUANN Pharmacy Consult (Consult Rx Perform Med Rec) 1 each MISCELLANE ONCE PRN PRN Reason: Consult order Polyethylene Glycol (Polyethylene Glycol 3350 17 Gm Powd.Pack) 17 gm PO DAILY@1700 [facility] Last Admin: 12/15/21 17:25 Dose: 17 gm Documented by: HERNÁN Sodium Chloride (0.9 % Sodium Chloride Flush 3 Ml Syringe) 3 ml IVFLUSH QSHIFT [facility] Last Admin: 12/16/21 07:43 Dose: 3 ml Documented by: YAYA Tiotropium [place] (Tiotropium [place] 18 Mcg Cap.W.Dev) 1 puff INHALE RDAILY [facility] Last Admin: 12/16/21 07:39 Dose: Not Given Documented by: LAWRENCE Non-Admin Reason: pt unable Trihexyphenidyl HCl (Trihexyphenidyl Hcl 2 Mg Tablet) 4 mg PO DAILY [facility] Last Admin: 12/15/21 08:51 Dose: 4 mg Documented by: HERNÁN Labs CBC & Chem 7: 12/16/21 05:39 12/16/21 05:39 Labs: Laboratory Results - last 24 hr 12/15/21 12/15/21 12/15/21 11:37 15:53 19:13 MCV MCH MCHC RDW Plt Count MPV Absolute Nucleated RBC Nucleated RBC % (auto) O2 Saturation ABG pH at Pt Temp ABG pCO2 at Pt Temp ABG pO2 at Pt Temp ABG HCO3 ABG Base Excess (Actual) Anion Gap Estim Creat Clear Calc Estimated GFR POC Glucose 199 H 206 H 161 H Fasting Glucose Calcium 12/16/21 12/16/21 12/16/21 02:29 05:15 05:39 MCV 91.9 MCH 27.2 MCHC 29.6 L RDW 16.8 H Plt Count 207 MPV 11.3 Absolute Nucleated RBC 0.000 Nucleated RBC % (auto) 0.0 O2 Saturation 75.0 73.0 ABG pH at Pt Temp 7.40 7.40 ABG pCO2 at Pt Temp 72 H* 87 H* ABG pO2 at Pt Temp 52 L 49 L* ABG HCO3 45 H 54 H ABG Base Excess (Actual) 17.2 25.7 Anion Gap Estim Creat Clear Calc Estimated GFR POC Glucose Fasting Glucose Calcium 12/16/21 12/16/21 12/16/21 05:39 06:48 07:19 MCV MCH MCHC RDW Plt Count MPV Absolute Nucleated RBC Nucleated RBC % (auto) O2 Saturation 93.0 ABG pH at Pt Temp 7.40 ABG pCO2 at Pt Temp 71 H* ABG pO2 at Pt Temp 86 ABG HCO3 45 H ABG Base Excess (Actual) 16.5 Anion Gap 13 Estim Creat Clear Calc 107.0 Estimated GFR > 60 POC Glucose 183 H Fasting Glucose 194 H Calcium 9.7 Microbiology Microbiology Results: Microbiology 12/14/21 15:25 Blood Culture - Preliminary Blood - Venous No growth after 24 hours. 12/14/21 13:33 Blood Culture - Preliminary Blood - Venous No growth after 24 hours. 12/14/21 Unknown Urine Culture - Preliminary Urine clean catch - Urine rodriguez top Culture in progress. Assessment and Plan (1) SHOSHANA (obstructive sleep apnea): Status: Acute Plan 61-year-old female presented with altered mental status and shortness of breath ?toxic metabolic encephalopathy and acute? on chronic hypoxic and hypercapneic respiraotry failure respiratory failure ?multifactorial back to 3L home oxygen mental status again suppressed due to hypercapnea, monitor required bipap overnight, hypercapnea with normal ph, hypoxia improved ?acute on chronic diastolic CHF po lasix, follow up echo ?bilateral pneumonia ?concern of aspiration pneumonia ?was seen recently by speech therapy, continue NDD2 solids, thin liquids ?continue ceftriaxone ?diabetes ?insulin ?COPD ?Spiriva, Breo, albuterol as needed ?schizo affective disorder ?continue mood stabilizers and antipsychotics ?DVT prophylaxis Lovenox ?do not resuscitate, do not intubate reason for continued hospitalization: not at baseline, still hypercapneic, continued concern for aspiration - awaiting banking services clerk follow up, high risk for decompensation due to aspiratoin penuomnia in setting of chronic hypoxic respiratory failure from copd, requiring close monitoring and iv antibiotics. Quality Stroke Does the patient have a stroke diagnosis?: No VTE Prior VTE?: No VTE Risk Level:: Medical - moderate - high VTE Device Contraindication: Treatment Not Indicated VTE Drug Contraindication: N/A - Med Ordered
[2021-12-16] MEDS: cefTRIAXone sodium 1 GM in 0.9 % Sodium Chloride 50 ML IV (09:22)
[2021-12-16] MEDS: Magnesium Oxide 400 MG TABLET PO ×3 (10:59→21:09)
[2021-12-16] MEDS: Aspirin Enteric Coated 81 MG TABLET.DR PO (10:59)
[2021-12-16] MEDS: Metoprolol Tartrate 12.5 MG HALFTAB PO (11:00)
[2021-12-16] MEDS: Ascorbic Acid 500 MG TABLET PO (11:00)
[2021-12-16] MEDS: Furosemide 40 MG TABLET PO (11:00)
[2021-12-16 11:47] LABS: Glucose, Whole Blood 141 mg/dL (60-115)
--- NOTE | 2021-12-16 13:19 | MHC.SL.SWA ---
Speech Pathologist Impression: Oropharyngeal dysphagia Risk of Aspiration Due to: Medically Fragile Dysphasia Diet Status: No change Liquid Consistency and Strategies for Safe Swallow: Liquid Intake Recommendation: Thin Liquid Intake Strategies: Small Sips Solid Food Consistency: Dietary Recommendations: Grnd/Mech Altered (NDD2) Additional Modifications to Solid Foods: Recommend CONTINUE GROUND/MECH ALTERED (NDD2) solids and THIN liquids, pills CRUSHED in PUREE. Continue aspiration precautions and 1:1 supervision and cuing as needed for safe eating behaviors. SOFTWARE QUALITY ASSURANCE ANALYST will continue to follow. Oral Medication Intake: Crushed with Puree Please contact the pharmacy regarding appropriate crushable or liquid drug formulations that are available whenever modified delivery is recommended. Compensatory Strategies and Precautions to be Taken for Safe Swallow: Sitting Upright (90 deg) Small Bites and Sips Alternate Liquids/Solids Rate of Ingestion Change Supervision While Eating and Drinking for Safe Swallow: Total Supervision (1:1) Foods to Avoid: Difficult to chew solids. Swallowing Recommended Treatments: Compens. Strategy Educat. Recommendation for Speech: Inpatient Speech Therapy Lard Mixer Clinican/Clinical Fellow: No Supervisory Statement: I have reviewed and agree with the student/clinical fellow's documentation: N/A Speech Language Pathologist: July Toro M.A., [facility]SOFTWARE QUALITY ASSURANCE ANALYST
[2021-12-16] MEDS: acetaZOLAMIDE sodium 500 MG VIAL IVPUSH ×2 (14:09→21:09)
[2021-12-16 16:24] LABS: Glucose, Whole Blood 262 mg/dL (60-115)
[2021-12-16] MEDS: polyethylene glycoL 3350 17 GM POWD.PACK PO (17:37)
[2021-12-16 20:05] LABS: Glucose, Whole Blood 171 mg/dL (60-115)
[2021-12-16] MEDS: Perphenazine 8 MG TABLET 16 MG PO (21:09)
[2021-12-16] MEDS: lamoTRIgine 100 MG TABLET 200 MG PO (21:10)
[2021-12-16] MEDS: Fenofibrate 160 MG TABLET PO (21:10)
[2021-12-16] MEDS: cloZAPine 100 MG TABLET 300 MG PO (21:10)
[2021-12-16] MEDS: OXcarbazepine 300 MG TABLET 600 MG PO (21:10)
[2021-12-16] MEDS: Atorvastatin Calcium 20 MG TABLET PO (22:34)
[2021-12-17] MEDS: 0.9 % Sodium Chloride Flush 3 ML SYRINGE IVFLUSH ×2 (01:33→07:24)
[2021-12-17 03:47] VITALS: BP 132/70; PULSE 84; RESP 19; TEMP 36.5; O2SAT 90
[2021-12-17 06:58] LABS: Hematocrit 36.1 % (37.0-47.0); Hemoglobin 10.7 g/dl (12.0-16.0); Mean Corpuscular HGB Conc 29.6 g/dl (31.0-35.0); Mean Corpuscular Hemoglobin 27.1 pg (27.0-33.0); Mean Corpuscular Volume 91.4 fL (80.0-98.0); Mean Platelet Volume 11.4 fL (9.4-12.3); Platelet Count 224 X10*3/uL (160-400); Red Blood Count 3.95 X10*6/uL (4.20-5.50); Red Cell Distribution Width 16.8 % (11.0-16.0); White Blood Count 6.5 X10*3/uL (4.8-10.8)
[2021-12-17 07:13] LABS: Anion Gap 14 (12-20); Blood Urea Nitrogen 20 mg/dL (9-16); Calcium 10.5 mg/dL (8.4-10.2); Carbon Dioxide 32 mmol/L (22-29); Chloride 99 mmol/L (96-108); Estimated Glomerular Filt Rate > 60; Glucose Fasting 183 mg/dL (60-99); Potassium 4.2 mmol/L (3.3-5.1); Sodium 141 mmol/L (135-145)
[2021-12-17 07:23] VITALS: BP 106/65; PULSE 87; RESP 20; TEMP 36.6; O2SAT 97
[2021-12-17 07:23] LABS: Glucose, Whole Blood 178 mg/dL (60-115)
[2021-12-17] MEDS: Insulin Lispro 100 UNIT/ML 3 ML VIAL SUBCUT ×2 (08:31→11:49)
[2021-12-17] MEDS: Ascorbic Acid 500 MG TABLET PO (08:35)
[2021-12-17] MEDS: Perphenazine 8 MG TABLET 16 MG PO (08:35)
[2021-12-17] MEDS: cloZAPine 25 MG TABLET 75 MG PO (08:35)
[2021-12-17] MEDS: Magnesium Oxide 400 MG TABLET PO (08:35)
[2021-12-17] MEDS: lamoTRIgine 25 MG TABLET 150 MG PO (08:35)
[2021-12-17] MEDS: Metoprolol Tartrate 12.5 MG HALFTAB PO (08:36)
[2021-12-17] MEDS: Aspirin Enteric Coated 81 MG TABLET.DR PO (08:36)
[2021-12-17] MEDS: Trihexyphenidyl HCL 2 MG TABLET 4 MG PO (08:36)
[2021-12-17] MEDS: acetaZOLAMIDE sodium 500 MG VIAL IVPUSH (08:36)
[2021-12-17] MEDS: cefTRIAXone sodium 1 GM in 0.9 % Sodium Chloride 50 ML IV (08:36)
[2021-12-17] MEDS: Milk of Magnesia 30 ML ORAL.SUSP PO (08:37)
[2021-12-17 08:39] VITALS: PULSE 102; RESP 22; O2SAT 89
[2021-12-17] MEDS: OXcarbazepine 300 MG TABLET 600 MG PO (08:39)
[2021-12-17] MEDS: Fluticasone/Vilanterol 200/25 BLST.W.DEV 1 PUFF INHALE (08:39)
--- NOTE | 2021-12-17 08:58 | P.CDIC_ITS ---
CDI Concurrent Query Documentation Clarification: PHYSICIAN'S DOCUMENTATION REQUEST Date of Query: 12/17/21 0858 Patient Name: Antonette Obregon Admit Date: 12/14/21 Dear Doctor, A review of the medical record indicates additional documentation may be needed. Please review below and update the documentation accordingly. Risk Factors/Clinical Indicators/Treatments Nutrition assessment 12/16 - Obesity Class II Diabetic diet, excess energy intake. BMI 38.3 If possible, please provide an associated diagnosis related to the abnormal BMI, such as: For a BMI >= 40: * Overweight * Obesity * Due to excess calories * Drug induced * Due to other cause * Severe or Morbid Obesity * With alveolar hypoventilation * Without alveolar hypoventilation Or: * BMI is not significant * Other (please specify) * Unable to determine Use of terms such as suspected, likely, concern for, or probable (associated with a specific diagnosis that is being evaluated, monitored, or treated as if it exists) are acceptable and can be coded in the inpatient setting, when documented at the time of discharge. Thank you, Radha Holbrook [facility], CDIS Extension: [phone] Please use your independent medical judgment in providing your response. THIS QUERY IS PART OF THE PERMANENT MEDICAL RECORD Provider Response: Obesity
--- NOTE | 2021-12-17 08:58 | MHC.CDI.CONC ---
CDI Concurrent Query Documentation Clarification: PHYSICIAN'S DOCUMENTATION REQUEST Date of Query: 12/17/21 0858 Patient Name: Antonette Obregon Admit Date: 12/14/21 Dear Doctor, A review of the medical record indicates additional documentation may be needed. Please review below and update the documentation accordingly. Risk Factors/Clinical Indicators/Treatments Nutrition assessment 12/16 - Obesity Class II Diabetic diet, excess energy intake. BMI 38.3 If possible, please provide an associated diagnosis related to the abnormal BMI, such as: For a BMI >= 40: Overweight Obesity Due to excess calories Drug induced Due to other cause Severe or Morbid Obesity With alveolar hypoventilation Without alveolar hypoventilation Or: BMI is not significant Other (please specify) Unable to determine Use of terms such as suspected, likely, concern for, or probable (associated with a specific diagnosis that is being evaluated, monitored, or treated as if it exists) are acceptable and can be coded in the inpatient setting, when documented at the time of discharge. Thank you, Radha Holbrook [facility], CDIS Extension: [phone] Please use your independent medical judgment in providing your response. THIS QUERY IS PART OF THE PERMANENT MEDICAL RECORD Provider Response: Obesity
--- NOTE | 2021-12-17 10:12 | P.DS_ITS ---
DS: Providers Provider Date of Service: 12/17/21 Date of admission: 12/14/21 18:11 Primary care physician: Mindi Melvin MD DS: Diagnosis Discharge Diagnosis (1) SHOSHANA (obstructive sleep apnea): Status: Acute DS: Summary Hospital Course Hospital Course: from initial hpi: Chief Complaint: ams ? 61-year-old female with past medical history of schizoaffective disorder, chronic hypoxic respiratory failure due to COPD on 3 L home O2, chronic diastolic CHF, diabetes, who was recently discharged from [facility] on 12/12/2021 after hospitalization for metabolic encephalopathy from UTI, now presenting with recurrent altered mental status and shortness of breath.? Patient herself is a poor historian often contradicting herself.? Initially stated she did not have any shortness of breath, but? than stated that she fears her shortness of breath will continue to get worse.? She is reporting coughing and choking on food.? She denies any abdominal pain, fever, chills.? She reports active hallucinations, but this is unchanged from her baseline.? in ED CT chest showed bilateral opacities, patient was hypoxic to mid 80s on presentation on her home level of 3 L oxygen. hospital course: patient was admitted for toxic metabolic encephalopathy and acute on chronic hypoxic and hypercapnic respiratory failure which was multifactorial due to acute on chronic diastolic CHF and aspiration pneumonia. She was treated with IV diuresis and became euvolemic. She was treated with ceftriaxone for her pneumonia and will be transitioned to 5 more days of cefuroxime. She was seen by speech therapy recommended continuing NDD2 solids and thin liquids. Patient's hypercapnia was treated with Diamox and BiPAP and her mental status returned to baseline. Patient is poorly compliant with noninvasive ventilation at night and should be encouraged do so as she is at c ontinued risk for encephalopathy and hypercapnia. Especially given her obesity And multiple mood stabilizers for schizoaffective disorder. For diabetes she was treated with insulin and COPD she was continued on Spiriva and Breo. Patient is back to baseline will be discharged. Time Spent with Patient Time attestation: Total time spent providing and/or coordinating discharge services: Discharge coordination time: Greater than 30 minutes Quality: Stroke Does the patient have a stroke diagnosis?: No Physical Exam Vital Signs: Vital Signs: Last Vital Signs Temp 97.8 F 12/17/21 07:23 Pulse 87 12/17/21 07:23 Resp 22 H 12/17/21 08:39 BP 106/65 12/17/21 07:23 Pulse Ox 97 12/17/21 07:23 Oxygen Flow Rate 2 12/15/21 20:00 BMI result Body Mass Index 38.3 General: AO X 3, no acute distress Resp: diminished bilateral, no accessory muscles used CVS: S1,S2,RRR GI: soft, non tender, non distended Neuro: motor grossly intact, alert Psych: hallucinations (chronic) DS: Data Data Completed and Pending Completed studies during hospitalization [Text1]: Procedures Introduction of Remdesivir Anti-infective into Peripheral Vein, Percutaneous Approach, [employer] 5 (10/26/21) Labs on day of discharge: Laboratory Results - last 24 hr 12/16/21 12/16/21 12/16/21 11:37 15:13 19:41 WBC RBC Hgb Hct MCV MCH MCHC RDW Plt Count MPV Absolute Nucleated RBC Nucleated RBC % (auto) Sodium Potassium Chloride Carbon Dioxide Anion Gap BUN Creatinine Estim Creat Clear Calc Estimated GFR POC Glucose 141 H 262 H 171 H Fasting Glucose Calcium 12/17/21 12/17/21 12/17/21 06:37 06:37 07:19 WBC 6.5 RBC 3.95 L Hgb 10.7 L Hct 36.1 L MCV 91.4 MCH 27.1 MCHC 29.6 L RDW 16.8 H Plt Count 224 MPV 11.4 Absolute Nucleated RBC 0.000 Nucleated RBC % (auto) 0.0 Sodium 141 Potassium 4.2 Chloride 99 Carbon Dioxide 32 H Anion Gap 14 BUN 20 H Creatinine 0.72 Estim Creat Clear Calc 104.0 Estimated GFR > 60 POC Glucose 178 H Fasting Glucose 183 H Calcium 10.5 H D Preliminary micro results at discharge 12/14/21 15:25 Blood Culture - Preliminary Blood - Venous No growth after 48 hours. 12/14/21 13:33 Blood Culture - Preliminary Blood - Venous No growth after 48 hours. 12/14/21 Unknown Urine Culture - Preliminary Urine clean catch - Urine rodriguez top Gram negative stephanie Discharge Plan Discharge Patient Disposition: Xfer SNF Discharge Diagnosis: chf, aspiration Referrals: Mindi Melvin MD [Primary Care Provider] - 1 Week Discharge Medications: Continued lamotrigine [Lamictal] 150 mg Tablet 150 mg PO DAILY 0RF atorvastatin 20 mg Tablet 20 mg PO BEDTIME 0RF lamotrigine [Lamictal] 200 mg Tablet 200 mg PO BEDTIME 0RF polyethylene glycol 3350 17 gram Powder In Packet 17 g PO DAILY@1700 0RF clozapine 100 mg Tablet 300 mg PO BEDTIME 0RF acetaminophen 500 mg Tablet 1,000 mg PO TID 0RF levothyroxine 25 mcg Tablet 25 mcg PO DAILY 0RF meloxicam 7.5 mg Tablet 7.5 mg PO DAILY 0RF methenamine hippurate 1 gram Tablet 1 g PO BID 0RF magnesium hydroxide [Milk of Magnesia] 400 mg/5 mL Suspension 30 ml PO DAILY 0RF metformin 1,000 mg Tablet 1,000 mg PO BID 0RF oxcarbazepine 600 mg Tablet 600 mg PO BID 0RF furosemide 20 mg Tablet 20 mg PO DAILY 0RF clozapine 25 mg Tablet 75 mg PO DAILY 0RF albuterol sulfate 90 mcg/actuation Hfa Aerosol Inhaler 2 inh INHALATION Q4H PRN (Reason: Shortness Of Breath Or Wheezing) 0RF trihexyphenidyl 2 mg Tablet 4 mg PO DAILY 0RF perphenazine 16 mg Tablet 16 mg PO TID 0RF omega-3 fatty acids-vitamin E 1,000 mg Capsule 1 cap PO DAILY 0RF metoprolol tartrate 25 mg Tablet 12.5 mg PO DAILY 0RF Spiriva with HandiHaler 18 mcg Capsule, W/Inhalation Device 1 cap INHALATION DAILY 0RF Rx Instructions: 1 cap requires 2 inhalations fenofibrate 160 mg Tablet 160 mg PO BEDTIME 0RF Breo Ellipta 200-25 mcg/dose Blister With Device 1 inh INHALATION DAILY 0RF magnesium oxide 400 mg magnesium Tablet 400 mg PO TID 0RF aspirin 81 mg Tablet,Delayed Release (Dr/Ec) 81 mg PO DAILY 0RF ascorbic acid (vitamin C) 500 mg Tablet 500 mg PO DAILY 0RF cefuroxime axetil 500 mg tablet 500 mg PO BID 5 Days Qty: 10 0RF lorazepam 0.5 mg tablet 1 tab PO BID PRN (Reason: ANXIETY) Qty: 0 0RF Discharge Orders: Discharge Order (Routine); Ordered 12/17/21 Ordered By: Eamon Kwon Diet: advance to usual diet Activity on Discharge: As tolerated Stand Alone Forms: Patient Portal Discharge page Care Plan Goals: avoid hospitalizations Health Concerns: pneumonia, hypercapnea Plan of Treatment: ceftin 5 more days, cpap at night Assessment: see above
[2021-12-17 11:28] VITALS: BP 113/62; PULSE 85; RESP 18; TEMP 36.2; O2SAT 96
[2021-12-17 11:42] LABS: Glucose, Whole Blood 174 mg/dL (60-115)
[2021-12-17 12:26] LABS: COVID-19 Test Negative (Negative)
--- NOTE | 2021-12-17 12:43 | MHC.CM.PN ---
NURSE ANNUAL GIVING DIRECTOR NTOE ELECTRONIC MEDICAL RECORD REVIEWED ALONG WITH CASE DISCUSSED WITH HIOSPITALIST AND RESPIRATORY THERAPIST AND STAFF NURSE , PATIENT WILL BE DISCHARGED BACK TO [facility] TODAY . T/C TO MARKO TATE AT THE FACILITY ACCEPTING HER BACK , T/C TO HCP DORIAL FILL [id number] MEDICARE IMM MESSAGE WITH HER AND THE APPEALS PROCESS , SHE IS ACCEPTING OF PATIENT RETURN ING BACK TO [facility] TODAY . MEDICARE IMM TO BE CERTIFIED MAIL TO HER ADDRESS. DISCHARGE PLAN RETURN BACKL TO [facility] WITH 3LITERS OXYGENAND (CPAP AT HS SETTINGS 15 3-LITERS O2) 12/17/21 COVID TEST NEGATIVE MEDICARE IMM UPDATED 12/17/21 TRANASPORT ACTION BLS AT 3PM HOSPITLAIST , FRINGE WEAVER AND STAFF NURSE ARE AWARE
--- NOTE | 2021-12-17 13:31 | MHC.SL.SWA ---
Speech Pathologist Impression: Risk of Aspiration Due to: Medically Fragile Dysphasia Diet Status: Liquid Consistency and Strategies for Safe Swallow: Liquid Intake Recommendation: Thin Liquid Intake Strategies: Small Sips Solid Food Consistency: Dietary Recommendations: Pureed (NDD1) Additional Modifications to Solid Foods: Recommend CONTINUE Ground/Mech/Alt (NDD2) solids and THIN liquids, pills CRUSHED in PUREE. Continue aspiration precautions and 1:1 supervision and cuing as needed for safe eating behaviors. HEALTH ASSISTANT will continue to follow. Oral Medication Intake: Crushed with Puree Please contact the pharmacy regarding appropriate crushable or liquid drug formulations that are available whenever modified delivery is recommended. Compensatory Strategies and Precautions to be Taken for Safe Swallow: Sitting Upright (90 deg) Small Bites and Sips Alternate Liquids/Solids Supervision While Eating and Drinking for Safe Swallow: Total Assistance (1:1) Foods to Avoid: Difficult to chew solids. Swallowing Recommended Treatments: Compens. Strategy Educat. Recommendation for Speech: Inpatient Speech Therapy Comment: Pt seen this am for reassessment of swallow, toleration of current diet. Pt positioned on side, but tolerated having head of bed raised to take some liquid, food. Pt very pleasant, midly confused in communication. Pt took sips of thin liquid by straw, w/chain sip swallow, no clinical s/s of aspiration. Pt was encouraged to take smaller, sequential sips when drinking w/ straw. Pt took several TSPS of Puree, w/mildly delayed oral phase, timely swallow trigger, no oral residual. Recommend continue current diet of Ground/Mech/Alt (NDD2) w/ thin liquids. Frequency/Duration: Date Range for Service Req: Timeline to reassess: Shipping Checker Clinican/Clinical Fellow: No Supervisory Statement: I have reviewed and agree with the student/clinical fellow's documentation: N/A Speech Language Pathologist: Etta Pak M.A., CCC-HEALTH ASSISTANT
== END 2021-12-17 16:19 | disposition skilled nursing facility (03) | DRG 177 ==
LOC: HO.ED 17:58 → HO.EDOVER 18:14 → HO.S3 19:30
PROVIDERS: Hospitalist; Nurse Practitioner Family; Admitting Provider Internal Medicine; Emergency Provider Emergency Medicine; PCP Internal Medicine; Visit Provider Internal Medicine
DX: J69.0 Pneumonitis due to inhalation of food and vomit (principal); I50.33 Acute on chronic diastolic (congestive) heart failure; J96.21 Acute and chronic respiratory failure with hypoxia; G92.9 Unspecified toxic encephalopathy; N39.0 Urinary tract infection, site not specified; F25.9 Schizoaffective disorder, unspecified; G47.33 Obstructive sleep apnea (adult) (pediatric); E03.9 Hypothyroidism, unspecified; E66.9 Obesity, unspecified; Z68.38 Body mass index [BMI] 38.0-38.9, adult; E11.9 Type 2 diabetes mellitus without complications; Z20.822 Contact with and (suspected) exposure to COVID-19; Z66 Do not resuscitate; Z99.81 Dependence on supplemental oxygen; J44.9 Chronic obstructive pulmonary disease, unspecified; Z99.3 Dependence on wheelchair; Z87.440 Personal history of urinary (tract) infections; Z87.891 Personal history of nicotine dependence; Z79.1 Long term (current) use of non-steroidal anti-inflammatories (NSAID); Z79.82 Long term (current) use of aspirin; Z79.84 Long term (current) use of oral hypoglycemic drugs; Z79.899 Other long term (current) drug therapy
CPT/HCPCS: 36415; 36600; 71045; 71260; 74177; 80048; 80076; 80307; 81001; 82077; 82140; 82550; 82803; 82947; 83605; 83735; 83880; 84484; 85025; 85027; 87040; 87086; 87635; 92610; 93005; 93970; 94640; 94660; 99285; J0692; J0696; J1650; J1940; Q9967

== ENCOUNTER 2022-11-06 02:25 | Inpatient (IN) | payer MEDICARE, MEDICAID, SELFPAY ==
[2022-11-06] VITALS (17 sets, daily range): BP systolic 101–128; BP diastolic 52–84; PULSE 96–116; RESP 17–38; TEMP 36.4–37.1; O2SAT 82–96; BMI 39.1
--- NOTE | ~2022-11-06 | XR_ITS ---
EXAMINATION: XR chest 1V CLINICAL INFORMATION: Reason for Exam f/u on left lung collapse COMPARISON: CT chest 11/06/2022 TECHNIQUE: One view of the chest FINDINGS: Technically limited exam. An seen is multifocal consolidation in the right lung with evidence of volume loss which may reflect comminution of atelectasis and infection. No pneumothorax or pleural effusion. There is rightward mediastinal shift to the left secondary to volume loss. Heart is unchanged in size. XR/XR chest 1V IMPRESSION: * Technically limited exam. Again seen is multifocal consolidation in the right lung, with evidence of volume loss which may reflect a combination of infection and atelectasis.
--- NOTE | ~2022-11-06 | CT_ITS ---
EXAMINATION: CT CHEST WITHOUT CONTRAST CLINICAL INFORMATION: Hypoxic COMPARISON: 12/14/2021 TECHNIQUE: Multidetector volumetric CT imaging of the chest was done. Axial MIP volume rendering provided. Sagittal and coronal reformatted images were obtained. This CT examination was performed using dose optimization techniques as appropriate, variously including the following: *Automated exposure control *Adjustment of mA and/or kV according to patient size (this includes techniques or standardized protocols for targeted exams where dose is matched to indication/reason for exam; i.e. extremities or head) *Use of iterative reconstruction technique DLP: 546 mGy-cm FINDINGS: LUNGS: The left lower lobe is nearly completely collapsed, worsened from 12/14/2021 with minimal scattered aeration at the base. There is also worsening aeration throughout the right lung compared to prior with regions of opacity in the right upper and lower lobes; while some of this could be due to atelectasis, the patchy appearance is concerning for some areas of consolidation. Right middle lobe appears partially collapsed. MEDIASTINUM: Multinodular thyroid lobe with the right lobe enlargement. There are scattered mediastinal lymph nodes without significant motion by size criteria. Cardiac size is within normal limits; no pericardial effusion. Mild scattered calcification along the aorta. CORONARY ARTERY CALCIFICATION: Present PLEURA: Small right pleural effusion. No pneumothorax. AXILLA: No lymphadenopathy. UPPER ABDOMEN: Unremarkable. OSSEOUS STRUCTURES: Degenerative changes are noted in the spine. CT/CT chest wo IV con IMPRESSION: 1. Worsened aeration throughout the right lung compared to prior with regions of opacity concerning for infectious consolidation. Follow-up imaging in approximately 3 months is advised to assess for resolution. 2. Near complete collapse of the left lower lobe, worsened from 12/14/2021 with minimal scattered aeration at the base. If this persists on follow-up imaging, bronchoscopy may be warranted to exclude an obstructing endobronchial lesion. 3. Small right pleural effusion. 4. Multinodular thyroid lobe with the right lobe enlargement. Further evaluation with ultrasound is recommended, if not already performed. 5. Coronary artery calcifications. Correlation with cardiac risk factors is recommended.
--- NOTE | ~2022-11-06 | XR_ITS ---
EXAMINATION: XR CHEST CLINICAL INFORMATION: Cough. Follow-up pneumonia. COMPARISON: Chest x-ray November 07, 2022 TECHNIQUE: 2 views of the chest were obtained. Today's examination is limited secondary to difficulties with patient positioning. FINDINGS: Similar cardiac enlargement. There is persistent partial consolidation of the left lung. There is patchy airspace disease of the right hemithorax. There is no large pleural effusion. No pneumothorax. Degenerative changes of the spine. XR/XR chest 2V IMPRESSION: Persistent partial consolidation of the left lung with patchy airspace disease of the right hemithorax.
--- NOTE | 2022-11-06 02:33 | ED.SOB ---
HPI - SOB/Dyspnea General Chief Complaint: General Medical Stated Complaint: SOB Time Seen by Provider: 11/06/22 02:33 Source: patient Mode of arrival: EMS Limitations: no limitations History of Present Illness HPI Narrative: Patient 62 years old with past medical history of schizoaffective disorder,chronic hypoxic respiratory failure due to COPD on 3 L home O2, chronic diastolic CHF, diabetes came from [facility] for increased shortness of breath saturating in 75-80% on 4 L nasal cannula noncompliant with CPAP and oxygen administration patient DNR DNI lethargic on arrival Related Data Home Medications Medication Instructions Recorded Confirmed acetaminophen 500 mg tablet 1,000 mg PO TID 10/26/21 12/14/21 albuterol sulfate 90 mcg/actuation 2 inh inhalation Q4H PRN Shortness 10/26/21 12/14/21 aerosol inhaler Of Breath Or Wheezing atorvastatin 20 mg tablet 20 mg PO BEDTIME 10/26/21 12/14/21 clozapine 100 mg tablet 300 mg PO BEDTIME 10/26/21 12/14/21 clozapine 25 mg tablet 75 mg PO DAILY 10/26/21 12/14/21 fenofibrate 160 mg tablet 160 mg PO BEDTIME 10/26/21 12/14/21 fluticasone furoate 200 1 inh inhalation DAILY 10/26/21 12/14/21 mcg-vilanterol 25 mcg/dose inhalation powder (Breo Ellipta) furosemide 20 mg tablet 20 mg PO DAILY 10/26/21 12/14/21 lamotrigine 150 mg tablet 150 mg PO DAILY 10/26/21 12/14/21 (Lamictal) lamotrigine 200 mg tablet 200 mg PO BEDTIME 10/26/21 12/14/21 (Lamictal) levothyroxine 25 mcg tablet 25 mcg PO DAILY 10/26/21 12/14/21 magnesium hydroxide 400 mg/5 mL 30 ml PO DAILY 10/26/21 12/14/21 oral suspension (Milk of Magnesia) magnesium oxide 400 mg PO TID 10/26/21 12/14/21 meloxicam 7.5 mg tablet 7.5 mg PO DAILY 10/26/21 12/14/21 metformin 1,000 mg tablet 1,000 mg PO BID 10/26/21 12/14/21 methenamine hippurate 1 gram tablet 1 g PO BID 10/26/21 12/14/21 metoprolol tartrate 25 mg tablet 12.5 mg PO DAILY 10/26/21 12/14/21 omega-3 fatty acids-vitamin E 1 cap PO DAILY 10/26/21 12/14/21 1,000 mg capsule oxcarbazepine 600 mg tablet 600 mg PO BID 10/26/21 12/14/21 perphenazine 16 mg tablet 16 mg PO TID 10/26/21 12/14/21 polyethylene glycol 3350 17 gram 17 g PO DAILY@1700 10/26/21 12/14/21 oral powder packet tiotropium bromide 18 mcg capsule 1 cap inhalation DAILY 10/26/21 12/14/21 with inhalation device (Spiriva with HandiHaler) trihexyphenidyl 2 mg tablet 4 mg PO DAILY 10/26/21 12/14/21 ascorbic acid (vitamin C) 500 mg 500 mg PO DAILY 12/10/21 12/14/21 tablet aspirin 81 mg tablet,delayed 81 mg PO DAILY 12/10/21 12/14/21 release Previous Rx's Medication Instructions Recorded cefuroxime axetil 500 mg tablet 500 mg PO BID 5 days #10 tabs 12/12/21 lorazepam 0.5 mg tablet 1 tab PO BID PRN ANXIETY #0 tabs 12/12/21 Allergies Allergy/AdvReac Type Severity Reaction Status Date / Time chlorpromazine Allergy Unknown Verified 10/25/21 23:01 [From Thorazine] fluphenazine [From Prolixin] Allergy Unknown Verified 10/25/21 23:01 haloperidol [From Haldol] Allergy Unknown Verified 10/25/21 23:01 niacin Allergy Unknown Verified 10/25/21 23:01 thioridazine [From Mellaril] Allergy Unknown Verified 10/25/21 23:01 Review of Systems Review of Systems: Yes Unobtainable due to mental status PMFSH Past Medical History Medical History Chronic respiratory failure with hypoxia COPD (chronic obstructive pulmonary disease) Diabetes mellitus type 2 in obese Diastolic heart failure HCAP (healthcare-associated pneumonia) Hyperlipidemia Hypertension Hypothyroid SHOSHANA (obstructive sleep apnea) Pneumonia due to 2019-nCoV Schizoaffective disorder Schizoaffective disorder, depressive type Family History Family History Father No problems noted. Social History Social History Household Members: Other Household Members Other:: [facility] Housing: Other Housing Other:: [facility] Do you presently have visiting nurse or other home services: No Alcohol intake: unknown Patient Tobacco Use Status: Former Tobacco user Quit Date: 1979 Use of substances other than those prescribed or required for medical reasons: Unknown Substance Use Type: Marijuana Advance Directives: Yes Advance Directives on File: Yes Advance Directives Date on File: 11/07/21 Patient : No service: No Current occupational status: disabled Physical Exam Vital Signs: Vital Signs: Last Vital Signs Temp 98.7 F 11/06/22 05:56 Pulse 114 H 11/06/22 05:56 Resp 30 H 11/06/22 05:56 BP 125/72 11/06/22 05:56 Pulse Ox 92 11/06/22 05:56 O2 Del Method 11/06/22 05:56 O2 Flow Rate 15 11/06/22 03:20 BMI result Body Mass Index 39.1 Appearance: Alert. Oriented X2-3. Obese lethargic Eyes: PERRLA, No Nystagmus ENT: Pharynx normal. Oral Mucosa moist Neck: Normal inspection. Neck supple. CVS: Normal heart rate and rhythm. Pulses normal. Respiratory: No respiratory distress. Equal air entry bilateral, bilateral wheezing and rhonchi and rales Abdomen: Soft and nontender. Bowel sounds are present, no mass palpable, no CVA tenderness Skin: Skin warm and dry. Normal skin color. Normal skin turgor. Extremities: No lower extremity edema. No calf tenderness Neuro: Oriented X 2-3. No motor deficit. No sensory deficit.No cerebellar signs , cranial nerves II-XII intact Medications Administered Discontinued Medications Generic Name Dose Route Start Last Admin Trade Name Freq PRN Reason Stop Dose Admin Albuterol Sulfate 10 mg 11/06/22 03:51 11/06/22 03:58 Albuterol Sulfate (0.083%) 2.5 Mg/3 Ml Vial.Neb INHALE 11/06/22 03:52 10 mg ONCE ONE Administration Albuterol Sulfate 2.5 mg/ 0 mg 11/06/22 02:35 11/06/22 04:41 Albuterol/Ipratropium 3 ml INHALE 11/06/22 02:36 1 each ONCE ONE Administration Methylprednisolone Sodium Succinate 125 mg 11/06/22 03:54 11/06/22 04:29 Methylprednisolone Sod Succ 125 Mg/2 Ml Vial IVPUSH 11/06/22 03:55 125 mg ONCE ONE Administration Medical Decision Making Medical Decision Making [facility] Narrative: patient with Schizoaffective disorder,chronic hypoxic respiratory failure due to COPD on 3 L home O2, chronic diastolic CHF, diabetes came from [facility] for increased shortness of breath saturating in 75-80% on 4 L nasal cannula noncompliant with CPAP and oxygen administration venous gases showed pH of 7.4 pCO2 52 PO2 71 saturating 91% on high-flow oxygen patient been here multiple times with similar reasons will admit her for respiratory hypoxia for now patient had normal BNP and troponin no ischemic changes in the EKG patient's CT scan done which showed near complete collapse of left lower lobe which has worsened from 12/14/2021 also has multiple region opacities suggestive of infectious consolidation patient afebrile normal lactic acid level was started on Zosyn per hospitalist likely from aspiration patient she was on high-flow started on CPAP now Consult Healthcare Provider Management of the patient was discussed with: Hospitalist Lab Data [facility] Lab Attestation statement: I reviewed the patient's lab results. 11/06/22 02:47 11/06/22 02:47 Labs: Lab Results 11/06/22 11/06/22 11/06/22 Range/Units 02:47 02:47 02:47 WBC 7.8 (4.8-10.8) X10*3/uL RBC 3.58 L (4.20-5.50) X10*6/uL Hgb 9.9 L (12.0-16.0) g/dl Hct 32.3 L (37.0-47.0) % MCV 90.2 (80.0-98.0) fL MCH 27.7 (27.0-33.0) pg MCHC 30.7 L (31.0-35.0) g/dl RDW 15.1 (11.0-16.0) % Plt Count 198 (160-400) X10*3/uL MPV 11.5 (9.4-12.3) fL Immature Gran % (Auto) 0.4 (0.0-0.4) % Neut % (Auto) 79.6 H (45-73) % Lymph % (Auto) 12.5 L (20-40) % [place] % (Auto) 5.5 (2-11) % Eos % (Auto) 1.9 (0-4) % Baso % (Auto) 0.1 (0-2) % Lymph # (Auto) 1.0 L (1.2-4.9) X10*3/uL [place] # (Auto) 0.4 (0.1-1.2) X10*3/uL Eos # (Auto) 0.2 (0.0-0.4) X10*3/uL Baso # (Auto) 0.0 (0.0-0.2) X10*3/uL Abs Immat Gran (auto) 0.03 (0.00-0.03) X10*3/uL Absolute Neuts (auto) 6.2 (2.0-8.3) x10*3/uL Absolute Nucleated RBC 0.000 (0.0-0.012) X10*3/uL Nucleated RBC % (auto) 0.0 (0.0-0.2) /100WBC VBG pH (7.32-7.43) VBG pCO2 mmHg VBG pO2 mmHg VBG HCO3 (22-26) mmol/L VBG O2 Saturation % VBG Base Excess mmol/L Sodium 142 (135-145) mmol/L Potassium 4.4 (3.3-5.1) mmol/L Chloride 104 (96-108) mmol/L Carbon Dioxide 30 H (22-29) mmol/L Anion Gap 12 (12-20) BUN 23 H (9-16) mg/dL Creatinine 0.72 (0.5-1.4) mg/dL Estim Creat Clear Calc 97.0 Estimated GFR > 60 Random Glucose 200 H (60-115) mg/dL Lactic Acid (0.5-2.0) mmol/L Calcium 9.5 D (8.4-10.2) mg/dL Total Bilirubin 0.2 (0.0-1.0) mg/dL AST 10 (5-31) U/L ALT < 6 (0-31) U/L Alkaline Phosphatase 62 (39-117) U/L Troponin I High Sens (<3.5-17.0) ng/L B-Natriuretic Peptide (<100) pg/mL Total Protein 6.0 L (6.5-8.0) g/dL Albumin 3.5 (3.5-5.0) g/dL COVID-19 ([facility]ALES) Negative (Negative) COVID-19 Clin Com See Note 11/06/22 11/06/22 11/06/22 Range/Units 02:47 02:47 02:47 WBC (4.8-10.8) X10*3/uL RBC (4.20-5.50) X10*6/uL Hgb (12.0-16.0) g/dl Hct (37.0-47.0) % MCV (80.0-98.0) fL MCH (27.0-33.0) pg MCHC (31.0-35.0) g/dl RDW (11.0-16.0) % Plt Count (160-400) X10*3/uL MPV (9.4-12.3) fL Immature Gran % (Auto) (0.0-0.4) % Neut % (Auto) (45-73) % Lymph % (Auto) (20-40) % [place] % (Auto) (2-11) % Eos % (Auto) (0-4) % Baso % (Auto) (0-2) % Lymph # (Auto) (1.2-4.9) X10*3/uL [place] # (Auto) (0.1-1.2) X10*3/uL Eos # (Auto) (0.0-0.4) X10*3/uL Baso # (Auto) (0.0-0.2) X10*3/uL Abs Immat Gran (auto) (0.00-0.03) X10*3/uL Absolute Neuts (auto) (2.0-8.3) x10*3/uL Absolute Nucleated RBC (0.0-0.012) X10*3/uL Nucleated RBC % (auto) (0.0-0.2) /100WBC VBG pH (7.32-7.43) VBG pCO2 mmHg VBG pO2 mmHg VBG HCO3 (22-26) mmol/L VBG O2 Saturation % VBG Base Excess mmol/L Sodium (135-145) mmol/L Potassium (3.3-5.1) mmol/L Chloride (96-108) mmol/L Carbon Dioxide (22-29) mmol/L Anion Gap (12-20) BUN (9-16) mg/dL Creatinine (0.5-1.4) mg/dL Estim Creat Clear Calc Estimated GFR Random Glucose (60-115) mg/dL Lactic Acid 1.3 (0.5-2.0) mmol/L Calcium (8.4-10.2) mg/dL Total Bilirubin (0.0-1.0) mg/dL AST (5-31) U/L ALT (0-31) U/L Alkaline Phosphatase (39-117) U/L Troponin I High Sens 3.4 (<3.5-17.0) ng/L B-Natriuretic Peptide 55 (<100) pg/mL Total Protein (6.5-8.0) g/dL Albumin (3.5-5.0) g/dL COVID-19 ([facility]ALES) (Negative) COVID-19 Clin Com 11/06/22 Range/Units 02:54 WBC (4.8-10.8) X10*3/uL RBC (4.20-5.50) X10*6/uL Hgb (12.0-16.0) g/dl Hct (37.0-47.0) % MCV (80.0-98.0) fL MCH (27.0-33.0) pg MCHC (31.0-35.0) g/dl RDW (11.0-16.0) % Plt Count (160-400) X10*3/uL MPV (9.4-12.3) fL Immature Gran % (Auto) (0.0-0.4) % Neut % (Auto) (45-73) % Lymph % (Auto) (20-40) % [place] % (Auto) (2-11) % Eos % (Auto) (0-4) % Baso % (Auto) (0-2) % Lymph # (Auto) (1.2-4.9) X10*3/uL [place] # (Auto) (0.1-1.2) X10*3/uL Eos # (Auto) (0.0-0.4) X10*3/uL Baso # (Auto) (0.0-0.2) X10*3/uL Abs Immat Gran (auto) (0.00-0.03) X10*3/uL Absolute Neuts (auto) (2.0-8.3) x10*3/uL Absolute Nucleated RBC (0.0-0.012) X10*3/uL Nucleated RBC % (auto) (0.0-0.2) /100WBC VBG pH 7.43 (7.32-7.43) VBG pCO2 52 mmHg VBG pO2 71 mmHg VBG HCO3 35 H (22-26) mmol/L VBG O2 Saturation 91.0 % VBG Base Excess 9.6 mmol/L Sodium (135-145) mmol/L Potassium (3.3-5.1) mmol/L Chloride (96-108) mmol/L Carbon Dioxide (22-29) mmol/L Anion Gap (12-20) BUN (9-16) mg/dL Creatinine (0.5-1.4) mg/dL Estim Creat Clear Calc Estimated GFR Random Glucose (60-115) mg/dL Lactic Acid (0.5-2.0) mmol/L Calcium (8.4-10.2) mg/dL Total Bilirubin (0.0-1.0) mg/dL AST (5-31) U/L ALT (0-31) U/L Alkaline Phosphatase (39-117) U/L Troponin I High Sens (<3.5-17.0) ng/L B-Natriuretic Peptide (<100) pg/mL Total Protein (6.5-8.0) g/dL Albumin (3.5-5.0) g/dL COVID-19 ([facility]) (Negative) COVID-19 Clin Com Independent Interpretation I performed an independent interpretation of an: EKG Interpretation: sinus tachycardia heart rate 109 beats per minute pr interval normal axis no acute ST-T no acute ischemia Critical Care Time Critical Care Time Critical Care Time: Yes Total Critical Care Time: 55 Attestation: The patient was critically ill with a high probability of imminent or life threatening deterioration. I spent greater than 60 minutes of discontinuous time evaluating the patient,delivering critical care at the bedside, discussing and evaluating pertinent data with consultants. Critical care time does not include time spent performing separately billable procedures or teaching. Total time spent performing critical care was 55 minutes. Discharge Plan Discharge Clinical Impression: Chronic respiratory failure with hypoxia, SHOSHANA (obstructive sleep apnea), Aspiration pneumonia Patient Disposition: Admitted As Inpatient
--- NOTE | 2022-11-06 02:34 | ECG_ITS ---
Test Reason : SOB Blood Pressure : / mmHG Vent. Rate : 109 BPM Atrial Rate : 109 BPM P-R Int : 188 ms QRS Dur : 084 ms QT Int : 342 ms P-R-T Axes : 056 053 062 degrees QTc Int : 460 ms Sinus tachycardia Nonspecific T wave abnormality Abnormal ECG When compared with ECG of 14-DEC-2021 13:12, Nonspecific T wave abnormality now evident in Inferior leads Nonspecific T wave abnormality now evident in Lateral leads Referred By: Duarte Villavicencio Electronically Signed By:MATTHEW CARRILLO
[2022-11-06 02:55] LABS: MANUAL DIFF FLAG NO
[2022-11-06 02:56] LABS: Basophils Percent Auto 0.1 % (0-2); Eosinophils Absolute Auto 0.2 X10*3/uL (0.0-0.4); Eosinophils Percent Auto 1.9 % (0-4); Hematocrit 32.3 % (37.0-47.0); Hemoglobin 9.9 g/dl (12.0-16.0); Imm Gran Abs Auto 0.03 X10*3/uL (0.00-0.03); Imm Gran Pct Auto 0.4 % (0.0-0.4); Lymphocytes Percent Auto 12.5 % (20-40); Mean Corpuscular HGB Conc 30.7 g/dl (31.0-35.0); Mean Corpuscular Hemoglobin 27.7 pg (27.0-33.0); Mean Corpuscular Volume 90.2 fL (80.0-98.0); Mean Platelet Volume 11.5 fL (9.4-12.3); Monocytes Absolute Auto 0.4 X10*3/uL (0.1-1.2); Monocytes Percent Auto 5.5 % (2-11); Neutrophils Absolute Auto 6.2 x10*3/uL (2.0-8.3); Neutrophils Percent Auto 79.6 % (45-73); Platelet Count 198 X10*3/uL (160-400); Red Blood Count 3.58 X10*6/uL (4.20-5.50); Red Cell Distribution Width 15.1 % (11.0-16.0); White Blood Count 7.8 X10*3/uL (4.8-10.8)
[2022-11-06 02:59] LABS: Venous Blood Gas Refer to POC result
[2022-11-06 03:00] LABS: VBG Base Excess 9.6 mmol/L; VBG HCO3 35 mmol/L (22-26); VBG pCO2 52 mmHg; VBG pH 7.43 (7.32-7.43); VBG pO2 71 mmHg
[2022-11-06 03:08] LABS: COVID-19 Test Negative (Negative); IDNOW Serial# 16C4AD1C
[2022-11-06 03:14] LABS: Lactic Acid 1.3 mmol/L (0.5-2.0)
[2022-11-06 03:23] LABS: Alanine Aminotransferase < 6 U/L (0-31); Albumin Level 3.5 g/dL (3.5-5.0); Alkaline Phosphatase 62 U/L (39-117); Anion Gap 12 (12-20); Aspartate Amino Transferase 10 U/L (5-31); Bilirubin Total 0.2 mg/dL (0.0-1.0); Blood Urea Nitrogen 23 mg/dL (9-16); Calcium 9.5 mg/dL (8.4-10.2); Carbon Dioxide 30 mmol/L (22-29); Chloride 104 mmol/L (96-108); Estimated Glomerular Filt Rate > 60; Glucose Random 200 mg/dL (60-115); Potassium 4.4 mmol/L (3.3-5.1); Sodium 142 mmol/L (135-145)
[2022-11-06 03:24] LABS: Troponin-I High Sensitivity 3.4 ng/L (<3.5-17.0)
[2022-11-06 03:44] LABS: B Type Natriuretic Peptide 55 pg/mL (<100)
[2022-11-06] MEDS: Albuterol Sulfate (0.083%) 2.5 MG/3 ML VIAL.NEB 10 MG INHALE (03:58)
[2022-11-06] MEDS: methylPREDNISolone Sod Succ 125 MG/2 ML VIAL IVPUSH (04:29)
--- NOTE | 2022-11-06 06:11 | P.HPHOSP_ITS ---
History of Present Illness Date of Service: 11/06/22 Chief Complaint: SOB 2-year-old female with past medical history of seizure diabetes, diastolic heart failure, history healthcare associated pneumonia, HTN, hypothyroidism, SHOSHANA, schizoaffective disorder, chronic respiratory failure with hypercapnia, and morbid obesity presents to the hospital with shortness of breath. Patient is obtunded, wakes up to verbal as well as painful stimuli but closes her eyes and does not answer questions. According to the notes sent in for with her documents from [facility] patient was found to be hypoxic satting in the low 80s on 3-4 L of oxygen. But they had problems with her keeping her oxygen on and therefore sent to the hospital. On arrival to the ED patient found to have temp of 98.8 degrees, respiratory rate of 38, heart rate of 109, satting 82% on non-rebreather, patient currently on high-flow 34% satting 92%. Labs are found to be WBC count of 7.8, hemoglobin of 9.9, medical 32.9, pH of 7.43, CO2 of 52, otherwise unremarkable, COVID-19 negative, Chest CT shows worsened aeration throughout the right lung compared to prior with regions of opacity concerning for infectious consolidation. Near complete collapse of the left lower lobe worsened from 12/14/2021 with minimal scattered areas loomis at the base. Her BNP is 55, troponin is 3.4 Patient will be admitted for further management Review of Systems Review of Systems: Yes Unobtainable due to mental condition PMFSH Medical History Chronic respiratory failure with hypoxia COPD (chronic obstructive pulmonary disease) Diabetes mellitus type 2 in obese Diastolic heart failure HCAP (healthcare-associated pneumonia) Hyperlipidemia Hypertension Hypothyroid SHOSHANA (obstructive sleep apnea) Pneumonia due to 2018-V Schizoaffective disorder Schizoaffective disorder, depressive type Family History Father No problems noted. Social History Household Members: Other Household Members Other:: [facility] Housing: Other Housing Other:: [facility] Do you presently have visiting nurse or other home services: No Alcohol intake: unknown Patient Tobacco Use Status: Former Tobacco user Quit Date: 1979 Use of substances other than those prescribed or required for medical reasons: Unknown Substance Use Type: Marijuana Advance Directives: Yes Advance Directives on File: Yes Advance Directives Date on File: 11/07/21 Patient : No service: No Current occupational status: disabled Meds Allergies Allergy/AdvReac Type Severity Reaction Status Date / Time chlorpromazine Allergy Unknown Verified 10/25/21 23:01 [From Thorazine] fluphenazine [From Prolixin] Allergy Unknown Verified 10/25/21 23:01 haloperidol [From Haldol] Allergy Unknown Verified 10/25/21 23:01 niacin Allergy Unknown Verified 10/25/21 23:01 thioridazine [From Mellaril] Allergy Unknown Verified 10/25/21 23:01 Active Medications: Current Medications Acetaminophen (Acetaminophen 325 Mg Tablet) 650 mg PO Q6H PRN PRN Reason: Pain, Mild (Pain Scale 1-3) Heparin Sodium (Porcine) (Heparin Sodium,Porcine 5,000 Unit/Ml Vial) 5,000 unit SUBCUT Q12H CAYETANO Piperacillin Sod/Tazobactam (Sod 3.375 gm/ Sodium Chloride) 50 mls @ 100 mls/hr IV Q6H CAYETANO Ondansetron HCl (Ondansetron Hcl 4 Mg/2 Ml Vial) 4 mg IVPUSH Q8H PRN PRN Reason: Nausea and Vomiting Sodium Chloride (0.9 % Sodium Chloride Flush 3 Ml Syringe) 3 ml IVFLUSH QSHIFT CAYETANO Home Medications Medication Instructions Recorded Confirmed Last Taken Type acetaminophen 500 mg tablet 1,000 mg PO TID 10/26/21 12/14/21 12/09/21 History albuterol sulfate 90 mcg/actuation 2 inh inhalation Q4H PRN Shortness 10/26/21 12/14/21 12/09/21 History aerosol inhaler Of Breath Or Wheezing atorvastatin 20 mg tablet 20 mg PO BEDTIME 10/26/21 12/14/21 12/09/21 History clozapine 100 mg tablet 300 mg PO BEDTIME 10/26/21 12/14/21 12/09/21 History clozapine 25 mg tablet 75 mg PO DAILY 10/26/21 12/14/21 12/09/21 History fenofibrate 160 mg tablet 160 mg PO BEDTIME 10/26/21 12/14/21 12/09/21 History fluticasone furoate 200 1 inh inhalation DAILY 10/26/21 12/14/21 12/09/21 History mcg-vilanterol 25 mcg/dose inhalation powder (Breo Ellipta) furosemide 20 mg tablet 20 mg PO DAILY 10/26/21 12/14/21 12/09/21 History lamotrigine 150 mg tablet 150 mg PO DAILY 10/26/21 12/14/21 12/09/21 History (Lamictal) lamotrigine 200 mg tablet 200 mg PO BEDTIME 10/26/21 12/14/21 12/09/21 History (Lamictal) levothyroxine 25 mcg tablet 25 mcg PO DAILY 10/26/21 12/14/21 12/09/21 History magnesium hydroxide 400 mg/5 mL 30 ml PO DAILY 10/26/21 12/14/21 12/09/21 History oral suspension (Milk of Magnesia) magnesium oxide 400 mg PO TID 10/26/21 12/14/21 12/09/21 History meloxicam 7.5 mg tablet 7.5 mg PO DAILY 10/26/21 12/14/21 12/09/21 History metformin 1,000 mg tablet 1,000 mg PO BID 10/26/21 12/14/21 12/09/21 History methenamine hippurate 1 gram tablet 1 g PO BID 10/26/21 12/14/21 12/09/21 History metoprolol tartrate 25 mg tablet 12.5 mg PO DAILY 10/26/21 12/14/21 12/09/21 History omega-3 fatty acids-vitamin E 1 cap PO DAILY 10/26/21 12/14/21 12/09/21 History 1,000 mg capsule oxcarbazepine 600 mg tablet 600 mg PO BID 10/26/21 12/14/21 12/09/21 History perphenazine 16 mg tablet 16 mg PO TID 10/26/21 12/14/21 12/09/21 History polyethylene glycol 3350 17 gram 17 g PO DAILY@1700 10/26/21 12/14/21 12/09/21 History oral powder packet tiotropium bromide 18 mcg capsule 1 cap inhalation DAILY 10/26/21 12/14/21 12/09/21 History with inhalation device (Spiriva with HandiHaler) trihexyphenidyl 2 mg tablet 4 mg PO DAILY 10/26/21 12/14/21 12/09/21 History ascorbic acid (vitamin C) 500 mg 500 mg PO DAILY 12/10/21 12/14/21 12/09/21 History tablet aspirin 81 mg tablet,delayed 81 mg PO DAILY 12/10/21 12/14/21 12/09/21 History release Physical Exam Vital Signs and Narrative: Vital Signs: Last Vital Signs Temp 98.7 F 11/06/22 05:56 Pulse 114 H 11/06/22 05:56 Resp 30 H 11/06/22 05:56 BP 125/72 11/06/22 05:56 Pulse Ox 92 11/06/22 05:56 O2 Del Method 11/06/22 05:56 O2 Flow Rate 15 11/06/22 03:20 BMI result Body Mass Index 39.1 Const: Other: Patient is somnolent but arousable General: no acute distress Eyes: General: appearance normal, both eyes and all related structures Resp: Other: Distant breath sounds Effort & Inspection: normal respiratory effort Cardio: Rate: regular rate Rhythm: regular rhythm GI: Palpation (GI): Soft to palpation Auscultation: normal bowel sounds Skin: General skin exam: no rashes or lesions noted Extrem: General: Yes normal to inspection and Yes no pedal edema Results Labs 11/06/22 02:47 11/06/22 02:47 Labs: Laboratory Results - last 24 hr 11/06/22 11/06/22 11/06/22 02:47 02:47 02:47 MCV 90.2 MCH 27.7 MCHC 30.7 L RDW 15.1 Plt Count 198 MPV 11.5 Immature Gran % (Auto) 0.4 Neut % (Auto) 79.6 H Lymph % (Auto) 12.5 L [place] % (Auto) 5.5 Eos % (Auto) 1.9 Baso % (Auto) 0.1 Lymph # (Auto) 1.0 L [place] # (Auto) 0.4 Eos # (Auto) 0.2 Baso # (Auto) 0.0 Abs Immat Gran (auto) 0.03 Absolute Neuts (auto) 6.2 Absolute Nucleated RBC 0.000 Nucleated RBC % (auto) 0.0 VBG pH VBG pCO2 VBG pO2 VBG HCO3 VBG O2 Saturation VBG Base Excess Anion Gap 12 Estim Creat Clear Calc 97.0 Estimated GFR > 60 Random Glucose 200 H Lactic Acid Calcium 9.5 D Total Bilirubin 0.2 AST 10 ALT < 6 Alkaline Phosphatase 62 Troponin I High Sens B-Natriuretic Peptide Total Protein 6.0 L Albumin 3.5 COVID-19 ([facility]ALES) Negative COVID-19 Clin Com See Note 11/06/22 11/06/22 11/06/22 02:47 02:47 02:47 MCV MCH MCHC RDW Plt Count MPV Immature Gran % (Auto) Neut % (Auto) Lymph % (Auto) [place] % (Auto) Eos % (Auto) Baso % (Auto) Lymph # (Auto) [place] # (Auto) Eos # (Auto) Baso # (Auto) Abs Immat Gran (auto) Absolute Neuts (auto) Absolute Nucleated RBC Nucleated RBC % (auto) VBG pH VBG pCO2 VBG pO2 VBG HCO3 VBG O2 Saturation VBG Base Excess Anion Gap Estim Creat Clear Calc Estimated GFR Random Glucose Lactic Acid 1.3 Calcium Total Bilirubin AST ALT Alkaline Phosphatase Troponin I High Sens 3.4 B-Natriuretic Peptide 55 Total Protein Albumin COVID-19 ([facility]AL[facility]) COVID-19 Clin Com 11/06/22 02:54 MCV MCH MCHC RDW Plt Count MPV Immature Gran % (Auto) Neut % (Auto) Lymph % (Auto) [place] % (Auto) Eos % (Auto) Baso % (Auto) Lymph # (Auto) [place] # (Auto) Eos # (Auto) Baso # (Auto) Abs Immat Gran (auto) Absolute Neuts (auto) Absolute Nucleated RBC Nucleated RBC % (auto) VBG pH 7.43 VBG pCO2 52 VBG pO2 71 VBG HCO3 35 H VBG O2 Saturation 91.0 VBG Base Excess 9.6 Anion Gap Estim Creat Clear Calc Estimated GFR Random Glucose Lactic Acid Calcium Total Bilirubin AST ALT Alkaline Phosphatase Troponin I High Sens B-Natriuretic Peptide Total Protein Albumin COVID-19 ([facility]ZALES) COVID-19 Clin Com Imaging Radiologist's Impressions: Impressions Chest CT 11/06/22 04:30 IMPRESSION: 1. Worsened aeration throughout the right lung compared to prior with regions of opacity concerning for infectious consolidation. Follow-up imaging in approximately 3 months is advised to assess for resolution. 2. Near complete collapse of the left lower lobe, worsened from 12/14/2021 with minimal scattered aeration at the base. If this persists on follow-up imaging, bronchoscopy may be warranted to exclude an obstructing endobronchial lesion. 3. Small right pleural effusion. 4. Multinodular thyroid lobe with the right lobe enlargement. Further evaluation with ultrasound is recommended, if not already performed. 5. Coronary artery calcifications. Correlation with cardiac risk factors is recommended. Assessment and Plan (1) Acute and chronic respiratory failure with hypoxia: Status: Acute (2) Aspiration pneumonia: Status: Acute (3) Pulmonary collapse: Status: Acute (4) COPD (chronic obstructive pulmonary disease): Status: Acute (5) Encephalopathy: Status: Acute Plan This is a 62-year-old female with past medical history of COPD presents the hospital with hypoxia found to have pneumonia as well as pulmonary collapse # acute on chronic hypoxic respiratory failure - patient requiring significant mono oxygen, likely secondary to pneumonia as well as left lower lobe pulmonary collapse - mucus plug cannot be ruled out versus aspiration in the right lung - patient appears of time that, it appears to be her baseline - pH of 7.45 with no CO2 retention - at this time will treat with oxygen, O2 as required, antibiotics - low respiratory status # aspiration pneumonia - likely has aspiration pneumonia as evidence on chest CT with infiltrates in the right lung and her mental status - will treat with Zosyn - keep NPO - speech consulted - follow cultures # left lower lobe pulmonary collapse - will consult pulmonology for possible bronchoscopy as it is worsened since last admission in December - continue oxygen supplement # COPD - unable to assess for symptoms but given her hypoxia, will treat Solu-Medrol, DuoNeb p.r.n. as well as scheduled # diabetes - low-dose sliding scale insulin, diabetic diet # encephalopathy - patient obtunded, arousable to verbal and painful stimuli - pH normal with no CO2 retention, less likely to be secondary to hypercapnia - possibly secondary to her medications, - will hold sedatives at this time - monitor mentation # hypothyroidism - continue levothyroxine # schizoaffective disorder - continue mood stabilizers DVT prophylaxis: Heparin subQ Given patient's acute hypoxia patient will require minimum 2 nights inpatient hospital stay for further management and monitoring Time Spent With Patient Time: Total time managing care of this patient today ____ minutes. Quality Stroke Does the patient have a stroke diagnosis?: No VTE Prior VTE?: No VTE Risk Level:: Medical - moderate - high VTE Device Contraindication: Treatment Not Indicated VTE Drug Contraindication: N/A - Med Ordered
--- NOTE | 2022-11-06 07:10 | PC.NURSE ---
Addendum entered by Johnson Hankins RN 11/06/22 07:24: Patient on Bipap not Cpap Original Note: RT at [facility] patient on cpap was non compliant earlier on high flow, RT unable to obtain ABG earlier. Ao to person place states ifeel better . O2 sat in upper 80-90. No distress noted will CTM
[2022-11-06] MEDS: Albuterol/Iprat 2.5/0.5MG 3 ML AMPUL.NEB INHALE ×4 (07:27→20:40)
--- NOTE | 2022-11-06 07:29 | PC.NURSE ---
ramy cuevas inpatient MD will hold PO medications until seen by speech asked to have some meds switched to IV patient tolerating bipap will CTM
[2022-11-06] MEDS: methylPREDNISolone Sod Succ 40 MG/ML VIAL IVPUSH ×2 (07:31→20:05)
[2022-11-06] MEDS: Heparin Sodium,Porcine 5,000 UNIT/ML VIAL 5000 UNIT SUBCUT ×2 (07:32→17:58)
[2022-11-06] MEDS: Piperacillin Sodium/Tazobactam 3.375 GM in 0.9 % Sodium Chloride 50 ML IV ×4 (07:32→23:18)
[2022-11-06] MEDS: 0.9 % Sodium Chloride Flush 3 ML SYRINGE IVFLUSH ×3 (07:46→20:06)
--- NOTE | 2022-11-06 07:48 | PC.NURSE ---
IV left hand infiltrated removed catheter tip intact. New IV placed left AC, patient tolerating IV medications and bipap removes intermittently to expel sputum aware of need for Bipap. Will CTM
--- NOTE | 2022-11-06 08:13 | PC.NURSE ---
Spiriva requested from pharmacy
[2022-11-06 08:21] LABS: ABG Base Excess 3.6 mmol/L; ABG HCO3 29 mmol/L (22-26); ABG pCO2 49 mmHg (32-45); ABG pH 7.38 (7.35-7.45); ABG pO2 111 mmHg (83-108)
--- NOTE | 2022-11-06 08:38 | PC.NURSE ---
Patient sleeping tolerating mask switched to cpap from bipap
--- NOTE | 2022-11-06 08:54 | PC.NURSE ---
Report to [facility] awaiting transport will CTM
[2022-11-06 09:06] LABS: ABG Refer to POC result
--- NOTE | 2022-11-06 10:01 | PHA.MEDREC ---
Pharmacy Consult ? Medication Reconciliation Pharmacy has completed the medication reconciliation. Received list from [facility]. Reached out to Emily (nurse) to verify when last dose of clozapine was.
--- NOTE | 2022-11-06 11:05 | MHC.SL.SWA ---
Speech Pathologist Impression: Risk of Aspiration Due to: Neurological Condition History of Pneumonia Dysphasia Diet Status: Mild Oral Phase Dysphagia, vulnerable respiratory status, recommend CHOPPED/ADVANCED (NDD3) with THIN liquids, pills whole in puree. Liquid Consistency and Strategies for Safe Swallow: Liquid Intake Recommendation: Thin Liquid Intake Strategies: Small Sips No Straws Solid Food Consistency: Dietary Recommendations: Chopped/Advanced (NDD3) Additional Modifications to Solid Foods: Patient will likely need and should be encouraged to take short breaks during meal for 02. Patient can drink with straw IF SUPERVISED to assure that she is taking small, individual sips (not chain sips), if not supervised: NO STRAW. Patient can feed self, but will need supervision as may spill food or liquid on self. Monitor for clinical signs of aspiration, discontinue meal if patient evidences clinical signs of aspiration, audible airway congestion or noise. Oral Medication Intake: Whole with Puree Please contact the pharmacy regarding appropriate crushable or liquid drug formulations that are available whenever modified delivery is recommended. Compensatory Strategies and Precautions to be Taken for Safe Swallow: Sitting Upright (90 deg) No Straw Liquids from Cup Small Bites and Sips Alternate Liquids/Solids Rate of Ingestion Change Supervision While Eating and Drinking for Safe Swallow: Total Supervision (1:1) Foods to Avoid: Mixed consistencies, tough, difficult to chew solids. Swallowing Recommended Treatments: Compens. Strategy Educat. Recommendation for Speech: Inpatient Speech Therapy Comment: Patient presents with a mild oral phase dysphagia, vulnerable respiratory status with some increased SOB noted today during trials, but no clinical signs of aspiration. Per patient's self report, she had been on Ground/Mechanical diet with thin liquids at [facility], but was recently advanced to a Regular diet. Recommend START diet of Chopped/Advanced (NDD3) with THIN liquids by cup sip only (no straws, unless directly supervised to take single sips only by straw), pills whole in puree or with liquid as preferred by patient. Patient would benefit from supervision during meals, with cues to take breathing breaks to recover 02 saturation, and cues to take small bites and sips, with close monitor for any aspiration signs, any increased SOB. MD, RN, RD notified of recommendations by secure text, White board in patients room adjusted to reflect diet recommendations. DATA OPERATIONS MANAGER will continue to follow for toleration of diet, re-assessment of swallow as warranted. Frequency/Duration: M-F while inpatient Date Range for Service Req: Timeline to reassess: Packaging Tech Clinican/Clinical Fellow: No Supervisory Statement: I have reviewed and agree with the student/clinical fellow's documentation: N/A Speech Language Pathologist: Etta Pak M.A., CCC-DATA OPERATIONS MANAGER
[2022-11-06 11:43] LABS: Glucose, Whole Blood 360 mg/dL (60-115)
[2022-11-06] MEDS: Insulin Lispro 100 UNIT/ML 3 ML VIAL SUBCUT ×2 (12:08→16:28)
--- NOTE | 2022-11-06 13:06 | PM.CNPUL ---
History of Present Illness History of Present Illness Consult date: 11/06/22 Chief complaint: hypoxic res failure, PNA Narrative: This is an inpatient pulmonary consultation. The patient is a 62 y/o-old female with past medical history of seizure diabetes, diastolic heart failure, history healthcare associated pneumonia, HTN, hypothyroidism, SHOSHANA, schizoaffective disorder, chronic respiratory failure with hypercapnia, and morbid obesity presents to the hospital with shortness of breath.? Patient is obtunded, wakes up to verbal as well as painful stimuli but closes her eyes and does not answer questions.? According to the notes sent in for with her documents from [facility] patient was found to be hypoxic satting in the low 80s on 3-4 L of oxygen.? But they had problems with her keeping her oxygen on and therefore sent to the hospital.bOn arrival to the ED patient found to have temp of 98.8 degrees, respiratory rate of 38, heart rate of 109, satting 82% on non-rebreather, patient currently on high-flow 34% satting 92%.bABG with the pH of 7.43, CO2 of 52, otherwise unremarkable, COVID-[address], personally reviewed by me, shows worsened aeration throughout the right lung compared to prior with regions of opacity concerning for infectious consolidation.? Near complete collapse of the left lower lobe worsened from 12/14/2021 with minimal scattered areas loomis at the base.? Her BNP is 55, troponin is 3.4 She was placed on broad spectrum antibiotics and tx to the floor. She was able to switch to nasal cannula and she feels comfortable. Review of Systems Constitutional: Constitutional: Denies night sweats ENT: Denies change in voice, Denies lip swelling, Denies mouth pain, Reports nasal congestion, Reports nasal discharge and Denies tongue swelling Cardiovascular: Cardiovascular: Denies chest pain and Reports dyspnea Respiratory: Respiratory: Reports chest congestion, Reports cough, Denies pain on inspiration, Denies pain with cough and Reports dyspnea Gastrointestinal: Gastrointestinal: Denies abdominal pain Musculoskeletal: Musculoskeletal: Denies no additional musculoskeletal complaints Neurologic: Denies Neuro-related abnormal movements Psychiatric: Psychiatric: Denies no additional psychiatric complaints Hematologic/Lymphatic: Hematologic/Lymphatic: Denies easy bleeding and Denies lymphadenopathy Allergic/Immunologic: Allergic/Immunologic: Denies lip swelling and Denies tongue swelling [facility] Past Medical History Medical History Chronic respiratory failure with hypoxia COPD (chronic obstructive pulmonary disease) Diabetes mellitus type 2 in obese Diastolic heart failure HCAP (healthcare-associated pneumonia) Hyperlipidemia Hypertension Hypothyroid SHOSHANA (obstructive sleep apnea) Pneumonia due to 2019-nCoV Schizoaffective disorder Schizoaffective disorder, depressive type Family History Family History Father No problems noted. Social History Social History Household Members: Other Household Members Other:: [facility] Housing: [facility] Other:: [facility] Do you presently have visiting nurse or other home services: No Unable to assess alcohol history related to: Unknown Alcohol intake: unknown Patient Tobacco Use Status: Former Tobacco user Quit Date: 1979 Substance Use Type: Marijuana Advance Directives Date on File: 11/07/21 service: No Current occupational status: disabled Meds Allergies Allergy/AdvReac Type Severity Reaction Status Date / Time chlorpromazine Allergy Unknown Verified 10/25/21 23:01 [From Thorazine] fluphenazine [From Prolixin] Allergy Unknown Verified 10/25/21 23:01 haloperidol [From Haldol] Allergy Unknown Verified 10/25/21 23:01 niacin Allergy Unknown Verified 10/25/21 23:01 thioridazine [From Mellaril] Allergy Unknown Verified 10/25/21 23:01 Active Medications: Current Medications Acetaminophen (Acetaminophen 325 Mg Tablet) 650 mg PO Q6H PRN PRN Reason: Pain, Mild (Pain Scale 1-3) Albuterol Sulfate (Albuterol Sulfate 90 Mcg 8 Gm Inhaler) 2 puff INHALE RQ4H PRN PRN Reason: Shortness Of Breath Or Wheezing Albuterol/Ipratropium (Albuterol/Iprat 2.5/0.5mg 3 Ml Ampul.Neb) 3 ml INHALE RQ4H PRN PRN Reason: Shortness of Breath/Wheezing Albuterol/Ipratropium (Albuterol/Iprat 2.5/0.5mg 3 Ml Ampul.Neb) 3 ml INHALE RQ4H WHILE AWAKE [place] Last Admin: 11/06/22 07:27 Dose: 3 ml Ascorbic Acid (Ascorbic Acid 500 Mg Tablet) 500 mg PO BID [facility] Aspirin (Aspirin Enteric Coated 81 Mg Tablet.) 81 mg PO DAILY [facility] Last Admin: 11/06/22 08:12 Dose: Not Given Atorvastatin Calcium (Atorvastatin Calcium 40 Mg Tablet) 40 mg PO BEDTIME [facility] Bisacodyl (Bisacodyl 5 Mg Tablet.) 10 mg PO DAILY PRN PRN Reason: Constipation Clozapine (Clozapine 100 Mg Tablet) 100 mg PO DAILY [facility] Clozapine (Clozapine 100 Mg Tablet) 300 mg PO BEDTIME [facility] Dextrose (Dextrose 50 % 25 Gm/50 Ml Syringe) 25 gm IVPUSH Q15M PRN; Protocol PRN Reason: per Hypoglycemia Standing Ord. Fenofibrate (Fenofibrate 160 Mg Tablet) 160 mg PO BEDTIME [facility] Fluticasone/Vilanterol (Fluticasone/Vilanterol 200/25 Blst.W.Dev) 1 puff INHALE RDAILY@1999 [facility] Furosemide (Furosemide 20 Mg Tablet) 20 mg PO DAILY [facility]; Protocol Last Admin: 11/06/22 08:04 Dose: Not Given Glucose (Glucose Gel 15 Gm Gel..Gram.) 15 gm PO Q15M PRN; Protocol PRN Reason: per Hypoglycemia Standing Ord. Heparin Sodium (Porcine) (Heparin Sodium,Porcine 5,000 Unit/Ml Vial) 5,000 unit SUBCUT Q12H [facility] Last Admin: 11/06/22 07:32 Dose: 5,000 unit Piperacillin Sod/Tazobactam (Sod 3.375 gm/ Sodium Chloride) 50 mls @ 100 mls/hr IV Q6H [facility] Last Infusion: 11/06/22 12:41 Dose: Infused Insulin Human Lispro (Insulin Lispro 100 Unit/Ml 3 Ml Vial) 0 unit SUBCUT QIDACHS [facility]; Protocol Last Admin: 11/06/22 12:08 Dose: 10 unit Lamotrigine (Lamotrigine 100 Mg Tablet) 100 mg PO BID [facility] Levothyroxine Sodium (Levothyroxine Sodium 25 Mcg Tablet) 25 mcg PO DAILY@0600 [facility] Last Admin: 11/06/22 08:04 Dose: Not Given Magnesium Oxide (Magnesium Oxide 400 Mg Tablet) 400 mg PO TID [facility] Methylprednisolone Sodium Succinate (Methylprednisolone Sod Succ 40 Mg/Ml Vial) 40 mg IVPUSH Q12H [facility] Last Admin: 11/06/22 07:31 Dose: 40 mg Metoprolol Tartrate (Metoprolol Tartrate 12.5 Mg Halftab) 12.5 mg PO DAILY [facility]; Protocol Last Admin: 11/06/22 08:05 Dose: Not Given Non-Formulary Medication (Methenamine Hippurate) 1 gm PO BID [facility] Non-Formulary Medication ([place]-3 Fatty Acids-Vitamin E) 1 cap PO DAILY [facility] Ondansetron HCl (Ondansetron Hcl 4 Mg/2 Ml Vial) 4 mg IVPUSH Q8H PRN PRN Reason: Nausea and Vomiting Oxcarbazepine (Oxcarbazepine 300 Mg Tablet) 600 mg PO BID [facility] Last Admin: 11/06/22 08:05 Dose: Not Given Perphenazine (Perphenazine 8 Mg Tablet) 16 mg PO TID [facility] Last Admin: 11/06/22 08:05 Dose: Not Given Sodium Chloride (0.9 % Sodium Chloride Flush 3 Ml Syringe) 3 ml IVFLUSH QSHIFT [facility] Last Admin: 11/06/22 07:46 Dose: 3 ml Tiotropium Kipling (Tiotropium Kipling 18 Mcg Cap.W.Dev) 1 puff INHALE RDAILY [facility] Last Admin: 11/06/22 08:30 Dose: Not Given Trihexyphenidyl HCl (Trihexyphenidyl Hcl 2 Mg Tablet) 4 mg PO DAILY [facility] Last Admin: 11/06/22 08:05 Dose: Not Given Home Medications Medication Instructions Recorded Confirmed Last Taken Type acetaminophen 500 mg tablet 1,000 mg PO TID 10/26/21 11/06/22 12/09/21 History albuterol sulfate 90 mcg/actuation 2 inh inhalation Q4H PRN Shortness 10/26/21 11/06/22 12/09/21 History aerosol inhaler Of Breath Or Wheezing atorvastatin 20 mg tablet 40 mg PO BEDTIME 10/26/21 11/06/22 12/09/21 History clozapine 100 mg tablet 300 mg PO BEDTIME 10/26/21 11/06/22 11/05/22 History clozapine 25 mg tablet 100 mg PO DAILY 10/26/21 11/06/22 11/05/22 History fenofibrate 160 mg tablet 160 mg PO BEDTIME 10/26/21 11/06/22 12/09/21 History fluticasone furoate 200 1 inh inhalation BEDTIME 10/26/21 11/06/22 12/09/21 History mcg-vilanterol 25 mcg/dose inhalation powder (Breo Ellipta) furosemide 20 mg tablet 20 mg PO DAILY 10/26/21 11/06/22 12/09/21 History levothyroxine 25 mcg tablet 25 mcg PO DAILY@0600 10/26/21 11/06/22 12/09/21 History magnesium hydroxide 400 mg/5 mL 30 ml PO DAILY 10/26/21 12/14/21 12/09/21 History oral suspension (Milk of Magnesia) magnesium oxide 400 mg PO TID 10/26/21 11/06/22 12/09/21 History meloxicam 7.5 mg tablet 7.5 mg PO DAILY 10/26/21 11/06/22 12/09/21 History metformin 1,000 mg tablet 1,000 mg PO BID 10/26/21 11/06/22 12/09/21 History methenamine hippurate 1 gram tablet 1 g PO BID 10/26/21 11/06/22 12/09/21 History metoprolol tartrate 25 mg tablet 12.5 mg PO DAILY 10/26/21 11/06/22 12/09/21 History omega-3 fatty acids-vitamin E 1 cap PO DAILY 10/26/21 11/06/22 12/09/21 History 1,000 mg capsule oxcarbazepine 600 mg tablet 600 mg PO BID 10/26/21 11/06/22 12/09/21 History perphenazine 16 mg tablet 16 mg PO TID 10/26/21 11/06/22 12/09/21 History polyethylene glycol 3350 17 gram 17 g PO DAILY 10/26/21 11/06/22 12/09/21 History oral powder packet tiotropium bromide 18 mcg capsule 1 cap inhalation DAILY 10/26/21 11/06/22 12/09/21 History with inhalation device (Spiriva with HandiHaler) trihexyphenidyl 2 mg tablet 4 mg PO DAILY 10/26/21 11/06/22 12/09/21 History ascorbic acid (vitamin C) 500 mg 500 mg PO BID 12/10/21 11/06/22 12/09/21 History tablet aspirin 81 mg tablet,delayed 81 mg PO DAILY 12/10/21 11/06/22 12/09/21 History release atropine 1 % eye drops 1 drp sublingual Q4H PRN Secretions 11/06/22 11/06/22 Unknown History bisacodyl 5 mg tablet 10 mg PO DAILY PRN Constipation 11/06/22 11/06/22 Unknown History lamotrigine 100 mg tablet 1 tab PO BID 11/06/22 11/06/22 Unknown History lorazepam 1 mg tablet 1 tab PO BID 11/06/22 11/06/22 Unknown History Physical Exam Vital Signs: Vital Signs: Last Vital Signs Temp 97.6 F 11/06/22 10:16 Pulse 106 H 11/06/22 10:16 Resp 17 11/06/22 10:16 BP 119/62 11/06/22 10:16 Pulse Ox 87 L 11/06/22 10:16 O2 Del Method 11/06/22 10:16 O2 Flow Rate 3.5 11/06/22 10:16 FiO2 80 11/06/22 07:50 BMI result Body Mass Index 39.1 Const: General: alert Neck: Neck: Yes normal visual inspection, Yes full ROM and Yes no lymphadenopathy Chest: Chest palpation & inspection: normal inspection of the chest Resp: Auscultation: diminished lung sounds Cardio: Rate: regular rate Rhythm: regular rhythm Heart sounds: S1 normal heart sound present and S2 normal heart sound present GI: Palpation (GI): Soft to palpation and nontender Auscultation: normal bowel sounds Skin: General skin exam: rashes and/or lesions noted Results Laboratory Findings 11/06/22 02:47 11/06/22 02:47 Abnormal lab findings: Abnormal Labs 11/06/22 11/06/22 11/06/22 02:47 02:47 02:54 RBC 3.58 L Hgb 9.9 L Hct 32.3 L MCHC 30.7 L Neut % (Auto) 79.6 H Lymph % (Auto) 12.5 L Lymph # (Auto) 1.0 L ABG pCO2 at Pt Temp ABG pO2 at Pt Temp ABG HCO3 VBG HCO3 35 H Carbon Dioxide 30 H BUN 23 H POC Glucose Random Glucose 200 H Total Protein 6.0 L 11/06/22 11/06/22 08:15 11:39 RBC Hgb Hct MCHC Neut % (Auto) Lymph % (Auto) Lymph # (Auto) ABG pCO2 at Pt Temp 49 H ABG pO2 at Pt Temp 111 H ABG HCO3 29 H VBG HCO3 Carbon Dioxide BUN POC Glucose 360 H* Random Glucose Total Protein Assessment and Plan (1) Acute and chronic respiratory failure with hypoxia: Status: Acute (2) Aspiration pneumonia: Status: Acute (3) Pulmonary collapse: Status: Acute (4) COPD (chronic obstructive pulmonary disease): Status: Acute (5) Encephalopathy: Status: Acute Plan Continue broad spectrum abx conitnue oxygen supplementation to keep pox>90% F/U CXR tomorrow MRSA screen CPT Keep left side up for postural drainage Holding off on bronchosocpy CPAP at night continue with respiratory therapy Time Spent With Patient Time: Total time managing care of this patient today ____ minutes. Procedures Date of Service Date of Service: 11/06/22
--- NOTE | 2022-11-06 13:21 | PM.EVENT ---
Event Note Date of Service: 11/06/22 Event Note: Patient admitted early this morning due to acute on chronic hypoxic respiratory failure, likely due to aspiration pneumonia, also due to encephalopathy At present patient awake alert answering questions appropriately requesting for diet, patient evaluated by speech therapist and they recommended ground mechanical diet with thin liquids Lungs diminished breath sounds with no wheeze or rhonchi Extremities no edema stable ABGs Assessment and plan Acute on chronic hypoxic respiratory failure patient initially treated with BiPAP, subsequently was placed on high-flow oxygen patient oxygenation improved patient became more awake alert BiPAP discontinued patient currently on nasal cannula with stable oxygenation, case discussed with Dr. Cerna he does not feel patient needs bronchoscopy he recommend to continue current treatment will follow clinical course Acute encephalopathy likely due to hypoxia , and infection resolved Diabetes mellitus placed on diabetic diet and and insulin sliding scale. On metformin at home currently on hold Hypothyroidism continue levothyroxine follow TSH Hyperlipidemia continue Lipitor. Time Spent With Patient Time: Total time managing care of this patient today ____ minutes.
[2022-11-06 13:38] LABS: Adenovirus PCR Not Detected (Not Detect.); Bordetella parapertussis PCR Not Detected (Not Detect.); Bordetella pertussis PCR Not Detected (Not Detect.); Chlamydia pneumoniae PCR Not Detected (Not Detect.); Coronavirus 229E PCR Not Detected (Not Detect.); Coronavirus HKU1 PCR Not Detected (Not Detect.); Coronavirus NL63 PCR Not Detected (Not Detect.); Coronavirus OC43 PCR Not Detected (Not Detect.); Human metapneumovirus PCR Not Detected (Not Detect.); Influenza A PCR Not Detected (Not Detect.); Influenza B PCR Not Detected (Not Detect.); Mycoplasma pneumoniae PCR Not Detected (Not Detect.); Parainfluenza 1 PCR Not Detected (Not Detect.); Parainfluenza 2 PCR Not Detected (Not Detect.); Parainfluenza 3 PCR Not Detected (Not Detect.); Parainfluenza 4 PCR Not Detected (Not Detect.); RSV PCR Not Detected (Not Detect.); Rhino/Enterovirus PCR Not Detected (Not Detect.); SARS-CoV-2 PCR Not Detected (Not Detect.)
--- NOTE | 2022-11-06 13:48 | MHC.CM.PN ---
PATIENT IS IN FROM [facility] PLAN IS RETURN WHEN MEDICALLY READY SHE AMBULATES WITH A WALKER AND 1 ASSIST AND USES A WHEELCHAIR AT TIMES. HCP ON FILE AND VERIFIED. IMM 11/06 IN CHART
[2022-11-06] MEDS: Magnesium Oxide 400 MG TABLET PO ×2 (15:00→20:14)
[2022-11-06] MEDS: Perphenazine 8 MG TABLET 16 MG PO ×2 (15:00→20:06)
[2022-11-06 16:12] LABS: Glucose, Whole Blood 246 mg/dL (60-115)
[2022-11-06 16:32] LABS: MRSA Nasal PCR NEGATIVE (Negative); SA Nasal PCR NEGATIVE (Negative)
[2022-11-06] MEDS: cloZAPine 100 MG TABLET 300 MG PO (20:05)
[2022-11-06] MEDS: Fenofibrate 160 MG TABLET PO (20:06)
[2022-11-06] MEDS: lamoTRIgine 100 MG TABLET PO (20:06)
[2022-11-06] MEDS: Ascorbic Acid 500 MG TABLET PO (20:06)
[2022-11-06] MEDS: Atorvastatin Calcium 40 MG TABLET PO (20:06)
[2022-11-06] MEDS: OXcarbazepine 300 MG TABLET 600 MG PO (20:06)
[2022-11-06 20:30] LABS: Glucose, Whole Blood 138 mg/dL (60-115)
[2022-11-06] MEDS: Fluticasone/Vilanterol 200/25 BLST.W.DEV 1 PUFF INHALE (20:42)
[2022-11-06] MEDS: Acetaminophen 325 MG TABLET 650 MG PO (22:00)
[2022-11-07] VITALS (8 sets, daily range): BP systolic 111–119; BP diastolic 58–67; PULSE 87–97; RESP 17–22; TEMP 36.1–36.6; O2SAT 91–99
[2022-11-07] MEDS: Levothyroxine Sodium 25 MCG TABLET PO (05:53)
[2022-11-07] MEDS: Piperacillin Sodium/Tazobactam 3.375 GM in 0.9 % Sodium Chloride 50 ML IV ×3 (05:53→18:15)
[2022-11-07] MEDS: Heparin Sodium,Porcine 5,000 UNIT/ML VIAL 5000 UNIT SUBCUT ×2 (06:02→18:15)
[2022-11-07 07:10] LABS: Alanine Aminotransferase 10 U/L (0-31); Albumin Level 3.4 g/dL (3.5-5.0); Alkaline Phosphatase 49 U/L (39-117); Anion Gap 13 (12-20); Aspartate Amino Transferase 11 U/L (5-31); Bilirubin Total 0.3 mg/dL (0.0-1.0); Blood Urea Nitrogen 23 mg/dL (9-16); Calcium 9.6 mg/dL (8.4-10.2); Carbon Dioxide 32 mmol/L (22-29); Chloride 102 mmol/L (96-108); Creatinine Clr Calc Pharmacy 95.6; Estimated Glomerular Filt Rate > 60; Glucose Random 214 mg/dL (60-115); Potassium 4.7 mmol/L (3.3-5.1); Sodium 142 mmol/L (135-145)
[2022-11-07 07:32] LABS: Glucose, Whole Blood 180 mg/dL (60-115)
[2022-11-07] MEDS: Albuterol/Iprat 2.5/0.5MG 3 ML AMPUL.NEB INHALE ×4 (07:45→20:36)
[2022-11-07] MEDS: Fluticasone/Vilanterol 200/25 BLST.W.DEV 1 PUFF INHALE ×2 (07:46)
[2022-11-07] MEDS: methylPREDNISolone Sod Succ 40 MG/ML VIAL IVPUSH (08:09)
[2022-11-07] MEDS: 0.9 % Sodium Chloride Flush 3 ML SYRINGE IVFLUSH ×2 (08:12→16:00)
--- NOTE | 2022-11-07 09:54 | PM.PNPUL ---
Subjective Subjective Date of Service: 11/07/22 Interval history: The patient was seen on exam. This morning she was unarousable per nursing staff. Although, when I evaluated her she did wake up quickly and appear to comprehend. She did respond that she was very tired and she went to sleep. The majority issue with her medications. The patient did not use her CPAP last night. She does have 1 at her residence but she has not been using it. At this point with her altered mental status will be best not to use it. The patient may not be able to take it off it in the case of an emergency. In addition, her CO2 is normal. She can continue using the oxygen throughout the day and nighttime. She is sleeping with the left side up to try to open up that lung as much as possible. She is also continued on the antibiotics for the nosocomial pneumonia. Objective Data Labs 11/06/22 02:47 11/07/22 05:41 Labs: Laboratory Results - last 24 hr 11/06/22 11/06/22 11/06/22 11:39 11:50 15:15 Sodium Potassium Chloride Carbon Dioxide Anion Gap BUN Creatinine Estim Creat Clear Calc Estimated GFR POC Glucose 360 H* Random Glucose Calcium Total Bilirubin AST ALT Alkaline Phosphatase Total Protein Albumin Nasal Screen MRSA (PCR) NEGATIVE Nasal S. aureus Screen NEGATIVE Nasal MRSA/S.aureus Interp SEE NOTE Respiratory Panel Carver See Note Adenovirus (Rapid PCR) Not Detected B.pert (TEM-PCR) Not Detected B.parapertussis DNA PCR Not Detected C. pneumoniae DNA (PCR) Not Detected Coronavirus OC43 (PCR) Not Detected Coronavirus HKU1 (PCR) Not Detected Coronavirus 229E (PCR) Not Detected Coronavirus NL63 (PCR) Not Detected Human Metapneumovir PCR Not Detected Influenza A (RT-PCR) Not Detected Influenza B (RT-PCR) Not Detected M. pneumoniae (PCR) Not Detected Parainfluenza 1 (PCR) Not Detected Parainfluenza 2 (PCR) Not Detected Parainfluenza 3 (PCR) Not Detected Parainfluenza 4 (PCR) Not Detected RSV (PCR) Not Detected Entero/Rhino (PCR) Not Detected SARS-CoV-2 RNA (RT-PCR) Not Detected 11/06/22 11/06/22 11/07/22 16:08 20:23 05:41 Sodium 142 Potassium 4.7 Chloride 102 Carbon Dioxide 32 H Anion Gap 13 BUN 23 H Creatinine 0.73 Estim Creat Clear Calc 95.6 Estimated GFR > 60 POC Glucose 246 H 138 H Random Glucose 214 H Calcium 9.6 Total Bilirubin 0.3 AST 11 ALT 10 Alkaline Phosphatase 49 Total Protein 6.0 L Albumin 3.4 L Nasal Screen MRSA (PCR) Nasal S. aureus Screen Nasal MRSA/S.aureus Interp Respiratory Panel Carver Adenovirus (Rapid PCR) B.pert (TEM-PCR) B.parapertussis DNA PCR C. pneumoniae DNA (PCR) Coronavirus OC43 (PCR) Coronavirus HKU1 (PCR) Coronavirus 229E (PCR) Coronavirus NL63 (PCR) Human Metapneumovir PCR Influenza A (RT-PCR) Influenza B (RT-PCR) M. pneumoniae (PCR) Parainfluenza 1 (PCR) Parainfluenza 2 (PCR) Parainfluenza 3 (PCR) Parainfluenza 4 (PCR) RSV (PCR) Entero/Rhino (PCR) SARS-CoV-2 RNA (RT-PCR) 11/07/22 07:19 Sodium Potassium Chloride Carbon Dioxide Anion Gap BUN Creatinine Estim Creat Clear Calc Estimated GFR POC Glucose 180 H Random Glucose Calcium Total Bilirubin AST ALT Alkaline Phosphatase Total Protein Albumin Nasal Screen MRSA (PCR) Nasal S. aureus Screen Nasal MRSA/S.aureus Interp Respiratory Panel Carver Adenovirus (Rapid PCR) B.pert (TEM-PCR) B.parapertussis DNA PCR C. pneumoniae DNA (PCR) Coronavirus OC43 (PCR) Coronavirus HKU1 (PCR) Coronavirus 229E (PCR) Coronavirus NL63 (PCR) Human Metapneumovir PCR Influenza A (RT-PCR) Influenza B (RT-PCR) M. pneumoniae (PCR) Parainfluenza 1 (PCR) Parainfluenza 2 (PCR) Parainfluenza 3 (PCR) Parainfluenza 4 (PCR) RSV (PCR) Entero/Rhino (PCR) SARS-CoV-2 RNA (RT-PCR) Microbiology Microbiology Results: Microbiology 11/06/22 03:09 Blood - Venous Blood Culture - Preliminary No growth after 24 hours. 11/06/22 02:47 Blood - Venous Blood Culture - Preliminary No growth after 24 hours. Review of Systems Constitutional: Reports daytime sleepiness and Denies night sweats Denies change in voice, Denies lip swelling, Denies mouth pain and Denies tongue swelling Cardiovascular: Denies chest pain and Denies dyspnea Respiratory: Denies chest congestion, Reports cough, Denies pain on inspiration, Denies pain with cough and Denies dyspnea Gastrointestinal: Denies abdominal pain Musculoskeletal: Denies no additional musculoskeletal complaints Denies Neuro-related abnormal movements Psychiatric: Denies no additional psychiatric complaints Hematologic/Lymphatic: Denies easy bleeding and Denies lymphadenopathy Allergic/Immunologic: Denies lip swelling and Denies tongue swelling Physical Exam Vital Signs: Vital Signs: Last Vital Signs Temp 97.2 F 11/07/22 07:51 Pulse 92 11/07/22 07:51 Resp 18 11/07/22 07:51 BP 111/58 L 11/07/22 07:51 Pulse Ox 99 11/07/22 07:51 O2 Del Method 11/07/22 07:51 O2 Flow Rate 4.0 11/07/22 07:51 FiO2 80 11/06/22 07:50 BMI result Body Mass Index 39.1 Const: General: awake and tired appearing; No acute distress Neck: Neck: Yes normal visual inspection, Yes full ROM and Yes no lymphadenopathy Chest: Chest palpation & inspection: normal inspection of the chest Resp: Auscultation: diminished lung sounds Cardio: Rate: regular rate Rhythm: regular rhythm Heart sounds: S1 normal heart sound present and S2 normal heart sound present GI: Palpation (GI): Soft to palpation and nontender Auscultation: normal bowel sounds Skin: General skin exam: rashes and/or lesions noted Procedures Date of Service Date of Service: 11/07/22 Assessment and Plan Assessment and plan (1) Encephalopathy: Status: Acute (2) Pulmonary collapse: Status: Acute (3) Acute and chronic respiratory failure with hypoxia: Status: Acute (4) Aspiration pneumonia: Status: Acute (5) COPD (chronic obstructive pulmonary disease): Status: Acute (6) SHOSHANA (obstructive sleep apnea): Status: Acute Plan continue oxygen supplementation to keep pox >92% Holding off on PAP therapy for now continue broad spectrum antibiotics continue respiratory therapy CPT repeating CXR today Time Spent With Patient Time: Total time managing care of this patient today ____ minutes. Progress Note: Quality Stroke Does the patient have a stroke diagnosis?: No
[2022-11-07] MEDS: Insulin Lispro 100 UNIT/ML 3 ML VIAL SUBCUT ×4 (09:57→20:54)
[2022-11-07] MEDS: Acetaminophen 325 MG TABLET 650 MG PO ×2 (10:00→16:00)
[2022-11-07] MEDS: Trihexyphenidyl HCL 2 MG TABLET 4 MG PO (10:16)
[2022-11-07] MEDS: Metoprolol Tartrate 12.5 MG HALFTAB PO (10:17)
[2022-11-07] MEDS: OXcarbazepine 300 MG TABLET 600 MG PO ×2 (10:17→20:50)
[2022-11-07] MEDS: Magnesium Oxide 400 MG TABLET PO ×3 (10:18→20:51)
[2022-11-07] MEDS: Ascorbic Acid 500 MG TABLET PO ×2 (10:18→20:53)
[2022-11-07] MEDS: Aspirin Enteric Coated 81 MG TABLET.DR PO (10:18)
[2022-11-07] MEDS: Perphenazine 8 MG TABLET 16 MG PO ×3 (10:18→20:49)
[2022-11-07] MEDS: cloZAPine 100 MG TABLET PO (10:18)
[2022-11-07] MEDS: lamoTRIgine 100 MG TABLET PO ×2 (10:18→20:50)
[2022-11-07] MEDS: Furosemide 20 MG TABLET PO (10:18)
[2022-11-07 11:07] LABS: Glucose, Whole Blood 321 mg/dL (60-115)
--- NOTE | 2022-11-07 11:16 | MHC.SL.SWA ---
Speech Pathologist Impression: Oral phase dysphagia, risk of aspiration Risk of Aspiration Due to: Neurological Condition History of Pneumonia Dysphasia Diet Status: No changes at this time Mild Oral Phase Dysphagia, vulnerable respiratory status, recommend CHOPPED/ADVANCED (NDD3) with THIN liquids, pills whole in puree or liquid per pt's tolerance/preference. Liquid Consistency and Strategies for Safe Swallow: Liquid Intake Recommendation: Thin Liquid Intake Strategies: Small Sips Solid Food Consistency: Dietary Recommendations: Chopped/Advanced (NDD3) Additional Modifications to Solid Foods: Patient will likely need and should be encouraged to take short breaks during meal for 02. Patient can drink with straw IF SUPERVISED to assure that she is taking small, individual sips (not chain sips), if not supervised: NO STRAW. Patient can feed self, but will need supervision as may spill food or liquid on self. Monitor for clinical signs of aspiration, discontinue meal if patient evidences clinical signs of aspiration, audible airway congestion or noise. Oral Medication Intake: Whole with Puree Please contact the pharmacy regarding appropriate crushable or liquid drug formulations that are available whenever modified delivery is recommended. Compensatory Strategies and Precautions to be Taken for Safe Swallow: Sitting Upright (90 deg) Small Bites and Sips Rate of Ingestion Change Avoid Specific Foods Supervision While Eating and Drinking for Safe Swallow: Total Supervision (1:1) Foods to Avoid: Mixed consistencies, tough, difficult to chew solids. Swallowing Recommended Treatments: Compens. Strategy Educat. Recommendation for Speech: Inpatient Speech Therapy Frequency/Duration: M-F while inpatient Baby Formula Mixer Clinican/Clinical Fellow: No Supervisory Statement: I have reviewed and agree with the student/clinical fellow's documentation: N/A Speech Language Pathologist: July Toro M.A., CCC-SAWYER HELPER
[2022-11-07 16:50] LABS: Glucose, Whole Blood 268 mg/dL (60-115)
--- NOTE | 2022-11-07 17:11 | P.PNIM_ITS ---
Subjective Subjective Date of Service: 11/07/22 Interval History: Patient somnolent this morning but easily arousable later in the day noted to be more awake alert, denies acute shortness of breath, admits to have chronic shortness of breath complaining of on and off left leg pain due to arthritis, no acute events overnight, finger oximetry 91% on 3 L, afebrile tolerating diet. Review of Systems Review of Systems: Yes all other systems are reviewed and are negative Physical Exam Vital Signs: Vital Signs: Last Vital Signs Temp 97.4 F 11/07/22 16:00 Pulse 96 11/07/22 16:00 Resp 18 11/07/22 16:00 BP 119/67 11/07/22 16:00 Pulse Ox 91 L 11/07/22 16:00 O2 Del Method 11/07/22 16:00 O2 Flow Rate 3 11/07/22 16:00 FiO2 80 11/06/22 07:50 BMI result Body Mass Index 39.1 Const: Other: General resting comfortably in no acute distress. Anicteric sclera Neck supple no JVD. CVS regular rate rhythm, Respiratory lungs diminished, no respiratory distress, no wheeze, no rhonchi. Gastrointestinal abdomen obese, soft, nontender, bowel sounds audible, no guarding , no rigidity. Extremities no edema, normal examination both knees, no redness, no warmth. Neuro nonfocal, moving all 4 extremity, speech clear. Skin no rash Objective Data Active Medications Acetaminophen (Acetaminophen 325 Mg Tablet) 650 mg PO Q6H PRN PRN Reason: Pain, Mild (Pain Scale 1-3) Last Admin: 11/07/22 16:00 Dose: 650 mg Documented By: HERNÁN Albuterol Sulfate (Albuterol Sulfate 90 Mcg 8 Gm Inhaler) 2 puff INHALE RQ4H PRN PRN Reason: Shortness Of Breath Or Wheezing Albuterol/Ipratropium (Albuterol/Iprat 2.5/0.5mg 3 Ml Ampul.Neb) 3 ml INHALE RQ4H PRN PRN Reason: Shortness of Breath/Wheezing Albuterol/Ipratropium (Albuterol/Iprat 2.5/0.5mg 3 Ml Ampul.Neb) 3 ml INHALE RQID [facility], [facility] Last Admin: 11/07/22 15:22 Dose: 3 ml Documented By: ARMANDO Ascorbic Acid (Ascorbic Acid 500 Mg Tablet) 500 mg PO BID [facility] Last Admin: 11/07/22 10:18 Dose: 500 mg Documented By: KELSEY Aspirin (Aspirin Enteric Coated 81 Mg Tablet.) 81 mg PO DAILY [facility] Last Admin: 11/07/22 10:18 Dose: 81 mg Documented By: KELSEY Atorvastatin Calcium (Atorvastatin Calcium 40 Mg Tablet) 40 mg PO BEDTIME [facility] Last Admin: 11/06/22 20:06 Dose: 40 mg Documented By: DEE DEE Bisacodyl (Bisacodyl 5 Mg Tablet.) 10 mg PO DAILY PRN PRN Reason: Constipation Clozapine (Clozapine 100 Mg Tablet) 100 mg PO DAILY [facility] Last Admin: 11/07/22 10:18 Dose: 100 mg Documented By: KELSEY Clozapine (Clozapine 100 Mg Tablet) 300 mg PO BEDTIME [facility] Last Admin: 11/06/22 20:05 Dose: 300 mg Documented By: DEE DEE Dextrose (Dextrose 50 % 25 Gm/50 Ml Syringe) 25 gm IVPUSH Q15M PRN; Protocol PRN Reason: per Hypoglycemia Standing Ord. Fenofibrate (Fenofibrate 160 Mg Tablet) 160 mg PO BEDTIME [facility] Last Admin: 11/06/22 20:06 Dose: 160 mg Documented By: DEE DEE Fluticasone/Vilanterol (Fluticasone/Vilanterol 200/25 Blst.W.Dev) 1 puff INHALE RDAILY@2000 [facility] Last Admin: 11/07/22 07:46 Dose: 1 puff Documented By: ARMANDO Furosemide (Furosemide 20 Mg Tablet) 20 mg PO DAILY [facility]; Protocol Last Admin: 11/07/22 10:18 Dose: 20 mg Documented By: KELSEY Glucose (Glucose Gel 15 Gm Gel..Gram.) 15 gm PO Q15M PRN; Protocol PRN Reason: per Hypoglycemia Standing Ord. Heparin Sodium (Porcine) (Heparin Sodium,Porcine 5,000 Unit/Ml Vial) 5,000 unit SUBCUT Q12H [facility], [facility] Last Admin: 11/07/22 06:02 Dose: 5,000 unit Documented By: DEE DEE Piperacillin Sod/Tazobactam (Sod 3.375 gm/ Sodium Chloride) 50 mls @ 100 mls/hr IV Q6H [facility] Last Infusion: 11/07/22 12:53 Dose: 0 mls/hr Documented By: KELSEY Insulin Human Lispro (Insulin Lispro 100 Unit/Ml 3 Ml Vial) 0 unit SUBCUT QIDACHS [facility], [facility]; Protocol Last Admin: 11/07/22 17:05 Dose: 6 unit Documented By: KELSEY Lamotrigine (Lamotrigine 100 Mg Tablet) 100 mg PO BID [facility] Last Admin: 11/07/22 10:18 Dose: 100 mg Documented By: KELSEY Levothyroxine Sodium (Levothyroxine Sodium 25 Mcg Tablet) 25 mcg PO DAILY@0600 [facility] Last Admin: 11/07/22 05:53 Dose: 25 mcg Documented By: ODRISRonnie Magnesium Oxide (Magnesium Oxide 400 Mg Tablet) 400 mg PO TID [facility] Last Admin: 11/07/22 16:00 Dose: 400 mg Documented By: HERNÁN Methylprednisolone Sodium Succinate (Methylprednisolone Sod Succ 40 Mg/Ml Vial) 40 mg IVPUSH Q12H [facility] Last Admin: 11/07/22 08:09 Dose: 40 mg Documented By: KELSEY Metoprolol Tartrate (Metoprolol Tartrate 12.5 Mg Halftab) 12.5 mg PO DAILY [facility], [facility]; Protocol Last Admin: 11/07/22 10:17 Dose: 12.5 mg Documented By: KELSEY Non-Formulary Medication (Methenamine Hippurate) 1 gm PO BID [facility] Ondansetron HCl (Ondansetron Hcl 4 Mg/2 Ml Vial) 4 mg IVPUSH Q8H PRN PRN Reason: Nausea and Vomiting Oxcarbazepine (Oxcarbazepine 300 Mg Tablet) 600 mg PO BID [facility] Last Admin: 11/07/22 10:17 Dose: 600 mg Documented By: KELSEY Perphenazine (Perphenazine 8 Mg Tablet) 16 mg PO TID [facility] Last Admin: 11/07/22 16:00 Dose: 16 mg Documented By: HERNÁN Sodium Chloride (0.9 % Sodium Chloride Flush 3 Ml Syringe) 3 ml IVFLUSH QSHIFT [facility] Last Admin: 11/07/22 16:00 Dose: 3 ml Documented By: HERNÁN Tiotropium [place] (Tiotropium [place] 18 Mcg Cap.W.Dev) 1 puff INHALE RDAILY [facility] Last Admin: 11/07/22 07:45 Dose: 1 puff Documented By: ARMANDO Trihexyphenidyl HCl (Trihexyphenidyl Hcl 2 Mg Tablet) 4 mg PO DAILY [facility] Last Admin: 11/07/22 10:16 Dose: 4 mg Documented By: KELSEY Labs 11/06/22 02:47 11/07/22 05:41 Labs: Laboratory Results - last 24 hr 11/06/22 11/07/22 11/07/22 20:23 05:41 07:19 Anion Gap 13 Estim Creat Clear Calc 95.6 Estimated GFR > 60 POC Glucose 138 H 180 H Random Glucose 214 H Calcium 9.6 Total Bilirubin 0.3 AST 11 ALT 10 Alkaline Phosphatase 49 Total Protein 6.0 L Albumin 3.4 L 11/07/22 11/07/22 11:03 16:45 Anion Gap Estim Creat Clear Calc Estimated GFR POC Glucose 321 H 268 H Random Glucose Calcium Total Bilirubin AST ALT Alkaline Phosphatase Total Protein Albumin Microbiology Microbiology Results: Microbiology 11/06/22 03:09 Blood Culture - Preliminary Blood - Venous No growth after 24 hours. 11/06/22 02:47 Blood Culture - Preliminary Blood - Venous No growth after 24 hours. Assessment and Plan (1) Encephalopathy: Status: Acute (2) Pulmonary collapse: Status: Acute (3) Acute and chronic respiratory failure with hypoxia: Status: Acute Plan 62-year-old female with past medical history of COPD, presents the hospital with hypoxia found to have pneumonia as well as pulmonary collapse # acute on chronic hypoxic respiratory failure due to pneumonia/ left lower lobe pulmonary collapse - oxygenation is stable on 3 L, ABG showed no CO2 retention Seen by pulmonology ,they recommend chest physical therapy, IV antibiotics, keep left side up for postural drainage, repeat chest x-ray pending, bronchoscopy not recommended at present Cannot tolerate CPAP. # aspiration pneumonia - likely has aspiration pneumonia as evidence on chest CT with infiltrates in the right lung , continue IV Zosyn day 2 Seen by Physical therapy they recommend chopped/advance diet with thin liquids pill whole in puree # COPD no acute exacerbation continue DuoNeb, O2 support and home inhalers, DC IV Solu Medrol # diabetes mellitus type 2 continue diabetic diet and insulin sliding scale metformin on hold # acute toxic metabolic encephalopathy resolved, likely due to hypoxia and sedative medications, no hypercapnia. # hypothyroidism - continue levothyroxine, follow TSH # schizoaffective disorder - all home medications continued, except Ativan on hold due to somnolence. DVT prophylaxis:? Heparin subQ Patient will need continued inpatient hospitalization for IV antibiotics and close monitoring of left lung collapse /discharge back to nursing facility once medically stable. Time Spent With Patient Time: Total time managing care of this patient today ____ minutes. Quality Stroke Does the patient have a stroke diagnosis?: No VTE Prior VTE?: No VTE Risk Level:: Medical - moderate - high VTE Device Contraindication: Treatment Not Indicated VTE Drug Contraindication: N/A - Med Ordered
[2022-11-07 20:13] LABS: Glucose, Whole Blood 184 mg/dL (60-115)
[2022-11-07] MEDS: Atorvastatin Calcium 40 MG TABLET PO (20:50)
[2022-11-07] MEDS: cloZAPine 100 MG TABLET 300 MG PO (20:52)
[2022-11-07] MEDS: Fenofibrate 160 MG TABLET PO (20:53)
[2022-11-08] MEDS: Piperacillin Sodium/Tazobactam 3.375 GM in 0.9 % Sodium Chloride 50 ML IV ×4 (00:19→18:40)
[2022-11-08] MEDS: 0.9 % Sodium Chloride Flush 3 ML SYRINGE IVFLUSH ×3 (00:52→16:42)
[2022-11-08 02:59] VITALS: BP 128/63; PULSE 100; RESP 18; TEMP 36.7; O2SAT 92
[2022-11-08] MEDS: Levothyroxine Sodium 25 MCG TABLET PO (05:13)
[2022-11-08] MEDS: Heparin Sodium,Porcine 5,000 UNIT/ML VIAL 5000 UNIT SUBCUT ×2 (05:14→18:39)
[2022-11-08 07:18] LABS: Thyroid Stimulating Hormone 2.63 uIU/mL (0.32-4.0)
[2022-11-08 07:42] LABS: Glucose, Whole Blood 261 mg/dL (60-115)
[2022-11-08 08:00] VITALS: BP 123/75; PULSE 108; RESP 22; TEMP 36.9; O2SAT 92
[2022-11-08] MEDS: Insulin Lispro 100 UNIT/ML 3 ML VIAL SUBCUT ×4 (09:01→21:10)
[2022-11-08] MEDS: Aspirin Enteric Coated 81 MG TABLET.DR PO (09:03)
[2022-11-08] MEDS: cloZAPine 100 MG TABLET PO (09:03)
[2022-11-08] MEDS: Ascorbic Acid 500 MG TABLET PO ×2 (09:03→21:13)
[2022-11-08] MEDS: Perphenazine 8 MG TABLET 16 MG PO ×3 (09:03→21:13)
[2022-11-08] MEDS: Furosemide 20 MG TABLET PO (09:03)
[2022-11-08] MEDS: Metoprolol Tartrate 12.5 MG HALFTAB PO (09:03)
[2022-11-08] MEDS: lamoTRIgine 100 MG TABLET PO ×2 (09:04→21:12)
[2022-11-08] MEDS: Magnesium Oxide 400 MG TABLET PO ×3 (09:04→21:17)
[2022-11-08] MEDS: OXcarbazepine 300 MG TABLET 600 MG PO ×2 (09:04→21:12)
[2022-11-08] MEDS: Trihexyphenidyl HCL 2 MG TABLET 4 MG PO (09:04)
[2022-11-08] MEDS: Acetaminophen 325 MG TABLET 650 MG PO (09:06)
[2022-11-08 11:37] LABS: Glucose, Whole Blood 299 mg/dL (60-115)
--- NOTE | 2022-11-08 14:33 | P.PNIM_ITS ---
Subjective Subjective Date of Service: 11/08/22 Interval History: dyspnea + cough improving complaining of left leg arthritis pain no fever on 3L O2 at present Physical Exam Vital Signs: Vital Signs: Last Vital Signs Temp 98.5 F 11/08/22 08:00 Pulse 108 H 11/08/22 08:00 Resp 22 H 11/08/22 08:00 BP 123/75 11/08/22 08:00 Pulse Ox 92 11/08/22 08:00 O2 Del Method 11/08/22 08:00 O2 Flow Rate 3 11/08/22 08:00 FiO2 80 11/06/22 07:50 BMI result Body Mass Index 39.1 Gen: in no acute distress HEENT: sclera anicteric, moist mucus membranes Neck: supple Lungs: diminished breath sounds Heart: regular rate and rhythm, no murmurs Abd: soft, non-tender, non-distended Ext: no edema Skin: warm/well-perfused Neuro: alert and oriented x3, no focal findings Psych: appropriate affect Objective Data Active Medications Acetaminophen (Acetaminophen 325 Mg Tablet) 650 mg PO Q6H PRN PRN Reason: Pain, Mild (Pain Scale 1-3) Last Admin: 11/08/22 09:06 Dose: 650 mg Documented By: TRAVIS Albuterol Sulfate (Albuterol Sulfate 90 Mcg 8 Gm Inhaler) 2 puff INHALE RQ4H PRN PRN Reason: Shortness Of Breath Or Wheezing Albuterol/Ipratropium (Albuterol/Iprat 2.5/0.5mg 3 Ml Ampul.Neb) 3 ml INHALE RQ4H PRN PRN Reason: Shortness of Breath/Wheezing Albuterol/Ipratropium (Albuterol/Iprat 2.5/0.5mg 3 Ml Ampul.Neb) 3 ml INHALE RQID [facility] Last Admin: 11/08/22 11:19 Dose: Not Given Documented By: LAWRENCE Non-Admin Reason: Patient Refused Ascorbic Acid (Ascorbic Acid 500 Mg Tablet) 500 mg PO BID [facility] Last Admin: 11/08/22 09:03 Dose: 500 mg Documented By: TRAVIS Aspirin (Aspirin Enteric Coated 81 Mg Tablet.) 81 mg PO DAILY [facility] Last Admin: 11/08/22 09:03 Dose: 81 mg Documented By: TRAVIS Atorvastatin Calcium (Atorvastatin Calcium 40 Mg Tablet) 40 mg PO BEDTIME [facility] Last Admin: 11/07/22 20:50 Dose: 40 mg Documented By: NICKI Bisacodyl (Bisacodyl 5 Mg Tablet.Dr) 10 mg PO DAILY PRN PRN Reason: Constipation Clozapine (Clozapine 100 Mg Tablet) 100 mg PO DAILY [facility] Last Admin: 11/08/22 09:03 Dose: 100 mg Documented By: TRAVIS Clozapine (Clozapine 100 Mg Tablet) 300 mg PO BEDTIME [facility] Last Admin: 11/07/22 20:52 Dose: 300 mg Documented By: NICKI Dextrose (Dextrose 50 % 25 Gm/50 Ml Syringe) 25 gm IVPUSH Q15M PRN; Protocol PRN Reason: per Hypoglycemia Standing Ord. Fenofibrate (Fenofibrate 160 Mg Tablet) 160 mg PO BEDTIME [facility] Last Admin: 11/07/22 20:53 Dose: 160 mg Documented By: NICKI Fluticasone/Vilanterol (Fluticasone/Vilanterol 200/25 Blst.W.Dev) 1 puff INHALE RDAILY@1999 [facility] Last Admin: 11/07/22 07:46 Dose: 1 puff Documented By: ARMANDO Furosemide (Furosemide 20 Mg Tablet) 20 mg PO DAILY [facility]; Protocol Last Admin: 11/08/22 09:03 Dose: 20 mg Documented By: TRAVIS Glucose (Glucose Gel 15 Gm Gel..Gram.) 15 gm PO Q15M PRN; Protocol PRN Reason: per Hypoglycemia Standing Ord. Heparin Sodium (Porcine) (Heparin Sodium,Porcine 5,000 Unit/Ml Vial) 5,000 unit SUBCUT Q12H [facility] Last Admin: 11/08/22 05:14 Dose: 5,000 unit Documented By: NICKI Piperacillin Sod/Tazobactam (Sod 3.375 gm/ Sodium Chloride) 50 mls @ 100 mls/hr IV Q6H [facility] Last Infusion: 11/08/22 13:02 Dose: 100 mls/hr Documented By: TRAVIS Insulin Human Lispro (Insulin Lispro 100 Unit/Ml 3 Ml Vial) 0 unit SUBCUT QIDACHS [facility]; Protocol Last Admin: 11/08/22 12:09 Dose: 6 unit Documented By: TRAVIS Lamotrigine (Lamotrigine 100 Mg Tablet) 100 mg PO BID [facility] Last Admin: 11/08/22 09:04 Dose: 100 mg Documented By: TRAVIS Levothyroxine Sodium (Levothyroxine Sodium 25 Mcg Tablet) 25 mcg PO DAILY@0600 [facility] Last Admin: 11/08/22 05:13 Dose: 25 mcg Documented By: NICKI Magnesium Oxide (Magnesium Oxide 400 Mg Tablet) 400 mg PO TID [facility] Last Admin: 11/08/22 09:04 Dose: 400 mg Documented By: TRAVIS Metoprolol Tartrate (Metoprolol Tartrate 12.5 Mg Halftab) 12.5 mg PO DAILY [facility]; Protocol Last Admin: 11/08/22 09:03 Dose: 12.5 mg Documented By: TRAVIS Non-Formulary Medication (Methenamine Hippurate) 1 gm PO BID [facility] Ondansetron HCl (Ondansetron Hcl 4 Mg/2 Ml Vial) 4 mg IVPUSH Q8H PRN PRN Reason: Nausea and Vomiting Oxcarbazepine (Oxcarbazepine 300 Mg Tablet) 600 mg PO BID [facility] Last Admin: 11/08/22 09:04 Dose: 600 mg Documented By: TRAVIS Oxycodone HCl (Oxycodone Hcl Immed Release 5 Mg Tablet) 5 mg PO Q4H PRN PRN Reason: severe pain Perphenazine (Perphenazine 8 Mg Tablet) 16 mg PO TID [facility] Last Admin: 11/08/22 09:03 Dose: 16 mg Documented By: TRAVIS Sodium Chloride (0.9 % Sodium Chloride Flush 3 Ml Syringe) 3 ml IVFLUSH QSHIFT [facility] Last Admin: 11/08/22 09:02 Dose: 3 ml Documented By: TRAVIS Tiotropium [place] (Tiotropium [place] 18 Mcg Cap.W.Dev) 1 puff INHALE RDAILY [facility] Last Admin: 11/08/22 07:56 Dose: Not Given Documented By: LAWRENCE Non-Admin Reason: Patient Asleep Trihexyphenidyl HCl (Trihexyphenidyl Hcl 2 Mg Tablet) 4 mg PO DAILY [facility] Last Admin: 11/08/22 09:04 Dose: 4 mg Documented By: TRAVIS Labs 11/06/22 02:47 11/07/22 05:41 Labs: Laboratory Results - last 24 hr 11/07/22 11/07/22 11/08/22 16:45 20:04 05:37 POC Glucose 268 H 184 H TSH 2.63 11/08/22 11/08/22 07:35 11:20 POC Glucose 261 H 299 H TSH Microbiology Microbiology Results: Microbiology 11/06/22 03:09 Blood Culture - Preliminary Blood - Venous No growth after 48 hours. 11/06/22 02:47 Blood Culture - Preliminary Blood - Venous No growth after 48 hours. Assessment and Plan (1) Encephalopathy: Status: Acute (2) Pulmonary collapse: Status: Acute (3) Acute and chronic respiratory failure with hypoxia: Status: Acute Plan d#3 62yo F LTC resident at [facility] with COPD presenting with hyopxia and found to have PNA with LLL collapse # acute-chronic hypoxic resp failure due to PNA with LLL collapse - Pulmonology consulted, continue IV antibiotics [pip-anastasia d#3], chest PT, keep L side up for postural drainage, no bronchoscopy at this point, cannot tolerate NIV # aspiration PNA - continue pip-anastasia 11/06- - STR: NDD3 solids, thin liquids # acute toxic-metabolic encephalopathy - reslolved, likely due to hypoxia, no hypercapnea # COPD without acute exac - nebulizer treatments, home inhalers, no steroids # DM2 - correction-dose lispro # hypothyroidism - continue LT4 # schizoaffective disorder - continue home meds # VTE ppx: UFH # dispo: eventual return to LTC Time Spent With Patient Time: Total time managing care of this patient today __35__ minutes. Quality Stroke Does the patient have a stroke diagnosis?: No VTE Prior VTE?: No VTE Risk Level:: Medical - moderate - high VTE Device Contraindication: Treatment Not Indicated VTE Drug Contraindication: N/A - Med Ordered
[2022-11-08 15:23] VITALS: BP 131/73; PULSE 101; RESP 24; TEMP 36.5; O2SAT 93
[2022-11-08] MEDS: Albuterol/Iprat 2.5/0.5MG 3 ML AMPUL.NEB INHALE ×2 (15:52→20:01)
[2022-11-08 15:53] VITALS: RESP 20; O2SAT 93
[2022-11-08 16:04] LABS: Glucose, Whole Blood 228 mg/dL (60-115)
[2022-11-08 19:00] VITALS: BP 141/78; PULSE 108; RESP 17; TEMP 36.4; O2SAT 92
[2022-11-08 19:32] LABS: Glucose, Whole Blood 226 mg/dL (60-115)
[2022-11-08 20:01] VITALS: PULSE 110; O2SAT 91
[2022-11-08] MEDS: Fluticasone/Vilanterol 200/25 BLST.W.DEV 1 PUFF INHALE (20:11)
[2022-11-08] MEDS: cloZAPine 100 MG TABLET 300 MG PO (21:11)
[2022-11-08] MEDS: Fenofibrate 160 MG TABLET PO (21:12)
[2022-11-08] MEDS: Atorvastatin Calcium 40 MG TABLET PO (21:18)
[2022-11-08] MEDS: oxyCODONE HCl Immed Release 5 MG TABLET PO (22:57)
[2022-11-09] VITALS (11 sets, daily range): BP systolic 110–128; BP diastolic 59–85; PULSE 91–114; RESP 17–20; TEMP 35.9–36.4; O2SAT 83–107
[2022-11-09] MEDS: 0.9 % Sodium Chloride Flush 3 ML SYRINGE IVFLUSH ×4 (00:33→19:49)
[2022-11-09] MEDS: Piperacillin Sodium/Tazobactam 3.375 GM in 0.9 % Sodium Chloride 50 ML IV ×5 (00:33→23:59)
[2022-11-09] MEDS: Heparin Sodium,Porcine 5,000 UNIT/ML VIAL 5000 UNIT SUBCUT ×2 (05:48→17:37)
[2022-11-09] MEDS: Levothyroxine Sodium 25 MCG TABLET PO (05:49)
[2022-11-09 06:03] LABS: Hematocrit 34.5 % (37.0-47.0); Hemoglobin 10.5 g/dl (12.0-16.0); Mean Corpuscular HGB Conc 30.4 g/dl (31.0-35.0); Mean Corpuscular Hemoglobin 27.5 pg (27.0-33.0); Mean Corpuscular Volume 90.3 fL (80.0-98.0); Mean Platelet Volume 11.5 fL (9.4-12.3); Platelet Count 199 X10*3/uL (160-400); Red Blood Count 3.82 X10*6/uL (4.20-5.50); White Blood Count 6.6 X10*3/uL (4.8-10.8)
[2022-11-09 06:06] LABS: Venous Blood Gas Refer to POC result
[2022-11-09 06:06] LABS: VBG Base Excess 15.2 mmol/L; VBG HCO3 42 mmol/L (22-26); VBG pCO2 62 mmHg; VBG pH 7.43 (7.32-7.43); VBG pO2 101 mmHg
[2022-11-09 06:49] LABS: Anion Gap 11 (12-20); Blood Urea Nitrogen 24 mg/dL (9-16); Calcium 9.9 mg/dL (8.4-10.2); Carbon Dioxide 34 mmol/L (22-29); Chloride 98 mmol/L (96-108); Creatinine Clr Calc Pharmacy 102.7; Estimated Glomerular Filt Rate > 60; Glucose Random 282 mg/dL (60-115); Potassium 4.2 mmol/L (3.3-5.1); Sodium 139 mmol/L (135-145)
[2022-11-09 07:13] LABS: Procalcitonin 0.12 ng/mL
[2022-11-09] MEDS: Insulin Lispro 100 UNIT/ML 3 ML VIAL SUBCUT ×4 (08:15→20:20)
[2022-11-09] MEDS: Aspirin Enteric Coated 81 MG TABLET.DR PO (08:16)
[2022-11-09] MEDS: OXcarbazepine 300 MG TABLET 600 MG PO ×2 (08:16→19:48)
[2022-11-09] MEDS: Trihexyphenidyl HCL 2 MG TABLET 4 MG PO (08:16)
[2022-11-09] MEDS: Perphenazine 8 MG TABLET 16 MG PO ×3 (08:16→19:48)
[2022-11-09] MEDS: Furosemide 20 MG TABLET PO (08:16)
[2022-11-09] MEDS: Ascorbic Acid 500 MG TABLET PO ×2 (08:17→19:49)
[2022-11-09] MEDS: Metoprolol Tartrate 12.5 MG HALFTAB PO (08:17)
[2022-11-09] MEDS: cloZAPine 100 MG TABLET PO (08:17)
[2022-11-09] MEDS: lamoTRIgine 100 MG TABLET PO ×2 (08:17→19:49)
[2022-11-09] MEDS: Magnesium Oxide 400 MG TABLET PO ×3 (08:18→19:50)
[2022-11-09 08:23] LABS: Glucose, Whole Blood 248 mg/dL (60-115)
[2022-11-09] MEDS: 0.9 % Sodium Chloride 1,000 ML 50 ML IVCONT (09:14)
--- NOTE | 2022-11-09 11:25 | HO.PM.IMPN ---
Subjective Subjective Date of Service: 11/09/22 Interval History: c/o dyspnea and cough. now on 5L O2. Review of Systems Review of Systems: Yes all other systems are reviewed and are negative Physical Exam Vital Signs: Vital Signs: Last Vital Signs Temp 96.6 F L 11/09/22 07:50 Pulse 114 H 11/09/22 07:50 Resp 18 11/09/22 07:50 BP 125/75 11/09/22 07:50 Pulse Ox 92 11/09/22 07:50 O2 Del Method 11/09/22 07:50 O2 Flow Rate 5 11/09/22 07:50 FiO2 80 11/06/22 07:50 BMI result Body Mass Index 39.1 Gen: in no acute distress HEENT: sclera anicteric, moist mucus membranes Neck: supple Lungs: diminished breath sounds Heart: regular rate and rhythm, no murmurs Abd: soft, non-tender, non-distended Ext: no edema Skin: warm/well-perfused Neuro: alert and oriented x3, no focal findings Psych: appropriate affect Objective Data Active Medications Acetaminophen (Acetaminophen 325 Mg Tablet) 650 mg PO Q6H PRN PRN Reason: Pain, Mild (Pain Scale 1-3) Last Admin: 11/08/22 09:06 Dose: 650 mg Documented By: TRAVIS Albuterol Sulfate (Albuterol Sulfate 90 Mcg 8 Gm Inhaler) 2 puff INHALE RQ4H PRN PRN Reason: Shortness Of Breath Or Wheezing Albuterol/Ipratropium (Albuterol/Iprat 2.5/0.5mg 3 Ml Ampul.Neb) 3 ml INHALE RQ4H PRN PRN Reason: Shortness of Breath/Wheezing Albuterol/Ipratropium (Albuterol/Iprat 2.5/0.5mg 3 Ml Ampul.Neb) 3 ml INHALE RQID [facility] Last Admin: 11/09/22 07:52 Dose: 3 ml Documented By: VLAD Ascorbic Acid (Ascorbic Acid 500 Mg Tablet) 500 mg PO BID [facility] Last Admin: 11/09/22 08:17 Dose: 500 mg Documented By: TRAVIS Aspirin (Aspirin Enteric Coated 81 Mg Tablet.) 81 mg PO DAILY [facility] Last Admin: 11/09/22 08:16 Dose: 81 mg Documented By: TRAVIS Atorvastatin Calcium (Atorvastatin Calcium 40 Mg Tablet) 40 mg PO BEDTIME [facility] Last Admin: 11/08/22 21:18 Dose: 40 mg Documented By: CHRIS Bisacodyl (Bisacodyl 5 Mg Tablet.Dr) 10 mg PO DAILY PRN PRN Reason: Constipation Clozapine (Clozapine 100 Mg Tablet) 100 mg PO DAILY [facility] Last Admin: 11/09/22 08:17 Dose: 100 mg Documented By: TRAVIS Clozapine (Clozapine 100 Mg Tablet) 300 mg PO BEDTIME [facility] Last Admin: 11/08/22 21:11 Dose: 300 mg Documented By: CHRIS Dextrose (Dextrose 50 % 25 Gm/50 Ml Syringe) 25 gm IVPUSH Q15M PRN; Protocol PRN Reason: per Hypoglycemia Standing Ord. Fenofibrate (Fenofibrate 160 Mg Tablet) 160 mg PO BEDTIME [facility] Last Admin: 11/08/22 21:12 Dose: 160 mg Documented By: CHRIS Fluticasone/Vilanterol (Fluticasone/Vilanterol 200/25 Blst.W.Dev) 1 puff INHALE RDAILY@1999 [facility] Last Admin: 11/08/22 20:11 Dose: 1 puff Documented By: LYNDON Furosemide (Furosemide 20 Mg Tablet) 20 mg PO DAILY [facility]; Protocol Last Admin: 11/09/22 08:16 Dose: 20 mg Documented By: TRAVIS Glucose (Glucose Gel 15 Gm Gel..Gram.) 15 gm PO Q15M PRN; Protocol PRN Reason: per Hypoglycemia Standing Ord. Heparin Sodium (Porcine) (Heparin Sodium,Porcine 5,000 Unit/Ml Vial) 5,000 unit SUBCUT Q12H [facility] Last Admin: 11/09/22 05:48 Dose: 5,000 unit Documented By: COTZOILA Piperacillin Sod/Tazobactam (Sod 3.375 gm/ Sodium Chloride) 50 mls @ 100 mls/hr IV Q6H [facility] Last Infusion: 11/09/22 06:21 Dose: 0 mls/hr Documented By: COTEMA Sodium Chloride (Ns) 1,000 mls @ 50 mls/hr IVCONT .Q20H [facility] Stop: 11/10/22 04:14 Last Admin: 11/09/22 09:14 Dose: 50 mls/hr Documented By: TRAVIS Insulin Human Lispro (Insulin Lispro 100 Unit/Ml 3 Ml Vial) 0 unit SUBCUT QIDACHS [facility]; Protocol Last Admin: 11/09/22 08:15 Dose: 4 unit Documented By: TRAVIS Comments: Lamotrigine (Lamotrigine 100 Mg Tablet) 100 mg PO BID [facility] Last Admin: 11/09/22 08:17 Dose: 100 mg Documented By: TRAVIS Levothyroxine Sodium (Levothyroxine Sodium 25 Mcg Tablet) 25 mcg PO DAILY@0600 [facility] Last Admin: 11/09/22 05:49 Dose: 25 mcg Documented By: COTEMA Magnesium Oxide (Magnesium Oxide 400 Mg Tablet) 400 mg PO TID [facility] Last Admin: 11/09/22 08:18 Dose: 400 mg Documented By: TRAVIS Metoprolol Tartrate (Metoprolol Tartrate 12.5 Mg Halftab) 12.5 mg PO DAILY [facility]; Protocol Last Admin: 11/09/22 08:17 Dose: 12.5 mg Documented By: TRAVIS Non-Formulary Medication (Methenamine Hippurate) 1 gm PO BID [facility] Ondansetron HCl (Ondansetron Hcl 4 Mg/2 Ml Vial) 4 mg IVPUSH Q8H PRN PRN Reason: Nausea and Vomiting Oxcarbazepine (Oxcarbazepine 300 Mg Tablet) 600 mg PO BID [facility] Last Admin: 11/09/22 08:16 Dose: 600 mg Documented By: TRAVIS Oxycodone HCl (Oxycodone Hcl Immed Release 5 Mg Tablet) 5 mg PO Q4H PRN PRN Reason: severe pain Last Admin: 11/08/22 22:57 Dose: 5 mg Documented By: CHRIS Perphenazine (Perphenazine 8 Mg Tablet) 16 mg PO TID [facility] Last Admin: 11/09/22 08:16 Dose: 16 mg Documented By: TRAVIS Sodium Chloride (0.9 % Sodium Chloride Flush 3 Ml Syringe) 3 ml IVFLUSH QSHIFT [facility] Last Admin: 11/09/22 09:15 Dose: 3 ml Documented By: TRAVIS Tiotropium Clovis (Tiotropium Clovis 18 Mcg Cap.W.Dev) 1 puff INHALE RDAILY [facility] Last Admin: 11/09/22 07:47 Dose: Not Given Documented By: LAWRENCE Non-Admin Reason: Patient Refused Trihexyphenidyl HCl (Trihexyphenidyl Hcl 2 Mg Tablet) 4 mg PO DAILY [facility] Last Admin: 11/09/22 08:16 Dose: 4 mg Documented By: TRAVIS Labs 11/09/22 05:53 11/09/22 05:53 Labs: Laboratory Results - last 24 hr 11/08/22 11/08/22 11/08/22 11:20 15:27 19:07 MCV MCH MCHC RDW Plt Count MPV Absolute Nucleated RBC Nucleated RBC % (auto) VBG pH VBG pCO2 VBG pO2 VBG HCO3 VBG O2 Saturation VBG Base Excess Anion Gap Estim Creat Clear Calc Estimated GFR POC Glucose 299 H 228 H 226 H Random Glucose Calcium Procalcitonin 11/09/22 11/09/22 11/09/22 05:53 05:53 05:53 MCV 90.3 MCH 27.5 MCHC 30.4 L RDW 15.0 Plt Count 199 MPV 11.5 Absolute Nucleated RBC 0.000 Nucleated RBC % (auto) 0.0 VBG pH VBG pCO2 VBG pO2 VBG HCO3 VBG O2 Saturation VBG Base Excess Anion Gap 11 L Estim Creat Clear Calc 102.7 Estimated GFR > 60 POC Glucose Random Glucose 282 H Calcium 9.9 Procalcitonin 0.12 11/09/22 11/09/22 05:58 07:45 MCV MCH MCHC RDW Plt Count MPV Absolute Nucleated RBC Nucleated RBC % (auto) VBG pH 7.43 VBG pCO2 62 VBG pO2 101 VBG HCO3 42 H VBG O2 Saturation 96.0 VBG Base Excess 15.2 Anion Gap Estim Creat Clear Calc Estimated GFR POC Glucose 248 H Random Glucose Calcium Procalcitonin Assessment and Plan (1) Encephalopathy: Status: Acute (2) Pulmonary collapse: Status: Acute (3) Acute and chronic respiratory failure with hypoxia: Status: Acute Plan d#4 62yo F LTC resident at [facility] with COPD presenting with hyopxia and found to have PNA with LLL collapse # acute-chronic hypoxic resp failure due to PNA with LLL collapse - Pulmonology consulted, continue IV antibiotics [pip-anastasia 11/06-], chest PT, keep L side up for postural drainage, no bronchoscopy at this point, cannot tolerate NIV - repeat CXR today # aspiration PNA - continue pip-anastasia 11/06- - STR: NDD3 solids, thin liquids # acute toxic-metabolic encephalopathy - reslolved, likely due to hypoxia, no hypercapnea # COPD without acute exac - nebulizer treatments, home inhalers, no steroids # DM2 - correction-dose lispro # hypothyroidism - continue LT4 # schizoaffective disorder - continue home meds # VTE ppx: UFH # dispo: eventual return to LTC In my clinical judgment, the patient requires continued inpatient hospitalization for the following reasons: hypoxia, IV ABX Time Spent With Patient Time: Total time managing care of this patient today __40__ minutes. Quality Stroke Does the patient have a stroke diagnosis?: No VTE Prior VTE?: No VTE Risk Level:: Medical - moderate - high VTE Device Contraindication: Treatment Not Indicated VTE Drug Contraindication: N/A - Med Ordered
[2022-11-09 11:46] LABS: Glucose, Whole Blood 235 mg/dL (60-115)
[2022-11-09] MEDS: Albuterol/Iprat 2.5/0.5MG 3 ML AMPUL.NEB INHALE ×3 (12:44→19:24)
[2022-11-09] MEDS: Furosemide 40 MG/4 ML VIAL IVPUSH (13:18)
[2022-11-09] MEDS: Acetaminophen 325 MG TABLET 650 MG PO (14:00)
--- NOTE | 2022-11-09 15:27 | PC.NURSE ---
At 1220 o2 sat was 83 on 5l. 1235 placed on nrb for approx 5min 98%. R.t in to asses pt. given updraft then placed on oxymask 4l. given 40mg iv lasix. Pt inc of large amt of urine, Lung sounds were coarse and wheezy as compared to this am
[2022-11-09 16:16] LABS: Glucose, Whole Blood 188 mg/dL (60-115)
[2022-11-09 19:23] LABS: Glucose, Whole Blood 260 mg/dL (60-115)
[2022-11-09] MEDS: Fluticasone/Vilanterol 200/25 BLST.W.DEV 1 PUFF INHALE (19:27)
[2022-11-09] MEDS: Fenofibrate 160 MG TABLET PO (19:48)
[2022-11-09] MEDS: cloZAPine 100 MG TABLET 300 MG PO (19:48)
[2022-11-09] MEDS: Atorvastatin Calcium 40 MG TABLET PO (19:48)
[2022-11-09 20:07] LABS: Glucose, Whole Blood 231 mg/dL (60-115)
[2022-11-10] VITALS (8 sets, daily range): BP systolic 117–132; BP diastolic 65–78; PULSE 94–110; RESP 16–24; TEMP 35.9–36.3; O2SAT 85–96
[2022-11-10] MEDS: Levothyroxine Sodium 25 MCG TABLET PO (05:54)
[2022-11-10] MEDS: Heparin Sodium,Porcine 5,000 UNIT/ML VIAL 5000 UNIT SUBCUT ×2 (05:54→17:06)
[2022-11-10] MEDS: Piperacillin Sodium/Tazobactam 3.375 GM in 0.9 % Sodium Chloride 50 ML IV ×4 (05:54→23:37)
[2022-11-10 07:11] LABS: B Type Natriuretic Peptide < 10 pg/mL (<100)
[2022-11-10 07:50] LABS: Glucose, Whole Blood 249 mg/dL (60-115)
[2022-11-10] MEDS: 0.9 % Sodium Chloride Flush 3 ML SYRINGE IVFLUSH ×3 (08:23→20:24)
[2022-11-10] MEDS: Albuterol/Iprat 2.5/0.5MG 3 ML AMPUL.NEB INHALE ×4 (08:26→21:12)
--- NOTE | 2022-11-10 10:48 | HO.PM.IMPN ---
Subjective Subjective Date of Service: 11/10/22 Interval History: C/o dyspnea + cough Review of Systems Review of Systems: Yes all other systems are reviewed and are negative Physical Exam Vital Signs: Vital Signs: Last Vital Signs Temp 97.3 F 11/10/22 08:00 Pulse 95 11/10/22 08:30 Resp 18 11/10/22 08:30 BP 124/78 11/10/22 08:00 Pulse Ox 94 11/10/22 08:00 O2 Del Method 11/10/22 08:00 O2 Flow Rate 5 11/10/22 08:00 FiO2 80 11/06/22 07:50 BMI result Body Mass Index 39.1 Const: Other: Gen: in no acute distress HEENT: sclera anicteric, moist mucus membranes Neck: supple Lungs: diminished breath sounds Heart: regular rate and rhythm, no murmurs Abd: soft, non-tender, non-distended Ext: no edema Skin: warm/well-perfused Neuro: alert and oriented x3, no focal findings Psych: appropriate affect Objective Data Active Medications Acetaminophen (Acetaminophen 325 Mg Tablet) 650 mg PO Q6H PRN PRN Reason: Pain, Mild (Pain Scale 1-3) Last Admin: 11/09/22 14:00 Dose: 650 mg Documented By: TRAVIS Albuterol Sulfate (Albuterol Sulfate 90 Mcg 8 Gm Inhaler) 2 puff INHALE RQ4H PRN PRN Reason: Shortness Of Breath Or Wheezing Albuterol/Ipratropium (Albuterol/Iprat 2.5/0.5mg 3 Ml Ampul.Neb) 3 ml INHALE RQ4H PRN PRN Reason: Shortness of Breath/Wheezing Albuterol/Ipratropium (Albuterol/Iprat 2.5/0.5mg 3 Ml Ampul.Neb) 3 ml INHALE RQID [facility] Last Admin: 11/10/22 08:26 Dose: 3 ml Documented By: MARCELLE Ascorbic Acid (Ascorbic Acid 500 Mg Tablet) 500 mg PO BID [facility] Last Admin: 11/09/22 19:49 Dose: 500 mg Aspirin (Aspirin Enteric Coated 81 Mg Tablet.) 81 mg PO DAILY [facility] Last Admin: 11/09/22 08:16 Dose: 81 mg Atorvastatin Calcium (Atorvastatin Calcium 40 Mg Tablet) 40 mg PO BEDTIME [facility] Last Admin: 11/09/22 19:48 Dose: 40 mg Documented By: MARGOT Bisacodyl (Bisacodyl 5 Mg Tablet.Dr) 10 mg PO DAILY PRN PRN Reason: Constipation Clozapine (Clozapine 100 Mg Tablet) 100 mg PO DAILY [facility] Last Admin: 11/09/22 08:17 Dose: 100 mg Clozapine (Clozapine 100 Mg Tablet) 300 mg PO BEDTIME [facility] Last Admin: 11/09/22 19:48 Dose: 300 mg Documented By: MARGOT Dextrose (Dextrose 50 % 25 Gm/50 Ml Syringe) 25 gm IVPUSH Q15M PRN; Protocol PRN Reason: per Hypoglycemia Standing Ord. Fenofibrate (Fenofibrate 160 Mg Tablet) 160 mg PO BEDTIME [facility] Last Admin: 11/09/22 19:48 Dose: 160 mg Documented By: MARGOT Fluticasone/Vilanterol (Fluticasone/Vilanterol 200/25 Blst.W.Dev) 1 puff INHALE RDAILY@1999 [facility] Last Admin: 11/09/22 19:27 Dose: 1 puff Documented By: CHELO Furosemide (Furosemide 20 Mg Tablet) 20 mg PO DAILY [facility]; Protocol Last Admin: 11/09/22 08:16 Dose: 20 mg Glucose (Glucose Gel 15 Gm Gel..Gram.) 15 gm PO Q15M PRN; Protocol PRN Reason: per Hypoglycemia Standing Ord. Heparin Sodium (Porcine) (Heparin Sodium,Porcine 5,000 Unit/Ml Vial) 5,000 unit SUBCUT Q12H [facility] Last Admin: 11/10/22 05:54 Dose: 5,000 unit Documented By: MARGOT Piperacillin Sod/Tazobactam (Sod 3.375 gm/ Sodium Chloride) 50 mls @ 100 mls/hr IV Q6H [facility] Last Infusion: 11/10/22 06:32 Dose: 0 mls/hr Documented By: MARGOT Insulin Human Lispro (Insulin Lispro 100 Unit/Ml 3 Ml Vial) 0 unit SUBCUT QIDACHS [facility]; Protocol Last Admin: 11/09/22 20:20 Dose: 4 unit Lamotrigine (Lamotrigine 100 Mg Tablet) 100 mg PO BID [facility] Last Admin: 11/09/22 19:49 Dose: 100 mg Levothyroxine Sodium (Levothyroxine Sodium 25 Mcg Tablet) 25 mcg PO DAILY@0600 [facility] Last Admin: 11/10/22 05:54 Dose: 25 mcg Documented By: MARGOT Magnesium Oxide (Magnesium Oxide 400 Mg Tablet) 400 mg PO TID [facility] Last Admin: 11/09/22 19:50 Dose: 400 mg Metoprolol Tartrate (Metoprolol Tartrate 12.5 Mg Halftab) 12.5 mg PO DAILY [facility]; Protocol Last Admin: 11/09/22 08:17 Dose: 12.5 mg Non-Formulary Medication (Methenamine Hippurate) 1 gm PO BID [facility] Ondansetron HCl (Ondansetron Hcl 4 Mg/2 Ml Vial) 4 mg IVPUSH Q8H PRN PRN Reason: Nausea and Vomiting Oxcarbazepine (Oxcarbazepine 300 Mg Tablet) 600 mg PO BID [facility] Last Admin: 11/09/22 19:48 Dose: 600 mg Oxycodone HCl (Oxycodone Hcl Immed Release 5 Mg Tablet) 5 mg PO Q4H PRN PRN Reason: severe pain Last Admin: 11/08/22 22:57 Dose: 5 mg Documented By: CHRIS Perphenazine (Perphenazine 8 Mg Tablet) 16 mg PO TID [facility] Last Admin: 11/09/22 19:48 Dose: 16 mg Sodium Chloride (0.9 % Sodium Chloride Flush 3 Ml Syringe) 3 ml IVFLUSH QSHIFT [facility] Last Admin: 11/10/22 08:23 Dose: 3 ml Documented By: KELSEY Tiotropium Wyocena (Tiotropium Wyocena 18 Mcg Cap.W.Dev) 1 puff INHALE RDAILY [facility] Last Admin: 11/10/22 08:26 Dose: 1 puff Documented By: MARCELLE Trihexyphenidyl HCl (Trihexyphenidyl Hcl 2 Mg Tablet) 4 mg PO DAILY [facility] Last Admin: 11/09/22 08:16 Dose: 4 mg Labs 11/09/22 05:53 11/09/22 05:53 Labs: Laboratory Results - last 24 hr 11/09/22 11/09/22 11/09/22 11:31 15:07 18:56 POC Glucose 235 H 188 H 260 H B-Natriuretic Peptide 11/09/22 11/10/22 11/10/22 20:02 05:40 07:13 POC Glucose 231 H 249 H B-Natriuretic Peptide < 10 Assessment and Plan (1) Encephalopathy: Status: Acute (2) Pulmonary collapse: Status: Acute (3) Acute and chronic respiratory failure with hypoxia: Status: Acute Plan d#5 62yo F LTC resident at [facility] with COPD presenting with hyopxia and found to have PNA with LLL collapse # acute-chronic hypoxic resp failure due to PNA with LLL collapse - Pulmonology consulted, continue IV antibiotics [pip-anastasia 11/06-], chest PT, keep L side up for postural drainage, no bronchoscopy at this point, cannot tolerate NIV # aspiration PNA - continue pip-anastasia 11/06- - STR: NDD3 solids, thin liquids # acute toxic-metabolic encephalopathy - reslolved, likely due to hypoxia, no hypercapnea # COPD without acute exac - nebulizer treatments, home inhalers, no steroids # DM2 - correction-dose lispro # hypothyroidism - continue LT4 # schizoaffective disorder - continue home meds # VTE ppx: UFH # dispo: eventual return to LTC In my clinical judgment, the patient requires continued inpatient hospitalization for the following reasons: hypoxia, IV ABX Time Spent With Patient Time: Total time managing care of this patient today __35__ minutes. Quality Stroke Does the patient have a stroke diagnosis?: No VTE Prior VTE?: No VTE Risk Level:: Medical - moderate - high VTE Device Contraindication: Treatment Not Indicated VTE Drug Contraindication: N/A - Med Ordered
[2022-11-10] MEDS: Insulin Lispro 100 UNIT/ML 3 ML VIAL SUBCUT ×4 (10:52→20:22)
[2022-11-10] MEDS: Metoprolol Tartrate 12.5 MG HALFTAB PO (10:53)
[2022-11-10] MEDS: OXcarbazepine 300 MG TABLET 600 MG PO ×2 (10:53→20:23)
[2022-11-10] MEDS: Aspirin Enteric Coated 81 MG TABLET.DR PO (10:53)
[2022-11-10] MEDS: lamoTRIgine 100 MG TABLET PO ×2 (10:54→20:24)
[2022-11-10] MEDS: Furosemide 20 MG TABLET PO (10:54)
[2022-11-10] MEDS: Perphenazine 8 MG TABLET 16 MG PO ×3 (10:54→20:23)
[2022-11-10] MEDS: cloZAPine 100 MG TABLET PO (10:54)
[2022-11-10] MEDS: Ascorbic Acid 500 MG TABLET PO ×2 (10:54→20:24)
[2022-11-10] MEDS: Magnesium Oxide 400 MG TABLET PO ×3 (10:54→20:24)
[2022-11-10] MEDS: Trihexyphenidyl HCL 2 MG TABLET 4 MG PO (10:54)
[2022-11-10 11:46] LABS: Glucose, Whole Blood 262 mg/dL (60-115)
--- NOTE | 2022-11-10 12:43 | MHC.CM.PN ---
PATIENT STILL RETURNING IV ABX. NO PLAN FOR DC TODAY. [facility]PD[facility].
[2022-11-10 16:35] LABS: Glucose, Whole Blood 301 mg/dL (60-115)
[2022-11-10] MEDS: Acetaminophen 325 MG TABLET 650 MG PO (17:55)
[2022-11-10 19:51] LABS: Glucose, Whole Blood 209 mg/dL (60-115)
[2022-11-10] MEDS: cloZAPine 100 MG TABLET 300 MG PO (20:23)
[2022-11-10] MEDS: Fenofibrate 160 MG TABLET PO (20:23)
[2022-11-10] MEDS: Atorvastatin Calcium 40 MG TABLET PO (20:24)
[2022-11-10] MEDS: Fluticasone/Vilanterol 200/25 BLST.W.DEV 1 PUFF INHALE (21:12)
[2022-11-11 04:00] VITALS: BP 132/82; PULSE 109; RESP 20; TEMP 36; O2SAT 88
[2022-11-11] MEDS: Piperacillin Sodium/Tazobactam 3.375 GM in 0.9 % Sodium Chloride 50 ML IV ×2 (05:45→12:21)
[2022-11-11] MEDS: Heparin Sodium,Porcine 5,000 UNIT/ML VIAL 5000 UNIT SUBCUT (05:45)
[2022-11-11] MEDS: Levothyroxine Sodium 25 MCG TABLET PO (05:45)
[2022-11-11 07:11] LABS: Hematocrit 34.4 % (37.0-47.0); Hemoglobin 10.6 g/dl (12.0-16.0); Mean Corpuscular HGB Conc 30.8 g/dl (31.0-35.0); Mean Corpuscular Hemoglobin 27.7 pg (27.0-33.0); Mean Corpuscular Volume 90.1 fL (80.0-98.0); Mean Platelet Volume 11.8 fL (9.4-12.3); Platelet Count 213 X10*3/uL (160-400); Red Blood Count 3.82 X10*6/uL (4.20-5.50); Red Cell Distribution Width 15.5 % (11.0-16.0); White Blood Count 6.2 X10*3/uL (4.8-10.8)
[2022-11-11 07:50] LABS: Anion Gap 14 (12-20); Blood Urea Nitrogen 31 mg/dL (9-16); Calcium 9.8 mg/dL (8.4-10.2); Carbon Dioxide 33 mmol/L (22-29); Chloride 96 mmol/L (96-108); Creatinine Clr Calc Pharmacy 91.9; Estimated Glomerular Filt Rate > 60; Glucose Random 280 mg/dL (60-115); Potassium 4.2 mmol/L (3.3-5.1); Sodium 139 mmol/L (135-145)
[2022-11-11 07:51] LABS: Glucose, Whole Blood 254 mg/dL (60-115)
[2022-11-11 08:00] VITALS: BP 121/69; PULSE 104; RESP 18; TEMP 36.2; O2SAT 93
[2022-11-11] MEDS: Insulin Lispro 100 UNIT/ML 3 ML VIAL SUBCUT ×2 (08:09→12:21)
[2022-11-11] MEDS: Aspirin Enteric Coated 81 MG TABLET.DR PO (08:11)
[2022-11-11] MEDS: lamoTRIgine 100 MG TABLET PO (08:11)
[2022-11-11] MEDS: 0.9 % Sodium Chloride Flush 3 ML SYRINGE IVFLUSH (08:11)
[2022-11-11] MEDS: Trihexyphenidyl HCL 2 MG TABLET 4 MG PO (08:12)
[2022-11-11] MEDS: Perphenazine 8 MG TABLET 16 MG PO (08:12)
[2022-11-11] MEDS: Furosemide 20 MG TABLET PO (08:12)
[2022-11-11] MEDS: Ascorbic Acid 500 MG TABLET PO (08:12)
[2022-11-11] MEDS: cloZAPine 100 MG TABLET PO (08:12)
[2022-11-11] MEDS: OXcarbazepine 300 MG TABLET 600 MG PO (08:12)
[2022-11-11] MEDS: Metoprolol Tartrate 12.5 MG HALFTAB PO (08:12)
[2022-11-11] MEDS: Magnesium Oxide 400 MG TABLET PO (08:12)
[2022-11-11] MEDS: Albuterol/Iprat 2.5/0.5MG 3 ML AMPUL.NEB INHALE ×3 (08:36→15:13)
[2022-11-11 08:39] VITALS: PULSE 92; RESP 18; O2SAT 92
[2022-11-11 08:43] VITALS: PULSE 92; RESP 18; O2SAT 92
[2022-11-11 11:33] VITALS: PULSE 93; RESP 18; O2SAT 90
[2022-11-11 11:49] LABS: Glucose, Whole Blood 182 mg/dL (60-115)
--- NOTE | 2022-11-11 11:50 | MHC.CM.PN ---
PATIENT TO RETURN TO [facility] TODAY FOR 1500 [facility] RN AND UNIT AWARE IMM 11/10 IN CHART
[2022-11-11 13:02] LABS: COVID-19 Test Negative (Negative); IDNOW Serial# 9DB6401D
--- NOTE | 2022-11-11 13:57 | MHC.SL.SWA ---
Speech Pathologist Impression: Risk of Aspiration Due to: Neurological Condition History of Pneumonia Dysphasia Diet Status: Mild Oral Phase Dysphagia, vulnerable respiratory status, recommend CHOPPED/ADVANCED (NDD3) with THIN liquids, pills whole in puree or liquid per pt's tolerance/preference. Liquid Consistency and Strategies for Safe Swallow: Liquid Intake Recommendation: Thin Liquid Intake Strategies: Small Sips Solid Food Consistency: Dietary Recommendations: Chopped/Advanced (NDD3) Additional Modifications to Solid Foods: Patient will likely need and should be encouraged to take short breaks during meal for 02. Patient can drink with straw IF SUPERVISED to assure that she is taking small, individual sips (not chain sips), if not supervised: NO STRAW. Patient can feed self, but will need supervision as may spill food or liquid on self. Monitor for clinical signs of aspiration, discontinue meal if patient evidences clinical signs of aspiration, audible airway congestion or noise. Oral Medication Intake: Whole with Puree Please contact the pharmacy regarding appropriate crushable or liquid drug formulations that are available whenever modified delivery is recommended. Compensatory Strategies and Precautions to be Taken for Safe Swallow: Sitting Upright (90 deg) Small Bites and Sips Rate of Ingestion Change Avoid Specific Foods Supervision While Eating and Drinking for Safe Swallow: Total Supervision (1:1) Foods to Avoid: Mixed consistencies, tough, difficult to chew solids. Swallowing Recommended Treatments: Compens. Strategy Educat. Recommendation for Speech: Inpatient Speech Therapy Comment: Patient was seen during lunch today for dysphagia treatment. At onset, patient had already finished most of her lunch, was independently feeding self. Patient very cheerfully greeted the BUSINESS ANALYSIS CONSULTANT, reported that she was being sent back to [facility] later today, and was very happy about her disposition. On chopped Mac and cheese, patient produced a slow rotary chew, timely swallow, no clinical signs of aspiration. Patient was observed to take straw sips of a diet enrique eric, with patient taking small individual sips, producing a timely swallow, no clinical signs of aspiration. Patient continues to tolerate current diet well. Recommend Patient continue on Chopped/Advanced (NDD3) with THIN liquids, pills whole in puree or liquid at next level of care, with advancement to more regular textures as deemed by caregivers at [facility]. Frequency/Duration: M-F while inpatient Date Range for Service Req: Timeline to reassess: Control System Manager Clinican/Clinical Fellow: No Supervisory Statement: I have reviewed and agree with the student/clinical fellow's documentation: N/A Speech Language Pathologist: July Toro M.A., CCC-BUSINESS ANALYSIS CONSULTANT
--- NOTE | 2022-11-11 14:17 | P.DS_ITS ---
DS: Providers Provider Date of Service: 11/11/22 Date of admission: 11/06/22 06:08 Primary care physician: Mindi Melvin MD Consults: 11/06/22 06:06 Consult to Pulmonology Routine Consulting Provider: Sawyer Cerna Reason for consultation: PUlmonary collapse DS: Diagnosis Discharge Diagnosis (1) Encephalopathy: Status: Acute (2) Pulmonary collapse: Status: Acute (3) Acute and chronic respiratory failure with hypoxia: Status: Acute DS: Summary Hospital Course Hospital Course: Date of Service: 11/06/22 Chief Complaint: SOB 2-year-old female with past medical history of seizure diabetes, diastolic heart failure, history healthcare associated pneumonia, HTN, hypothyroidism, SHOSHANA, schizoaffective disorder, chronic respiratory failure with hypercapnia, and morbid obesity presents to the hospital with shortness of breath.? Patient is obtunded, wakes up to verbal as well as painful stimuli but closes her eyes and does not answer questions.? According to the notes sent in for with her documents from skilled nursing patient was found to be hypoxic satting in the low 80s on 3-4 L of oxygen.? But they had problems with her keeping her oxygen on and therefore sent to the hospital. On arrival to the ED patient found to have temp of 98.8 degrees, respiratory rate of 38, heart rate of 109, satting 82% on non-rebreather, patient currently on high-flow 34% satting 92%. Labs are found to be WBC count of 7.8, hemoglobin of 9.9, medical 32.9, pH of 7.43, CO2 of 52, otherwise unremarkable, COVID-19 negative, Chest CT shows worsened aeration throughout the right lung compared to prior with regions of opacity concerning for infectious consolidation.? Near complete collapse of the left lower lobe worsened from 12/14/2021 with minimal scattered areas loomis at the base.? Her BNP is 55, troponin is 3.4 Patient admitted for further management. Hospital course Acute on chronic hypoxic respiratory failure due to pneumonia and COPD exacerbation. 62yo female long-term care resident at [facility] with COPD, presenting with hyopxia and found to have PNA with LLL collapse, patient admitted to hospital wi th a diagnosis of acute-chronic hypoxic resp failure due to PNA and copd exac. with LLL collapse patient was placed on IV Zosyn, left site was left up for postural drainage seen by ios architect they fell bronchoscopy not needed at this time they recommend incentive spirometry and antibiotics ABGs showed no hypercapnia, patient has been kept on 3 L of oxygen with stable finger oximetry however noted to have transient drop in oxygenation if patient talk for a longer periods of time but oxygenation rapidly goes back up to 93% therefore will discharge patient on 3 L baseline oxygen as well as on by mouth Augmentin, due to concern for aspiration pneumonia patient was evaluated by speech therapy and has been maintained on NDD3 solids and thin liquids. Recommend to continue home inhalers no steroids required. Patient has serial chest x-rays of toe and that showed partial consolidation of the left lung with patchy airspace disease of the right hemithorax, and no worsening of lung disease. Acute toxic-metabolic encephalopathy,- reslolved, likely due to hypoxia, no hypercapnea, and due to polypharmacy had Ativan has been discontinued. DM2 - resume metformin. For hypothyroidism continue levothyroxine Schizoaffective disorder - continue home meds Time Spent with Patient Time attestation: Total time managing care of this patient today ____ minutes. Discharge coordination time: Greater than 30 minutes Quality: Safe Use of Opioids Does Pt have an Active Cancer Diagnosis on the Problem List?: No Quality: Stroke Does the patient have a stroke diagnosis?: No Physical Exam Vital Signs: Vital Signs: Last Vital Signs Temp 97.2 F 11/11/22 08:00 Pulse 93 11/11/22 11:33 Resp 18 11/11/22 11:33 BP 121/69 11/11/22 08:00 Pulse Ox 90 L 11/11/22 11:33 O2 Del Method 11/11/22 08:00 O2 Flow Rate 3 11/11/22 08:00 FiO2 80 11/06/22 07:50 BMI result Body Mass Index 39.1 Const: Other: Gen: in no acute distress HEENT: sclera anicteric, moist mucus membranes Neck: supple Lungs: diminished breath sounds, no respiratory distress no use of accessory muscle no rhonchi, no wheeze, no rale Heart: regular rate and rhythm, no murmurs Abd: soft, non-tender, non-distended Ext: no edema Skin: warm/well-perfused Neuro: alert and oriented x3, no focal findings Psych: appropriate affect DS: Data Data Completed and Pending Completed studies during hospitalization [Text1]: Procedures Introduction of Remdesivir Anti-infective into Peripheral Vein, Percutaneous Approach, [employer] 5 (10/26/21) Labs on day of discharge: Laboratory Results - last 24 hr 11/10/22 11/10/22 11/11/22 16:28 19:43 06:03 WBC 6.2 RBC 3.82 L Hgb 10.6 L Hct 34.4 L MCV 90.1 MCH 27.7 MCHC 30.8 L RDW 15.5 Plt Count 213 MPV 11.8 Absolute Nucleated RBC 0.000 Nucleated RBC % (auto) 0.0 Sodium Potassium Chloride Carbon Dioxide Anion Gap BUN Creatinine Estim Creat Clear Calc Estimated GFR POC Glucose 301 H 209 H Random Glucose Calcium Procalcitonin COVID-19 (G[facility]ZALES) COVID-Trifacta 11/11/22 11/11/22 11/11/22 06:03 07:36 11:35 WBC RBC Hgb Hct MCV MCH MCHC RDW Plt Count MPV Absolute Nucleated RBC Nucleated RBC % (auto) Sodium 139 Potassium 4.2 Chloride 96 Carbon Dioxide 33 H Anion Gap 14 BUN 31 H Creatinine 0.76 Estim Creat Clear Calc 91.9 Estimated GFR > 60 POC Glucose 254 H 182 H Random Glucose 280 H Calcium 9.8 Procalcitonin 0.10 COVID-19 (GONZALES) DiscoveRXID-19 [employer] 11/11/22 12:33 WBC RBC Hgb Hct MCV MCH MCHC RDW Plt Count MPV Absolute Nucleated RBC Nucleated RBC % (auto) Sodium Potassium Chloride Carbon Dioxide Anion Gap BUN Creatinine Estim Creat Clear Calc Estimated GFR POC Glucose Random Glucose Calcium Procalcitonin COVID-19 (GONZALES) Negative COVID-Trifacta See Note Discharge Plan Discharge Anticipated Discharge Date/Time: 11/11/22 11:18 Patient Disposition: Xfer [facility] Discharge Diagnosis: Acute on chronic hypoxic respiratory failure Acute toxic metabolic encephalopathy Aspiration pneumonia Referrals: [facility] [Outside] - 1 Week Mindi Melvin MD [Primary Care Provider] - 1 Week Discharge Medications: New amoxicillin-pot clavulanate 875-125 mg tablet 1 tab PO BID Qty: 4 0RF Continued atorvastatin 20 mg Tablet 40 mg PO BEDTIME polyethylene glycol 3350 17 gram Powder In Packet 17 g PO DAILY clozapine 100 mg Tablet 300 mg PO BEDTIME acetaminophen 500 mg Tablet 1,000 mg PO TID levothyroxine 25 mcg Tablet 25 mcg PO DAILY@0600 methenamine hippurate 1 gram Tablet 1 g PO BID magnesium hydroxide [Milk of Magnesia] 400 mg/5 mL Suspension 30 ml PO DAILY metformin 1,000 mg Tablet 1,000 mg PO BID oxcarbazepine 600 mg Tablet 600 mg PO BID furosemide 20 mg Tablet 20 mg PO DAILY clozapine 25 mg Tablet 100 mg PO DAILY albuterol sulfate 90 mcg/actuation Hfa Aerosol Inhaler 2 inh INHALATION Q4H PRN (Reason: Shortness Of Breath Or Wheezing) trihexyphenidyl 2 mg Tablet 4 mg PO DAILY perphenazine 16 mg Tablet 16 mg PO TID omega-3 fatty acids-vitamin E 1,000 mg Capsule 1 cap PO DAILY metoprolol tartrate 25 mg Tablet 12.5 mg PO DAILY Spiriva with HandiHaler 18 mcg Capsule, W/Inhalation Device 1 cap INHALATION DAILY Rx Instructions: 1 cap requires 2 inhalations fenofibrate 160 mg Tablet 160 mg PO BEDTIME fluticasone furoate-vilanterol [Breo Ellipta] 200-25 mcg/dose Blister With Device 1 inh INHALATION BEDTIME magnesium oxide 400 mg magnesium Tablet 400 mg PO TID aspirin 81 mg Tablet,Delayed Release (Dr/Ec) 81 mg PO DAILY ascorbic acid (vitamin C) 500 mg Tablet 500 mg PO BID atropine 1 % drops 1 drp sublingual Q4H PRN (Reason: Secretions) lamotrigine 100 mg tablet 1 tab PO BID bisacodyl 5 mg Tablet 10 mg PO DAILY PRN (Reason: Constipation) Discontinued meloxicam 7.5 mg Tablet 7.5 mg PO DAILY cefuroxime axetil 500 mg tablet 500 mg PO BID 5 Days Qty: 10 0RF lorazepam 1 mg tablet 1 tab PO BID Discharge Orders: Discharge Order (Routine); Ordered 11/11/22 Ordered By: Zacarias Fuchs Diet: Diabetic diet Activity on Discharge: As tolerated Stand Alone Forms: Patient Portal Discharge page Care Plan Goals: Aspiration pneumonia, take chopped/ advanced diet with thin liquids, small bites, eat all meals sitting up. Incentive spirometry as tolerated Take by mouth antibiotic for 2 more days as directed Health Concerns: Continue all prior medications Ativan discontinued due to excessive sedation on admission, patient did not complain of anxiety or withdrawal symptoms Plan of Treatment: Follow-up with PCP Assessment: As above
[2022-11-11 15:15] VITALS: PULSE 93; RESP 18; O2SAT 91
== END 2022-11-11 15:49 | disposition skilled nursing facility (03) | DRG 177 ==
LOC: HO.ED 03:43 → HO.EDOVER 06:13 → HO.S3 08:18
PROVIDERS: Family Medicine; Hospitalist; Admitting Provider Internal Medicine; Emergency Provider Internal Medicine; PCP Internal Medicine; Visit Provider Hospitalist
DX: J69.0 Pneumonitis due to inhalation of food and vomit (principal); G92.8 Other toxic encephalopathy; J96.21 Acute and chronic respiratory failure with hypoxia; I50.32 Chronic diastolic (congestive) heart failure; J98.19 Other pulmonary collapse; I11.0 Hypertensive heart disease with heart failure; Z66 Do not resuscitate; E78.5 Hyperlipidemia, unspecified; E03.9 Hypothyroidism, unspecified; G47.33 Obstructive sleep apnea (adult) (pediatric); Z99.81 Dependence on supplemental oxygen; E66.01 Morbid (severe) obesity due to excess calories; Z68.39 Body mass index [BMI] 39.0-39.9, adult; T50.915A Adverse effect of multiple unspecified drugs, medicaments and biological substances, initial encounter; E11.9 Type 2 diabetes mellitus without complications; F25.9 Schizoaffective disorder, unspecified; Z20.822 Contact with and (suspected) exposure to COVID-19; Z91.199 Patient's noncompliance with other medical treatment and regimen due to unspecified reason; Z79.51 Long term (current) use of inhaled steroids; Z79.84 Long term (current) use of oral hypoglycemic drugs; Z79.890 Hormone replacement therapy; Z79.899 Other long term (current) drug therapy
CPT/HCPCS: 36415; 36600; 71045; 71046; 71250; 80048; 80053; 82803; 82947; 83605; 83880; 84145; 84443; 84484; 85025; 85027; 87040; 87633; 87635; 87640; 87641; 92526; 92610; 93005; 94640; 94660; 99285; J1643; J1940; J2543; J2920; J2930

== ENCOUNTER 2023-04-28 09:05 | Outpatient (AMB) | payer MEDICARE, MEDICAID, SELFPAY ==
--- NOTE | 2023-04-28 09:11 | MHC.OFFVIS ---
Intake Vital Signs 04/28/23 09:14 Height 5 ft 5 in Weight 226 lb BMI 37.6 BP 108/75 Blood Pressure Location Lt brachial Position Sitting Pulse 116 H Intake Visit Reasons: Colonoscopy Screening Intake Note: Antonette presents in office as a new.patient for a colonoscopy screening. PT CC: pt reports having abdominal pain ,constipation pt denies any other GI Issues Leases And Land Supervisor Required: No Accompanied by: [employer] Allergies chlorpromazine [From Thorazine] Allergy (Verified 04/28/23 09:11) Unknown fluphenazine [From Prolixin] Allergy (Verified 04/28/23 09:11) Unknown haloperidol [From Haldol] Allergy (Verified 04/28/23 09:11) Unknown niacin Allergy (Verified 04/28/23 09:11) Unknown thioridazine [From Mellaril] Allergy (Verified 04/28/23 09:11) Unknown HPI Colonoscopy Screening HPI Details 63-year-old female with past medical history hypothyroidism, hypertension, diastolic heart failure, diabetes, hyperlipidemia, aspiration pneumonia, COPD, SHOSHANA, schizoaffective disorder is here today for initial consultation. Patient was sent via ambulance with [employer] from [facility]. Patient reports that she has been constipated and does not move her bowels every day. There is times that she does not move her bowels for 3-4 days. When she does have a bowel movement patient does not feel like she empties completely. Patient is not active. Able to walk from wheelchair to commode using walker. Patient was admitted in the beginning of this year with pneumonia, with acute on chronic respiratory failure. Patient has frequent shortness of breath on couple corticosteroid inhalers as well as rescue inhaler. Patient denies melena, hematochezia, unintentional weight loss or ribbon like stools. Patient denies any dyspepsia, dysphagia or odynophagia. [facility] Medical History Chronic respiratory failure with hypoxia COPD (chronic obstructive pulmonary disease) Diabetes mellitus type 2 in obese Diastolic heart failure HCAP (healthcare-associated pneumonia) Hyperlipidemia Hypertension Hypothyroid SHOSHANA (obstructive sleep apnea) Pneumonia due to 2019-nCoV Schizoaffective disorder Schizoaffective disorder, depressive type Family History Father No problems noted. Social History Household Members: Other Household Members Other:: [facility] Do you presently have visiting nurse or other home services: No Unable to assess alcohol history related to: Unknown Alcohol intake: unknown Patient Tobacco Use Status: Former Tobacco user Quit Date: 1979 Substance Use Type: Marijuana Advance Directives Date on File: 11/07/21 service: No Current occupational status: disabled Review of Systems Const Denies weight gain and Denies weight loss ENT Reports no additional complaints, Denies dysphagia and Denies odynophagia Card Reports no additional complaints and Reports dyspnea (Occasional) Resp Reports no additional complaints and Reports dyspnea (Occasional) GI Reports abdominal pain, Denies belching, Denies melena, Reports bloating, Denies change in bowel habits, Reports constipation, Denies dysphagia, Denies excessive flatus, Denies dyspepsia, Denies heartburn, Denies diarrhea, Denies loose stools, Denies nausea, Denies odynophagia and Denies vomiting Reports no additional complaints Musc Reports no additional complaints Neuro Reports no additional complaints Psych Reports no additional complaints Endo Reports no additional complaints Physical Exam Vital Signs: Last Vital Signs Pulse 116 H 04/28/23 09:14 BP 108/75 04/28/23 09:14 BMI result Body Mass Index 37.6 Const General: no acute distress Nutritional Appearance: obese Orientation/consciousness: patient oriented x3 Limitations: physical limitations HEENT Head: Yes normal to inspection, Yes normocephalic and Yes atraumatic Face and sinus: Yes normal facial exam Mouth: Normal oral and palatal mucosa present Throat: Yes posterior oropharynx normal, Yes tonsils normal and Yes uvula midline Eyes General: appearance normal, both eyes and all related structures Neck Neck: Yes normal visual inspection, Yes full ROM and Yes trachea midline Thyroid: Thyroid normal Resp Effort & Inspection: normal respiratory effort, able to speak in complete sentences, no tracheal deviation and symmetric chest movement Auscultation: clear to auscultation bilaterally Cardio Rate: regular rate Heart sounds: S1 normal heart sound present and S2 normal heart sound present GI Inspection: Yes normal to inspection, No distended and Yes obesity Palpation (GI): Soft to palpation, not firm, nontender and No hepatosplenomegaly present Auscultation: normal bowel sounds General: Yes no CVA tenderness Back/Spine/Pelvis Back: no CVA tenderness Skin General skin exam: elasticity normal, turgor normal and dry skin Neuro General: patient oriented x3 Psych Appearance: grossly normal Mental Status: mental status grossly normal Speech and movement: Normal speech and movement present Assessment & Plan Assessment & Plan (1) Chronic idiopathic constipation: Code(s): K59.04 - Chronic idiopathic constipation Plan: Patient is very constipated. She can still take Dulcolax tablets every night. Continue taking magnesium as well as MiraLax (2) Screen for colon cancer: Code(s): Z12.11 - Encounter for screening for malignant neoplasm of colon Plan: Patient is a high risk to undergo procedure. History of aspiration pneumonia in the past. Currently patient is very constipated, she does not move much. Patient needs to be evaluated and might need to undergo general anesthesia. Patient denies any melena, hematochezia, unintentional weight loss or ribbon like stools. Patient will be back in 6 weeks to discuss going for colonoscopy. Patient is agreeable to this plan and verbalizes understanding of instructions. She was given the opportunity to ask questions and all questions answered. Medications: Changed From bisacodyl 10 mg PO DAILY PRN Constipation To bisacodyl 10 mg (2 x 5 mg) PO DAILY 180 tabs 2RF Constipation Refilled bisacodyl 10 mg (2 x 5 mg) PO DAILY 180 tabs 2RF Constipation Coding Level of Care Code New Pt Level 3 (11716) Diagnoses Chronic idiopathic constipation K59.04 Screen for colon cancer Z12.11 Time Spent (min) 40 Comment 30 minutes spent with patient and additional 10 minutes spent reviewing her records
[2023-04-28 09:14] VITALS: BP 108/75; PULSE 116; BMI 37.6
== END 2023-04-28 09:46 | disposition home or self-care (01) ==
PROVIDERS: PCP Emergency Medicine; Visit Provider Nurse Practitioner Family
DX: K59.04 Chronic idiopathic constipation (principal); Z12.11 Encounter for screening for malignant neoplasm of colon
CPT/HCPCS: 99203

== ENCOUNTER → 2023-04-28 09:05 | Outpatient (BNVA) | payer MEDICARE, MEDICAID, SELFPAY | PROVIDERS: PCP Emergency Medicine; Visit Provider Nurse Practitioner Family | DX: Z12.11 Encounter for screening for malignant neoplasm of colon (principal); K59.04 Chronic idiopathic constipation | CPT/HCPCS: 99202 ==

== ENCOUNTER → 2023-06-09 11:14 | Outpatient (BNVA) | payer MEDICARE, MEDICAID, SELFPAY | PROVIDERS: PCP Emergency Medicine; Visit Provider Nurse Practitioner Family | DX: K59.04 Chronic idiopathic constipation (principal); Z79.899 Other long term (current) drug therapy | CPT/HCPCS: 99212 ==

== ENCOUNTER 2023-06-09 11:19 | Outpatient (AMB) | payer MEDICARE, MEDICAID, SELFPAY ==
--- NOTE | 2023-06-09 11:19 | MHC.OFFVIS ---
Intake Vital Signs 06/09/23 11:21 Height 5 ft 5 in Weight 219 lb BMI 36.4 BP 97/57 L Blood Pressure Location Lt brachial Position Sitting Pulse 87 Intake Visit Reasons: 6 week follow up Intake Note: Antonette presents in office for a 6week f/u for Chronic idiopathic constipation PT CC: pt reports having bloating , diarrhea pt denies any other GI Issues [employer]erry[employer] Deckhand Required: No Accompanied by: Other Relationship Allergies chlorpromazine [From Thorazine] Allergy (Verified 06/09/23 11:19) Unknown fluphenazine [From Prolixin] Allergy (Verified 06/09/23 11:19) Unknown haloperidol [From Haldol] Allergy (Verified 06/09/23 11:19) Unknown niacin Allergy (Verified 06/09/23 11:19) Unknown thioridazine [From Mellaril] Allergy (Verified 06/09/23 11:19) Unknown HPI 6 week follow up HPI Details LAST VISIT Chronic idiopathic constipation Patient is very constipated. She can still take Dulcolax tablets every night. Continue taking magnesium as well as MiraLax Screen for colon cancer Patient is a high risk to undergo procedure. History of aspiration pneumonia in the past. Currently patient is very constipated, she does not move much. Patient needs to be evaluated and might need to undergo general anesthesia. Patient denies any melena, hematochezia, unintentional weight loss or ribbon like stools. Patient will be back in 6 weeks to discuss going for colonoscopy. Patient is agreeable to this plan and verbalizes understanding of instructions. She was given the opportunity to ask questions and all questions answered. TODAY'S VISIT Patient is here today for follow-up. Patient reports that she is moving her bowels better now. Patient reports occasional dyspepsia. Due to patient's high risk for aspiration during anesthesia patient we will do Cologuard instead. This was discussed with Dr. Barrientos. Patient denies melena, hematochezia, unintentional weight loss or ribbon like stools. Patient reports that she takes Dulcolax tablets every night and is moving her bowels better. However patient states that occasionally she does not feel like she empties her bowels completely [facility] Medical History Chronic respiratory failure with hypoxia COPD (chronic obstructive pulmonary disease) Diabetes mellitus type 2 in obese Diastolic heart failure HCAP (healthcare-associated pneumonia) Hyperlipidemia Hypertension Hypothyroid SHOSHANA (obstructive sleep apnea) Pneumonia due to 2019-nCoV Schizoaffective disorder Schizoaffective disorder, depressive type Family History Father No problems noted. Social History Household Members: Other Household Members Other:: [facility] Housing: Skilled Nursing Housing Other:: [facility] Do you presently have visiting nurse or other home services: No Unable to assess alcohol history related to: Unknown Alcohol intake: unknown Patient Tobacco Use Status: Former Tobacco user Quit Date: 1979 Substance Use Type: Marijuana Advance Directives Date on File: 11/07/21 service: No Current occupational status: disabled Review of Systems Const Denies weight gain and Denies weight loss ENT Reports no additional complaints, Denies dysphagia and Denies odynophagia Card Reports no additional complaints Resp Reports no additional complaints GI Denies abdominal pain, Denies belching, Denies melena, Denies bloating, Denies change in bowel habits, Denies dysphagia, Denies excessive flatus, Denies dyspepsia, Denies heartburn, Denies diarrhea, Reports loose stools, Denies nausea, Denies odynophagia, Denies vomiting and Reports other (History of choking in the past) Reports no additional complaints Musc Reports no additional complaints Neuro Reports no additional complaints Psych Reports no additional complaints Endo Reports no additional complaints Physical Exam Vital Signs: Last Vital Signs Pulse 87 06/09/23 11:21 BP 97/57 L 06/09/23 11:21 BMI result Body Mass Index 36.4 Const Other: Patient is in the wheelchair General: no acute distress and well developed Nutritional Appearance: obese Orientation/consciousness: patient oriented x3 HEENT Head: Yes normal to inspection, Yes normocephalic and Yes atraumatic Face and sinus: Yes normal facial exam Mouth: Normal oral and palatal mucosa present Throat: Yes posterior oropharynx normal, Yes tonsils normal and Yes uvula midline Eyes General: appearance normal, both eyes and all related structures Neck Neck: Yes normal visual inspection, Yes full ROM and Yes trachea midline Thyroid: Thyroid normal Resp Effort & Inspection: normal respiratory effort, able to speak in complete sentences, no tracheal deviation and symmetric chest movement Auscultation: clear to auscultation bilaterally Cardio Rate: regular rate Heart sounds: S1 normal heart sound present and S2 normal heart sound present GI Inspection: Yes normal to inspection, No distended and Yes obesity Palpation (GI): Soft to palpation, not firm, nontender and No hepatosplenomegaly present Auscultation: normal bowel sounds General: Yes no CVA tenderness Back/Spine/Pelvis Back: no CVA tenderness Skin General skin exam: elasticity normal, turgor normal and dry skin Neuro General: patient oriented x3 Psych Appearance: grossly normal Mental Status: mental status grossly normal Speech and movement: Normal speech and movement present Assessment & Plan Assessment & Plan (1) Chronic idiopathic constipation: Code(s): K59.04 - Chronic idiopathic constipation Plan: Continue Dulcolax. Will check her blood work today. Will send Cologuard if positive will arrange for patient to go for colonoscopy. I will see patient in 6 months, sooner on as needed basis. Patient is agreeable to this plan and verbalizes understanding of instructions. She was given the opportunity to ask questions and all questions answered. Thank you for allowing me to participate in her care Orders: Orders Comprehensive Met. Panel 06/09/23 K59.04 - Chronic idiopathic constipation, I50.30 - Unspecified diastolic (congestive) heart failure Complete Blood Count no Diff 06/09/23 K59.04 - Chronic idiopathic constipation, D64.9 - Anemia, unspecified Coding Level of Care Code Est Pt Level 3 (53810) Diagnoses Chronic idiopathic constipation K59.04 Time Spent (min) 30 Comment 20 minutes spent with patient and additional 10 minutes spent reviewing her records
[2023-06-09 11:21] VITALS: BP 97/57; PULSE 87; BMI 36.4
== END 2023-06-09 13:29 | disposition home or self-care (01) ==
PROVIDERS: PCP Emergency Medicine; Visit Provider Nurse Practitioner Family
DX: K59.04 Chronic idiopathic constipation (principal)
CPT/HCPCS: 99213